=== PATIENT | female | born 1995 | race Caucasian/White ===

== ENCOUNTER 2023-12-11 20:04 | Outpatient (REF) | payer OTHER, SELFPAY ==
[2023-12-14 17:11] LABS: Age Gdln ACOG Testing Note (.); IGP, rfx Aptima HPV ASCU Note (.)
== END 2023-12-11 20:05 | disposition home or self-care (01) ==
LOC: LAB 20:04
PROVIDERS: Visit Provider Obstetrics & Gynecology
DX: Z01.419 Encounter for gynecological examination (general) (routine) without abnormal findings (principal)
CPT/HCPCS: 88175

== ENCOUNTER 2023-12-18 08:22 | Outpatient (OUT) | payer OTHER, SELFPAY ==
--- NOTE | 2023-12-18 08:24 | US_ITS ---
[address] [address] Patient Name: SUNNI GOMEZ MRN: [id number] date: 1995 Sex: F Assigned Patient Location: [facility] Current Patient Location: Accession/Order Number: [id number] Exam Date: 12/18/2023 08:24 Report Date: 12/19/2023 06:54 At the request of: DELFINO JOHNS Procedure: US pelvis w/ transvaginal EXAMINATION: US pelvis w/ transvaginal HISTORY: PELVIC PAIN COMPARISON: No relevant comparison available. TECHNIQUE: Transabdominal and/or transvaginal sonographic examination was performed as indicated by examination type. FINDINGS: UTERUS: Normal size and appearance. Uterus size: 9.5 x 4.3 x 6.0 cm ENDOMETRIUM: Normal homogeneous appearance. Endometrial thickness: 6 mm RIGHT OVARY: Normal size and appearance. Color Doppler suggests blood flow within the ovary. . Ovary size: 2.0 x 1.5 x 2.0 cm LEFT OVARY: Normal size and appearance. Color Doppler suggests blood flow within the ovary. . Ovary size: 1.7 x 1.3 x 1.8 cm CUL-DE-SAC: Unremarkable. No significant free fluid. BLADDER: Unremarkable. OTHER: None. US/US pelvis w/ transvaginal IMPRESSION: 1. Unremarkable uterus. 2. No appreciable abnormality of the ovaries. Duplex Doppler could not be obtained and color evaluation for blood flow within the ovary was very limited due to patient body habitus. Electronically authenticated by: PERLA GRADY Date: 12/19/2023 06:54
--- OUTSIDE RECORDS SUMMARY | 2023-12-18 08:25 | XMS_ITS | CCD ---
Author Organization [facility] Care Team Providers Care Apprenticeship Consultant Name Role Phone Good Gonzalez Primary Care Provider [phone] LISE ., DR VERMA Admitting Unavailabl e KARASIK ., DR VERMA Consulting Unavailabl e KARASIK ., DR VERMA Attending Unavailabl e REQUEST, DR NOBLES LISTED Primary Care Unavaila ble JOHANA ., DR SALEH Consulting Unavailable JOHANA ., DR SALEH Procedure Practitioner Unavail able Schlachter WARDROBE CUSTODIAN-FLOOR COVERING PRINTER ASSISTANT, Ronni Primary Care Provide r KARTIK, RONNI Primary Care Unavailable YULI OJEDA Attending Unavailable YULI OJEDA Attending Unavailable YULI OJEDA Referring Unavailable SCHLACHTER, RONNI Primary Care Unavailable NIVIA NORRIS Referring Un available SCHLACHTER, RONNI Primary Care Unavailable SCHLACHTER, RONNI Referring Unavailable SCHLACHTER, RONNI Primary Care Unavailable Unavailable Primary Care Provider Unavailolesya e RONNI PASCUAL Attending Unavailable SCHLACHTER, RONNI Referring Unavailable SCHLACHTER, RONNI Primary Care Unavailable NIVIA NORRIS Attending Un available SCHLACHTERRONNI Referring Unavailable SCHLACHTER, RONNI Primary Care Unavailable SCHLACHTER, RONNI Attending Unavailable SCHLACHTER, RONNI Referring Unavailable SCHLACHTER, RONNI Primary Care Unavailable CARRILLO ARAGON Attending Unavailable SCHLACHTER, RONNI Referring Unavailable SCHLACHTER, RONNI Primary Care Unavailable SCHLACHTER, RONNI Attending Unavailable SCHLACHTER, RONNI Referring Unavailable SCHLACHTER, RONNI Primary Care Unavailable SCHLACHTER, RONNI Attending Unavailable SCHLACHTER, RONNI Referring Unavailable SCHLACHTER, RONNI Primary Care Unavailable SCHLACHTER, RONNI Attending Unavailable SCHLACHTER, RONNI Referring Unavailable RONNI PASCUAL Primary Care Unavailable DELFINO VAUGHN Attending Unavailable DELFINO VAUGHN Attending Unavailable Allergies Allergy Classification Reported Allergen(s) Allergy Type Date of Onset Reaction(s) Facility (7 sources) Non-steroidal anti-inflammator y agent; Translations: [NSAIDS (NON-STEROIDAL ANTI-INFLAMMATOR Y DRUG)] Propensity to adverse reactions to drug 01-17-2023 [facility] Medications Current Medications Medication Drug Class(es) Dates Sig (Normalized) Sig (Original) cholecalciferol 0.05 mg oral capsule (4 sources) Vitamin D take 1 capsule by mouth in the morning cholecalciferol, vitamin D3, 2,000 units capsule Take 1 capsule (2,000 Units total) by mouth in the morning. Active cyclobenzaprine hydrochloride 10 mg oral tablet (2 sources) Muscle Relaxant Start: 01-31-2023 End: 05-07-2023 take 1 tablet by mouth three times daily as needed for muscle spasms cyclobenzaprine (FLEXERIL) 10 mg tablet Indications: Spinal stenosis of lumbar region with neurogenic claudication Take 1 tablet (10 mg total) by mouth 3 (three) times a day as needed for muscle spasms. 30 tablet 0 01/31/2023 05/07/2023 Discontinued desogestrel 0.15 mg / ethinyl estradiol 0.03 mg oral tablet (4 sources) Progestin, Estrogen Start: 11-26-2023 End: 11-25-2024 desogestrel-ethinyl estradiol (Apri) 0.15-30 MG-MCG tablet Indications: control counseling Take 1 tablet by mouth Daily 28 tablet 12 11/26/2023 11/25/2024 Active ferrous sulfate 325 mg oral tablet (4 sources) Start: 11-06-2022 take 1 tablet by mouth in the morning ferrous sulfate 325 (65 FE) mg tablet Take 1 tablet (325 mg total) by mouth in the morning. 30 tablet 3 11/06/2022 Active FLUoxetine 10 mg oral capsule (7 sources) Serotonin Reuptake Inhibitor Start: 12-05-2023 take 1 capsule by mouth in the morning FLUoxetine (PROzac) 10 mg capsule Take 1 capsule (10 mg total) by mouth in the morning. 90 capsule 1 12/05/2023 Active Start: 11-07-2023 End: 12-05-2023 take 1 capsule by mouth in the morning FLUoxetine (PROzac) 10 MG capsule Take 10 mg by mouth in the morning. 11/07/2023 Active 24 hr metFORMIN hydrochloride 500 mg extended release oral tablet (3 sources) Biguanide Start: 05-01-2023 take 1 tablet by mouth once daily at breakfast metFORMIN XR (GLUCOPHAGE XR) 500 mg 24 hr tablet Take 1 tablet (500 mg total) by mouth daily with breakfast. 90 tablet 3 05/01/2023 Active Completed/Discontinued Medications Medication Drug Class(es) Dates Sig (Normalized) Sig (Original) 0.8 ml adalimumab 50 mg/ml auto-injector (3 sources) Tumor Necrosis Factor Alisson Start: 09-29-2014 End: 12-30-2014 Adalimumab (HUMIRA PEN) 40 mg/0.8 mL pnkt To receive 80 mg on day one then 40 mg every 2 weeks subcutaneous. 2 Package 2 09/29/2014 12/30/2014 Discontinued Start: 04-18-2013 End: 09-27-2014 Adalimumab (HUMIRA PEN) 40 m g/0.8 mL pnkt Indications: Inflammatory bowel disease , Hematochezia Pt to receive 80 mg day 1 then 40 mg every 2 weeks there after 2 Kit 6 04/18/2013 09/27/2014 Discontinued Start: 09-26-2012 End: 09-29-2014 Adalimumab (HUMIRA PEN) 40 m g/0.8 mL PnKt Inject 40 mg SQ once every other week. 1 Kit 0 09/26/2012 09/29/2014 Discontinued Comment on above: Inject 40 mg SQ once every other week. Pt to receive 80 mg day 1 then 40 mg every 2 weeks there after To receive 80 mg on day one then 40 mg every 2 weeks subcutaneous. azaTHIOprine 50 mg oral tablet (1 source) Purine Antimetabolite Start: 013 take 3 tablets by mouth once daily at bedtime azaTHIOprine 50 mg tablet Indications: Inflammatory bowel disease , Crohn's disease (HCC) Take 3 tablets by mouth daily at bedtime. 90 tablet 1 09/13/2012 Active Comment on above: Take 3 tablets by mo uth daily at bedtime. balsalazide disodium 750 mg oral capsule (1 source) Aminosalicylate Start: 014 take 1 capsule by mouth twice daily balsalazide (COLAZAL) 750 mg capsule Take 1 capsule by mouth twice daily. 60 capsule 3 11/07/2013 Active Comment on above: Take 1 capsule by mo ut twice daily. dexamethasone 1 mg oral tablet (1 source) Corticosteroid Start: End: take 1 tablet by mouth once dexAMETHasone (DECADRON) 1 mg tablet Take 1 tablet (1 mg total) by mouth once for 1 dose. 1 tablet 0 03/29/2023 03/29/2023 famotidine 20 mg oral tablet (1 source) Histamine-2 Receptor Antagonist Start: End: take 1 tablet by mouth twice daily famotidine (PEPCID) 20 mg tablet Take 1 tablet by mouth twice daily. 60 tablet 3 09/05/2012 09/29/2014 Discontinued Comment on above: Take 1 tablet by [facility]. omeprazole 40 mg delayed release oral capsule (1 source) Proton Pump Inhibitor Start: take 1 capsule by mouth once daily before breakfast Omeprazole (PRILOSEC) 40 mg capsule Take 1 capsule by mouth daily before breakfast. 30 capsule 3 07/16/2012 Active Comment on above: Take 1 capsule by mo [facility] daily before breakfast. Problems Active Problems Problem Classification Problem Date Documented Date Episodic/Chronic Abdominal pain (5 sources) Abdominal pain; Translations: [Unspecified abdominal pain] Onset: 03-09-2011 03-09-2011 Episodic Anxiety disorders (3 sources) Anxiety disorder, unspecified; Translations: [Anxiety] Onset: 09-08-2020 12-05-2023 Chronic Mood disorders (2 sources) Major depressive disorder, single episode, unspecified; Translations: [Depressive disorder] Onset: 09-08-2020 12-05-2023 Chronic Mood disorders (1 source) Mood disorders; Translations: [Depression, unspecified] Onset: 12-05-2023 Nonspecific chest pain (3 sources) Chest pain, unspecified; Translations: [Chest pain] Onset: 07-11-2023 Episodic Nutritional deficiencies (2 sources) Vitamin D deficiency; Translations: [Vitamin D deficiency, unspecified] Onset: 05-07-2023 05-07-2023 Chronic Other complications of ; puerperium affecting management of mother (3 sources) Obesity complicating childbirth; Translations: [OBESITY COMPLICATING CHILDBIRTH] Onset: 08-30-2020 Chronic Other endocrine disorders (3 sources) Polycystic ovarian syndrome; Translations: [POLYCYSTIC OVARIAN SYNDROME] Onset: 09-08-2020 Chronic Other endocrine disorders (5 sources) Hyperinsulinism; Translations: [Other hypoglycemia] Onset: 03-29-2023 03-29-2023 Chronic Other endocrine disorders (6 sources) Polycystic ovary; Translations: [Polycystic ovarian syndrome] Onset: 03-29-2023 03-29-2023 Chronic Other endocrine disorders (1 source) Other hypoglycemia; Translations: [Other hypoglycemia] Onset: 03-29-2023 Chronic Other female genital disorders (1 source) Pain in female genitalia on intercourse; Translations: [Unspecified dyspareunia] 12-11-2023 Chronic Other nervous system disorders (1 source) Anesthesia of skin; Translations: [Anesthesia of skin] Onset: 12-05-2023 Episodic Other nervous system disorders (1 source) Paresthesia of skin; Translations: [Paresthesia of skin] Onset: 12-05-2023 Episodic Other nervous system disorders (1 source) Paresthesia of hand ; Translations: [Anesthesia of skin] 12-05-2023 Episodic Other nutritional; endocrine; and metabolic disorders (1 source) Morbid (severe) obesity due to excess calories; Translations: [MORBID SEVERE OBES D/T EXCESS CONSTANCE] Onset: 09-08-2020 Chronic Regional enteritis and ulcerative colitis (3 sources) Crohn's disease; Translations: [Crohn's disease, unspecified, with rectal bleeding] Onset: 05-30-2011 Chronic Spondylosis; intervertebral disc disorders; other back problems (4 sources) Prolapsed lumbar intervertebral disc; Translations: [Other intervertebral disc displacement, lumbar region] Onset: 12-22-2022 12-22-2022 Chronic Unclassified (1 source) CONTACT W/AND (SUSP) EXPOS COVID-19; Translations: [CONTACT W/AND (SUSP) EXPOS COVID-19] Onset: 09-08-2020 Unclassified (1 source) Annual Exam Onset: 11-07-2023 Unclassified (1 source) Endocrine Disorders Onset: 03-29-2023 Past or Other Problems Problem Classification Problem Date Documented Da te Episodic/Chronic Gastrointestinal hemorrhage (1 source) Blood-tinged feces; Translations: [Melena] Onset: 03-09-2011 03-09-2011 Episodic Genitourinary symptoms and ill-defined conditions (2 sources) Dysuria; Translations: [Dysuria] Onset: 07-26-2023 Episodic Noninfectious gastroenteritis (1 source) Inflammatory bowel disease; Translations: [Noninfective gastroenteritis and colitis, unspecified] Onset: 05-12-2011 05-12-2011 Episodic Nutritional deficiencies (2 sources) Cobalamin deficiency; Translations: [Deficiency of other specified B group vitamins] Onset: 05-07-2023 05-07-2023 Episodic Other complications of ; puerperium affecting management of mother (1 source) Diseases of the digestive system complicating childbirth; Translations: [DZ DIGESTIVE SYSTEM COMP CHILDBIRTH] Onset: 09-08-2020 Episodic Other complications of ; puerperium affecting management of mother (1 source) Endocrine, nutritional and metabolic diseases complicating childbirth; Translations: [ENDOCRN NUTR MET DZ COMP CHILDBIRTH] Onset: 09-08-2020 Episodic Other complications of ; puerperium affecting management of mother (1 source) Other mental disorders complicating childbirth; Translations: [OTH MENTAL D/O COMP CHILDBIRTH] Onset: 09-08-2020 Episodic Other gastrointestinal disorders (1 source) Diarrhea; Translations: [Diarrhea, unspecified] Onset: 03-09-2011 03-09-2011 Episodic Other and delivery including normal (1 source) Single live ; Translations: [SINGLE LIVE ] Onset: 09-08-2020 Episodic Residual codes; unclassified (1 source) 39 weeks gestation of ; Translations: [39 WEEKS GESTATION OF ] Onset: 09-08-2020 Episodic Residual codes; unclassified (1 source) Other specified personal risk factors, not elsewhere classified; Translations: [Other specified personal risk factors, not elsewhere classified] Onset: 07-26-2023 Episodic Spondylosis; intervertebral disc disorders; other back problems (4 sources) Spinal stenosis of lumbar region; Translations: [Spinal stenosis, lumbar region with neurogenic claudication] Onset: 11-23-2022 11-23-2022 Episodic Umbilical cord complication (1 source) Labor and delivery complicated by cord around neck, without compression, not applicable or unspecified; Translations: [L AND D COMP CORD NECK NO COMPRS NA/UNS] Onset: 09-08-2020 Episodic Unclassified (4 sources) Onset: 11-22-2022 Resolved: 12-05-2023 11-22-2022 Urinary tract infections (1 source) Urinary tract infectious disease Onset: 07-26-2023 Episodic Results Test Name Value Interpretation Reference Range Facility IGP,APTIMA HPV,AGE GDLNon AGE GDLN ACOG TESTING Note . [facility] Comment on above: TESTS RESULT FLAG U NITS REF RANGE LAB Clinician Provided Cytology Information Source.............Cervix;Endocervix No. of containers..01 ThinPrep Vial Age Algo ACOG Ximena... FLAG LEGEND: L-Low Normal,H-High Normal,LL-Alert Low,HH-Alert High <-Panic Low,>-Panic High,A-Abnormal,AA-Critical Abnormal Performed at: 01 =G [address] [address] Kristina Alba MD, IGP, RFX APTIMA HPV ASCU Note . [facility] Comment on above: TESTS RESULT FLAG U NITS REF RANGE LAB DIAGNOSIS: 02 NEGATIVE FOR INTRAEPITHELIAL LESION OR MALIGNANCY. Specimen adequacy: 02 Satisfactory for evaluation. Endocervical and/or squamous metaplastic cells (endocervical component) are present. Performed by: 02 Jeremy Black Lens Grinder Rough ([facility]) . 02 Note: Note 03 The Pap smear is a screening test designed to aid in the detection of premalignant and malignant conditions of the uterine cervix. It is not a diagnostic procedure and should not be used as the sole means of detecting cervical cancer. Both false-positive and false-negative reports do occur. Test Methodology: Note 03 This liquid based ThinPrep(R) pap test was screened with the use of an image guided system. . 02 The HPV DNA reflex criteria were not met with this specimen result therefore, no HPV testing was performed. FLAG LEGEND: L-Low Normal,H-High Normal,LL-Alert Low,HH-Alert High <-Panic Low,>-Panic High,A-Abnormal,AA-Critical Abnormal Performed at: 02 [facility] [address] [place] [address] Bipin Panda MD, 03 WB [facility] [address] [address] Kristina Alba MD, Performed at: = - [facility] [id number] Painting Instructor: Kirstina Alba MD, Phone: [phone] Performed at: [facility] [address] [place], [place] [id number] Painting Instructor: Bipin Panda MD, Phone: [phone] BRUSH-SPATULA CERVIX ENDOCERVIX [facility] URETHRITIS/DISCHARGE PLUS VA GINITIS (HTRX)on 11-29-2023 ATOPOBIUM VAGINAE 0.000 [facility] Healthcare ATOPOBIUM VAGINAE Not detected [facility] BVAB 2,3 (BACTERIAL VAGINOSIS ASSOCIATED BACTERIA 2, 3); MOBILUNCUS SPP 0.000 [facility] BVAB 2,3 (BACTERIAL VAGINOSIS ASSOCIATED BACTERIA 2, 3); MOBILUNCUS SPP Not detected [facility] RAY ALBICANS, PARAPSILOSIS, TROPICALIS 0.000 [facility] Healthcare RAY ALBICANS, PARAPSILOSIS, TROPICALIS Not detected [facility] RAY GLABRATA 0.000 [facility] RAY GLABRATA Not detected [facility] RAY KRUSEI 0.000 [facility] Healthcare RAY KRUSEI Not detected [facility] CHLAMYDIA TRACHOMATIS 0.000 [facility] CHLAMYDIA TRACHOMATIS Not detected N [facility] GARDNERELLA VAGINALIS 0.000 [facility] GARDNERELLA VAGINALIS Not detected N [facility] MEGASPHAERA (TYPES 1, 2) 0.000 [facility] MEGASPHAERA (TYPES 1, 2) Not detected [facility] MYCOPLASMA GENITALIUM 0.000 [facility] MYCOPLASMA GENITALIUM Not detected N [facility] NEISSERIA GONORRHOEAE 0.000 [facility] NEISSERIA GONORRHOEAE Not detected N [facility] TRICHOMONAS VAGINALIS 0.000 [facility] TRICHOMONAS VAGINALIS Not detected N [facility] URINALYSISon 07-26-2023 Bilirubin Ql (U) Negative Normal NEG [facility] Comment on above: Performed By: #### U A #### [facility] ([id number]) [address], [address] [place] [address] BLOOD/HGB Negative Normal NEG [facility] Comment on above: Performed By: #### U A #### [facility] ([id number]) [address], [address] [place] [address] Color (U) YELLOW Normal YELLOW [facility] Comment on above: Performed By: #### U A #### [facility] ([id number]) [address], [address] [place] [address] Glucose Ql (U) Negative Normal NEG [facility] Comment on above: Performed By: #### U A #### [facility] ([id number]) [address], [address] [place] [address] Ketones Ql (U) Negative Normal NEG [facility] Comment on above: Performed By: #### U A #### [facility] ([id number]) [address], [address] [place] [address] Leukocyte esterase Test strip Ql (U) Negative Normal NEG [facility] Comment on above: Performed By: #### U A #### [facility] ([id number]) [address], [address] [place] [address] MUCOUS PRESENT Abnormal NONE [facility] Comment on above: Performed By: #### U A #### [facility] ([id number]) [address], [address] [place] [address] Nitrite Ql (U) Negative Normal NEG [facility] Comment on above: Performed By: #### U A #### [facility] ([id number]) [address], [address] [place] [address] pH (U) 6.0 [pH] Normal 5.0-8.5 [facility] Comment on above: Performed By: #### U A #### [facility] ([id number]) [address], [address] [place] [address] Protein Ql (U) 30 mg/dL Abnormal NEG [facility] Comment on above: Performed By: #### U A #### [facility] ([id number]) [address], [address] [place] [address] R.B.CELLS 0 /hpf Normal 0-5 [facility] Comment on above: Performed By: #### U A #### [facility] ([id number]) [address], [address] [place] [address] Specific gravity (U) [Rel density] 1.033 Normal 1.003-1.035 [facility] Comment on above: Performed By: #### U A #### [facility] ([id number]) [address] [facility], [address] [place] [address] SQUAMOUS EPITHELIUM 22 /hpf High 0-5 [facility] Comment on above: Performed By: #### U A #### [facility] ([id number]) [address] [facility], [address] [address] TURBIDITY CLOUDY Abnormal CLEAR [facility] Comment on above: Performed By: #### U A #### [facility] ([id number]) [address] [facility], [address] [place] [address] Urobilinogen (U) [Mass/Vol] mg/dL Normal <1.1 [facility] Comment on above: Performed By: #### U A #### [facility] ([id number]) [address] [facility], [address] [address] W.B.CELLS 0 /hpf Normal 0-5 [facility] Comment on above: Performed By: #### U A #### [facility] ([id number]) [address] [address] URINE CULTUREon 07-26-2023 Bacteria identified Cx Nom (U) CULTURE RESULTS 50-100,000 ORGANISMS/ML NORMAL UROGENITAL DANNY Normal [facility] Comment on above: Performed By: #### 6 30-4 #### [facility] ([id number]) [address] [facility] [address] [place] [address] CBC AND AUTO DIFFon 07-11-19 ABSOLUTE BASOPHIL 0.1 X10E9/L Normal 0.0-0.2 [facility] Comment on above: Performed By: #### C BCA, CMP, 3040-3, 89021-8 #### [facility] ([id number]) [address] [place] [address] ABSOLUTE NEUTROPHIL 4.9 X10E9/L Normal 1.5-6.6 [facility] Comment on above: Performed By: #### C MORGAN, CMP, 3040-3, 47347-1 #### [facility] ([id number]) [address] [place] [address] Basophils/100 WBC (Bld) 0.7 % Normal [facility] Comment on above: Performed By: #### C MORGAN, CMP, 0-3, 90432-9 #### [facility] [place] ([id number]) [address] [place] [address] Eosinophils (Bld) [#/Vol] 0.1 10*3/uL Normal 0.0-0.4 [facility] Comment on above: Performed By: #### C MORGAN, CMP, 0-3, 23806-0 #### [facility] ([id number]) [address] [place] [address] Eosinophils/100 WBC (Bld) 0.9 % Normal [facility] Comment on above: Performed By: #### C BCA, CMP, 0-3, 99454-1 #### [facility] ([id number]) [address] [place] [address] Erythrocyte distribution width (RBC) [Ratio] 14.3 % Normal 11.5-15.0 [facility] Comment on above: Performed By: #### C BCA, CMP, 3040-3, 08884-9 #### [facility] ([id number]) [address] [place] [address] Hematocrit (Bld) [Volume fraction] 39.3 % Normal 35-47 [facility] Comment on above: Performed By: #### Leonid MORA, CMP, 0-3, 63596-7 #### [facility] ([id number]) [address] [place] [address] Hemoglobin (Bld) [Mass/Vol] 13.0 g/dL Normal 11.7-15.5 [facility] Comment on above: Performed By: #### C MORGAN CMP, 3040-3, 79129-8 #### [facility] ([id number]) [address] [place] [address] Lymphocytes (Bld) [#/Vol] 2.6 10*3/uL Normal 1.0-3.5 [facility] Comment on above: Performed By: #### C MORGAN CMP, 304-3, 79997-4 #### [facility] ([id number]) [address] [place] [address] Lymphocytes/100 WBC (Bld) 31.8 % Normal [facility] Comment on above: Performed By: #### C MORGAN, CMP, 3039-3, 16178-0 #### [facility] [place] ([id number]) [address] [place] [address] MCH (RBC) [Entitic mass] 26.2 pg Low 27-34 [facility] Comment on above: Performed By: #### Leonid MORA CMP, 3043, 32773-9 #### [facility] [place] ([id number]) [address] [place] [address] MCHC (RBC) [Mass/Vol] 33.1 g/dL Normal 32-36 [facility] Comment on above: Performed By: #### C MORGAN, CMP, 3040-3, 21362-1 #### [facility] [place] ([id number]) [address] [place] [address] MCV (RBC) [Entitic vol] 79 fL Low 80-100 [facility] Comment on above: Performed By: #### C MORGAN, CMP, 0-3, 23066-3 #### [facility] ([id number]) [address] [place] [address] Monocytes (Bld) [#/Vol] 0.6 10*3/uL Normal 0-0.9 [facility] Comment on above: Performed By: #### Leonid MORA, CMP, 0-3, 13511-3 #### [facility] [place] ([id number]) [address] [place] [address] Monocytes/100 WBC (Bld) 6.9 % Normal [facility] Comment on above: Performed By: #### Leonid MORA CMP, 3039-3, 01489-6 #### [facility] ([id number]) [address] [place] [address] Neutrophils/100 WBC (Bld) 59.7 % Normal [facility] Comment on above: Performed By: #### Leonid MORA, CMP, 3039-3, 37364-9 #### [facility] [place] ([id number]) [address] [place] [address] Platelet mean volume (Bld) [Entitic vol] 7.8 fL Normal 7-12 [facility] Comment on above: Performed By: #### Leonid MORA CMP, 3039-3, 69513-9 #### [facility] ([id number]) [address] [place] [address] Platelets (Bld) [#/Vol] 371 10*3/uL Normal 150-450 [facility] Comment on above: Performed By: #### Leonid MORA, CMP, 0-3, 97231-0 #### [facility] ([id number]) [address] [place] [address] RBC COUNT 4.97 X10E12/L Normal 3.80-5.20 [facility] Comment on above: Performed By: #### Leonid MORA CMP, 0-3, 75548-7 #### [facility] ([id number]) [address] [place] [address] WBC (Bld) [#/Vol] 8.1 10*3/uL Normal 4.0-11.0 [facility] [facility] Comment on above: Performed By: #### C BCA, CMP, 3040-3, 68654-9 #### [facility] ([id number]) [address] [place] [address] 55027 COMPREHENSIVE METABOLIC PANE [facility] 07-11-2023 Albumin [Mass/Vol] 3.8 g/dL Normal 3.2-5.3 [facility] Comment on above: Performed By: #### C BCA, CMP, 3040-3, 60375-7 #### [facility] ([id number]) [address] [place] [address] 14896 ALP [Catalytic activity/Vol] 57 U/L Normal 39-130 [facility] Comment on above: Performed By: #### C BCA, CMP, 3040-3, 84607-9 #### [facility] ([id number]) [address] [place] [address] 32866 ALT [Catalytic activity/Vol] 41 U/L High 0-31 [facility] Comment on above: Performed By: #### C BCA, CMP, 3040-3, 39287-4 #### [facility] ([id number]) [address] [place] [address] 89067 Anion gap [Moles/Vol] 6 mmol/L Normal 5-15 [facility] Comment on above: Performed By: #### C BCA, CMP, 3040-3, 93195-9 #### [facility] ([id number]) [address] [place] [address] 39891 AST [Catalytic activity/Vol] 24 U/L Normal 0-41 [facility] Comment on above: Performed By: #### C BCA, CMP, 3040-3, 90294-1 #### [facility] ([id number]) [address] [place] [address] 12715 Bilirubin [Mass/Vol] 0.7 mg/dL Normal 0.3-1.2 [facility] Comment on above: Performed By: #### C BCA, CMP, 3040-3, 74937-6 #### [facility] ([id number]) [address] [place] [address] 58827 Calcium [Mass/Vol] 8.8 mg/dL Normal 8.5-10.5 [facility] Comment on above: Performed By: #### C BCA, CMP, 3040-3, 41919-4 #### [facility] ([id number]) [address] [place] [address] 43510 Chloride [Moles/Vol] 106 mmol/L Normal 98-109 [facility] Comment on above: Performed By: #### C MORGAN, CMP, 3040-3, 65601-2 #### [facility] ([id number]) [address] [place] [address] 58008 CO2 [Moles/Vol] 26 mmol/L Normal 22-32 [facility] Comment on above: Performed By: #### C BCA, CMP, 3040-3, 53071-9 #### [facility] ([id number]) [address] [place] [address] 56185 Creatinine [Mass/Vol] 0.64 mg/dL Normal 0.40-1.00 [facility] Comment on above: Result Comment: METH OD TRACEABLE TO IDMS STANDARD Performed By: #### C MORGAN, CMP, 3040-3, 15712-9 #### [facility] ([id number]) [address] [place] [address] 21286 eGFR (CKD-EPI) NON-RACE DEPENDENT >90 Normal >59 [facility] Comment on above: Result Comment: Reported eGFR is based on the CKD-EPI 2020 equation that does not use a race coefficient. Performed By: #### C PAULA MORA, 3040-3, 75879-4 #### [facility] ([id number]) [address] [place] [address] 12469 Glucose [Mass/Vol] 108 mg/dL High 65-99 [facility] Comment on above: Performed By: #### C PAULA MORA, 3040-3, 34344-1 #### [facility] ([id number]) [address] [place] [address] 30930 Potassium [Moles/Vol] 4.3 mmol/L Normal 3.5-5.0 [facility] Comment on above: Performed By: #### C PAULA MORA, 3040-3, 94230-4 #### [facility] ([id number]) [address] [place] [address] 65463 Protein [Mass/Vol] 7.0 g/dL Normal 6.0-8.0 [facility] Comment on above: Performed By: #### C PAULA MORA, 3040-3, 93460-8 #### [facility] ([id number]) [address] [place] [address] 37303 Sodium [Moles/Vol] 138 mmol/L Normal 134-146 [facility] Comment on above: Performed By: #### C PAULA MORA, 3040-3, 40268-8 #### [facility] ([id number]) [address] [place] [address] 92477 Urea nitrogen [Mass/Vol] 14 mg/dL Normal 5-23 [facility] Comment on above: Performed By: #### C PAULA MORA, 3040-3, 65824-2 #### [facility] ([id number]) [address] [place] [address] 46075 LIPASEon 07-11-2023 Lipase [Catalytic activity/Vol] 40 U/L Normal 17-40 [facility] Comment on above: Performed By: #### C BCA, CMP, 3040-3, 93991-8 #### [facility] ([id number]) [address] [place] [address] 03687 Troponin I.cardiac High sens itivity method [Mass/Vol]on 07-11-2023 1 HOUR TROP I, HIGH SENSITIVITY 3 ng/L Normal <16 [facility] Comment on above: Performed By: #### 2 842-3, 60231-3, 67270-9 #### [facility] ([id number]) [address], [address] [place] [address] #### ANDRST #### [facility] ([id number]) [address] [place] [address] 80873 TROPONIN I, HIGH SENSITIVITY <2 Normal <16 [facility] Comment on above: Performed By: #### C MORGAN, CMP, 3040-3, 07457-9 #### [facility] ([id number]) [address] [place] [address] 31795 XR CHEST 1 VWon 07-11-2023 XR CHEST 1 VW XR CHEST 1 VW Portable chest: HISTORY: Chest pain. Single view of the chest was obtained. Cardiac and mediastinal contours are within normal limits. Lungs are clear. There is no pneumothorax, effusion, or focal consolidation. Osseous structures appear intact. IMPRESSION: No acute findings. Finalized by Oliver Lo MD on 07/11/2023 7:11 PM Normal [facility] 17-Hydroxyprogesterone [Mass /Vol]on 03-30-2023 17 HYDROXYPROGEST 21.28 ng/dL Normal <=206.00 [facility] Comment on above: Result Comment: NOTE INTERPRETIVE INFORMATION for 17-Hydroxyprogesterone in females: Follicular 15 to 70 ng/dL Luteal 35 to 290 ng/dL REFERENCE INTERVAL: 17-Hydroxyprogesterone Qnt, HPLC-MS/MS Access complete set of age- and/or gender-specific reference intervals for this test in the [facility] Test Directory ([employer]). This test was developed and its performance characteristics determined by [facility]. It has not been cleared or approved by the US Food and Drug Administration. This test was performed in a CLIA certified laboratory and is intended for clinical purposes. Performed By: [facility] [address] [place] [address] 56140 Tube Mill Operator: Good Grijalva MD, PhD CLIA Number: [id number] Performed By: #### 1 668-3 #### [facility] ([id number]) [address] [place] [address] 39227 ANDROSTENEDIONEon 03-30-2023 ANDROSTENEDIONE 0.745 ng/mL Normal 0.260-2.140 [facility] Comment on above: Result Comment: NOTE INTERPRETIVE INFORMATION: Androstenedione, Females 18 years and older Post-menopausal: 0.13-0.82 ng/mL REFERENCE INTERVAL: Androstenedione by TMS Access complete set of age- and/or gender-specific reference intervals for this test in the [facility] Test Directory ([employer]). This test was developed and its performance characteristics determined by [facility]. It has not been cleared or approved by the US Food and Drug Administration. This test was performed in a CLIA certified laboratory and is intended for clinical purposes. Performed By: [facility] [address] [place] [address] 13005 T[employer] Mill Operator: Good Grijalva MD, PhD CLIA Number: [id number] Performed By: #### 2 842-3, 86233-9, 78232-9 #### [facility] ([id number]) [address] [place] [address], [address] [place] [address] #### ANDRST #### [facility] ([id number]) [address] [place] [address] 87336 Follitropin Qnon 03-30-2023 FOLLICLE STIM HORMONE 2.0 mIU/mL Normal [facility] Comment on above: Result Comment: NORMAL FEMALE Luteal 1.8-5.1 mIU/mL Follicular 3.8-8.8 mIU/mL Mid Cycle 4.5-22.5 mIU/mL Post Tracie 16.7-113.6 mIU/mL Performed By: #### 2 842-3, 03474-0, 74826-3 #### [facility] ([id number]) [address], [address] [place] [address] #### ANDRST #### [facility] ([id number]) [address] [place] [address] 52959 HGB A1C (GLYCO-HGB)on 2023 Glucose [Mass/Vol] 94 mg/dL Normal [facility] Comment on above: Performed By: #### 2 842-3, 19522-1, 88718-7 #### [facility] ([id number]) [address], [address] [place] [address] #### ANDRST #### [facility] ([id number]) [address] [place] [address] 38540 HbA1c (Bld) [Mass fraction] 4.9 % Normal 4.4-5.6 [facility] Comment on above: Result Comment: NOTE ADA Guidelines Result HgbA1c Normal : less than 5.7 % Prediabetes : 5.7 % to 6.4 % Diabetes : > 6.4 % Use with caution in patients with abnormal hemoglobin variants as the half-life of red blood cells and in vivo glycation rates are affected. Performed By: #### 2 842-3, 26256-9, 34344-3 #### [facility] ([id number]) [address], [address] [place] [address] #### ANDRST #### [facility] ([id number]) [address] [place] [address] 32987 Lutropin Qnon 03-30-2023 LUTEINIZING HORMONE 4.6 mIU/mL Normal [facility] Comment on above: Result Comment: NORMAL FEMALE Follicular 2.1-10.9 mIU/mL Mid Cycle 19.2-103 mIU/mL Luteal 1.2-12.9 mIU/mL Post Tracie 10.9-58.6 mIU/mL Performed By: #### 2 842-3, 04781-4, 95152-6 #### [facility] ([id number]) [address] [place] [address], [facility] [address] [place] [address] #### ANDRST #### [facility] [place] ([id number]) [address] [place] [address] 14496 Prolactin [Mass/Vol]on 03-30 PROLACTIN 10.6 ng/mL Normal 3.3-26.7 [facility] Comment on above: Performed By: #### 2 842-3, 96441-6, 60932-5 #### [facility] ([id number]) [address] [place] [address], [facility] [address] [place] [address] #### ANDRST #### [facility] ([id number]) [address] [place] [address] 91848 Vital Signs Date Time Vital Sign Value Performing Clinician Facility 12-11-2023 13:18-0400 Body mass index (BMI) [Ratio] 40.91 kg/m2 [employer] Work Phone: [facility] 12-11-2023 13:18-0400 Body weight 125.65 kg Delfino Johana DO Work Phone: [facility] 12-11-2023 13:18-0400 Diastolic blood pressure 76 mm[Hg] Delfino Johana DO Work Phone: [facility] 12-11-2023 13:18-0400 Systolic blood pressure 118 mm[Hg] Delfino Johana DO Work Phone: [facility] 05-07-2023 08:02-0400 Body mass index (BMI) [Ratio] 42.07 kg/m2 Ronni Waldronrachaelchter WARDROBE CUSTODIAN-FLOOR COVERING PRINTER ASSISTANT Work Phone: [facility] 05-07-2023 08:02-0400 Body weight 129.28 kg Ronni Schrachaelchter WARDROBE CUSTODIAN-FLOOR COVERING PRINTER ASSISTANT Work Phone: [facility] 05-07-2023 08:02-0400 Diastolic blood pressure 76 mm[Hg] Ronni Ozunaer WARDROBE CUSTODIAN-FLOOR COVERING PRINTER ASSISTANT Work Phone: [facility] 05-07-2023 08:02-0400 Heart rate 88 /min Ronni Laither WARDROBE CUSTODIAN-FLOOR COVERING PRINTER ASSISTANT Work Phone: [facility] 05-07-2023 08:02-0400 Respiratory rate 16 /min Ronni Chaychter WARDROBE CUSTODIAN-FLOOR COVERING PRINTER ASSISTANT Work Phone: [facility] 05-07-2023 08:02-0400 SaO2% (BldA) [Mass fraction] 98 % Ronni Cartwrightchter WARDROBE CUSTODIAN-FLOOR COVERING PRINTER ASSISTANT Work Phone: [facility] 05-07-2023 08:02-0400 Systolic blood pressure 128 mm[Hg] Ronni Pascual WARDROBE CUSTODIAN-FLOOR COVERING PRINTER ASSISTANT Work Phone: [facility] 03-29-2023 16:31-0500 Body mass index (BMI) [Ratio] 42.81 kg/m2 Nivia Roach MD Work Phone: [facility] 03-29-2023 16:31-0500 Body weight 131.54 kg Nivia Roach MD Work Phone: [employer] 03-29-2023 16:31-0500 Diastolic blood pressure 74 mm[Hg] [facility] 03-29-2023 16:31-0500 Heart rate 74 /min Nivia Roach MD [facility] 03-29-2023 16:31-0500 Systolic blood pressure 128 mm[Hg] [facility] Encounter Date Encounter Type Care Provider Facility Start: 12-11-2023 End: 12-11-2023 Bamboo flowsheet Delfino Johana DO Work Phone: [facility] Start: 12-11-2023 End: 12-14-2023 Bamboo flowsheet Delfino Johana DO Work Phone: [facility] Start: 12-11-2023 End: 12-14-2023 Clinisync Result Encounter Delfino Johana DO Work Phone: [facility] Unsolicited Start: 12-11-2023 End: 12-11-2023 ambulatory DELFINO JOHANA Not Available Start: 12-11-2023 End: 12-11-2023 Patient encounter procedure Delfino Johana DO Work Phone: [facility] Start: 12-11-2023 End: 12-11-2023 Periodic preventive med est patient 18-39 yrs Delfino Johana DO Work Phone: [facility] Comment on above: Well woman exam with routine gynecological exam; Preoperative examination; Pelvic pain in female; Dyspareunia in female Start: 12-11-2023 End: 12-11-2023 Preprocedural examination done Delfino Johana DO Work Phone: [facility] Start: 12-05-2023 End: 12-05-2023 Refill Ronni Pascual WARDROBE CUSTODIAN-FLOOR COVERING PRINTER ASSISTANT Work Phone: [facility] Start: 12-05-2023 End: 12-05-2023 ambulatory [facility] Start: 12-05-2023 End: 12-05-2023 Office outpatient visit 15 minutes Ronni Pascual WARDROBE CUSTODIAN-FLOOR COVERING PRINTER ASSISTANT Work Phone: [facility] Comment on above: Anxiety (Primary Dx) ; Depression, unspecified depression type; Numbness and tingling in right hand Start: 11-26-2023 End: 11-26-2023 ambulatory DELFINO VAUGHN Not Available Start: 11-26-2023 End: 11-29-2023 External Result Encounter Delfino Padillao DO Work Phone: [facility] Unsolicited Start: 11-26-2023 End: 11-29-2023 External Result Encounter Delfino Padillao DO Work Phone: [facility] Unsolicited Start: 11-07-2023 End: 11-07-2023 ambulatory [facility] Start: 11-07-2023 Encounter for genera l adult medical examination without abnormal findings [facility] Start: 08-23-2023 End: 08-23-2023 ambulatory [facility] Start: 07-26-2023 End: 07-27-2023 ambulatory [facility] Start: 07-26-2023 End: 07-26-2023 ambulatory [facility] Start: 07-11-2023 End: 07-12-2023 Emergency department patient [facility] Start: 05-07-2023 End: 05-07-2023 Office outpatient visit 15 minutes Ronni Pascual WARDROBE CUSTODIAN-FLOOR COVERING PRINTER ASSISTANT Work Phone: [facility] Comment on above: Polycystic ovaries ( Primary Dx); Vitamin B12 deficiency; Vitamin D deficiency Start: 05-07-2023 End: 05-07-2023 ambulatory [facility] Start: 03-30-2023 End: 03-31-2023 ambulatory NIVIA ROACH [facility] Start: 03-29-2023 End: 03-29-2023 Office outpatient new 45 minutes Nivia Roach MD Work Phone: [facility] Comment on above: Polycystic ovaries ( Primary Dx); Hyperinsulinism Start: 03-29-2023 End: 03-29-2023 ambulatory [facility]i EDOUARD [facility] Start: 03-15-2023 End: 03-15-2023 ambulatory CARRILLO ARAGON [facility] Start: 08-30-2020 End: 08-31-2020 Evaluation and management of inpatient DR LUCI LEZAMA . Facility: Start: 09-27-2014 End: 09-27-2014 Refill Joey Rojo MD Work Phone: [facility] Comment on above: Refill Request Procedures Date Procedure Procedure Detail Performing Clinician Start: 12-11-2023 IGP,APTIMA HPV,AGE GDLN Delfino Johana DO Work Phone: Start: 11-26-2023 URETHRITIS/DISCHARGE PLUS VAGINITIS (HTRX) Delfino Johana DO Work Phone: Start: 08-23-2023 Follow-up visit Follow-up RONNI PASCUAL Start: 08-30-2020 Delivery of Products of Conception, External Approach DR LUCI LEZAMA . Start: 08-30-2020 Drainage of Amniotic Fluid, Therapeutic from Products of Conception, Via Natural or Artificial Opening DR LUCI LEZAMA . Start: 08-30-2020 Introduction of Othe r Hormone into Peripheral Vein, Percutaneous Approach DR LUCI LEZAMA . Start: 01-05-2020 Microscopic observat ion [Identifier] in Cervix by Cyto stain Nivia Roach MD Work Phone: Start: 06-24-2018 Colonoscopy Nivia Roach MD Work Phone: Plan of Treatment Date Care Activity Detail Author Start: 11-06-2024 Adult BMI Follow Up Plan Adult BMI Follow Up Plan [facility] Start: 11-06-2024 Adult BMI Screening Adult BMI Screening [facility] Start: 11-06-2024 Tobacco Screening Tobacco Screening [facility] Start: 05-06-2024 Adult BMI Screening Adult BMI Screening [facility] Start: 05-06-2024 Tobacco Screening Tobacco Screening [facility] Start: 03-29-2024 Adult BMI Screening Adult BMI Screening [facility] Start: 03-29-2024 Tobacco Screening Tobacco Screening [facility] Start: 12-27-2023 End: 12-27-2023 Patient encounter procedure 12/27/2023 10:30 AM EDT Procedure Visit [facility] [address] [place] [address] Vel Jolly MD [address] [place], [place] [id number] [facility] Start: 12-24-2023 End: 12-24-2023 Patient encounter procedure 12/24/2023 3:10 PM EDT Office Visit [facility] [address] [place] [id number] Delfino Vaughn, DO [address] [place], [place] [id number] [facility] Start: 12-18-2023 End: 12-18-2023 Patient encounter procedure 12/18/2023 9:30 AM EDT Procedure Visit [facility] [address] [place] [phone] Delfino Vaughn, DO [address] [place], [place] [id number] [facility] Start: 12-18-2023 End: 12-18-2023 Professional / ancillary services management 12/18/2023 8:30 AM EDT Ancillary Procedure [facility] [address] [place] [address] [facility] Start: 12-11-2023 End: 12-11-2023 Patient encounter procedure 12/11/2023 1:00 PM EDT Consult [facility] [address] [place] [address] Delfino Vaughn DO [address] [place] [address] [facility] Start: 11-23-2023 Adult BMI Follow Up Plan Adult BMI Follow Up Plan [facility] Start: 11-07-2023 End: 11-07-2023 Patient encounter procedure 11/07/2023 8:00 AM EDT Office Visit [facility] [address] [place] [id number] Ronni Pascual, [facility] [address] [place] [address] [facility] Start: 10-28-2023 Influenza vaccination Influenza Vaccine [facility] Start: 07-17-2023 End: 07-17-2023 Patient encounter procedure 07/17/2023 3:30 PM EDT Office Visit [facility] [address] [place] [address] Nivia Norris MD [address] [place] [address] [facility] Start: 06-25-2023 Screening for malignant neoplasm of colon Colonoscopy [facility] Start: 04-05-2023 End: 03-29-2024 Cortisol Cortisol Lab Routine Polycystic ovaries Expected: 04/05/2023, Expires: 03/29/2024 [facility] Comment on above: Expected: 04/05/2023, Expires: Start: 01-04-2023 Screening for malignant neoplasm of cervix Pap Smear [facility] Start: 10-27-2022 Influenza vaccination Influenza Vaccine [facility] Start: 10-27-2020 Influenza vaccination INFLUENZA (Season Ended) [facility] Start: 05-18-2016 PAP TESTING PAP TESTING [facility] Start: 05-18-2014 Urine microalbumin profile DTAP,TDAP,TD (1 - Tdap) [facility] Start: 05-18-2013 HEPATITIS C SCREENING HEPATITIS C SCREENING [facility] Start: 05-18-2013 HIV SCREENING HIV SCREENING [facility] Start: 2007 Adult depression screening assessment DEPRESSION SCREENING [facility] Start: 05-18-2006 DTaP,Tdap and Td Vaccines (6 - Tdap) DTaP,Tdap and Td Vaccines (6 - Tdap) [facility] Start: 05-18-2006 HPV VACCINE (1 - 2-dose series) HPV VACCINE (1 - 2-dose series) [facility] End: 03-29-2024 17 Hydroxyprogesterone 17 Hydroxyprogesterone Lab Routine Polycystic ovaries 1 Occurrences starting 03/29/2023 until 03/29/2024 [facility] [employer] Comment on above: 1 Occurrences starting 03/29/2023 until 03/29/2024 End: 03-29-2024 Androstenedione Androstenedione Lab Routine Polycystic ovaries 1 Occurrences starting 03/29/2023 until 03/29/2024 [employer] Work Phone: Comment on above: 1 Occurrences starting 03/29/2023 until 03/29/2024 Cytology Cervical or vaginal smear or scraping study Pap Smear Pathology and Cytology Routine Well woman exam with routine gynecological exam Ordered: 12/11/2023 [facility] [employer] Work Phone: Comment on above: Ordered: 12/11/2023 End: 03-29-2024 Follicle stimulating hormone Follicle stimulating hormone Lab Routine Polycystic ovaries 1 Occurrences starting 03/29/2023 until 03/29/2024 [facility] Comment on above: 1 Occurrences starting 03/29/2023 until 03/29/2024 End: 03-29-2024 Hemoglobin A1c/Hemoglobin.total in Blood Hemoglobin A1c Lab Routine Polycystic ovaries 1 Occurrences starting 03/29/2023 until 03/29/2024 [facility] [employer] Comment on above: 1 Occurrences starting 03/29/2023 until 03/29/2024 End: 03-29-2024 Luteinizing hormone Luteinizing hormone Lab Routine Polycystic ovaries 1 Occurrences starting 03/29/2023 until 03/29/2024 [employer] Comment on above: 1 Occurrences starting 03/29/2023 until 03/29/2024 End: 03-29-2024 Prolactin Prolactin Lab Routine Polycystic ovaries 1 Occurrences starting 03/29/2023 until 03/29/2024 [employer] Comment on above: 1 Occurrences starting 03/29/2023 until 03/29/2024 Payers Date Payer Category Payer Medicaid [employer] [facility] [id number] 2023-Present [phone] [address] [place] [address] [id number] 2023 Medicaid [id number] 2021 Private Health Insurance [employer] [id number] 2017 Unknown [id number] [id number]. [id number] 2014 Private Health Insurance [employer] [id number] 2014-Present PPO [id number] 1.2.840.381393.1.13.159.2. [id number] 1995 Unknown [id number] 2.16.840.1.461001.3.579.2. 593 1995 Unknown [id number] 2.16.840.1.013928.3.579.2. 1286 1995 Unknown [id number] 2.16.840.1.419039.3.579.2. 128 1995 Unknown [id number] 2.16.840.1.028940.3.579.2. 1285 1995 Unknown [id number] 2.16.840.1.851314.3.579.2. 1285 1995 Unknown [id number] 2.16.840.1.853065.3.579.2. 1285 1995 Unknown [id number] 2.16.840.1.555225.3.579.2. 1285 1995 Unknown [id number] 2.16.840.1.954366.3.579.2. 1285 1995 Unknown [id number] 2.16.840.1.592698.3.579.2. 1285 1995 Unknown [id number] 2.16.840.1.495166.3.579.2. 1285 1995 Unknown [id number] 2.16.840.1.481648.3.579.2. 1285 1995 Unknown [id number] 2.16.840.1.127968.3.579.2. 1285 1995 Unknown [id number] 2.16.840.1.457138.3.579.2. 1258 1995 Unknown [id number] 2.16.840.1.344584.3.579.2. 1259 1959 Unknown [id number] 1959 Unknown [id number] 1959 Unknown [id number] Social History Date Type Detail Facility Start: 07-16-2012 End: 12-11-2023 Tobacco smoking status AZIS Never smoker [facility] Start: 07-16-2012 Alcohol intake Not Asked [facility] Start: 1995 Sex Assigned At Not on file [facility] Start: 10-19-2022 End: 12-11-2023 Tobacco use and exposure Smokeless tobacco non-user [facility] Start: 03-29-2023 End: 11-07-2023 Alcohol intake Current non-drinker of alcohol (finding) [facility] [facility] Start: 06-03-2018 End: 12-11-2023 History of Social function [facility] Start: 06-03-2018 End: 12-11-2023 Alcohol Use Disorder Identification Test - Consumption [AUDIT-C] [facility] Frequency of Alcohol Consumption Never [facility] Start: 11-26-2023 End: 12-11-2023 Alcoholic beverage intake Lifetime non-drinker (finding) [facility] Start: 10-20-2022 Alcohol Comment Caffeine: 1-2 cups/day [facility] How hard is it for y ou to pay for the very basics like food, housing, medical care, and heating Somewhat hard [facility] Clinical Notes 03-29-2023 to 12-11-2023 Zoe Reddy - 12/11/2023 1:00 PM ARSLAN Sr - 12/05/2023 9:00 AM ARSLAN Sr - 05/07/2023 8:00 AM EDT Note Date & Type Note Facility 12-11-2023 History of Present illness Narrative Reason for Appointment: Patient ID: Yeimy Ramesh is a 28 y.o. female who presents for Well Women Visit and Pre-op Visit Patient presents today for Pre Op/Annual appointment. Patient is scheduled to undergo Diagnostic Laparoscopy, possible BALA, possible FOE, possible BSO on 01/04/[address] Vaughn at [facility]. MEDICATIONS Current Outpatient Medications Medication Instructions desogestrel-ethinyl estradiol (Apri) 0.15-30 MG-MCG tablet 1 tablet, Oral, Daily FLUoxetine (PROZAC) 10 mg, Oral, Daily RT ALLERGIES No Known Allergies PROBLEMS Active Ambulatory Problems Diagnosis Date Noted No Active Ambulatory Problems Resolved Ambulatory Problems Diagnosis Date Noted No Resolved Ambulatory Problems Past Medical History: Diagnosis Date Acne Bladder instability Cellulitis Crohn's disease (CMS/HCC) Dyshidrotic eczema Fatigue Folliculitis Gastritis History of being hospitalized 03/2018 Lower urinary tract infection Migraine ([facility]) MRSA (methicillin resistant Staphylococcus aureus) Night sweats Nocturnal enuresis Obesity Perianal abscess Thinning hair Vitamin D deficiency HISTORY PAST MEDICAL HISTORY SOCIAL HISTORY Past Medical History: Diagnosis Date Acne Bladder instability Cellulitis LLE and RLL Crohn's disease (CMS/HCC) Dyshidrotic eczema hands Fatigue Folliculitis Gastritis (H. Pylori infection) History of being hospitalized 03/2018 Natural Child Lower urinary tract infection Migraine (CMS/HCC) MRSA (methicillin resistant Staphylococcus aureus) Night sweats Nocturnal enuresis Obesity Perianal abscess Thinning hair Vitamin D deficiency Social History Tobacco Use Smoking status: Never Smokeless tobacco: Never Substance Use Topics Alcohol use: Never Comment: Caffeine: 1-2 cups/day Drug use: Never FAMILY HISTORY Family History Problem Relation Name Age of Onset Depression Mother Keira Migraines Mother Keira Migraines Sister Beverly Depression Sister Beverly Other (Epilepsy) Sister Beverly Diabetes Maternal Grandfather Johnny SURGICAL HISTORY Past Surgical History: Procedure Laterality Date COLONOSCOPY 05/04/2011 Ulcerated mucosa term ileum/[facility] COLONOSCOPY 01/2011 ?colitis COLONOSCOPY 05/2018 EGD 05/04/2011 Gastric erythema and duoden ulceration/[facility] [place] COLORECTAL CANCER SCREENING RESULTS DOC&REV 08/04/2015 Crohns involving terminal ileum/[facility] 01/31/2023 TONSILLECTOMY VAGINAL DELIVERY 08/30/2020 REVIEW OF SYSTEMS Review of Systems: Review of Systems Constitutional: Negative. HENT: Negative. Eyes: Negative. Respiratory: Negative. Cardiovascular: Negative. Gastrointestinal: Negative. Genitourinary: Positive for dyspareunia and pelvic pain. Musculoskeletal: Negative. Skin: Negative. Neurological: Negative. All other systems reviewed and are negative. Hematological: Negative. Endocrine: Negative. Allergic/Immunologic: Negative. OBJECTIVE Objective: Physical Exam Constitutional: Appearance: Normal appearance. She is well-developed. Genitourinary: Vulva normal. Breasts: Breasts are soft. Right: Normal. Left: Normal. Cardiovascular: Rate and Rhythm: Normal rate and regular rhythm. Pulmonary: Effort: Pulmonary effort is normal. Breath sounds: Normal breath sounds. Abdominal: General: Bowel sounds are normal. There is no distension. Palpations: Abdomen is soft. Tenderness: There is no abdominal tenderness. There is no guarding or rebound. Musculoskeletal: General: No swelling. Normal range of motion. Right lower leg: No edema. Left lower leg: No edema. Neurological: Mental Status: She is alert and oriented to person, place, and time. Skin: General: Skin is warm and dry. Psychiatric: Mood and Affect: Mood normal. Behavior: Behavior normal. Vitals and nursing note reviewed. Exam conducted with a film touch up inspector present. Vitals: Estimated body mass index is 40.91 kg/m as calculated from the following: Height as of 24: 5' 9 . Weight as of this encounter: 277 lb. BP: 118/76 No LMP recorded. Patient has had an implant. ASSESSMENT & PLAN ICD-10-CM 1. Well woman exam with routine gynecological exam Z01.419 Pap Smear 2. Preoperative examination Z01.818 3. Pelvic pain in female R10.2 4. Dyspareunia in female N94.10 Annual: Patient presents today for an annual exam. Patient states she is doing well and has complaints of pelvic pain and dyspareunia. Pap was obtained without difficulty. Pre Op: Patient is doing well but has complaints of pelvic pain. I have discussed conservative management vs. surgical management with the patient in detail and patient desires surgical management at this time. Patient will undergo Diagnostic Laparoscopy, possible BALA, possible FOE, possible BSO on 01/04/2024. Surgical consents were signed, mmc was reviewed, and patient is to proceed to [facility] OR. Follow Up: Patient is to follow up between 1-2 weeks post operative to assess proper healing and recovery from procedure. Documented by Bety Burns LPN on behalf of: Delfino Vaughn DO documented in this encounter [facility] 12-05-2023 History of Present illness Narrative Images from the original note were not included. [address] [facility] [id number] SUBJECTIVE: Patient ID: Yeimy Ramesh is a 28 y.o. female. Video Visit via Real-time Synchronous Audiovisual Provider Location: [facility] [address] [facility] [id number] Patient Location: work Video Visit Consent Statement: I discussed risks, benefits, and alternatives of a real-time synchronous audiovisual consultation with the patient (and any accompanying persons) including the risks that the patient's personal health details and medical records will be discussed over real-time, synchronous, interactive video/audio/telecommunication technology, the visit will not be recorded without the express consent of both the provider and the patient, and that there are some limitations compared to [id number] evaluations. The patient consented to the presence of additional virtual and/or in-person participants. We elected to proceed.Video Visit via Real-time Synchronous Audiovisual Provider Location: [facility] [address] [facility] [id number] Patient Location: work Video Visit Consent Statement: I discussed risks, benefits, and alternatives of a real-time synchronous audiovisual consultation with the patient (and any accompanying persons) including the risks that the patient's personal health details and medical records will be discussed over real-time, synchronous, interactive video/audio/telecommunication technology, the visit will not be recorded without the express consent of both the provider and the patient, and that there are some limitations compared to [id number] evaluations. The patient consented to the presence of additional virtual and/or in-person participants. We elected to proceed. Patient presents to the office by video visit for recheck of anxiety and depression. She is doing well on the prozac and would like to stay in this dosage. 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 Will get EMG to rule out carpal tunnel. The following portions of the patient's history were reviewed and updated as appropriate: allergies, current medications, past family history, past medical history, past social history, past surgical history and problem list. REVIEW OF SYSTEMS: Review of Systems Constitutional: Negative for fatigue, fever and unexpected weight change. HENT: Negative for congestion, ear pain, sinus pressure, sinus pain and sore throat. Eyes: Negative for photophobia, pain, discharge and visual disturbance. Respiratory: Negative for cough and shortness of breath. Cardiovascular: Negative for chest pain, palpitations and leg swelling. Gastrointestinal: Negative for abdominal pain, diarrhea, nausea and vomiting. Endocrine: Negative for polydipsia, polyphagia and polyuria. Genitourinary: Negative for difficulty urinating, frequency, hematuria and urgency. Musculoskeletal: Negative for arthralgias, gait problem, joint swelling and neck pain. Numbness right hand and pain Skin: Negative for pallor and rash. Neurological: Negative for dizziness, weakness, light-headedness and numbness. Psychiatric/Behavioral: Negative for sleep disturbance. The patient is nervous/anxious. PHYSICAL EXAMINATION: There were no vitals filed for this visit. Physical Exam Constitutional: Appearance: She is well-developed. Neurological: Mental Status: She is alert and oriented to person, place, and time. Psychiatric: Mood and Affect: Mood normal. ASSESSMENT/PLAN: Diagnoses and all orders for this visit: Anxiety Depression, unspecified depression type Numbness and tingling in right hand - Ambulatory referral to Neurology (Non-[facility]); Future Other orders - FLUoxetine (PROzac) 10 mg capsule; Take 1 capsule (10 mg total) by mouth in the morning. Follow-up: Refilled prozac 10mg daily Referral neurology- emg Will call with results Follow up in six months Total time taken 25 min Patient noted to have elevated BMI and the following intervention(s) were applied: encouragement to exercise. ARSLAN Ghotra 12/05/23917 documented in this encounter [employer] 05-07-2023 History of Present illness Narrative Images from the original note were not included. [address] [facility] [id number] SUBJECTIVE: Patient ID: Yeimy Ramesh is a 27 y.o. female. -Patient here to follow up after seeing endocrinology and was started on metformin 5 weeks ago. Patient states they are having a hard time getting their metformin XR and has not had a chance to pick it up. Patient states they have no symptoms today except for being fatigued. Patient will pick out hand medication later today. No other complaints at this time. No further weight gain noted. Patient does not relate to exercise and relates to eating more vegetables and limiting carbs.She still has fatigue. Will give her more time on supplements and with metformin and if it does not improve may need sleep study. Follow-up Associated symptoms include fatigue. Pertinent negatives include no abdominal pain, arthralgias, chest pain, congestion, coughing, fever, joint swelling, nausea, neck pain, numbness, rash, sore throat, vomiting or weakness. The following portions of the patient's history were reviewed and updated as appropriate: allergies, current medications, past family history, past medical history, past social history, past surgical history and problem list. REVIEW OF SYSTEMS: Review of Systems Constitutional: Positive for fatigue. Negative for fever and unexpected weight change. HENT: Negative for congestion, ear pain, sinus pressure, sinus pain and sore throat. Eyes: Negative for photophobia, pain, discharge and visual disturbance. Respiratory: Negative for cough and shortness of breath. Cardiovascular: Negative for chest pain, palpitations and leg swelling. Gastrointestinal: Negative for abdominal pain, diarrhea, nausea and vomiting. Endocrine: Negative for polydipsia, polyphagia and polyuria. Genitourinary: Negative for difficulty urinating, frequency, hematuria and urgency. Musculoskeletal: Negative for arthralgias, gait problem, joint swelling and neck pain. Skin: Negative for pallor and rash. Neurological: Negative for dizziness, weakness, light-headedness and numbness. Psychiatric/Behavioral: Negative for sleep disturbance. The patient is not nervous/anxious. PHYSICAL EXAMINATION: Vitals: 05/07/23 0802 BP: 128/76 Pulse: 88 Resp: 16 SpO2: 98% Weight: 129.3 kg (285 lb) Physical Exam Constitutional: Appearance: She is well-developed. HENT: Head: Normocephalic and atraumatic. Right Ear: Tympanic membrane, ear canal and external ear normal. Left Ear: Tympanic membrane, ear canal and external ear normal. Nose: Nose normal. Mouth/Throat: Mouth: Mucous membranes are moist. Pharynx: Oropharynx is clear. Eyes: Conjunctiva/sclera: Conjunctivae normal. Pupils: Pupils are equal, round, and reactive to light. Cardiovascular: Rate and Rhythm: Normal rate and regular rhythm. Heart sounds: Normal heart sounds. Pulmonary: Effort: Pulmonary effort is normal. Breath sounds: Normal breath sounds. Abdominal: General: Bowel sounds are normal. Palpations: Abdomen is soft. Musculoskeletal: General: Normal range of motion. Cervical back: Normal range of motion. Skin: General: Skin is warm and dry. Capillary Refill: Capillary refill takes less than 2 seconds. Neurological: General: No focal deficit present. Mental Status: She is alert and oriented to person, place, and time. Psychiatric: Mood and Affect: Mood normal. ASSESSMENT/PLAN: 1.) Continue diet and try to incorporate exercise. 2.) Patient to pick out hand medications and be compliant taking them 3.) Patient to return in 6 months Yeimy was seen today for follow-up. Diagnoses and all orders for this visit: Polycystic ovaries Vitamin B12 deficiency Vitamin D deficiency Follow-up: Cortisol level was not drawn with other labs, will have her get that done, printed order ARSLAN Ghotra 05/07/23 0834 documented in this encounter [facility] 03-29-2023 Evaluation + Plan note Associated Problem(s): Polycystic ovaries Mrs. Ramesh is a 27-year-old female with clinical picture consistent with polycystic ovaries and insulin resistance. We will obtain 17 hydroxyprogesterone to rule out nonclassical congenital adrenal hyperplasia low-dose dexamethasone suppression test to rule out cortisol excess as well as LH FSH prolactin DHEA-S androstenedione and hemoglobin A1c and patient will be notified about the results. We will start metformin ER 500 mg once daily if tolerated. Advised to watch her diet more carefully and exercise on a regular basis. Next follow-up will be in 3 months [facility] 03-29-2023 Miscellaneous Notes Associated Problem(s): Polycystic ovaries Mrs. Ramesh is a 27-year-old female with clinical picture consistent with polycystic ovaries and insulin resistance. We will obtain 17 hydroxyprogesterone to rule out nonclassical congenital adrenal hyperplasia low-dose dexamethasone suppression test to rule out cortisol excess as well as LH FSH prolactin DHEA-S androstenedione and hemoglobin A1c and patient will be notified about the results. We will start metformin ER 500 mg once daily if tolerated. Advised to watch her diet more carefully and exercise on a regular basis. Next follow-up will be in 3 months documented in this encounter [facility] 03-29-2023 History of Present illness Narrative New Patient Polycystic ovaries Yeimy Ramesh is a 27 y.o. female whom I am seeing in consultation today to evaluate the presence of hyperinsulinemia and PCOS. Patient reports amenorrhea for 7 years. On Nexplanon for 2 years. Has 3 children, no infertility. Interestingly enough, patient got while amenorrheic. Has chin, lower abdominal and lower back hirsutism. Also facial acne. Apparently tried metformin in the past which resulted in GI side effects. Denies purple striae, suazo facies, abnormal fat distribution, proximal muscle weakness, hyperglycemia, hypertension, easy bruising. Denies galactorrhea. Not watching her diet. Progressive weight gain the past 6 months, aprox 30 lbs. Not exercisng. Reports tiredness. Past Medical History: Diagnosis Date Anemia Crohn's colitis ([facility]-HCC) Crohn's disease ([facility]-HCC) Low back pain Lumbar disc herniation 01/17/2023 PCOS (polycystic ovarian syndrome) Wears glasses Current Outpatient Medications: cholecalciferol, vitamin D3, 2,000 units capsule, Take 1 capsule (2,000 Units total) by mouth in the morning., Disp: , Rfl: cyclobenzaprine (FLEXERIL) 10 mg tablet, Take 1 tablet (10 mg total) by mouth 3 (three) times a day as needed for muscle spasms. (Patient taking differently: Take 1 tablet (10 mg total) by mouth 3 (three) times a day as needed for muscle spasms. As needed), Disp: 30 tablet, Rfl: 0 ferrous sulfate 325 (65 FE) mg tablet, Take 1 tablet (325 mg total) by mouth in the morning., Disp: 30 tablet, Rfl: 3 dexAMETHasone (DECADRON) 1 mg tablet, Take 1 tablet (1 mg total) by mouth once for 1 dose., Disp: 1 tablet, Rfl: 0 Review of Systems Constitutional: Negative. HENT: Negative. Eyes: Negative. Respiratory: Negative. Cardiovascular: Negative for chest pain, palpitations and leg swelling. Endocrine: Negative for heat intolerance, polydipsia, polyphagia and polyuria. Genitourinary: Negative. Skin: Negative. Allergic/Immunologic: Negative. Hematological: Negative. Psychiatric/Behavioral: Negative. Tobacco Use: Low Risk (03/29/2023) Patient History Smoking Tobacco Use: Never Smokeless Tobacco Use: Never Passive Exposure: Not on file Past Surgical History: Procedure Laterality Date COLONOSCOPY N/A 06/24/2018 Performed by Naldo Parker DO at [facility] INJECTION SPINE TRANSFORAMINAL right L 4,5 nroot Right 12/08/2022 Performed by Giovani Garg MD at [facility] PA[facility] LAMINECTOMY LUMBAR SINGLE LEVEL / L4/5 AND DISCECTOMY Right 01/31/2023 Performed by Carrillo Aragon MD at [facility] TONSILLECTOMY Allergies Allergen Reactions Nsaids (Non-Steroidal Anti-Inflammatory Drug) Patient has Chrons disease Family History Problem Relation Age of Onset Gestational diabetes Mother Diabetes type I Maternal Grandfather Diabetes type I Niece/nephew Anesthesia problems Neg Hx Physical examination Vitals: 03/29/23 1631 BP: 128/74 Pulse: 74 Weight: 131.5 kg (290 lb) Physical Exam Constitutional: Appearance: Normal appearance. HENT: Head: Normocephalic. Eyes: Extraocular Movements: Extraocular movements intact. Pupils: Pupils are equal, round, and reactive to light. Comments: No exophalmos Neck: Thyroid: No thyroid mass, thyromegaly or thyroid tenderness. Vascular: No carotid bruit. Cardiovascular: Rate and Rhythm: Normal rate and regular rhythm. Pulses: Dorsalis pedis pulses are 3+ on the right side and 3+ on the left side. Pulmonary: Effort: No respiratory distress. Breath sounds: Normal breath sounds. No wheezing. Abdominal: General: Bowel sounds are normal. Palpations: Abdomen is soft. Tenderness: There is no abdominal tenderness. Musculoskeletal: General: No swelling or tenderness. Cervical back: No rigidity or tenderness. Right lower leg: No edema. Left lower leg: No edema. Right foot: No deformity, Charcot foot or foot drop. Left foot: No deformity, Charcot foot or foot drop. Feet: Right foot: Protective Sensation: 5 sites tested. 5 sites sensed. Left foot: Protective Sensation: 5 sites tested. 5 sites sensed. Lymphadenopathy: Cervical: No cervical adenopathy. Skin: General: Skin is warm and dry. Neurological: General: No focal deficit present. Mental Status: She is alert and oriented to person, place, and time. Cranial Nerves: No cranial nerve deficit. Sensory: No sensory deficit. Motor: No weakness. Gait: Gait normal. Lab Results Component Value Date GLU 89 01/17/2023 GLU 104 (H) 11/08/2022 ASSESSMENT: 1. Hyperinsulinism - [facility] - [place], [place] 2. Polycystic ovaries - Androstenedione; Future - Prolactin; Future - Luteinizing hormone; Future - Follicle stimulating hormone; Future - Hemoglobin A1c; Future - 17 Hydroxyprogesterone; Future - Cortisol; Future Polycystic ovaries Mrs. Ramesh is a 27-year-old female with clinical picture consistent with polycystic ovaries and insulin resistance. We will obtain 17 hydroxyprogesterone to rule out nonclassical congenital adrenal hyperplasia low-dose dexamethasone suppression test to rule out cortisol excess as well as LH FSH prolactin DHEA-S androstenedione and hemoglobin A1c and patient will be notified about the results. We will start metformin ER 500 mg once daily if tolerated. Advised to watch her diet more carefully and exercise on a regular basis. Next follow-up will be in 3 months documented in this encounter [facility] Evaluation note Diagnosis Crohn's disease, with rectal bleeding- Primary [facility] Diagnosis Polycystic ovaries- Primary Hyperinsulinism Other specified hypoglycemia [facility] Diagnosis Polycystic ovaries- Primary Vitamin B12 deficiency Other B-complex deficiencies Vitamin D deficiency [facility] Diagnosis Anxiety- Primary Anxiety state, unspecified Depression, unspecified depression type Numbness and tingling in right hand Disturbance of skin sensation [facility] Diagnosis Well woman exam with routine gynecological exam Routine gynecological examination Preoperative examination Unspecified pre-operative examination Pelvic pain in female Unspecified symptom associated with female genital organs Dyspareunia in female [facility]ructionsNot on filedocumented in this encounterK[facility]ructions* Attachments The following attachments cannot be sent through Care Everywhere. * Polycystic ovary syndrome (Jordanian) documented in this [facility]Pro[facility]ructions* Attachments The following attachments cannot be sent through Care Everywhere. * Anxiety Discharge Instructions, Adult (Jordanian) documented in this encounterPro[facility] SystemInstructionsNot on file documented in this [facility] Summary Purpose Family History No Family History Records FoundNo Family History Records FoundNo Family History Records FoundNo Family History Records FoundNo Family History Records Found Advance Directives No Advanced Directives Records FoundNo Advanced Directives Records FoundNo Advanced Directives Records FoundNo Advanced Directives Records FoundNo Advanced Directives Records Found Reason for Referral Specialty Diagnoses / Procedures Referred By Contac t Referred To Contact Neurology Diagnoses Numbness and tingling in right hand Ronni Pascual APRN-FLOOR COVERING PRINTER ASSISTANT [address] [place] [address] [facility] [address] [place] [address] Referral ID Status Reason Start Date Expiration Date Visits Requested Visits Authorized [id number] Pending Review Specialty Services Required 12/05/2023 12/04/2024 1 1 Additional Source Comments Source Comments (unrecognize d section and content) In the event this informatio n is protected by the Federal Confidentiality of Alcohol and Drug Abuse Patient Records regulations: The Federal rules restrict any use of the information to criminally investigate or prosecute any alcohol or drug abuse patient.[facility] Reason for Visit (unrecogniz ed section and content) Reason Comments Refill Request Reason Comments Endocrine Disorders Specialty Diagnoses / Procedures Referred By Contac t Referred To Contact Endocrinology Diagnoses Hyperinsulinism Ronni Pascual APRN-FLOOR COVERING PRINTER ASSISTANT [address] [place] [address] Bety Jensen MD [address] [address] Referral ID Status Reason Start Date Expiration Date Visits Requested Visits Authorized [id number] Pending Review Specialty Services Required 11/06/2022 11/06/2023 1 1 Reason Comments Follow-up Reason Comments Med Refill Reason Comments Well Women Visit Pre-op Visit INFORMATION SOURCE (unrecogn ized section and content) DATE CREATED AUTHOR 05/26/[address] [facility] DATE CREATED AUTHOR AUTHOR'S ORGANIZ ATION 07/14/2023 [facility] DATE CREATED AUTHOR AUTHOR'S ORGANIZ ATION 07/27/2023 [facility] DATE CREATED AUTHOR AUTHOR'S ORGANIZ ATION 12/07/2023 [facility] DATE CREATED AUTHOR AUTHOR'S ORGANIZ ATION 12/13/2023 [facility] EPIC Care Teams (unrecognized sec tion and content) Apprenticeship Consultant Relationship Specialty Start Date End Date Ronni Pascual APRN-FLOOR COVERING PRINTER ASSISTANT [address] [place] [address] PCP - General Family Medicine 10/19/22 Apprenticeship Consultant Relationship Specialty Start Date End Date Ronni Pascual APRN-FLOOR COVERING PRINTER ASSISTANT [address] [place] [address] PCP - General Family Medicine 10/19/22 Apprenticeship Consultant Relationship Specialty Start Date End Date Ronni Pascual APRN-FLOOR COVERING PRINTER ASSISTANT [address] [place] [address] PCP - General Family Medicine 10/19/22 Apprenticeship Consultant Relationship Specialty Start Date End Date Ronni Pascual APRN-FLOOR COVERING PRINTER ASSISTANT [address] [place] [address] PCP - General Family Medicine 10/19/22 FOR RECORDS PERTAINING TO PATIENTS WHO ARE OR HAVE BEEN ENROLLED IN A CHEMICAL DEPENDENCY/SUBSTANCEABUSE PROGRAM, SOME INFORMATION MAY BE OMITTED. This clinical summary was aggregated from multiple sources. Caution should be exercised in using it in the provision of clinical care. This summary normalizes information from multiple sources, and as a consequence, information in this document may materially change the coding, format and clinical context of patient data. In addition, data may be omitted in some cases. CLINICAL DECISIONS SHOULD BE BASED ON THE PRIMARY CLINICAL RECORDS. [facility]. provides no warranty or guarantee of the accuracy or completeness of information in this document.
== END 2023-12-18 08:23 | disposition home or self-care (01) ==
LOC: NOMS 08:22
PROVIDERS: Visit Provider Obstetrics & Gynecology
DX: R10.2 Pelvic and perineal pain (principal)
CPT/HCPCS: 76830; 76856

== ENCOUNTER 2023-12-27 12:34 | Outpatient (OUT) | payer OTHER, SELFPAY ==
--- OUTSIDE RECORDS SUMMARY | 2023-12-27 12:49 | XMS_ITS | CCD ---
Author Organization [facility] Care Team Providers Care Product Manager Medical Device Name Role Phone Good Gonzalez Primary Care Provider LISE ., DR VERMA Admitting Unavailabl e KARASIK ., DR VERMA Consulting Unavailabl e KARASIK ., DR VERMA Attending Unavailabl e REQUEST, DR NOBLES LISTED Primary Care Unavaila ble JOHANA ., DR SALEH Consulting Unavailable JOHANA ., DR SALEH Procedure Practitioner Unavail able [employer] TREATING MACHINE OPERATOR-BOAT JOINER, Ronni Primary Care Provide r KARTIK, RONNI [...] VAUGHN Attending Unavailable DELFINO VAUGHN Attending Unavailable DELFINO VAUGHN Attending Unavailable Allergies Allergy Classification Reported Allergen(s) Allergy Type Date of Onset Reaction(s) Facility (7 sources) Non-steroidal anti-inflammator y agent; Translations: [NSAIDS (NON-STEROIDAL ANTI-INFLAMMATOR Y DRUG)] Propensity to adverse reactions to drug 01-17-2023 [facility] Medications Current Medications Medication Drug Class(es) [...] / ethinyl estradiol 0.03 mg oral tablet (5 sources) Progestin, Estrogen Start: 11-26-2023 End: 11-25-2024 desogestrel-ethinyl estradiol (Apri) 0.15-30 MG-MCG tablet Indications: control counseling Take 1 tablet by mouth Daily 28 tablet 12 11/26/2023 12/18/2023 Discontinued ferrous sulfate 325 mg oral tablet (4 sources) Start: 11-06-2022 take 1 tablet by mouth in the morning ferrous sulfate 325 (65 FE) mg tablet Take 1 tablet (325 mg total) by mouth in the morning. 30 tablet 3 11/06/2022 Active FLUoxetine 10 mg oral capsule (8 sources) Serotonin Reuptake Inhibitor Start: 12-05-2023 take [...] on above: Take 1 capsule by mo [facility] twice daily. dexamethasone 1 mg oral tablet (1 source) Corticosteroid Start: End: take 1 tablet by mouth once dexAMETHasone (DECADRON) 1 mg tablet Take 1 tablet (1 mg total) by mouth once for 1 dose. 1 tablet 0 03/29/2023 03/29/2023 famotidine 20 mg oral tablet (1 source) Histamine-2 Receptor Antagonist Start: 013 End: take 1 tablet by mouth twice daily famotidine (PEPCID) 20 mg tablet Take 1 tablet by mouth twice daily. 60 tablet 3 09/05/2012 09/29/2014 Discontinued Comment on above: [facility] omeprazole 40 mg delayed release oral capsule (1 source) Proton Pump Inhibitor Start: take 1 capsule by mouth once daily before breakfast Omeprazole (PRILOSEC) 40 mg capsule Take 1 capsule by mouth daily before breakfast. 30 capsule 3 07/16/2012 Active Comment on above: Take 1 capsule by mo [facility] daily before breakfast. Problems Active Problems Problem Classification Problem Date Documented Date Episodic/Chronic Abdominal pain (5 sources) Abdominal pain; Translations: [Unspecified abdominal pain] Onset: 03-09-2011 03-09-2011 Episodic Anxiety disorders (3 sources) Anxiety disorder, unspecified; Translations: [Anxiety] Onset: 09-08-2020 12-05-2023 Chronic Contraceptive and procreative management (1 source) Subcutaneous contraceptive implant present; Translations: [Encounter for surveillance of implantable subdermal contraceptive] 12-18-2023 Episodic Mood disorders (2 sources) Major depressive disorder, [...] Test Name Value Interpretation Reference Range Facility Insertion/Removal of Contrac eptive Capsuleon 12-18-2023 Bety Burns LPN 12/18/2023 10:16 AM Insertion/Removal of Contraceptive Capsule Date/Time: 12/18/2023 9:29 AM Performed by: Delfino Vaughn DO Authorized by: Delfino Vaughn DO Consent: Consent obtained: Written Consent given by: Patient Patient questions answered: yes Patient agrees, verbalizes understanding, and wants to proceed: yes Educational handouts given: yes Instructions and paperwork completed: yes Indication: Indication: Presence of non-biodegradable drug delivery implant Pre-procedure: Local anesthetic: Lidocaine without epinephrine The site was cleaned and prepped in a sterile fashion: yes Procedure: Procedure: Removal Small stab incision was made in arm: yes Left/right: Left Preloaded contraceptive capsule trocar was placed subdermally: no Visualization of implant was obtained: yes Contraceptive capsule was inserted and trocar removed: no Visualization of notch in stylet and palpation of device: no Palpation confirms placement by provider and patient: no Site was closed with steri-strips and pressure bandage applied: no Comments: Nexplanon Removal: Patient presents today for removal of Nexplanon. Written consent for procedure was obtained and patient was placed in supine position with left arm flexed at elbow. Skin was cleansed with alcohol/Betadine and 2cc of Lidocaine was injected underneath palpated Nexplanon at distal end. After allowing for sufficient time for numbing agent to take effect, the skin overlying the end of Nexplanon was incised with an 11inch blade scalpel. A 7.5in hemostat was inserted in the incision site to grab device and Nexplanon was released from tissue. Nexplanon implant was removed in its entirety and visualized by myself and patient. The skin was cleansed with alcohol and the incision was covered with gauze. Post-procedure care was reviewed and patient will continue with proposed plan of care. Patient was advised to call office with any questions or concerns. Follow Up: Patient is to return to the office as needed for any routine appointments. Formerly [facility] IGP,APTIMA HPV,AGE GDLNon AGE GDLN ACOG TESTING Note . [facility] Comment on above: TESTS RESULT FLAG UN ITS REF RANGE LAB Clinician Provided Cytology Information Source.............Cervix;Endocervix No. of containers..01 ThinPrep Vial Age Algo ACOG Ximena... FLAG LEGEND: L-Low Normal,H-High Normal,LL-Alert Low,HH-Alert High <-Panic Low,>-Panic High,A-Abnormal,AA-Critical Abnormal Performed at: 01 =G [address] [address] Kristina Alba MD, IGP, RFX APTIMA HPV ASCU Note . [facility] Comment on above: TESTS RESULT FLAG UN [facility] REF RANGE LAB DIAGNOSIS: 02 NEGATIVE FOR INTRAEPITHELIAL LESION OR MALIGNANCY. Specimen adequacy: 02 Satisfactory for evaluation. Endocervical and/or squamous metaplastic cells (endocervical component) are present. Performed by: 02 Jeremy Black Second Time Worker ([facility]) . 02 Note: Note 03 The Pap [...] <-Panic Low,>-Panic High,A-Abnormal,AA-Critical Abnormal Performed at: 02 [facility] [address] [place] [address] Bipin Panda MD, 03 WB [facility] [address] [address] Kristina Alba MD, Performed at: =G - [facility] [address] [id number] Hair Dresser: Kristina Alba MD, Phone: [phone] Performed at: [facility] - [facility] [address] [place], [place] [id number] Hair Dresser: Bipin Panda MD, Phone: [phone] BRUSH-SPATULA CERVIX ENDOCERVIX [facility] URETHRITIS/DISCHARGE PLUS VA GINITIS (HTRX)on 11-29-2023 ATOPOBIUM VAGINAE 0.000 [facility] Healthcare ATOPOBIUM VAGINAE Not detected [facility] BVAB 2,3 (BACTERIAL VAGINOSIS ASSOCIATED BACTERIA 2, 3); MOBILUNCUS SPP 0.000 [facility] Healthcare BVAB 2,3 (BACTERIAL VAGINOSIS ASSOCIATED BACTERIA 2, 3); MOBILUNCUS SPP Not detected [facility] RAY ALBICANS, PARAPSILOSIS, TROPICALIS 0.000 [facility] RAY ALBICANS, PARAPSILOSIS, TROPICALIS Not detected [facility] RAY GLABRATA 0.000 [facility] RAY GLABRATA Not detected [facility] RAY KRUSEI 0.000 [facility] RAY KRUSEI Not detected [facility] CHLAMYDIA TRACHOMATIS 0.000 [facility] CHLAMYDIA TRACHOMATIS Not detected [facility] GARDNERELLA VAGINALIS 0.000 [facility] GARDNERELLA VAGINALIS Not detected [facility] MEGASPHAERA (TYPES 1, 2) 0.000 [facility] MEGASPHAERA (TYPES 1, 2) Not detected [facility] MYCOPLASMA GENITALIUM 0.000 [facility] MYCOPLASMA GENITALIUM Not detected [facility] NEISSERIA GONORRHOEAE 0.000 [facility] NEISSERIA GONORRHOEAE Not detected [facility] TRICHOMONAS VAGINALIS 0.000 [facility] TRICHOMONAS VAGINALIS Not detected [facility] URINALYSISon 07-26-2023 Bilirubin Ql (U) Negative Normal NEG [facility] Comment on above: Performed By: #### U A #### [facility] ([id number]) [address] [place] [address] BLOOD/HGB Negative Normal NEG [facility] Comment on above: Performed By: #### U A #### [facility] ([id number]) [address] [place] [address] Color (U) YELLOW Normal YELLOW [facility] Comment on above: Performed By: #### U A #### [facility] ([id number]) [address] [place] [address] Glucose Ql (U) Negative Normal NEG [facility] Comment on above: Performed By: #### U A #### [facility] ([id number]) [address] [place] [address] Ketones Ql (U) Negative Normal NEG [facility] Comment on above: Performed By: #### U A #### [facility] ([id number]) [address] [place] [address] Leukocyte esterase Test strip Ql (U) Negative Normal NEG [facility] Comment on above: Performed By: #### U A #### [facility] ([id number]) [address] [place] [address] MUCOUS PRESENT Abnormal NONE [facility] Comment on above: Performed By: #### U A #### [facility] ([id number]) [address] [place] [address] Nitrite Ql (U) Negative Normal NEG [facility] Comment on above: Performed By: #### U A #### [facility] ([id number]) [address] [place] [address] pH (U) 6.0 [pH] Normal 5.0-8.5 [facility] Comment on above: Performed By: #### U A #### [facility] ([id number]) [address] [place] [address] Protein Ql (U) 30 mg/dL Abnormal NEG [facility] Comment on above: Performed By: #### U A #### [facility] ([id number]) [address] [place] [address] R.B.CELLS 0 /hpf Normal 0-5 [facility] Comment on above: Performed By: #### U A #### [facility] ([id number]) [address] [place] [address] Specific gravity (U) [Rel density] 1.033 Normal 1.003-1.035 [facility] Comment on above: Performed By: #### U A #### [facility] ([id number]) [address] [place] [address] SQUAMOUS EPITHELIUM 22 /hpf High 0-5 [facility] Comment on above: Performed By: #### U A #### [facility] ([id number]) [address] [address] TURBIDITY CLOUDY Abnormal CLEAR [facility] Comment on above: Performed By: #### U A #### [facility] ([id number]) [address] [place] [address] Urobilinogen (U) [Mass/Vol] mg/dL Normal <1.1 [facility] Comment on above: Performed By: #### U A #### [facility] ([id number]) [address] [address] W.B.CELLS 0 /hpf Normal 0-5 [facility] Comment on above: Performed By: #### U A #### [facility] ([id number]) [facility] [address] [place] [address] URINE CULTUREon 07-26-2023 Bacteria identified Cx Nom (U) CULTURE RESULTS 50-100,000 ORGANISMS/ML NORMAL UROGENITAL DANNY Normal [facility] Comment on above: Performed By: #### 6 30-4 #### [facility] ([id number]) [address] [address] CBC AND AUTO DIFFon 07-11-19 24 ABSOLUTE BASOPHIL 0.1 X10E9/L Normal 0.0-0.[address] [facility] Comment on above: Performed By: #### C BCA, CMP, 3040-3, 52911-2 #### [facility] ([id number]) [address] [place] [address] ABSOLUTE NEUTROPHIL 4.9 X10E9/L Normal 1.5-6.6 [facility] Comment on above: Performed By: #### C MORGAN, CMP, 0-3, 70848-7 #### [facility] ([id number]) [address] [place] [address] Basophils/100 WBC (Bld) 0.7 % Normal [facility] Comment on above: Performed By: #### C MORGAN, CMP, 0-3, 64606-9 #### [facility] ([id number]) [address] [place] [address] Eosinophils (Bld) [#/Vol] 0.1 10*3/uL Normal 0.0-0.4 [facility] Comment on above: Performed By: #### Leonid MORA, CMP, 3, 12424-5 #### [facility] ([id number]) [address] [place] [address] Eosinophils/100 WBC (Bld) 0.9 % Normal [facility] Comment on above: Performed By: #### Leonid MORA, CMP, 3, 42514-7 #### [facility] ([id number]) [address] [place] [address] Erythrocyte distribution width (RBC) [Ratio] 14.3 % Normal 11.5-15.0 [facility] Comment on above: Performed By: #### C MORGAN, CMP, 0-3, 74242-0 #### [facility] ([id number]) [address] [place] [address] Hematocrit (Bld) [Volume fraction] 39.3 % Normal 35-47 [facility] Comment on above: Performed By: #### Leonid MORA, CMP, 0-3, 27297-5 #### [facility] ([id number]) [address] [place] [address] Hemoglobin (Bld) [Mass/Vol] 13.0 g/dL Normal 11.7-15.5 [facility] Comment on above: Performed By: #### C MORGAN CMP, 3040-3, 62281-9 #### [facility] ([id number]) [address] [place] [address] Lymphocytes (Bld) [#/Vol] 2.6 10*3/uL Normal 1.0-3.5 [facility] Comment on above: Performed By: #### C PAULA MORA, 3040-3, 21361-1 #### [facility] ([id number]) [address] [place] [address] Lymphocytes/100 WBC (Bld) 31.8 % Normal [facility] Comment on above: Performed By: #### C MORGAN CMP, 3040-3, 97172-4 #### [facility] ([id number]) [address] [place] [address] 01645 MCH (RBC) [Entitic mass] 26.2 pg Low 27-34 [facility] Comment on above: Performed By: #### C MORGAN CMP, 3040-3, 06763-8 #### [facility] ([id number]) [address] [place] [address] MCHC (RBC) [Mass/Vol] 33.1 g/dL Normal 32-36 [facility] Comment on above: Performed By: #### C MORGAN, CMP, 3040-3, 48540-2 #### [facility] ([id number]) [address] [place] [address] 97267 MCV (RBC) [Entitic vol] 79 fL Low 80-100 [facility] Comment on above: Performed By: #### C MORGAN CMP, 3040-3, 04259-1 #### [facility] ([id number]) [address] [place] [address] 18988 Monocytes (Bld) [#/Vol] 0.6 10*3/uL Normal 0-0.9 [facility] Comment on above: Performed By: #### C BCA, CMP, 3040-3, 95360-4 #### [facility] ([id number]) [address] [place] [address] Monocytes/100 WBC (Bld) 6.9 % Normal [facility] Comment on above: Performed By: #### C MORGAN, CMP, 3040-3, 69910-2 #### [facility] ([id number]) [address] [place] [address]602 Neutrophils/100 WBC (Bld) 59.7 % Normal [facility] Comment on above: Performed By: #### Leonid MORA, CMP, 3040-3, 65022-9 #### [facility] ([id number]) [address] [place] [address]98[address] Platelet mean volume (Bld) [Entitic vol] 7.8 fL Normal 7-12 [facility] Comment on above: Performed By: #### Leonid BCA, CMP, 3040-3, 70275-7 #### [facility] ([id number]) [address] [place] [address]166 Platelets (Bld) [#/Vol] 371 10*3/uL Normal 150-450 [facility] Comment on above: Performed By: #### Leonid BCA, CMP, 3040-3, 32371-1 #### [facility] ([id number]) [address] [place] [address] 81592 RBC COUNT 4.97 X10E12/L Normal 3.80-5.20 [facility] Comment on above: Performed By: #### Leonid BCA, CMP, 3040-3, 18068-8 #### [facility] ([id number]) [address] [place] [address] WBC (Bld) [#/Vol] 8.1 10*3/uL Normal 4.0-11.[address] [facility] Comment on above: Performed By: #### C BCA, CMP, 3040-3, 79705-2 #### [facility] ([id number]) [address] [place] [address] 10688 COMPREHENSIVE METABOLIC PANE [facility] 07-11-2023 Albumin [Mass/Vol] 3.8 g/dL Normal 3.2-5.[address] [facility] Comment on above: Performed By: #### C BCA, CMP, 3040-3, 35722-5 #### [facility] ([id number]) [address] [place] [address] 01252 ALP [Catalytic activity/Vol] 57 U/L Normal 39-130 [facility] Comment on above: Performed By: #### C BCA, CMP, 3040-3, 26325-8 #### [facility] ([id number]) [address] [place] [address] 20213 ALT [Catalytic activity/Vol] 41 U/L High 0-31 [facility] Comment on above: Performed By: #### C BCA, CMP, 3040-3, 71986-7 #### [facility] ([id number]) [address] [place] [address] 68771 Anion gap [Moles/Vol] 6 mmol/L Normal 5-15 [facility] Comment on above: Performed By: #### C BCA, CMP, 3040-3, 54377-1 #### [facility] ([id number]) [address] [place] [address] 56277 AST [Catalytic activity/Vol] 24 U/L Normal 0-41 [facility] Comment on above: Performed By: #### C BCA, CMP, 3040-3, 91217-7 #### [facility] ([id number]) [address] [place] [address] 737[address] Bilirubin [Mass/Vol] 0.7 mg/dL Normal 0.3-1.2 [facility] Comment on above: Performed By: #### C BCA, CMP, 3040-3, 83846-0 #### [facility] ([id number]) [address] [place] [address]806 Calcium [Mass/Vol] 8.8 mg/dL Normal 8.5-10.[address] [facility] Comment on above: Performed By: #### C BCA, CMP, 3040-3, 78639-9 #### [facility] ([id number]) [address] [place] [address]3678 Chloride [Moles/Vol] 106 mmol/L Normal 98-109 [facility] Comment on above: Performed By: #### C BCA, CMP, 3040-3, 95990-8 #### [facility] ([id number]) [address] [place] [address]235 CO2 [Moles/Vol] 26 mmol/L Normal 22-32 [facility] Comment on above: Performed By: #### C BCA, CMP, 3040-3, 61507-9 #### [facility] ([id number]) [address] [place] [address]6074 Creatinine [Mass/Vol] 0.64 mg/dL Normal 0.40-1.00 [facility] Comment on above: Result Comment: METH OD TRACEABLE TO IDMS STANDARD Performed By: #### C MORGAN, CMP, 3040-3, 05817-6 #### [facility] ([id number]) [address] [place] [address] 00929 eGFR (CKD-EPI) NON-RACE DEPENDENT >90 Normal >59 [facility] Comment on above: Result Comment: Reported eGFR is based on the CKD-EPI 2020 equation that does not use a race coefficient. Performed By: #### C PAULA MORA, 3040-3, 45383-0 #### [facility] ([id number]) [address] [place] [address]8089 Glucose [Mass/Vol] 108 mg/dL High 65-[address] [facility] Comment on above: Performed By: #### C PAULA MORA, 3040-3, 71563-1 #### [facility] ([id number]) [address] [place] [address] 34570 Potassium [Moles/Vol] 4.3 mmol/L Normal 3.5-5.0 [facility] Comment on above: Performed By: #### C PAULA MORA, 3040-3, 68451-5 #### [facility] ([id number]) [address] [place] [address] 45287 Protein [Mass/Vol] 7.0 g/dL Normal 6.0-8.[address] [facility] Comment on above: Performed By: #### C PAULA MORA, 3040-3, 09854-3 #### [facility] ([id number]) [address] [place] [address] 52652 Sodium [Moles/Vol] 138 mmol/L Normal 134-[address] [facility] Comment on above: Performed By: #### C PAULA MORA, 3040-3, 07125-0 #### [facility] ([id number]) [address] [place] [address] 93572 Urea nitrogen [Mass/Vol] 14 mg/dL Normal 5-23 [facility] Comment on above: Performed By: #### C PAULA MORA, 3040-3, 88636-9 #### [facility] ([id number]) [address] [place] [address] 31886 LIPASEon 07-11-2023 Lipase [Catalytic activity/Vol] 40 U/L Normal 17-40 [facility] Comment on above: Performed By: #### C BCA, CMP, 3040-3, 45308-3 #### [facility] ([id number]) [address] [place] [address]8030 Troponin I.cardiac High sens itivity method [Mass/Vol]on 07-11-2023 1 HOUR TROP I, HIGH SENSITIVITY 3 ng/L Normal <16 [facility] Comment on above: Performed By: #### 2 842-3, 70987-1, 51182-1 #### [facility] ([id number]) [address] [place] [address] #### ANDRST #### [facility] ([id number]) [address] [place] [address] 78351 TROPONIN I, HIGH SENSITIVITY <2 Normal <16 [facility] Comment on above: Performed By: #### C BCA, CMP, 3040-3, 37448-7 #### [facility] ([id number]) [address] [place] [address] 93523 XR CHEST 1 VWon 07-11-2023 XR CHEST 1 VW XR CHEST 1 VW Portable chest: HISTORY: Chest pain. Single view of the chest was obtained. Cardiac and mediastinal contours are within normal limits. Lungs are clear. There is no pneumothorax, effusion, or focal consolidation. Osseous structures appear intact. IMPRESSION: No acute findings. Finalized by Oliver Lo MD on 07/11/2023 7:11 PM Normal [facility] 17-Hydroxyprogesterone [Mass /Vol]on 03-30-2023 17 HYDROXYPROGEST 21.28 ng/dL Normal <=206.[address] [facility] Comment on above: Result Comment: NOTE INTERPRETIVE INFORMATION for 17-Hydroxyprogesterone in females: Follicular 15 to 70 ng/dL Luteal 35 to 290 ng/dL REFERENCE INTERVAL: 17-Hydroxyprogesterone Qnt, HPLC-MS/MS Access complete set of age- and/or gender-specific reference intervals for this test in the [facility] Test Directory ([employer]). This test was developed and its performance characteristics determined by [facility]. It has not been cleared or approved by the [place] Food and Drug Administration. This test was performed in a CLIA certified laboratory and is intended for clinical purposes. Performed By: [facility] [address] [place] [address] Jukebox Operator: Good Grijalva MD, PhD CLIA Number: [id number] Performed By: #### 1 668-3 #### [facility] ([id number]) [address] [place] [address] 09577 ANDROSTENEDIONEon 03-30-2023 ANDROSTENEDIONE 0.745 ng/mL Normal 0.260-2.140 [facility] Comment on above: Result Comment: NOTE INTERPRETIVE INFORMATION: Androstenedione, Females 18 years and older Post-menopausal: 0.13-0.82 ng/mL REFERENCE INTERVAL: Androstenedione by TMS Access complete set of age- and/or gender-specific reference intervals for this test in the [facility] Test Directory ([employer]). This test was developed and its performance characteristics determined by [facility]. It has not been cleared or approved by the US Food and Drug Administration. This test was performed in a CLIA certified laboratory and is intended for clinical purposes. Performed By: [facility] [address] [place] [address] Jukebox Operator: Good Grijalva MD, PhD CLIA Number: [id number] Performed By: #### 2 842-3, 12726-7, 71697-8 #### [facility] ([id number]) [address] [place] [address], [address] [place] [address] #### ANDRST #### [facility] ([id number]) [address] [place] [address] Follitropin Qnon 03-30-2023 FOLLICLE STIM HORMONE 2.0 mIU/mL Normal [facility] Comment on above: Result Comment: NORMAL FEMALE Luteal 1.8-5.1 mIU/mL Follicular 3.8-8.8 mIU/mL Mid Cycle 4.5-22.5 mIU/mL Post Holland 16.7-113.6 mIU/mL Performed By: #### 2 842-3, 55784-0, 27855-0 #### [facility] ([id number]) [address], [address] [place] [address] #### ANDRST #### [facility] ([id number]) [address] [place] [address]78 HGB A1C (GLYCO-HGB)on 2023 Glucose [Mass/Vol] 94 mg/dL Normal [facility] Comment on above: Performed By: #### 2 842-3, 19165-6, 42407-0 #### [facility] ([id number]) [address], [address] [place] [address] #### ANDRST #### [facility] ([id number]) [address] [place] [address]4592 HbA1c (Bld) [Mass fraction] 4.9 % Normal 4.4-5.6 [facility] Comment on above: Result Comment: NOTE ADA Guidelines Result HgbA1c Normal : less than 5.7 % Prediabetes : 5.7 % to 6.4 % Diabetes : > 6.4 % Use with caution in patients with abnormal hemoglobin variants as the half-life of red blood cells and in vivo glycation rates are affected. Performed By: #### 2 842-3, 31351-8, 10311-0 #### [facility] ([id number]) [address], [address] [place] [address] #### ANDRST #### [facility] ([id number]) [address] [place] [address] Lutropin Qnon 03-30-2023 LUTEINIZING HORMONE 4.6 mIU/mL Normal [facility] Comment on above: Result Comment: NORMAL FEMALE Follicular 2.1-10.9 mIU/mL Mid Cycle 19.2-103 mIU/mL Luteal 1.2-12.9 mIU/mL Post Tracie 10.9-58.6 mIU/mL Performed By: #### 2 842-3, 58860-2, 59252-4 #### [facility] ([id number]) [address] [place] [address] #### ANDRST #### [facility] ([id number]) [address] [place] [address]61 Prolactin [Mass/Vol]on 03-30 PROLACTIN 10.6 ng/mL Normal 3.3-26.7 [facility] Comment on above: Performed By: #### 2 842-3, 83488-8, 21148-3 #### [facility] ([id number]) [address], [address] [place] [address] #### ANDRST #### [facility] ([id number]) [address] [place] [address] Vital Signs Date Time Vital Sign Value Performing Clinician Facility 12-18-2023 09:12-0400 Body mass index (BMI) [Ratio] 41.07 kg/m2 [employer] Work Phone: [facility] 12-18-2023 09:12-0400 Body weight 126.15 kg Delfino [facility] [email or web address] Work Phone: [facility] 12-18-2023 09:12-0400 Diastolic blood pressure 70 mm[Hg] Delfino Johana DO Work Phone: [facility] 12-18-2023 09:12-0400 Systolic blood pressure 110 mm[Hg] Delfino Johana DO Work Phone: [facility] 12-11-2023 13:18-0400 Body mass index (BMI) [Ratio] 40.91 kg/m2 Delfino Johana DO Work Phone: [facility] 12-11-2023 13:18-0400 Body weight 125.65 kg Delfino Ojhana DO Work Phone: [facility] 12-11-2023 13:18-0400 Diastolic blood pressure 76 mm[Hg] Delfino Johana DO Work Phone: [facility] 12-11-2023 13:18-0400 Systolic blood pressure 118 mm[Hg] Delfino Johana DO Work Phone: [facility] 05-07-2023 08:02-0400 Body mass index (BMI) [Ratio] 42.07 kg/m2 Ronni Pascual TREATING MACHINE OPERATOR-BOAT JOINER Work Phone: [facility] 05-07-2023 08:02-0400 Body weight 129.28 kg Ronni Pascual TREATING MACHINE OPERATOR-BOAT JOINER Work Phone: [facility] 05-07-2023 08:02-0400 Diastolic blood pressure 76 mm[Hg] Ronni Pascual TREATING MACHINE OPERATOR-BOAT JOINER Work Phone: [facility] 05-07-2023 08:02-0400 Heart rate 88 /min Ronni Pascual TREATING MACHINE OPERATOR-BOAT JOINER Work Phone: [facility] 05-07-2023 08:02-0400 Respiratory rate 16 /min Ronni Pascual TREATING MACHINE OPERATOR-BOAT JOINER Work Phone: [facility] 05-07-2023 08:02-0400 SaO2% (BldA) [Mass fraction] 98 % Ronni Pascual TREATING MACHINE OPERATOR-BOAT JOINER [facility] 05-07-2023 08:02-0400 Systolic blood pressure 128 mm[Hg] Ronni Pascual TREATING MACHINE OPERATOR-BOAT JOINER [facility] 03-29-2023 16:31-0500 Body mass index (BMI) [Ratio] 42.81 kg/m2 Nivia Roach MD Work [facility] 03-29-2023 16:31-0500 Body weight 131.54 kg N[facility] Ro[facility] MD [facility] 03-29-2023 16:31-0500 Diastolic blood pressure 74 mm[Hg] [facility] MD [facility] 03-29-2023 16:31-0500 Heart rate 74 /min [facility] Ro[facility] MD [facility] 03-29-2023 16:31-0500 Systolic blood pressure 128 mm[Hg] N[facility]ach MD [facility] Encounters Encounter Date Encounter Type Care Provider Facility Start: 12-18-2023 End: 12-18-2023 Patient encounter procedure Delfino Johana DO Work Phone: [facility] Comment on above: Nexplanon removal Start: 12-18-2023 End: 12-18-2023 ambulatory DELFINO JOHANA Not Available Start: 12-11-2023 End: 12-11-2023 Bamboo flowsheet Delfino Johana DO Work Phone: [facility] Start: 12-11-2023 End: 12-14-2023 Bamboo flowsheet Dlefino Johana DO Work Phone: [facility] Start: 12-11-2023 End: 12-14-2023 Clinisync Result Encounter Delfino Johana DO Work Phone: [facility] Department Unsolicited Start: 12-11-2023 End: 12-11-2023 ambulatory DELFINO JOHANA Not Available Start: 12-11-2023 End: 12-11-2023 Patient encounter procedure Delfino Johana DO Work Phone: [facility] Start: 12-11-2023 End: 12-11-2023 Periodic preventive med est patient 18-39 yrs Delfino Padillao DO Work Phone: [facility] Comment on above: Well woman exam with routine gynecological exam; Preoperative examination; Pelvic pain in female; Dyspareunia in female Start: 12-11-2023 End: 12-11-2023 Preprocedural examination done Delfino Vaughn DO Work Phone: [facility] Start: 12-05-2023 End: 12-05-2023 Refill Ronni Pascual TREATING MACHINE OPERATOR-BOAT JOINER Work Phone: [facility] Start: 12-05-2023 End: 12-05-2023 ambulatory [facility] Start: 12-05-2023 End: 12-05-2023 Office outpatient visit 15 minutes Ronni Pascual TREATING MACHINE OPERATOR-BOAT JOINER Work Phone: [facility] Comment on above: Anxiety (Primary Dx) ; Depression, unspecified depression type; Numbness and tingling in right hand Start: 11-26-2023 End: 11-26-2023 ambulatory DELFINO JOHANA Not Available Start: 11-26-2023 End: 11-29-2023 External Result Encounter Delfino Padillao DO Work Phone: [facility] External Department Unsolicited Start: 11-26-2023 End: 11-29-2023 External Result Encounter Delfino Padillao DO Work Phone: [facility] External Department Unsolicited Start: 11-07-2023 End: 11-07-2023 ambulatory [facility] Start: 11-07-2023 Encounter for genera l adult medical examination without abnormal findings [facility] Start: 08-23-2023 End: 08-23-2023 ambulatory [facility] Start: 07-26-2023 End: 07-27-2023 ambulatory [facility] Start: 07-26-2023 End: 07-26-2023 ambulatory [facility] Start: 07-11-2023 End: 07-12-2023 Emergency department patient visit YULI Blood [facility] Start: 05-07-2023 End: 05-07-2023 Office outpatient visit 15 minutes [facility] TREATING MACHINE OPERATOR-BOAT JOINER Work Phone: [facility] Comment on above: Polycystic ovaries ( Primary Dx); Vitamin B12 deficiency; Vitamin D deficiency Start: 05-07-2023 End: 05-07-2023 ambulatory [facility] Start: 03-30-2023 End: 03-31-2023 ambulatory [facility] Start: 03-29-2023 End: 03-29-2023 Office outpatient new 45 minutes Nivia Roach MD Work Phone: [facility] Comment on above: Polycystic ovaries ( Primary Dx); Hyperinsulinism Start: 03-29-2023 End: 03-29-[address] [facility] Start: 03-15-2023 End: 03-15-2023 ambulatory CARRILLO Echols [facility] Start: 08-30-2020 End: 08-31-2020 Evaluation and management of inpatient DR LUCI LEZAMA . Facility: Start: 09-27-2014 End: 09-27-2014 Refill Joey Rojo MD Work Phone: [facility] Comment on above: Refill Request Procedures Date Procedure Procedure Detail Performing Clinician Start: 12-18-2023 STEM FRAZER INSERTION/REMOVA L OF CONTRACEPTIVE CAPSULE Delfino Vaughn DO Work Phone: Start: 12-11-2023 IGP,APTIMA HPV,AGE GDLN Delfino Vaughn DO Work Phone: Start: 11-26-2023 URETHRITIS/DISCHARGE PLUS VAGINITIS (HTRX) Delfino Vaughn DO Work Phone: Start: 08-23-2023 Follow-up visit [...] Up Plan Adult BMI Follow Up Plan [facility] Start: 11-06-2024 Adult BMI Screening Adult BMI Screening [facility] Start: 11-06-2024 Tobacco Screening Tobacco Screening [facility] Start: 05-06-2024 Adult BMI Screening Adult BMI Screening [facility] Start: 05-06-2024 Tobacco Screening Tobacco Screening [facility] Start: 03-29-2024 Adult BMI Screening Adult BMI Screening [facility] Start: 03-29-2024 Tobacco Screening Tobacco Screening [facility] Start: 12-27-2023 End: 12-27-2023 Patient encounter procedure 12/27/2023 10:30 AM EDT Procedure Visit [facility] [address] [place] [phone] Vel Jolly MD [address] [place], [place] [id number] [facility] Start: 12-24-2023 End: 12-24-2023 Patient encounter procedure 12/24/2023 3:10 PM EDT Office Visit [facility] [address] [place] [phone] Delfino Vaughn, DO [address] [place] [address] [facility] Start: 12-18-2023 End: 12-18-2023 Patient encounter procedure 12/18/2023 9:30 AM EDT Procedure Visit [facility] [address] [place] [address] Delfino Vaughn, DO [address] [place] [address] [facility] Start: 12-18-2023 End: 12-18-2023 Professional / ancillary services management 12/18/2023 8:30 AM EDT Ancillary Procedure [facility] [address] [place] [phone] [facility] Start: 12-11-2023 End: 12-11-2023 Patient encounter procedure 12/11/2023 1:00 PM EDT Consult [facility] [address] [place] [phone] Delfino Vaughn, DO [address] [place] [address] [facility] Start: 11-23-2023 Adult BMI Follow Up Plan Adult BMI Follow Up Plan [facility] Start: 11-07-2023 End: 11-07-2023 Patient encounter procedure 11/07/2023 8:00 AM EDT Office Visit [facility] [address] [place] [phone] Ronni Pascual, TREATING MACHINE OPERATOR-BOAT JOINER [address] [place] [address] [facility] Start: 10-28-2023 Influenza vaccination Influenza Vaccine [facility] Start: 07-17-2023 End: 07-17-2023 Patient encounter procedure 07/17/2023 3:30 PM EDT Office Visit [facility] [address] [place] [address] Nivia Norris MD [address] [place] [address] [facility] Start: 06-25-2023 Screening for malignant neoplasm of colon Colonoscopy [facility] Start: 04-05-2023 End: 03-29-2024 Cortisol Cortisol Lab Routine Polycystic ovaries Expected: 04/05/2023, Expires: 03/29/2024 [facility] Comment on above: Expected: 04/05/2023, Expires: Start: 01-04-2023 Screening for malignant neoplasm of cervix Pap Smear [facility] Start: 10-27-2022 Influenza vaccination Influenza Vaccine [facility] Start: 10-27-2020 Influenza vaccination INFLUENZA (Season Ended) [facility] Start: 05-18-2016 PAP TESTING PAP TESTING [facility] Start: 05-18-2014 Urine microalbumin profile DTAP,TDAP,TD (1 - Tdap) [facility] Start: 05-18-2013 HEPATITIS C SCREENING HEPATITIS C SCREENING [facility] Start: 05-18-2013 HIV SCREENING HIV SCREENING [facility] Start: 2007 Adult depression screening assessment DEPRESSION SCREENING [facility] Start: 05-18-2006 DTaP,Tdap and Td Vaccines (6 - Tdap) DTaP,Tdap and Td Vaccines (6 - Tdap) [facility] Start: 05-18-2006 HPV VACCINE (1 - 2-dose series) HPV VACCINE (1 - 2-dose series) [facility] End: 03-29-2024 17 Hydroxyprogesterone 17 Hydroxyprogesterone Lab Routine Polycystic ovaries 1 Occurrences starting 03/29/2023 until 03/29/2024 [facility] Comment on above: 1 Occurrences starting 03/29/2023 until 03/29/2024 End: 03-29-2024 Androstenedione Androstenedione Lab Routine Polycystic ovaries 1 Occurrences starting 03/29/2023 until 03/29/2024 [employer] Work Phone: Comment on above: 1 Occurrences starting 03/29/2023 until 03/29/2024 Cytology Cervical or vaginal smear or scraping study Pap Smear Pathology and Cytology Routine Well woman exam with routine gynecological exam Ordered: 12/11/2023 [facility] [employer] Work Phone: Comment on above: Ordered: 12/11/2023 End: 03-29-2024 Follicle stimulating hormone Follicle stimulating hormone Lab Routine Polycystic ovaries 1 Occurrences starting 03/29/2023 until 03/29/2024 [employer] Comment on above: 1 Occurrences starting 03/29/2023 until 03/29/2024 End: 03-29-2024 Hemoglobin A1c/Hemoglobin.total in Blood Hemoglobin A1c Lab Routine Polycystic ovaries 1 Occurrences starting 03/29/2023 until 03/29/2024 [employer] Comment on above: 1 Occurrences starting 03/29/2023 until 03/29/2024 End: 03-29-2024 Luteinizing hormone Luteinizing hormone Lab Routine Polycystic ovaries 1 Occurrences starting 03/29/2023 until 03/29/2024 [employer] Comment on above: 1 Occurrences starting 03/29/2023 until 03/29/2024 End: 03-29-2024 Prolactin Prolactin Lab Routine Polycystic ovaries 1 Occurrences starting 03/29/2023 until 03/29/2024 [employer] Comment on above: 1 Occurrences starting 03/29/2023 until 03/29/2024 Payers Date Payer Category Payer Medicaid [facility] O [id number] 2023-Present [phone] [address] [place] [address] [id number] 2023 Medicaid [id number] 2021 Private Health Insurance [employer] [id number] 2017 Unknown [id number]. [id number] 2014 Private Health Insurance [employer] [id number] 2014-Present PPO [id number]. [id number] 1995 Unknown [id number] 2.840.1.128851.3.579.2. 593 1995 Unknown [id number] 2.840.1.121934.3.579.2. 1285 1995 Unknown [id number] 2.840.1.780332.3.579.2. 1285 1995 Unknown [id number] 2.16840.1.520201.3.579.2. 1286 1995 Unknown [id number] 2.840.1.946148.3.579.2. 1285 1995 Unknown [id number] 2.840.1.778480.3.579.2. 128 1995 Unknown [id number] 2.840.1.013412.3.579.2. 1285 1995 Unknown [id number] 2.16840.1.384130.3.579.2. 1285 1995 Unknown [id number] 2.16840.1.471932.3.579.2. 128 1995 Unknown [id number] 2.16840.1.076898.3.579.2. 1286 1995 Unknown [id number] 2.16.840.1.543768.3.579.2. 1286 1995 Unknown [id number] 2.16.840.1.580404.3.579.2. 1286 1995 Unknown [id number] 2.16.840.1.573722.3.579.2. 9 1995 Unknown [id number] 2.16.840.1.431096.3.579.2. 1259 1995 Unknown [id number] 2.16.840.1.959113.3.579.2. 1259 1959 Unknown [id number] 1959 Unknown [id number] 1959 Unknown [id number] Social History Date Type Detail Facility Start: 07-16-2012 End: 12-11-2023 Tobacco smoking status [facility] Never smoker [facility] Start: 07-16-2012 Alcohol intake Not Asked [facility] Start: 1995 Sex Assigned At Not on file [facility] Start: 10-19-2022 End: 12-11-2023 Tobacco use and exposure Smokeless tobacco non-user [facility] Start: 03-29-2023 End: 11-07-2023 Alcohol intake Current non-drinker of alcohol (finding) [facility] Start: 06-03-2018 End: 12-11-2023 History of Social function [facility] Start: 06-03-2018 End: 12-11-2023 Alcohol Use Disorder Identification Test - Consumption [AUDIT-C] [facility] Frequency of Alcohol Consumption Never [facility] Start: 11-26-2023 End: 12-18-2023 Alcoholic beverage intake Lifetime non-drinker (finding) [facility] Start: 10-20-2022 Alcohol Comment Caffeine: 1-2 cups/day [facility] How hard is it for y ou to pay for the very basics like food, housing, medical care, and heating Somewhat hard [facility] Clinical Notes 03-29-2023 to 12-18-2023 Bety Burns LPN - 12/18/2023 9:30 AM PURNIMAlizy Reddy - 12/11/2023 1:00 PM Sourav Pascual, KANWAL-BOAT JOINER - 12/05/2023 9:00 AM Sourav Pascual, KANWAL- BOAT JOINER - 05/07/2023 8:00 AM EDT Note Date & Type Note Facility 12-18-2023 History of Present illness Narrative Associated Order(s): Insertion/Removal of Contraceptive Capsule Post-Procedure Diagnose(s): Nexplanon removal Reason for Appointment: Patient ID: Yeimy Ramesh is a 28 y.o. female who presents for Contraception Patient presents today for a Nexplanon Removal appointment. MEDICATIONS Current Outpatient Medications Medication Instructions FLUoxetine (PROZAC) 10 mg, Daily RT ALLERGIES No Known Allergies SURGICAL HISTORY Past Surgical History: Procedure Laterality Date COLONOSCOPY 05/04/2011 Ulcerated mucosa term ileum/[facility] COLONOSCOPY 01/2011 ?colitis COLONOSCOPY 05/2018 EGD 05/04/2011 Gastric erythema and duoden ulceration[place] [place] COLORECTAL CANCER SCREENING RESULTS DOC&REV 08/04/2015 Crohns involving terminal ileum/[facility] SPINE SURGERY 01/31/2023 TONSILLECTOMY VAGINAL DELIVERY 08/30/2020 REVIEW OF SYSTEMS Review of Systems: Review of Systems Constitutional: Negative. HENT: Negative. Eyes: Negative. Respiratory: Negative. Cardiovascular: Negative. Gastrointestinal: Negative. Genitourinary: Negative. Musculoskeletal: Negative. Skin: Negative. Neurological: Negative. All other systems reviewed and are negative. Hematological: Negative. Endocrine: Negative. Allergic/Immunologic: Negative. OBJECTIVE Objective: Physical Exam Constitutional: Appearance: Normal appearance. She is well-developed. Cardiovascular: Rate and Rhythm: Normal rate and [...] nursing note reviewed. Exam conducted with a container crane operator present. Vitals: Estimated body mass index is 41.07 kg/m as calculated from the following: Height as of 24: 5' 9 . Weight as of this encounter: 278 lb 1.9 oz. BP: 110/70 No LMP recorded. Patient has had an implant. ASSESSMENT & PLAN Assessment/Plan Encounter Diagnosis: ICD-10-CM 1. Nexplanon removal Z30.46 Insertion/Removal of Contraceptive Capsule Date/Time: 12/18/2023 9:29 AM Performed by: Delfino Vaughn DO Authorized by: Delfino Vaughn DO Consent: Consent obtained: Written Consent given by: Patient Patient questions answered: yes Patient agrees, verbalizes understanding, and wants to proceed: yes Educational handouts given: yes Instructions and paperwork completed: yes Indication: Indication: Presence of non-biodegradable drug delivery implant Pre-procedure: Local anesthetic: Lidocaine without epinephrine The site was cleaned and prepped in a sterile fashion: yes Procedure: Procedure: Removal Small stab incision was made in arm: yes Left/right: Left Preloaded contraceptive capsule trocar was placed subdermally: no Visualization of implant was obtained: yes Contraceptive capsule was inserted and trocar removed: no Visualization of notch in stylet and palpation of device: no Palpation confirms placement by provider and patient: no Site was closed with steri-strips and pressure bandage applied: no Comments: Nexplanon Removal: Patient presents today for removal of Nexplanon. Written consent for procedure was obtained and patient was placed in supine position with left arm flexed at elbow. Skin was cleansed with alcohol/Betadine and 2cc of Lidocaine was injected underneath palpated Nexplanon at distal end. After allowing for sufficient time for numbing agent to take effect, the skin overlying the end of Nexplanon was incised with an 11inch blade scalpel. A 7.5in hemostat was inserted in the incision site to grab device and Nexplanon was released from tissue. Nexplanon implant was removed in its entirety and visualized by myself and patient. The skin was cleansed with alcohol and the incision was covered with gauze. Post-procedure care was reviewed and patient will continue with proposed plan of care. Patient was advised to call office with any questions or concerns. Follow Up: Patient is to return to the office as needed for any routine appointments. Documented by Bety Burns LPN on behalf of: Delfino Vaughn DO documented in this encounter [facility] 12-11-2023 History of Present illness Narrative Reason for Appointment: Patient ID: Yeimy Ramesh is a 28 y.o. female who presents for Well Women Visit and Pre-op Visit Patient presents today for Pre Op/Annual appointment. Patient is scheduled to undergo Diagnostic Laparoscopy, possible BALA, possible FOE, possible BSO on 01/04/[address] Vaughn at [facility]. MEDICATIONS Current Outpatient Medications Medication Instructions [...] hospitalized 03/2018 Lower urinary tract infection Migraine (CMS/HCC) MRSA [...] 05/04/2011 Gastric erythema and duoden ulceration[place] [place] COLORECTAL CANCER SCREENING RESULTS DOC&REV 08/04/2015 Crohns [...] nursing note reviewed. Exam conducted with a container crane operator present. Vitals: Estimated body mass index is 40.91 kg/m as calculated from the following: Height as of 11/26/23: 5' 9 . Weight as of this [...] reviewed, and patient is to proceed to [facility] OR. Follow Up: Patient is to follow up between 1-2 weeks post operative to assess proper healing and recovery from procedure. Documented by Bety Burns LPN on behalf of: Delfino Vaughn DO documented in this encounter [facility] 12-05-2023 History of Present illness Narrative Images from the original note were not included. [facility] [phone] SUBJECTIVE: Patient ID: Yeimy Ramesh is a 28 y.o. female. Video Visit via Real-time Synchronous Audiovisual Provider Location: [address] [phone] Patient Location: work Video Visit Consent Statement: [...] that there are some limitations compared to [id number] evaluations. The patient consented to the presence of additional virtual and/or in-person participants. We elected to proceed.Video Visit via Real-time Synchronous Audiovisual Provider Location: [address] [phone] Patient Location: work Video Visit Consent Statement: [...] that there are some limitations compared to [id number] evaluations. The patient consented to the presence [...] ARSLAN Ghotra 12/05/23917 documented in this encounter [employer] 05-07-2023 History of Present illness Narrative Images from the original note were not included. [address] [facility] [place] [id number] SUBJECTIVE: Patient ID: Yeimy Ramesh is a 27 y.o. female. -Patient here to follow up after seeing endocrinology and was started on metformin 5 weeks ago. Patient states they are having a hard time getting their metformin XR and has not had a chance to pick it up. Patient states they have no symptoms today except for being fatigued. Patient will waste picker medication later today. No other complaints at [...] try to incorporate exercise. 2.) Patient to waste picker medications and be compliant taking them 3.) Patient to return in 6 months Yeimy was seen today for follow-up. Diagnoses and all orders for this visit: Polycystic ovaries Vitamin B12 deficiency Vitamin D deficiency Follow-up: Cortisol level was not drawn with other labs, will have her get that done, printed order ARSLAN Ghotra 05/07/23 0834 [facility] + Plan note Associated Problem(s): [...] Next follow-up will be in 3 months [facility] 03-29-2023 Miscellaneous Notes Associated Problem(s): Polycystic ovaries [...] in 3 months documented in this encounter [facility] 03-29-2023 History of Present illness Narrative New [...] Medical History: Diagnosis Date Anemia Crohn's colitis ([facility]) Crohn's disease ([facility]) Low back pain Lumbar disc herniation 01/17/2023 [...] 06/24/2018 Performed by Naldo Parker DO at [facility] INJECTION SPINE TRANSFORAMINAL right L 4,5 nroot Right 12/08/2022 Performed by Giovani Garg MD at [facility] LAMINECTOMY LUMBAR SINGLE LEVEL / L4/5 AND DISCECTOMY Right 01/31/2023 Performed by Carrillo Aragon MD at [facility] TONSILLECTOMY Allergies Allergen Reactions Nsaids (Non-Steroidal Anti-Inflammatory [...] 104 (H) 11/08/2022 ASSESSMENT: 1. Hyperinsulinism - [facility] - [place], [place] 2. Polycystic ovaries - Androstenedione; Future [...] in 3 months documented in this encounter [facility] Evaluation note Diagnosis Crohn's disease, with rectal bleeding- [facility] Polycystic ovaries- Primary Hyperinsulinism Other specified hypoglycemia [facility] Diagnosis Polycystic ovaries- Primary Vitamin B12 deficiency Other B-complex deficiencies Vitamin D deficiency documented in this encounter [facility]* Diagnosis Anxiety- Primary Anxiety state, unspecified Depression, unspecified depression type Numbness and tingling in right hand Disturbance of skin sensation [facility] Diagnosis Well woman exam with routine gynecological exam Routine gynecological examination Preoperative examination Unspecified pre-operative examination Pelvic pain in female Unspecified symptom associated with female genital organs Dyspareunia in female documented in [facility] encounter [facility]* Diagnosis Nexplanon removal documented in this [facility] HealthcareInstructionsNot on filedocumented in [facility]* Attachments The following attachments cannot be sent through Care Everywhere. * Polycystic ovary syndrome ([place]) [facility] Attachments The following attachments cannot be sent through Care Everywhere. * Anxiety Discharge Instructions, Adult ([place]) [facility] Summary Purpose Family History No Family History Records FoundNo Family History Records FoundNo Family History Records FoundNo Family History Records FoundNo Family History Records Found Advance Directives No Advanced Directives Records FoundNo Advanced Directives Records FoundNo Advanced Directives Records FoundNo Advanced Directives Records FoundNo Advanced Directives Records Found Reason for Referral Specialty Diagnoses / Procedures Referred By Maurice darby Referred To Contact Neurology Diagnoses Numbness and tingling in right hand Ronni Pascual, TREATING MACHINE OPERATOR-BOAT JOINER [address] [place] [address] [facility] [address] [place] [id number] Referral ID Status Reason Start Date Expiration Date Visits Requested Visits Authorized [id number] Pending Review Specialty Services Required 12/05/2023 12/04/2024 1 1 Additional Source Comments Source Comments (unrecognize d section and content) In the event this informatio n is protected by the Federal Confidentiality of Alcohol and Drug Abuse Patient Records regulations: The Federal rules restrict any use of the information to criminally investigate or prosecute any alcohol or drug abuse patient.[facility] Reason for Visit (unrecogniz ed section and content) Reason Comments Refill Request Reason Comments Endocrine Disorders Specialty Diagnoses / Procedures Referred By Contac t Referred To Contact Endocrinology Diagnoses Hyperinsulinism Ronni Pascual, TREATING MACHINE OPERATOR-BOAT JOINER [address] [place] [address] Bety Jensen MD [address] [address] Referral ID Status Reason Start Date Expiration Date Visits Requested Visits Authorized [id number] Pending Review Specialty Services Required 11/06/2022 11/06/2023 1 1 Reason Comments Follow-up Reason Comments Med Refill Reason Comments Well Women Visit Pre-op Visit Reason Comments Contraception INFORMATION SOURCE (unrecogn ized section and content) DATE CREATED AUTHOR [facility]/26/2022 [facility] DATE CREATED AUTHOR AUTHOR'S ORGANIZ ATION 07/14/[address] [facility] DATE CREATED AUTHOR AUTHOR'S ORGANIZ ATION 07/27/2023 [facility] DATE CREATED AUTHOR AUTHOR'S ORGANIZ ATION 12/07/2023 [facility] DATE CREATED AUTHOR AUTHOR'S ORGANIZ ATION 12/20/2023 [facility] [employer] Care Teams (unrecognized sec tion and content) Product Manager Medical Device Relationship Specialty Start Date End Date Ronni Pascual APRN-TIFFANY [address] [place] [id number] PCP - [facility] 10/19/22 Product Manager Medical Device Relationship Specialty Start Date End Date Ronni Pascual APRN-BOAT JOINER [address] [place] [address] PCP - [facility] 10/19/22 Product Manager Medical Device Relationship Specialty Start Date End Date ChivoRonni long APRN-BOAT JOINER [address] [place] [id number] PCP - [facility] 10/19/22 Product Manager Medical Device Relationship Specialty Start Date End Date Ronni Pascual APRN-BOAT JOINER [address] [place] [address] PCP - [facility] 10/19/22 FOR RECORDS PERTAINING TO PATIENTS WHO [...] BE BASED ON THE PRIMARY CLINICAL RECORDS. [facility] [employer] [facility]. provides no warranty or guarantee of the accuracy or completeness of information in this document.
== END 2023-12-27 12:35 | disposition home or self-care (01) ==
LOC: PST 12:37
PROVIDERS: Visit Provider Obstetrics & Gynecology
DX: Z01.818 Encounter for other preprocedural examination (principal); R10.2 Pelvic and perineal pain; N94.10 Unspecified dyspareunia

== ENCOUNTER 2024-01-04 08:38 | Day surgery (SDC) | payer OTHER, SELFPAY ==
[2023-12-27 13:08] VITALS: BP 122/79; PULSE 81; TEMP 36.2; O2SAT 99; BMI 41.2
[2024-01-04] VITALS (10 sets, daily range): BP systolic 116–141; BP diastolic 80–98; PULSE 67–90; TEMP 35.8–36.6; O2SAT 96–99; BMI 40.9
--- OUTSIDE RECORDS SUMMARY | 2024-01-04 08:55 | XMS_ITS | CCD ---
Author Organization [facility] Care Team Providers Care Collection Support Specialist Name Role Phone Good Gonzalez Primary Care Provider LISE ., DR VERMA Admitting Unavailabl e KARASIK ., DR VERMA Consulting Unavailabl e KARASIK ., DR VERMA Attending Unavailabl e REQUEST, DR NOBLES LISTED Primary Care Unavaila ble JOHANA ., DR SALEH Consulting Unavailable JOHANA ., DR SALEH Procedure Practitioner Unavail able Schlachter ADMISSIONS ASSISTANT-SENIOR WAREHOUSE CLERK, Ronni Primary Care Provide r ANKUR, RONNI Primary Care Unavailable YULI OJEDA Attending [...] Referring Unavailable SCHLACHTER, RONNI Primary Care Unavailable SCHLACHTERRONNI Attending Unavailable SCHLACHTER, RONNI Referring Unavailable SCHLACHTER, RONNI Primary Care Unavailable CARRILLO ARAGON Attending Unavailable SCHLACHTER, RONNI Referring Unavailable SCHLACHTER, RONNI Primary Care Unavailable SCHLACHTER, RONNI Attending Unavailable SCHLACHTER, RONNI Referring Unavailable SCHLACHTER, RONNI Primary Care Unavailable SCHLACHTER, RONNI Attending Unavailable SCHLACHTER, RONNI Referring Unavailable SCHLACHTER, RONNI Primary Care Unavailable SCHLACHTER, RONNI Attending Unavailable SCHLACHTER, RONNI Referring Unavailable RONNI PASCUAL Primary Care Unavailable Jerri Murcia DO Unavailable Ankur ANSWERER, Ronni Unavailable Chip ANSWERER, Chanda Unavailable Sameer ANSWERER, Yesenia Unavailable DELFINO VAUGHN Attending Unavailable DELFINO VAUGHN Attending Unavailable DELFINO VAUGHN Attending Unavailable JERRI MURCIA Attending Unavailable RONNI PASCUAL Referring Unavailable Allergies Allergy Classification Reported Allergen(s) Allergy Type Date of Onset Reaction(s) Facility (7 sources) Non-steroidal anti-inflammator y agent; Translations: [NSAIDS (NON-STEROIDAL ANTI-INFLAMMATOR Y DRUG)] Propensity to adverse reactions to drug 01-17-2023 [facility] Medications Current Medications Medication Drug Class(es) Dates [...] 11/06/2022 Active FLUoxetine 10 mg oral capsule (10 sources) Serotonin Reuptake Inhibitor Start: 12-05-2023 take [...] Comment on above: Take 3 tablets by [facility] daily at bedtime. balsalazide disodium 750 mg oral capsule (1 source) Aminosalicylate Start: 014 take 1 capsule by mouth twice daily balsalazide (COLAZAL) 750 mg capsule Take 1 capsule by mouth twice daily. 60 capsule 3 11/07/2013 Active Comment on above: Take 1 capsule by [facility] twice daily. dexamethasone 1 mg oral tablet (1 source) Corticosteroid Start: 024 End: 024 take 1 tablet by mouth once dexAMETHasone (DECADRON) 1 mg tablet Take 1 tablet (1 mg total) by mouth once for 1 dose. 1 tablet 0 03/29/2023 03/29/2023 famotidine 20 mg oral tablet (1 source) Histamine-2 Receptor Antagonist Start: 013 End: 015 take 1 tablet by mouth twice daily famotidine (PEPCID) 20 mg tablet Take 1 tablet by mouth twice daily. 60 tablet 3 09/05/2012 09/29/2014 Discontinued Comment on above: Take 1 tablet by [facility] twice daily. omeprazole 40 mg delayed release oral capsule (1 source) Proton Pump Inhibitor Start: 013 take 1 capsule by mouth once daily before breakfast Omeprazole (PRILOSEC) 40 mg capsule Take 1 capsule by mouth daily before breakfast. 30 capsule 3 07/16/2012 Active Comment on above: Take 1 capsule by [facility] daily before breakfast. Problems Active Problems [...] episode, unspecified; Translations: [Depressive disorder] Onset: 09-08-2020 4 Chronic Mood disorders (1 source) Mood disorders; [...] Translations: [Anesthesia of skin] 12-05-2023 Episodic Other nervous system disorders (1 source) Paresthesia; Translations: [Paresthesia of skin] 01-01-2024 Episodic Other nutritional; endocrine; and metabolic disorders [...] Test Name Value Interpretation Reference Range Facility EMG 1 Extremeityon Normal RUE EMG [facility] NVC 5-6 Nerveson 01-01-2024 Normal RUE EMG [facility] Insertion/Removal of Contrac eptive Capsuleon 12-18-2023 Bety [...] office as needed for any routine appointments. [facility] IGP,APTIMA HPV,AGE GDLNon AGE GDLN ACOG TESTING Note . [facility] Comment on above: TESTS RESULT FLAG UN ITS REF RANGE LAB Clinician Provided Cytology Information Source.............Cervix;Endocervix No. of containers..01 ThinPrep Vial Age Algo ACOG Ximena... FLAG LEGEND: L-Low Normal,H-High Normal,LL-Alert Low,HH-Alert High <-Panic Low,>-Panic High,A-Abnormal,AA-Critical Abnormal Performed at: 01 =G [facility] [address] [facility] [place] [address] Kristina Alba MD, IGP, RFX APTIMA HPV ASCU Note . [facility] Comment on above: TESTS RESULT FLAG UN ITS REF RANGE LAB DIAGNOSIS: 02 NEGATIVE FOR INTRAEPITHELIAL LESION OR MALIGNANCY. Specimen adequacy: 02 Satisfactory for evaluation. Endocervical and/or squamous metaplastic cells (endocervical component) are present. Performed by: 02 Jeremy Black, Circuit Designer ([facility]) . 02 Note: Note 03 The [...] <-Panic Low,>-Panic High,A-Abnormal,AA-Critical Abnormal Performed at: 02 KWCYT [facility] [address] [place] [phone] Bipin Panda MD, [address] [address] Kristina Alba MD, Performed at: = - [facility] [address] [id number] [employer] Assistant Manager: Kristina Alba MD, Phone: [phone] Performed at: [facility] [address] [place], [place] [id number] [employer] Assistant Manager: Bipin Panda MD, Phone: [phone] BRUSH-SPATULA CERVIX ENDOCERVIX [facility] URETHRITIS/DISCHARGE PLUS VA GINITIS (HTRX)on 11-29-2023 ATOPOBIUM VAGINAE 0.000 [facility] ATOPOBIUM VAGINAE Not detected [facility] BVAB 2,3 (BACTERIAL VAGINOSIS ASSOCIATED BACTERIA 2, 3); MOBILUNCUS SPP 0.000 [facility] BVAB 2,3 (BACTERIAL VAGINOSIS ASSOCIATED BACTERIA [...] [facility] GARDNERELLA VAGINALIS 0.000 [facility] GARDNERELLA VAGINALIS Not detected [facility] MEGASPHAERA (TYPES 1, 2) 0.000 [facility] MEGASPHAERA (TYPES 1, 2) Not detected [facility] MYCOPLASMA GENITALIUM 0.000 [facility] MYCOPLASMA GENITALIUM Not detected [facility] NEISSERIA GONORRHOEAE 0.000 [facility] NEISSERIA GONORRHOEAE Not detected [facility] TRICHOMONAS VAGINALIS 0.000 [facility] TRICHOMONAS VAGINALIS Not detected [facility] URINALYSISon 07-26-2023 Bilirubin Ql (U) Negative Normal NEG [facility] Comment on above: Performed By: #### U A #### [facility] ([id number]) [address] [facility] [address], [address] [place] [address] BLOOD/HGB Negative Normal NEG [facility] Comment on above: Performed By: #### U A #### [facility] ([id number]) [address], [address] [place] [address] Color (U) YELLOW Normal YELLOW [facility] Comment on above: Performed By: #### U A #### [facility] ([id number]) [address], [address] [place] [address] Glucose Ql (U) Negative Normal NEG [facility] Comment on above: Performed By: #### U A #### [facility] ([id number]) [address], [address] [place] [address] Ketones Ql (U) Negative Normal NEG [facility] Comment on above: Performed By: #### U A #### [facility] ([id number]) [address], [address] [place] [address] Leukocyte esterase Test strip Ql (U) Negative Normal NEG [facility] Comment on above: Performed By: #### U A #### [facility] ([id number]) [address], [address] [place] [address] MUCOUS PRESENT Abnormal NONE [facility] Comment on above: Performed By: #### U A #### [facility] ([id number]) [address], [address] [place] [address] Nitrite Ql (U) Negative Normal NEG [facility] Comment on above: Performed By: #### U A #### [facility] ([id number]) [address], [address] [place] [address] pH (U) 6.0 [pH] Normal 5.0-8.5 [facility] Comment on above: Performed By: #### U A #### [facility] ([id number]) [address] [place] [address] Protein Ql (U) 30 mg/dL Abnormal NEG [facility] Comment on above: Performed By: #### U A #### [facility] ([id number]) [address] [address] R.B.CELLS 0 /hpf Normal 0-5 [facility] Comment on above: Performed By: #### U A #### [facility] ([id number]) [address] [address] Specific gravity (U) [Rel density] 1.033 Normal 1.003-1.035 [facility] Comment on above: Performed By: #### U A #### [facility] ([id number]) [address] [address] SQUAMOUS EPITHELIUM 22 /hpf High 0-5 [facility] Comment on above: Performed By: #### U A #### [facility] ([id number]) [address] [address] TURBIDITY CLOUDY Abnormal CLEAR [facility] Comment on above: Performed By: #### U A #### [facility] ([id number]) [address] [place] [address] Urobilinogen (U) [Mass/Vol] mg/dL Normal <1.1 [facility] Comment on above: Performed By: #### U A #### [facility] ([id number]) [address] [address] W.B.CELLS 0 /hpf Normal 0-5 [facility] Comment on above: Performed By: #### U A #### [facility] ([id number]) [address] [place] [address] URINE CULTUREon 07-26-2023 Bacteria identified Cx Nom (U) CULTURE RESULTS 50-100,000 ORGANISMS/ML NORMAL UROGENITAL DANNY Normal [facility] Comment on above: Performed By: #### 6 30-4 #### [facility] ([id number]) [address] [place] [address], [address] [place] [address] CBC AND AUTO DIFFon 07-11-19 24 ABSOLUTE BASOPHIL 0.1 X10E9/L Normal 0.0-0.2 [facility] Comment on above: Performed By: #### C MORGAN CMP, 3040-3, 85056-7 #### [facility] ([id number]) [address] [place] [address] ABSOLUTE NEUTROPHIL 4.9 X10E9/L Normal 1.5-6.6 [facility] Comment on above: Performed By: #### Leonid MORA CMP, 3040-3, 77824-9 #### [facility] ([id number]) [address] [place] [address] Basophils/100 WBC (Bld) 0.7 % Normal [facility] Comment on above: Performed By: #### Leonid MORA, CMP, 3040-3, 05100-2 #### [facility] ([id number]) [address] [place] [address] Eosinophils (Bld) [#/Vol] 0.1 10*3/uL Normal 0.0-0.4 [facility] Comment on above: Performed By: #### Leonid MORA, CMP, 3040-3, 21200-2 #### [facility] ([id number]) [address] [place] [address] Eosinophils/100 WBC (Bld) 0.9 % Normal [facility] Comment on above: Performed By: #### C BCA, CMP, 3040-3, 44230-9 #### [facility] ([id number]) [address] [place] [address] Erythrocyte distribution width (RBC) [Ratio] 14.3 % Normal 11.5-15.0 [facility] Comment on above: Performed By: #### C PAULA MORA, 3040-3, 70327-1 #### [facility] ([id number]) [address] [place] [address] Hematocrit (Bld) [Volume fraction] 39.3 % Normal 35-47 [facility] Comment on above: Performed By: #### Leonid MORA CMP, 3, 22216-8 #### [facility] ([id number]) [address] [place] [address] Hemoglobin (Bld) [Mass/Vol] 13.0 g/dL Normal 11.7-15.5 [facility] Comment on above: Performed By: #### Leonid MORA CMP, 3, 64509-5 #### [facility] ([id number]) [address] [place] [address] Lymphocytes (Bld) [#/Vol] 2.6 10*3/uL Normal 1.0-3.5 [facility] Comment on above: Performed By: #### Leonid MORA CMP, 3, 85364-7 #### [facility] ([id number]) [address] [place] [address] Lymphocytes/100 WBC (Bld) 31.8 % Normal [facility] Comment on above: Performed By: #### Leonid MORA CMP, 3043, 58257-5 #### [facility] ([id number]) [address] [place] [address] MCH (RBC) [Entitic mass] 26.2 pg Low 27-34 [facility] Comment on above: Performed By: #### Leonid MORA CMP, 3040-3, 57190-9 #### [facility] ([id number]) [address] [place] [address] [place] [address] MCHC (RBC) [Mass/Vol] 33.1 g/dL Normal 32-36 [facility] Comment on above: Performed By: #### C PAULA MORA, 3040-3, 98307-8 #### [facility] ([id number]) [address] [place] [address] MCV (RBC) [Entitic vol] 79 fL Low 80-100 [facility] Comment on above: Performed By: #### C MORGAN CMP, 0-3, 35785-0 #### [facility] ([id number]) [address] [place] [address] Monocytes (Bld) [#/Vol] 0.6 10*3/uL Normal 0-0.9 [facility] Comment on above: Performed By: #### Leonid MORA CMP, 3039-3, 99643-6 #### [facility] ([id number]) [address] [place] [address] Monocytes/100 WBC (Bld) 6.9 % Normal [facility] Comment on above: Performed By: #### Leonid MORA, CMP, 0-3, 06065-7 #### [facility] ([id number]) [address] [place] [address] Neutrophils/100 WBC (Bld) 59.7 % Normal [facility] Comment on above: Performed By: #### Leonid MORA, CMP, 3040-3, 57826-5 #### [facility] ([id number]) [address] [place] [address] Platelet mean volume (Bld) [Entitic vol] 7.8 fL Normal 7-12 [facility] Comment on above: Performed By: #### Leonid MORA CMP, 3040-3, 75289-7 #### [facility] ([id number]) [address] [place] [address], [place] [address] Platelets (Bld) [#/Vol] 371 10*3/uL Normal 150-450 [facility] Comment on above: Performed By: #### C BCA, CMP, 3040-3, 22142-2 #### [facility] ([id number]) [address] [place] [address] RBC COUNT 4.97 X10E12/L Normal 3.80-5.20 [facility] Comment on above: Performed By: #### C BCA, CMP, 0-3, 30921-5 #### [facility] ([id number]) [address] [place] [address] WBC (Bld) [#/Vol] 8.1 10*3/uL Normal 4.0-11.0 [facility] Comment on above: Performed By: #### C BCA, CMP, 0-3, 33776-5 #### [facility] ([id number]) [address] [place] [address] COMPREHENSIVE METABOLIC PANE [facility] [place] 07-11-2023 Albumin [Mass/Vol] 3.8 g/dL Normal 3.2-5.3 [facility] Comment on above: Performed By: #### C BCA, CMP, 0-3, 06489-2 #### [facility] ([id number]) [address] [place] [address] ALP [Catalytic activity/Vol] 57 U/L Normal 39-130 [facility] Comment on above: Performed By: #### C BCA, CMP, 3040-3, 12815-9 #### [facility] ([id number]) [address] [place] [address] ALT [Catalytic activity/Vol] 41 U/L High 0-31 [facility] Comment on above: Performed By: #### C BCA, CMP, 3040-3, 33809-0 #### [facility] ([id number]) [address] [place] [address] Anion gap [Moles/Vol] 6 mmol/L Normal 5-15 [facility] Comment on above: Performed By: #### C BCA, CMP, 3040-3, 44991-8 #### [facility] ([id number]) [address] [place] [address] AST [Catalytic activity/Vol] 24 U/L Normal 0-41 [facility] Comment on above: Performed By: #### C BCA, CMP, 3040-3, 59459-2 #### [facility] ([id number]) [address] [place] [address] Bilirubin [Mass/Vol] 0.7 mg/dL Normal 0.3-1.2 [facility] Comment on above: Performed By: #### C BCA, CMP, 3040-3, 32952-6 #### [facility] ([id number]) [address] [place] [address] Calcium [Mass/Vol] 8.8 mg/dL Normal 8.5-10.5 [facility] Comment on above: Performed By: #### C BCA, CMP, 3040-3, 66781-6 #### [facility] ([id number]) [address] [place] [address] Chloride [Moles/Vol] 106 mmol/L Normal 98-109 [facility] Comment on above: Performed By: #### C BCA, CMP, 3040-3, 81331-3 #### [facility] ([id number]) [address] [place] [address] CO2 [Moles/Vol] 26 mmol/L Normal 22-32 [facility] Comment on above: Performed By: #### C BCA, CMP, 3040-3, 66083-8 #### [facility] ([id number]) [address] [place] [address] Creatinine [Mass/Vol] 0.64 mg/dL Normal 0.40-1.00 [facility] Comment on above: Result Comment: METH OD TRACEABLE TO IDMS STANDARD Performed By: #### C PAULA MORA, 3040-3, 83334-0 #### [facility] ([id number]) [address] [place] [address] eGFR (CKD-EPI) NON-RACE DEPENDENT >90 Normal >59 [facility] Comment on above: Result Comment: Reported eGFR is based on the CKD-EPI 2020 equation that does not use a race coefficient. Performed By: #### C PAULA MORA, 3040-3, 35824-5 #### [facility] ([id number]) [address] [place] [address] Glucose [Mass/Vol] 108 mg/dL High 65-99 [facility] Comment on above: Performed By: #### C PAULA MORA, 3040-3, 18270-2 #### [facility] ([id number]) [address] [place] [address] Potassium [Moles/Vol] 4.3 mmol/L Normal 3.5-5.0 [facility] Comment on above: Performed By: #### C PAULA MORA, 3040-3, 68395-5 #### [facility] ([id number]) [address] [place] [address] Protein [Mass/Vol] 7.0 g/dL Normal 6.0-8.0 [facility] Comment on above: Performed By: #### C PAULA MORA, 3040-3, 02000-4 #### [facility] ([id number]) [address] [place] [address]662 Sodium [Moles/Vol] 138 mmol/L Normal 134-146 [facility] Comment on above: Performed By: #### C MORGAN, CMP, 3040-3, 75460-3 #### [facility] ([id number]) [address] [place] [address] Urea nitrogen [Mass/Vol] 14 mg/dL Normal 5-23 [facility] Comment on above: Performed By: #### C MORGAN CMP, 3040-3, 48108-6 #### [facility] ([id number]) [address] [place] [address] LIPASEon 07-11-2023 Lipase [Catalytic activity/Vol] 40 U/L Normal 17-40 [facility] Comment on above: Performed By: #### C MORGAN, CMP, 3040-3, 32730-8 #### [facility] ([id number]) [address] [place] [address] Troponin I.cardiac High sens itivity method [Mass/Vol]on 07-11-2023 1 HOUR TROP I, HIGH SENSITIVITY 3 ng/L Normal <16 [facility] Comment on above: Performed By: #### 2 842-3, 35931-8, 56359-8 #### [facility] ([id number]) [address] [place] [address] #### ANDRST #### [facility] ([id number]) [address] [place] [address] TROPONIN I, HIGH SENSITIVITY <2 Normal <16 [facility] Comment on above: Performed By: #### C MORGAN, CMP, 3040-3, 39123-0 #### [facility] ([id number]) [address] [place] [address] 26025 XR CHEST 1 VWon 07-11-2023 XR CHEST 1 VW XR CHEST 1 VW Portable chest: HISTORY: Chest pain. Single view of the chest was obtained. Cardiac and mediastinal contours are within normal limits. Lungs are clear. There is no pneumothorax, effusion, or focal consolidation. Osseous structures appear intact. IMPRESSION: No acute findings. Finalized by Oliver Lo MD on 07/11/2023 7:11 PM Normal [facility] 17-Hydroxyprogesterone [Mass /Vol]on 03-30-2023 17 HYDROXYPROGEST 21.28 ng/dL Normal <=206.00 [facility] Comment on above: Result Comment: NOTE INTERPRETIVE INFORMATION for 17-Hydroxyprogesterone in females: Follicular 15 to 70 ng/dL Luteal 35 to 290 ng/dL REFERENCE INTERVAL: 17-Hydroxyprogesterone Qnt, HPLC-MS/MS Access complete set of age- and/or gender-specific reference intervals for this test in the [employer] Directory ([employer]). This test was developed and its performance characteristics determined by [email or web address]. It has not been cleared or approved by the [place] Food and Drug Administration. This test was performed in a CLIA certified laboratory and is intended for clinical purposes. Performed By: [facility] [address] [place] [address] Direct Care Staffer: Good Grijalva MD, PhD CLIA Number: [id number] Performed By: #### 1 668-3 #### [facility] ([id number]) [address] [place] [address] ANDROSTENEDIONEon 03-30-2023 ANDROSTENEDIONE 0.745 ng/mL Normal 0.260-2.140 [facility] Comment on above: Result Comment: NOTE INTERPRETIVE INFORMATION: Androstenedione, Females 18 years and older Post-menopausal: 0.13-0.82 ng/mL REFERENCE INTERVAL: Androstenedione by TMS Access complete set of age- and/or gender-specific reference intervals for this test in the [facility] Test Directory ([employer]). This test was developed and its performance characteristics determined by [email or web address]. It has not been cleared or approved by the US Food and Drug Administration. This test was performed in a CLIA certified laboratory and is intended for clinical purposes. Performed By: [facility] [address] [place] [address] Direct Care Staffer: Good Grijalva MD, PhD CLIA Number: [id number] Performed By: #### 2 842-3, 10462-4, 90566-0 #### [facility] ([id number]) [address] [place] [address] #### ANDRST #### [facility] ([id number]) [address] [place] [address] Follitropin Qnon 03-30-2023 FOLLICLE STIM HORMONE 2.0 mIU/mL Normal [facility] Comment on above: Result Comment: NORMAL FEMALE Luteal 1.8-5.1 mIU/mL Follicular 3.8-8.8 mIU/mL Mid Cycle 4.5-22.5 mIU/mL [facility] [place] 16.7-113.6 mIU/mL Performed By: #### 2 842-3, 92355-9, 27618-7 #### [facility] ([id number]) [address] [place] [address] #### ANDRST #### [facility] ([id number]) [address] [place] [address]507 HGB A1C (GLYCO-HGB)on 2023 Glucose [Mass/Vol] 94 mg/dL Normal [facility] Comment on above: Performed By: #### 2 842-3, 71904-9, 32702-2 #### [facility] ([id number]) [address] [place] [address] #### ANDRST #### [facility] ([id number]) [address] [place] [address]39 HbA1c (Bld) [Mass fraction] 4.9 % Normal 4.4-5.6 [facility] Comment on above: Result Comment: NOTE ADA Guidelines Result HgbA1c Normal : less than 5.7 % Prediabetes : 5.7 % to 6.4 % Diabetes : > 6.4 % Use with caution in patients with abnormal hemoglobin variants as the half-life of red blood cells and in vivo glycation rates are affected. Performed By: #### 2 842-3, 19363-0, 33386-4 #### [facility] ([id number]) [address] [place] [address] #### ANDRST #### [facility] ([id number]) [address] [place] [address]8210 Lutropin Qnon 03-30-2023 LUTEINIZING HORMONE 4.6 mIU/mL Normal [facility] Comment on above: Result Comment: NORMAL FEMALE Follicular 2.1-10.9 mIU/mL Mid Cycle 19.2-103 mIU/mL Luteal 1.2-12.9 mIU/mL [facility] [place] 10.9-58.6 mIU/mL Performed By: #### 2 842-3, 56782-9, 62750-4 #### [facility] ([id number]) [address] [place] [address] #### ANDRST #### [facility] ([id number]) [address] [place] [address]3525 Prolactin [Mass/Vol]on 03-30 PROLACTIN 10.6 ng/mL Normal 3.3-26.7 [facility] Comment on above: Performed By: #### 2 842-3, 17944-9, 94746-6 #### [facility] ([id number]) [address] [place] [address], [address] [place] [address] #### ANDRST #### [facility] ([id number]) [address] [place] [address], [place] [address] Vital Signs Date Time Vital Sign Value Performing Clinician Facility 12-18-2023 09:12-0400 Body mass index (BMI) [Ratio] 41.07 kg/m2 Delfino Johana DO Work Phone: [facility] 12-18-2023 09:12-0400 Body weight 126.15 kg Delfino Johana DO Work Phone: [facility] 12-18-2023 09:12-0400 Diastolic blood pressure 70 mm[Hg] Delfino Johana DO Work Phone: [facility] 12-18-2023 09:12-0400 Systolic blood pressure 110 mm[Hg] Delfino Johana DO Work Phone: [facility] 12-11-2023 13:18-0400 Body mass index (BMI) [Ratio] 40.91 kg/m2 Delfino Johana DO Work Phone: [facility] 12-11-2023 13:18-0400 Body weight 125.65 kg Delfino Johana DO Work Phone: [facility] 12-11-2023 13:18-0400 Diastolic blood pressure 76 mm[Hg] Delfino Johana DO Work Phone: [facility] 12-11-2023 13:18-0400 Systolic blood pressure 118 mm[Hg] Delfino Johana DO Work Phone: [facility] 05-07-2023 08:02-0400 Body mass index (BMI) [Ratio] 42.07 kg/m2 Ronni Pascual ADMISSIONS ASSISTANT-SENIOR WAREHOUSE CLERK Work Phone: [facility] 05-07-2023 08:02-0400 Body weight 129.28 kg Ronni Pascual ADMISSIONS ASSISTANT-SENIOR WAREHOUSE CLERK Work Phone: [facility] 05-07-2023 08:02-0400 Diastolic blood pressure 76 mm[Hg] Ronni Pascual ADMISSIONS ASSISTANT-SENIOR WAREHOUSE CLERK Work Phone: [facility] 05-07-2023 08:02-0400 Heart rate 88 /min Ronni Pascual ADMISSIONS ASSISTANT-SENIOR WAREHOUSE CLERK Work Phone: [facility] 05-07-2023 08:02-0400 Respiratory rate 16 /min Ronni Pascual ADMISSIONS ASSISTANT-SENIOR WAREHOUSE CLERK Work Phone: [facility] 05-07-2023 08:02-0400 SaO2% (BldA) [Mass fraction] 98 % Ronni Pascual ADMISSIONS ASSISTANT-SENIOR WAREHOUSE CLERK Work Phone: [facility] 05-07-2023 08:02-0400 Systolic blood pressure 128 mm[Hg] Ronni Pascual ADMISSIONS ASSISTANT-SENIOR WAREHOUSE CLERK Work Phone: [facility] 03-29-2023 16:31-0500 Body mass index (BMI) [Ratio] 42.81 kg/m2 N[facility] Roach [facility] 03-29-2023 16:31-0500 Body weight 131.54 kg Nivia Roach MD Work Phone: [facility] 03-29-2023 16:31-0500 Diastolic blood pressure 74 mm[Hg] N[facility]ach [facility] 03-29-2023 16:31-0500 Heart rate 74 /min Nivia Roach MD [facility] 03-29-2023 16:31-0500 Systolic blood pressure 128 mm[Hg] Nivia Roach MD Work Phone: [facility] Encounters Encounter Date Encounter Type Care Provider Facility Start: 01-01-2024 End: 01-01-2024 Leio flowsluke Murcia DO Work Phone: [facility] Start: 01-01-2024 End: 01-01-2024 Bamboo flowsheet Christopher Twin DO Work Phone: [facility] Start: 01-01-2024 End: 01-01-2024 Patient encounter procedure Christopher Twin DO Work Phone: [facility] Comment on above: Paresthesia (Primary Dx) Start: 01-01-2024 End: 01-01-2024 ambulatory CHRISTOPHER TWIN Not Available Start: 12-18-2023 End: 12-18-2023 Patient encounter procedure Delfino Johana DO Work Phone: [facility] Comment on above: Nexplanon removal Start: 12-18-2023 End: 12-18-2023 ambulatory DELFNIO JOHANA Not Available Start: 12-11-2023 End: 12-11-2023 [...] procedure Delfino Johana DO Work Phone: [facility] Start: 12-11-2023 End: 12-11-2023 Periodic preventive med est patient 18-39 yrs Delfino Johana DO Work Phone: [facility] Comment on above: Well woman exam with routine gynecological exam; Preoperative examination; Pelvic pain in female; Dyspareunia in female Start: 12-11-2023 End: 12-11-2023 Preprocedural examination done Delfino Johana DO Work Phone: [facility] Start: 12-05-2023 End: 12-05-2023 [facility] ADMISSIONS ASSISTANT-SENIOR WAREHOUSE CLERK Work Phone: [facility] Start: 12-05-2023 End: 12-05-[address] [facility] Start: 12-05-2023 End: 12-05-2023 Office outpatient visit 15 minutes Ronni Pascual ADMISSIONS ASSISTANT-SENIOR WAREHOUSE CLERK Work Phone: [facility] Comment on above: Anxiety [...] Department Unsolicited Start: 11-07-2023 End: 11-07-[address] [facility] Start: 11-07-2023 Encounter for genera l adult medical examination without abnormal findings [facility] Start: 08-23-2023 End: 08-23-[address] [facility] Start: 07-26-2023 End: 07-27-2023 ambulatory [facility] Start: 07-26-2023 End: 07-26-[address] [facility] Start: 07-11-2023 End: 07-12-2023 Emergency department patient visit [facility] Start: 05-07-2023 End: 05-07-2023 Office outpatient visit 15 minutes Ronni Pascual ADMISSIONS ASSISTANT-SENIOR WAREHOUSE CLERK Work Phone: [facility] Comment on above: Polycystic ovaries ( Primary Dx); Vitamin B12 deficiency; Vitamin D deficiency Start: 05-07-2023 End: 05-07-2023 [facility] Start: 03-30-2023 End: 03-31-2023 ambulatory [facility] Start: 03-29-2023 End: 03-29-2023 Office outpatient new 45 minutes Nivia Roach MD Work Phone: [facility] Comment on above: Polycystic ovaries ( Primary Dx); Hyperinsulinism Start: 03-29-2023 End: 03-29-2023 ambulatory [facility] Start: 03-15-2023 End: 03-15-2023 ambulatory CARRILLOMARGARET ARAGON [facility] Start: 08-30-2020 End: 08-31-2020 Evaluation and management of inpatient DR LUCI LEZAMA . Facility: Start: 09-27-2014 End: 09-27-2014 Refill Joey Rojo MD Work Phone: [facility] Comment on above: Refill Request Procedures Date Procedure Procedure Detail Performing Clinician Start: 01-01-2024 End: 01-01-2024 Needle emg ea extremty w/paraspinl area complete Jerri Murcia DO Work Phone: Start: 12-18-2023 INCIDENT ENGINEER INSERTION/REMOVA L OF CONTRACEPTIVE CAPSULE Delfino Johana DO Work Phone: Start: 12-11-2023 IGP,APTIMA HPV,AGE GDLN Delfino Johana DO Work Phone: Start: 11-26-2023 URETHRITIS/DISCHARGE PLUS VAGINITIS (HTRX) Delfino Johana DO Work Phone: Start: 08-23-2023 Follow-up visit Follow-up RONNI PASUCAL Start: 08-30-2020 Delivery of Products of Conception, [...] Up Plan Adult BMI Follow Up Plan [facility] Start: 11-06-2024 Adult BMI Screening Adult BMI Screening [facility] Start: 11-06-2024 Tobacco Screening Tobacco Screening [facility] Start: 05-06-2024 Adult BMI Screening Adult BMI Screening [facility] Start: 05-06-2024 Tobacco Screening Tobacco Screening [facility] Start: 03-29-2024 Adult BMI Screening Adult BMI Screening [facility] Start: 03-29-2024 Tobacco Screening Tobacco Screening [facility] Start: 01-01-2024 End: 01-01-2024 Patient encounter procedure 01/01/2024 8:30 AM EST Procedure Visit [facility] [address] [place] [phone] Jerri Murcia DO [address] [place], [place] [id number] Arrived [facility] Comment on above: Arrived Start: 12-27-2023 End: 12-27-2023 Patient encounter procedure 12/27/2023 10:30 AM EDT Procedure Visit [facility] [address] [place] [phone] Vel Jolly MD [address] [place] [address] [facility] [place] [facility] Start: 12-24-2023 End: 12-24-2023 Patient encounter procedure 12/24/2023 3:10 PM EDT Office [facility] [address] [place] [address] [place] [phone] Delfino Vaughn, DO [address] [place] [address] [facility] Start: 12-18-2023 End: 12-18-2023 Patient encounter procedure 12/18/2023 9:30 AM EDT Procedure Visit [facility] [address] [facility] [place] [phone] Delfino Vaughn, DO [address] [facility] [place] [address] [facility] Start: 12-18-2023 End: 12-18-2023 Professional / ancillary services management 12/18/2023 8:30 AM EDT Ancillary Procedure [facility] [address] [facility] [place] [phone] [facility] Start: 12-11-2023 End: 12-11-2023 Patient encounter procedure 12/11/2023 1:00 PM EDT Consult [facility] [address] [place] [phone] Delfino Vaughn, DO [address] [facility] [place] [address] [facility] Start: 11-23-2023 Adult BMI Follow Up Plan Adult BMI Follow Up Plan [facility] Start: 11-07-2023 End: 11-07-2023 Patient encounter procedure 11/07/2023 8:00 AM EDT Office Visit [facility] [address] [place] [phone] Ronni Pascual APRN-TIFFANY [address] [place] [address] [facility] Start: 10-28-2023 Influenza vaccination Influenza Vaccine [facility] Start: 07-17-2023 End: 07-17-2023 Patient encounter procedure 07/17/2023 3:30 PM EDT Office Visit [facility] [address] [place] [address] Nivia Norris MD [address] [place] [address] [facility] Start: 06-25-2023 Screening for malignant neoplasm of colon Colonoscopy [facility] Start: 04-05-2023 End: 03-29-2024 Cortisol Cortisol Lab Routine Polycystic ovaries Expected: 04/05/2023, Expires: 03/29/2024 [facility] Comment on above: Expected: 04/05/2023, Expires: Start: 01-04-2023 Screening for malignant neoplasm of cervix Pap Smear [facility] Start: 10-27-2022 Influenza vaccination Influenza Vaccine [facility] Start: 10-27-2020 Influenza vaccination INFLUENZA (Season Ended) [facility] Start: 05-18-2016 PAP TESTING PAP TESTING [facility] Start: 05-18-2014 Urine microalbumin profile DTAP,TDAP,TD (1 - Tdap) [facility] Start: 05-18-2013 HEPATITIS C SCREENING HEPATITIS C SCREENING [facility] Start: 05-18-2013 HIV SCREENING HIV SCREENING [facility] Start: 2007 Adult depression screening assessment DEPRESSION SCREENING [facility] Start: 05-18-2006 DTaP,Tdap and Td Vaccines (6 - Tdap) DTaP,Tdap and Td Vaccines (6 - Tdap) [facility] Start: 05-18-2006 HPV VACCINE (1 - 2-dose series) HPV VACCINE (1 - 2-dose series) [facility] End: 03-29-2024 17 Hydroxyprogesterone 17 Hydroxyprogesterone Lab Routine Polycystic ovaries 1 Occurrences starting 03/29/2023 until 03/29/2024 [facility] Comment on above: 1 Occurrences starting 03/29/2023 until 03/29/2024 End: 03-29-2024 Androstenedione Androstenedione Lab Routine Polycystic ovaries 1 Occurrences starting 03/29/2023 until 03/29/2024 [employer] Phone: Comment on above: 1 Occurrences starting 03/29/2023 until 03/29/2024 Cytology Cervical or vaginal smear or scraping study Pap Smear Pathology and Cytology Routine Well woman exam with routine gynecological exam Ordered: 12/11/2023 [facility] [employer] Work Phone: Comment on above: Ordered: 12/11/2023 End: 03-29-2024 Follicle stimulating hormone Follicle stimulating hormone Lab Routine Polycystic ovaries 1 Occurrences starting 03/29/2023 until 03/29/2024 [facility] Comment on above: 1 Occurrences starting 03/29/2023 until 03/29/2024 End: 03-29-2024 Hemoglobin A1c/Hemoglobin.total in Blood Hemoglobin A1c Lab Routine Polycystic ovaries 1 Occurrences starting 03/29/2023 until 03/29/2024 [facility] Comment on above: 1 Occurrences starting 03/29/2023 until 03/29/2024 End: 03-29-2024 Luteinizing hormone Luteinizing hormone Lab Routine Polycystic ovaries 1 Occurrences starting 03/29/2023 until 03/29/2024 [facility] Comment on above: 1 Occurrences starting 03/29/2023 until 03/29/2024 End: 03-29-2024 Prolactin Prolactin Lab Routine Polycystic ovaries 1 Occurrences starting 03/29/2023 until 03/29/2024 [facility] Comment on above: 1 Occurrences starting 03/29/2023 until 03/29/2024 Payers Date Payer Category Payer Medicaid [facility] O [id number] 2023-Present [phone] [address] [place] [address] [id number] 2023 Medicaid [id number] 2021 Private Health Insurance [employer] [id number] 2017 Unknown [id number]. [id number] 2014 Private Health Insurance [employer]ITS [id number] 2014-Present PPO [id number]. [id number] 1995 Unknown [id number] 2.840.1.602648.3.579.2. 593 1995 Unknown [id number] 2.840.1.802211.3.579.2. 1285 1995 Unknown [id number] 2.840.1.052395.3.579.2. 1286 1995 Unknown [id number] 2.840.1.094179.3.579.2. 1285 1995 Unknown [id number] 2.840.1.358758.3.579.2. 1285 1995 Unknown [id number] 2.840.1.144769.3.579.2. 128 1995 Unknown [id number] 2.16840.1.389570.3.579.2. 128 1995 Unknown [id number] 2.16840.1.257227.3.579.2. 1285 1995 Unknown [id number] 2.16840.1.885153.3.579.2. 128 1995 Unknown [id number] 2.16840.1.527966.3.579.2. 1286 1995 Unknown [id number] 2.16840.1.176405.3.579.2. 1286 1995 Unknown [id number] 2.16.840.1.318039.3.579.2. 1286 1995 Unknown [id number] 2.16.840.1.485971.3.579.2. 1259 1995 Unknown [id number] 2.16.840.1.188014.3.579.2. 9 1995 Unknown [id number] 2.16.840.1.384270.3.579.2. 1259 1995 Unknown [id number] 2.16.840.1.385068.3.579.2. 1259 1959 Unknown [id number] 1959 Unknown [id number] 1959 Unknown [id number] Social History Date Type Detail Facility Start: 07-16-2012 End: 12-11-2023 Tobacco smoking status [facility] Never smoker [facility] Start: 07-16-2012 Alcohol intake Not Asked [facility] Start: 1995 Sex Assigned At Not on file [facility] Start: 10-19-2022 End: 12-11-2023 Tobacco use and exposure Smokeless tobacco non-user [facility] Start: 03-29-2023 End: 11-07-2023 Alcohol intake Current non-drinker of alcohol (finding) [facility] Start: 06-03-2018 End: 12-11-2023 History of Social function [facility] Start: 06-03-2018 End: 12-11-2023 Alcohol Use Disorder Identification Test - Consumption [AUDIT-C] [facility] Frequency of Alcohol Consumption Never [facility] Start: 11-26-2023 End: 12-18-2023 Alcoholic beverage intake Lifetime non-drinker (finding) [facility] Start: 10-20-2022 Alcohol Comment Caffeine: 1-2 cups/day [facility] Healthcare How hard is it for y ou to pay for the very basics like food, housing, medical care, and heating Somewhat hard [facility] Clinical Notes 03-29-2023 to 01-01-2024 JENNY Drummond - 01/01/2024 8:30 AM Didier Burns LPN - 12/18/2023 9:30 AM Magnolia Reddy - 12/11/2023 1:00 PM ARSLAN Sr - 12/05/2023 9:00 AM EDT Note Date & Type Note Facility 01-01-2024 History of Present illness Narrative Images from the original note were not included. Reason for Appointment: EMG Patient: Yeimy Ramesh : 1995 EMG Computer: [employer] Referring Physician: Tawana Bah CNP EMG: JOVANNA echocardiograph technician: Wilfredo Wolf RT(R) Office Location: [place] Reason for EMG: c/o numbness/tingling in right hand/forearm, neck pain into right shoulder. No hx of DM. Not on blood thinners. Comments: Procedure was explained to the patient who expressed understanding. Patient appeared to have tolerated the test well despite some discomfort due to the nature of the test. documented in this encounter [facility] 12-18-2023 History of Present illness Narrative Associated [...] 05/04/2011 Gastric erythema and duoden ulceration/[facility] SCREEN[facility] RESULTS DOC&REV 08/04/2015 Crohns [...] nursing note reviewed. Exam conducted with a escapement matcher present. Vitals: Estimated body mass index is [...] Delfino Vaughn DO documented in this encounter [facility] 12-11-2023 History of Present illness Narrative Reason for Appointment: Patient ID: Yeimy Ramesh is a 28 y.o. female who presents for Well Women Visit and Pre-op Visit Patient presents today for Pre Op/Annual appointment. Patient is scheduled to undergo Diagnostic Laparoscopy, possible BALA, possible FOE, possible BSO on 01/04/[address] Vaughn at [facility]. MEDICATIONS Current Outpatient Medications Medication Instructions [...] 05/04/2011 Gastric erythema and duoden ulceration/[facility] SCREENING RESULTS DOC&REV 08/04/2015 Crohns [...] nursing note reviewed. Exam conducted with a escapement matcher present. Vitals: Estimated body mass index is [...] reviewed, and patient is to proceed to [facility]. Follow Up: Patient is to follow up between 1-2 weeks post operative to assess proper healing and recovery from procedure. Documented by Bety Bunrs LPN on behalf of: Delfino Vaughn DO documented in this encounter [facility] 12-05-2023 History of Present illness Narrative Images from the original note were not included. [address] [facility] [phone] SUBJECTIVE: Patient ID: Yeimy Ramesh is a 28 y.o. female. Video Visit via Real-time Synchronous Audiovisual Provider Location: [facility] [address] [facility] [phone] Patient Location: work Video Visit Consent Statement: [...] that there are some limitations compared to [id number] evaluations. The patient consented to the presence of additional virtual and/or in-person participants. We elected to proceed.Video Visit via Real-time Synchronous Audiovisual Provider Location: [facility] [address] Patient Location: work Video Visit Consent [...] that there are some limitations compared to [id number] evaluations. The patient consented to the presence [...] ARSLAN Ghotra 12/05/23917 documented in this encounter [facility] 05-07-2023 History of Present illness Narrative Images from the original note were not included. [address] [facility] [address] SUBJECTIVE: Patient ID: Yeimy Ramesh is a 27 y.o. female. -Patient here to follow up after seeing endocrinology and was started on metformin 5 weeks ago. Patient states they are having a hard time getting their metformin XR and has not had a chance to pick it up. Patient states they have no symptoms today except for being fatigued. Patient will medicinal plant picker medication later today. No other complaints [...] try to incorporate exercise. 2.) Patient to medicinal plant picker medications and be compliant taking them 3.) Patient to return in 6 months Yeimy was seen today for follow-up. Diagnoses and all orders for this visit: Polycystic ovaries Vitamin B12 deficiency Vitamin D deficiency Follow-up: Cortisol level was not drawn with other labs, will have her get that done, printed order ARSLAN Ghotra 05/07/23 0834 documented in this encounter [facility] 03-29-2023 Evaluation + Plan note Associated [...] Next follow-up will be in 3 months [facility] 03-29-2023 Miscellaneous Notes Associated Problem(s): Polycystic [...] in 3 months documented in this encounter [facility] 03-29-2023 History of Present illness Narrative [...] Medical History: Diagnosis Date Anemia Crohn's colitis ([facility]) Crohn's disease ([facility]) Low back pain Lumbar disc herniation 01/17/2023 [...] 06/24/2018 Performed by Naldo Parker DO at [facility] INJECTION SPINE TRANSFORAMINAL right L 4,5 nroot Right 12/08/2022 Performed by Giovani Garg MD at [facility] LAMINECTOMY LUMBAR SINGLE LEVEL / L4/5 AND DISCECTOMY Right 01/31/2023 Performed by Carrillo Aragon MD at [facility] TONSILLECTOMY Allergies Allergen Reactions Nsaids (Non-Steroidal Anti-Inflammatory [...] Hyperinsulinism - [facility] [place] 2. Polycystic ovaries - Androstenedione; Future - [...] in 3 months documented in this encounter [facility] Evaluation note Diagnosis Crohn's disease, with rectal bleeding- Primary [facility] Diagnosis Polycystic ovaries- Primary Hyperinsulinism Other specified hypoglycemia [facility] Diagnosis Polycystic ovaries- Primary Vitamin B12 deficiency Other B-complex deficiencies Vitamin D deficiency [facility] Diagnosis Anxiety- Primary Anxiety state, unspecified Depression, unspecified depression type Numbness and tingling in right hand Disturbance of skin sensation [facility] Diagnosis Well woman exam with routine gynecological exam Routine gynecological examination Preoperative examination Unspecified pre-operative examination Pelvic pain in female Unspecified symptom associated with female genital organs Dyspareunia in female documented in this encounter [facility]* Diagnosis Nexplanon removal documented in this encounter [facility]* Diagnosis Paresthesia- Primary Disturbance of skin sensation documented in this encounter [facility] HealthcareInstructionsNot on filedocumented in this encounterProK[facility] SystemInstructions* Attachments The following attachments cannot be sent through Care Everywhere. * Polycystic ovary syndrome (Haitian) documented in this [facility] SystemInstructions* Attachments The following attachments cannot be sent through Care Everywhere. * Anxiety Discharge Instructions, Adult (Haitian) documented in this encounterProC[facility] HospitalInstructionsNot on file documented in this encounterProCincinnati [facility]riners HospitalReason for visit Narrative* Other Medical (Routine) - Closed Specialty Diagnoses / Procedures Referred By Maurice darby Referred To Contact Neurology Diagnoses Anesthesia of skin Paresthesia of skin Procedures VA NERVE CONDUCTION STUDIES 9-10 STUDIES VA NEEDLE EMG EA EXTREMTY W/PARASPINL AREA COMPLETE Ronni Pascual, FIDELINA [address] [place] [address] Phone: tel: fax: Vel Jolly MD [address] [place] [address] Phone: tel: fax: Referral ID Status Reason Start Date Expiration Date V isits Requested Visits Authorized [id number] Closed Perform Procedure 12/06/2023 06/03/2024 1 1 [facility] Summary Purpose Family History No Family History [...] and tingling in right hand Ronni Pascual, ADMISSIONS ASSISTANT-SENIOR WAREHOUSE CLERK [address] [place] [address] [facility] [address] [place] [address] Referral ID Status Reason Start Date Expiration Date Visits Requested Visits Authorized [id number] Pending Review Specialty Services Required 12/05/2023 12/04/2024 1 1 Additional Source Comments Source Comments (unrecognize d section and content) In the event this informatio n is protected by the Federal Confidentiality of Alcohol and Drug Abuse Patient Records regulations: The Federal rules restrict any use of the information to criminally investigate or prosecute any alcohol or drug abuse patient.[facility] Reason for Visit (unrecogniz ed section and content) Reason Comments Refill Request Reason Comments Endocrine Disorders Specialty Diagnoses / Procedures Referred By Maurice t Referred To Contact Endocrinology Diagnoses Hyperinsulinism Ronni Pascual APRN-CNP [address] [place] [address] Bety Jensen MD [address] [address] Referral ID Status Reason Start Date Expiration Date Visits Requested Visits Authorized [id number] Pending Review Specialty Services Required 11/06/2022 11/06/2023 1 1 Reason Comments Follow-up Reason Comments Med Refill Reason Comments Well Women Visit Pre-op Visit Reason Comments Contraception INFORMATION SOURCE (unrecogn ized section and content) DATE CREATED AUTHOR 05/26/2022 [facility] DATE CREATED AUTHOR AUTHOR'S ORGANIZ ATION 07/14/2023 [facility] DATE CREATED AUTHOR AUTHOR'S ORGANIZ ATION 07/27/2023 [facility] DATE CREATED AUTHOR AUTHOR'S ORGANIZ ATION 12/07/2023 [facility] DATE CREATED AUTHOR AUTHOR'S ORGANIZ ATION 01/02/2024 [facility] EPIC Care Teams (unrecognized sec tion and content) Collection Support Specialist Relationship Specialty Start Date End Date Ronni Pascual APRN-CNP [address] [place] [address] PCP - General Family Medicine 10/19/22 Collection Support Specialist Relationship Specialty Start Date End Date Ronni Pascual APRN-CNP [address] [place] [address] PCP - General Family Medicine 10/19/22 Collection Support Specialist Relationship Specialty Start Date End Date Ronni Pascual APRN-CNP [address] [place] [address] PCP - General Family Medicine 10/19/22 Collection Support Specialist Relationship Specialty Start Date End Date Ronni Pascual APRN-SENIOR WAREHOUSE CLERK [address] [place] [address] PCP - General Family Medicine 10/19/22 Collection Support Specialist Relationship Specialty Start Date End Date Jerri Murcia DO [address] [phone] Referring Physician Neurology 12/25/23 Ronni Pascual NP [address] [place] [address] Referring Physician Family Medicine 12/25/23 Chanda Saunders NP [address] [phone] Nurse Practitioner Neurology 01/01/24 Yesenia Estrella NP [address] [address] Nurse Practitioner Neurology 01/01/24 Collection Support Specialist Relationship Specialty Start Date End Date Jerri Murcia DO [address] [address] Referring Physician Neurology 12/25/23 Ronni Pascual NP [address] [place] [address] Referring Physician Family Medicine 12/25/23 Chanda Saunders NP [address] [place] [phone] Nurse Practitioner Neurology 01/01/24 Yesenia Estrella NP [address] [place] [id number] Nurse Practitioner Neurology 01/01/24 FOR RECORDS PERTAINING TO PATIENTS WHO ARE [...] BE BASED ON THE PRIMARY CLINICAL RECORDS. [employer] [facility]. provides no warranty or guarantee of the accuracy or completeness of information in this document.
[2024-01-04 09:02] LABS: Basophils Percent Auto 0.4 % (0.2-2.0); Eosinophils Absolute Auto 0.1 10^3/uL (0.0-0.7); Eosinophils Percent Auto 0.8 % (0.9-7.0); Hematocrit 45.2 % (36.0-48.0); Immature Granulocytes Abs Auto 0.02 10^3/uL (0.00-0.03); Immature Granulocytes Pct Auto 0.3 % (0.0-0.5); Lymphocytes Absolute Auto 2.2 10^3/uL (1.2-3.8); Mean Corpuscular Hemoglobin 26.5 pg (26.7-34.0); Mean Corpuscular Volume 85.4 fL (81.0-99.0); Mean Platelet Volume 9.5 fL (9.5-13.5); Monocytes Absolute Auto 0.5 10^3/uL (0.3-0.8); Neutrophils Absolute Auto 4.8 10^3/uL (1.4-6.5); Neutrophils Percent Auto 63.5 % (43.0-75.0); Platelet Count 336 10^3/uL (150-450); Red Blood Count 5.29 10^6/uL (4.20-5.40); Red Cell Distribution Width 13.2 % (11.0-15.0); White Blood Count 7.5 10^3/uL (4.0-11.0)
[2024-01-04] MEDS: LACTATED RINGER'S SOLUTION 1,000 ML 50 ML IV (09:22)
[2024-01-04 09:31] LABS: HCG Quantitative <1 mIU/mL
--- NOTE | 2024-01-04 11:19 | PM.ONB ---
Brief Operative Note Date of procedure: 01/04/24 Pre-op diagnosis general: pelvic pain Post-op diagnosis: same as pre-op Procedure: NAME OF PROCEDURE: [diagnostic laparoscopy ] PROCEDURE: The patient was taken back to the Operating Room where she was placed in dorsal lithotomy position after given general anesthesia. The patient was prepped and draped in normal sterile fashion. A sponge stick was placed into the patient's vagina. Attention was turned to the patient's abdomen, where a small umbilical incision was made. The fascia was tented using Libby clamps and the fascia was entered sharply. Confirmation of intraabdominal placement of the 10 mm port was confirmed under direct visualization using a laparoscope. The patient's abdomen was then insufflated using CO2 gas with approximately 4 liters. A second port was placed left laterally, this was done under direct visualization with a 5 mm port. Survey of the patient's abdomen demonstrated normal liver and gallbladder. Survey of the patient's pelvic anatomy demonstrated normal appearing rt and lt ovary and tubes as well as normal appearing uterus. No endometrial implants could be noted, no evidence of any pelvic disease was seen, normal appearing pelvic cavity. All instruments were removed from the patient's abdomen. The patient's abdomen was deinsufflated of CO2 gas. The patient tolerated the procedure well. Sponge stick was removed from the patient's vagina. The patient's infraumbilical fascia was closed using #0 Vicryl on a GI needle. The patient's skin was closed laterally and infraumbilically using 4-0 Vicryl. The patient tolerated the procedure well. Sponge, lap and needle counts were correct x 2. The patient was taken to Recovery Room in stable condition. Anesthesia: NARINDER Surgeon: Benny Vaughn Counter Waitress/Waiter: Anne Marie Hinds Estimated blood loss (mL): 5 Pathology: none sent Condition: stable Disposition: PACU Urinary Catheter Management Urinary Catheter Management Urethral: Cath placed during this visit: no
== END 2024-01-04 13:15 | disposition home or self-care (01) ==
PROVIDERS: Visit Provider Obstetrics & Gynecology
PROC: (CPT 840; principal; 2024-01-04 10:00)
DX: R10.2 Pelvic and perineal pain (principal); N94.10 Unspecified dyspareunia; E66.01 Morbid (severe) obesity due to excess calories; Z68.41 Body mass index [BMI] 40.0-44.9, adult; K50.90 Crohn's disease, unspecified, without complications; E28.2 Polycystic ovarian syndrome
CPT/HCPCS: 49320; 36415; 84702; 85025; J1100; J1885; J2250; J2405; J2704; J3010

== ENCOUNTER 2024-05-12 12:42 | Outpatient (REF) | payer OTHER, SELFPAY ==
--- OUTSIDE RECORDS SUMMARY | 2024-05-14 12:47 | XMS_ITS | CCD ---
Author Organization 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 Name Role Phone Good Gonzalez Primary Care Provider LISE ., DR VERMA Admitting Unavailabl e KARASIK ., DR VERMA Consulting Unavailabl e KARASIK ., DR VERMA Attending Unavailabl e REQUEST, DR GIULIANO LISTED Primary Care Unavaila ble JOHANA ., DR SALEH Consulting Unavailable JOHANA ., DR SALEH Procedure Practitioner Unavail able SCHLACHTER, RONNI Referring Unavailable SCHLACHTER, RONNI Primary Care Unavailable Unavailable Primary Care Provider UnavailJerri Thomas DO Unavailable [phone] Ankur ZIPPER TRIMMER HAND, Ronni Unavailable Chip ZIPPER TRIMMER HAND, Chanda Unavailable Sameer ZIPPER TRIMMER HAND, Yesenia Unavailable RONNI PASCUAL Attending Unavailable SCHLACHTER, RONNI Referring [...] Referring Unavailable SCHLACHTER, RONNI Primary Care Unavailable OSKAR HESS Attending Un available SCHLACHTER, RONNI Referring Unavailable SCHLACHTER, RONNI Primary Care Unavailable SCHLACHTER, RONNI Attending Unavailable SCHLACHTER, RONNI Referring Unavailable SCHLACHTER, RONNI Primary Care Unavailable SCHLACHTER, RONNI Primary Care Unavailable YULI OJEDA Attending Unavailable YULI OJEDA Attending Unavailable YULI OJEDA Referring Unavailable SCHLACHTER, RONNI Primary Care Unavailable OSKAR DUKE Referring Un available SCHLACHTER, RONNI Primary Care Unavailable SCHLACHTER, RONNI Referring Unavailable SCHLACHTER, RONNI Primary Care Unavailable Schlachter MALT HOUSE KILN OPERATOR-BLADE GROOVER, Ronni Primary Care Provide r CAROLE KNOWLES Attending Unavailable SCHLACHTER, RONNI Referring Unavailable SCHLACHTER, RONNI Primary Care Unavailable EL PHUCAROLE H Referring Unavailable SCHLACHTER, RONNI Primary Care Unavailable EL PHUCAROLE H Admitting Unavailable CAROLE KNOWLES H Attending Unavailable SCHLACHTER, RONNI Referring Unavailable SCHLACHTER, RONNI Primary Care Unavailable BENNY VAUGHN Attending Unavailable JOHANA, BENNY Attending Unavailable BENNY VAUGHN Attending Unavailable BENNY VAUGHN Attending Unavailable JOHANA, BENNY Attending Unavailable JERRI MURCIA Attending Unavailable SCHLAMACIEJER, RONNI Referring Unavailable BENNY VAUGHN Attending Unavailable Benny Vaughn DO Attending Provider Allergies Allergy Classification Reported Allergen(s) Allergy Type Date of Onset Reaction(s) Facility (20 sources) NSAIDs; Translations: [NSAIDS (NON-STEROIDAL ANTI-INFLAMMATOR Y DRUG)] Propensity to adverse reactions to drug (disorder) 3 [facility] Medications Current Medications Medication Drug Class(es) Dates Sig (Normalized) Sig (Original) bisacodyl 5 mg delayed release oral tablet (2 sources) Stimulant Laxative Start: 02-06-2024 End: 02-06-2024 take 2 tablets by mouth once bisacodyL (DULCOLAX) 5 mg EC tablet Indications: History of Crohn's disease Take 2 tablets (10 mg total) by mouth once for 1 dose. Follow instructions for colon prep given at time of scheduling. 2 tablet 02/06/2024 02/06/2024 Active cholecalciferol 0.05 mg oral capsule (17 sources) Vitamin D take 1 capsule by mouth in the morning cholecalciferol, vitamin D3, 2,000 units capsule Take 1 capsule (2,000 Units total) by mouth in the morning. Active cyclobenzaprine hydrochloride 10 mg oral tablet (4 sources) Muscle Relaxant Start: 01-31-2023 End: 05-07-2023 [...] / ethinyl estradiol 0.03 mg oral tablet (7 sources) Progestin, Estrogen Start: 11-26-2023 End: 11-25-2024 desogestrel-ethinyl estradiol (Apri) 0.15-30 MG-MCG tablet Indications: control counseling Take 1 tablet by mouth Daily 28 tablet 12 11/26/2023 12/18/2023 Discontinued famotidine 20 mg oral tablet (4 sources) Histamine-2 Receptor Antagonist Start: 07-11-2023 End: 11-07-2023 take 1 tablet by mouth in the morning, then take 1 tablet by mouth at bedtime famotidine (PEPCID) 20 mg tablet Take 1 tablet (20 mg total) by mouth in the morning and 1 tablet (20 mg total) before bedtime. 20 tablet 07/11/2023 11/07/2023 Discontinued Start: 09-05-2012 End: 09-29-2014 take 1 tablet by mouth twice daily famotidine (PEPCID) 20 mg tablet Take 1 tablet by mouth twice daily. 60 tablet 3 09/05/2012 09/29/2014 Discontinued Comment on above: Take 1 tablet by demetrio th twice daily. ferrous sulfate 325 mg oral tablet (17 sources) Start: 11-06-2022 take 1 tablet by mouth in the morning ferrous sulfate 325 (65 FE) mg tablet Take 1 tablet (325 mg total) by mouth in the morning. 30 tablet 3 11/06/2022 Active FLUoxetine 10 mg oral capsule (20 sources) Serotonin Reuptake Inhibitor Start: 12-05-2023 take 1 capsule by mouth in the morning FLUoxetine (PROzac) 10 mg capsule Take 1 capsule (10 mg total) by mouth in the morning. 90 capsule 1 12/05/2023 Active Start: 11-07-2023 take 1 capsule by mo uth in the morning FLUoxetine (PROzac) 10 mg capsule Take 1 capsule (10 mg total) by mouth in the morning. 30 capsule 11/07/2023 Active Start: 07-26-2023 End: 12-05-2023 take 1 capsule by mouth in the morning FLUoxetine (PROzac) 10 mg capsule Take 1 capsule (10 mg total) by mouth in the morning. 90 capsule 1 12/05/2023 Active 24 hr metFORMIN hydrochloride 500 mg extended release oral tablet (20 sources) Biguanide Start: 05-01-2023 take 1 tablet by mouth once daily at breakfast metFORMIN XR (GLUCOPHAGE XR) 500 mg 24 hr tablet Take 1 tablet (500 mg total) by mouth daily with breakfast. 90 tablet 3 05/01/2023 Active End: 01-26-2024 take 1 tablet by mouth every twenty-four hours at mealtime metFORMIN XR (Glucophage-XR) 500 MG 24 hr tablet Take 500 mg by mouth in the evening. Take with meals Do not crush, chew, or split. 01/26/2024 Discontinued (Other) peg 3350-sod sulf,chlr-pot-m ag 178.7-7.3-0.5 gram recon soln (2 sources) Start: 02-06-2024 End: 02-08-2024 peg 3350-sod sulf,chlr-pot-m ag 178.7-7.3-0.5 gram recon soln Indications: History of Crohn's disease Take 1 kit by mouth See Admin Instructions for 2 days. Please follow office instructions for colonoscopy preparation. 1 each 02/06/2024 02/08/2024 Active Completed/Discontinued Medications Medication Drug Class(es) Dates [...] on above: Take 3 tablets by mo ut daily at bedtime. balsalazide disodium 750 mg oral capsule (1 source) Aminosalicylate Start: 014 take 1 capsule by mouth twice daily balsalazide (COLAZAL) 750 mg capsule Take 1 capsule by mouth twice daily. 60 capsule 3 11/07/2013 Active Comment on above: Take 1 capsule by mo uth twice daily. dexamethasone 1 mg oral tablet (1 source) Corticosteroid Start: 024 End: 024 take 1 tablet by mouth once dexAMETHasone (DECADRON) 1 mg tablet Take 1 tablet (1 mg total) by mouth once for 1 dose. 1 tablet 0 03/29/2023 03/29/2023 omeprazole 40 mg delayed release oral capsule (1 source) Proton Pump Inhibitor Start: 013 take 1 capsule by mouth once daily before breakfast Omeprazole (PRILOSEC) 40 mg capsule Take 1 capsule by mouth daily before breakfast. 30 capsule 3 07/16/2012 Active Comment on above: Take 1 capsule by mo uth daily before breakfast. Problems Active Problems Problem Classification Problem Date Documented Da te Episodic/Chronic Abdominal pain (18 sources) Abdominal pain; Translations: [Unspecified abdominal pain] Onset: 03-09-2011 03-09-2011 Episodic Administrative/social admission (2 sources) Patient encounter status; Translations: [Counseling, unspecified] 03-27-2024 Episodic Anxiety disorders (6 sources) Anxiety disorder, unspecified; Translations: [Anxiety] Onset: 09-08-2020 07-26-2023 Chronic Contraceptive and procreative management (5 sources) Subcutaneous contraceptive implant present; Translations: [Encounter for surveillance of implantable subdermal contraceptive] 12-18-2023 Episodic Mood disorders (4 sources) Major depressive disorder, single episode, unspecified; Translations: [Depressive disorder] Onset: 09-08-2020 07-26-2023 Chronic Mood disorders (1 source) Mood disorders; Translations: [Depression, unspecified] Onset: 07-26-2023 Nausea and vomiting (2 sources) Nausea; Translations: [Nausea] 01-30-2024 Episodic Nutritional deficiencies (2 sources) Vitamin D deficiency, unspecified; Translations: [Vitamin D deficiency] Onset: 05-07-2023 05-07-2023 Chronic Other aftercare (2 sources) Surgical follow-up; Translations: [Encounter for follow-up examination after completed treatment for conditions other than malignant neoplasm] 01-30-2024 Episodic Other complications of ; puerperium affecting management of mother (3 sources) Obesity complicating childbirth; Translations: [OBESITY COMPLICATING CHILDBIRTH] Onset: 08-30-2020 Chronic Other endocrine disorders (3 sources) Polycystic ovarian syndrome; Translations: [POLYCYSTIC OVARIAN SYNDROME] Onset: 09-08-2020 Chronic Other endocrine disorders (1 source) Other hypoglycemia; Translations: [Other hypoglycemia] Onset: 03-29-2023 Chronic Other endocrine disorders (19 sources) Hyperinsulinism; Translations: [Other hypoglycemia] Onset: 03-29-2023 03-29-2023 Chronic Other endocrine disorders (20 sources) Polycystic ovary; Translations: [Polycystic ovarian syndrome] Onset: 03-29-2023 03-29-2023 Chronic Other female genital disorders (3 sources) Pain in female genitalia on intercourse; Translations: [Unspecified dyspareunia] 12-11-2023 Chronic Other female genital disorders (2 sources) Abnormal uterine bleeding; Translations: [Abnormal uterine and vaginal bleeding, unspecified] 01-30-2024 Chronic Other gastrointestinal disorders (10 sources) History of Crohns disease; Translations: [Personal history of other diseases of the digestive system] Onset: 02-06-2024 02-06-2024 Episodic Other gastrointestinal disorders (1 source) Personal history of other diseases of the digestive system; Translations: [Personal history of other diseases of the digestive system] Onset: 02-06-2024 Episodic Other nervous system disorders (1 source) Paresthesia; Translations: [Paresthesia of skin] 01-01-2024 Episodic Other nervous system disorders (2 sources) Other acute postprocedural pain; Translations: [Other acute postprocedural pain] Onset: 01-08-2024 Episodic Other nervous system disorders (1 source) Anesthesia of skin; Translations: [Anesthesia of skin] Onset: 12-05-2023 Episodic Other nervous system disorders (1 source) Paresthesia of skin; Translations: [Paresthesia of skin] Onset: 12-05-2023 Episodic Other nutritional; endocrine; and metabolic disorders (1 source) Morbid (severe) obesity due to excess calories; Translations: [MORBID SEVERE OBES D/T EXCESS CONSTANCE] Onset: 09-08-2020 Chronic Regional enteritis and ulcerative colitis (9 sources) Crohn's disease; Translations: [Crohn's disease, unspecified, with rectal bleeding] Onset: 05-30-2011 Chronic Spondylosis; intervertebral disc disorders; other back problems (17 sources) Prolapsed lumbar intervertebral disc; Translations: [Other intervertebral disc displacement, lumbar region] Onset: 12-22-2022 12-22-2022 Chronic Unclassified (1 source) CONTACT W/AND (SUSP) EXPOS COVID-19; Translations: [CONTACT W/AND (SUSP) EXPOS COVID-19] Onset: 09-08-2020 Unclassified (1 source) Breast Pain Onset: 01-08-2024 Unclassified (1 source) Annual Exam Onset: 11-07-2023 Unclassified (1 source) Endocrine Disorders Onset: 03-29-2023 Unclassified (1 source) History of Crohn's disease Onset: 03-05-2024 Unclassified (1 source) New Patient Onset: 02-06-2024 Past or Other Problems Problem Classification Problem Date Documented Da te Episodic/Chronic Gastrointestinal hemorrhage (1 source) Blood-tinged feces; Translations: [Melena] Onset: 03-09-2011 03-09-2011 Episodic Genitourinary symptoms and ill-defined conditions (3 sources) Dysuria; Translations: [Dysuria] Onset: 07-26-2023 07-26-2023 Episodic Noninfectious gastroenteritis (1 source) Inflammatory bowel disease; Translations: [Noninfective gastroenteritis and colitis, unspecified] Onset: 05-12-2011 05-12-2011 Episodic Nonspecific chest pain (3 sources) Chest pain, unspecified; Translations: [Chest pain] Onset: 07-11-2023 Episodic Nutritional deficiencies (2 sources) Deficiency of other specified B group vitamins; Translations: [Cobalamin deficiency] Onset: 05-07-2023 05-07-2023 Episodic Other complications of [...] [Diarrhea, unspecified] Onset: 03-09-2011 03-09-2011 Episodic Other nervous system disorders (1 source) Paresthesia of hand ; Translations: [Anesthesia of skin] 12-05-2023 Episodic Other nervous system disorders (3 sources) Postoperative pain ; Translations: [Other acute postprocedural pain] 01-08-2024 Episodic Other and delivery including normal (1 source) Single live ; Translations: [SINGLE LIVE ] Onset: 09-08-2020 Episodic Residual codes; unclassified (1 source) 39 weeks gestation of ; Translations: [39 WEEKS GESTATION OF ] Onset: 09-08-2020 Episodic Residual codes; unclassified (1 source) Other specified personal risk factors, not elsewhere classified; Translations: [Other specified personal risk factors, not elsewhere classified] Onset: 07-26-2023 Episodic Residual codes; unclassified (1 source) At risk of apnea; Translations: [Other specified personal risk factors, not elsewhere classified] 07-26-2023 Episodic Residual codes; unclassified (1 source) History of lumbar laminectomy; Translations: [Other specified postprocedural states] 03-20-2023 Episodic Spondylosis; intervertebral disc disorders; other back problems (17 sources) Spinal stenosis of lumbar region; Translations: [Spinal stenosis, lumbar region with neurogenic claudication] Onset: 11-23-2022 11-23-2022 Episodic Umbilical cord complication (1 source) Labor and delivery complicated by cord around neck, without compression, not applicable or unspecified; Translations: [L AND D COMP CORD NECK NO COMPRS NA/UNS] Onset: 09-08-2020 Episodic Unclassified (17 sources) Onset: 11-07-2023 Resolved: 12-05-2023 12-05-2023 Urinary tract infections (1 source) Urinary tract infectious disease Onset: 07-26-2023 Episodic Results Test Name Value Interpretation Reference Range Facility HCG ( test) Ql (U)o n 03-05-2024 Beta HCG ( test) Ql (U) Negative Normal NEG [facility] Comment on above: Performed By: #### 2 106-3 #### [facility] ([id number]) [address] [place] [address] Surgical Pathologyon 025 Surgical Pathology Normal [facility] Comment on above: Result Comment: [facility] [address] [place] [address] Surgical Pathology Consultation ADDENDUM MD Patient Name:SUNNI RAMESH:1995 (Age: 28)Gender:FTaken:03/05/2024Reported:03/06/2024Physician(s):Carole Flynn M.D. ([phone])Copy To: Rec. #:[id number]: #[id number] Final Pathologic Diagnosis 1. Duodenum biopsy: Mild chronic active duodenitis with focal gastric mucous metaplasia, suggestive of peptic duodenitis. No active inflammation, celiac disease, parasites, granuloma or atypia. 2. Gastric biopsy: Mild chronic active gastritis. No intestinal metaplasia or dysplasia. Immunohistochemistry for Helicobacter pylori organisms is pending; addendum to follow. 3. Terminal ileum biopsy: Mild chronic active ileitis suggestive of inflammatory bowel disease, with mild activity. No viral cytopathic changes, granuloma or dysplasia. 4. Ascending colon biopsy: Colonic mucosa with no significant histopathologic changes. No active colitis, microscopic colitis, granuloma or dysplasia. 5. Transverse colon biopsy: Colonic mucosa with no significant histopathologic changes. No active colitis, microscopic colitis, granuloma or dysplasia. 6. Descending colon biopsy: Colonic mucosa with no significant histopathologic changes. No active colitis, microscopic colitis, granuloma or dysplasia. 7. Sigmoid biopsy: Colonic mucosa with no significant histopathologic changes. No active colitis, microscopic colitis, granuloma or dysplasia. 8. Rectal biopsy: Rectal mucosa with no significant histopathologic changes. No active proctitis, granuloma or dysplasia. Report Electronically Signed Out wak/03/06/2024Ben Brooks MD Addendum ([facility]) Date Reported: 03/12/2024 In specimen part 2, immunohistochemistry (with appropriate controls) for Helicobacter pylori organisms is NEGATIVE. Electronically Signed Out Ben Brooks MD Interpretation [place] [address], License number: [id number]. Clinical History History of Crohn's disease Gross Description 1. Received in formalin labeled, FLICK, duodenum biopsy is a simms delicate soft tissue bit, 0.5 cm in greatest dimension. The specimen is filtered and submitted in single cassette. (1, ns, [id number], m4) TB 2. Received in formalin labeled, FLICK, gastric biopsy are 3 simms delicate soft tissue fragments, 0.3-0.5 cm in greatest dimension. The specimens are filtered and submitted single cassette. (1, ns, [id number], m4) TB 3. Received in formalin labeled, FLICK, terminal ileum biopsy is a simms delicate, focally hemorrhagic soft tissue bit, 0.5 cm in greatest dimension. The specimen is filtered and submitted a single cassette. (1, ns, [id number], m4) TB 4. Received in formalin labeled, FLICK, ascending colon biopsy are 3 simms delicate, focally hemorrhagic soft tissue bits, 0.4-0.7 cm in greatest dimension. The specimens are filtered and submitted a single cassette. (1, ns, [id number], m4) TB 5. Received in formalin labeled, FLICK, transverse colon biopsy are 2 pale-simms delicate soft tissue bits, 0.3 and 0.5 cm in greatest dimension. The specimens are filtered and submitted in single cassette. (1, ns, Q30-100-3, m4) TB 6. Received in formalin labeled, FLICK, descending colon biopsy are 2 pale-simms delicate soft tissue bits, 0.5 and 0.6 cm in greatest dimension. The specimens are filtered and submitted single cassette. (1, ns, F10-743-3, m4) TB 7. Received in formalin labeled, FLICK, sigmoid biopsy are 2 simms delicate, focally hemorrhagic soft tissue bits, 0.3 and 0.4 cm in greatest dimension. The specimen is filtered and submitted in single cassette. (1, ns, [id number], m4) TB 8. Received in formalin labeled, FLICK, rectal biopsy are 3 simms delicate soft tissue bits, 0.3-0.4 cm in greatest dimension. The specimens are filtered and submitted in single cassette. (1, ns, Y92-646-6, m4) TB tgb/03/05/2024GR Specimen(s) Received 1: Duodenum biopsy 2: Gastric biopsy 3: Terminal ileum biopsy 4: Ascending colon biopsy 5: Transverse colon biopsy 6: Descending colon biopsy 7: Sigmoid biopsy 8: Rectal biopsy Fee Codes(s): 1; 55342 2; 49721, 70460 3; 51443 4; 76813 5; 65507 6; 99377 7; 48732 8; 75883 C-reactive proteinon 024 CRP [Mass/Vol] 0.4 mg/dL 0.000 - 0.744 mg/dL [facility] CRP [Mass/Vol]on 02-06-2024 C REACTIVE PROTEIN 0.4 mg/dL Normal 0.000-0.744 [facility] Comment on above: Performed By: #### 1 988-5, FEPR, 2276-4, 2132-9, 53120-6, 49486-3 #### [facility] ([id number]) [address] [place] [address], [address] [place] [address] #### [id number] #### [facility] ([id number]) [address] [place] [address] Cobalamin (Vitamin B12) [Mas s/Vol]on 02-06-2024 [facility] FERRITINon 02-06-2024 Ferritin [Mass/Vol] 21 ng/mL Normal 11-307 [facility] Comment on above: Performed By: #### 1 988-5, FEPR, 2276-4, 2132-9, 11928-6, 85801-7 #### [facility] ([id number]) [address] [place] [address], [address] [place] [address] #### [id number] #### [facility] ([id number]) [address] [place] [address] Ferritinon 02-06-2024 Ferritin [Mass/Vol] 21 ng/mL 11 - 307 ng/mL [facility] Ferritin [Mass/Vol]on 2023 [facility] HIV 1&2 AB/AG Screen (P24 AG )on 02-06-2024 HIV 1+2 Ab+HIV1 p24 Ag IA Ql Non-Reactive Non-Reactive ^Non-Reactiv e [facility] Comment on above: NEW TEST METHOD NOTE This information has been disclosed to you from confidential records protected from disclosure by state law. You shall make no further disclosure of this information without the specific, written and informed release of the individual to whom it pertains, or as otherwise permitted by state law. A general authorization for the release of medical or other information is not sufficient for the purpose of the release of HIV test results or diagnoses. HIV 1+2 Ab+HIV1 p24 Ag IA Ql on 02-06-2024 [facility] HIV 1 and 2 Ab/Ag Screen Non-Reactive Normal NRCT [facility] Comment on above: Result Comment: NEW TEST METHOD NOTE This information has been disclosed to you from confidential records protected from disclosure by state law. You shall make no further disclosure of this information without the specific, written and informed release of the individual to whom it pertains, or as otherwise permitted by state law. A general authorization for the release of medical or other information is not sufficient for the purpose of the release of HIV test results or diagnoses. Performed By: #### 1 988-5, FEPR, 6-4, 2131-9, 92524-3, 29695-8 #### [facility] ([id number]) [address] [place] [address], [address] [place] [address] #### [id number] #### [facility] ([id number]) [address] [place] [address] IRON PROFILEon 02-06-2024 Iron [Mass/Vol] 43 ug/dL Low 50-170 [facility] Comment on above: Performed By: #### 1 988-5, FEPR, 6-4, 9, 31751-1, 32308-7 #### [facility] ([id number]) [address] [place] [address], [address] [place] [address] #### [id number] #### [facility] ([id number]) [address] [place] [address] IRON BINDING 435 ug/dL High 250-425 [facility] Comment on above: Performed By: #### 1 988-5, FEPR, 6-4, 9, 29427-0, 70814-5 #### [facility] ([id number]) [address] [place] [address], [address] [place] [address] #### [id number] #### [facility] ([id number]) [address] [place] [address] IRON SATURATION 10 % SATURATION Low 15-50 [facility] Comment on above: Performed By: #### 1 988-5, FEPR, 2276-4, 2132-9, 27407-9, 67240-8 #### [facility] ([id number]) [address] [facility], [address] [place] [address] #### [id number] #### [facility] ([id number]) [address] [place] [address] Iron and TIBCon 02-06-2024 Interpretation and review of laboratory results Abnormal [facility] Iron [Mass/Vol] 43 ug/dL Low 50 - 170 ug/dL [facility] Iron binding capacity [Mass/Vol] 435 ug/dL High 250 - 425 ug/dL [facility] Iron saturation [Mass fraction] 10 Low [facility] M. tuberculosis stim IFN-g p brock (Bld)on 02-06-2024 Mitogen minus Nil Result 10.00 IU/mL Normal [facility] Comment on above: Performed By: #### 7 1775-1 #### [facility] ([id number]) [address] [place] [address] Nil Result 0.00 IU/mL Normal [facility] Comment on above: Result Comment: NOTE Test Performed by: [place] [address] Gear Room Keeper: Giselle Cervantes Ph.D.; CLIA# [id number] Performed By: #### 7 1775-1 #### [facility] ([id number]) [address] [place] [address] QuantiFERON-Tb Gold Plus Result Negative Normal Negative [facility] Comment on above: Result Comment: NOTE No interferon-gamma response to M. tuberculosis antigens was detected. Latent infection with M. tuberculosis is unlikely. A single negative result does not exclude infection with M. tuberculosis. In patients at high risk for M.tuberculosis infection, a second test should be considered in accordance with the 2017 ATS/IDSA/CDC Clinical Practice Guidelines for Diagnosis of Tuberculosis in Adults and Children [Dalton CERVANTES et. al. Clin. Infect. Dis. 2017;64(2):111-115]. The reference range for the 'TB1 Ag minus Nil Result' and 'TB2 Ag minus Nil Result' is an Interferon-gamma level <0.35 IU/mL. Performed By: #### 7 1775-1 #### [facility] ([id number]) [address] [place] [address] TB1 Ag minus Nil Result 0.00 IU/mL Normal [facility] Comment on above: Performed By: #### 7 1775-1 #### [facility] ([id number]) [address] [place] [address] TB2 Ag minus Nil Result 0.00 IU/mL Normal [facility] Comment on above: Performed By: #### 7 1775-1 #### [facility] ([id number]) [address] [place] [address] No Panel Informationon 02-05 [facility] Thiopurine methyltransferase (Bld) [Catalytic activity/Vol]on 02-06-2024 THIOPURINE METHYLTRANFERASE 25.3 U/mL Normal 24.0-44.0 [facility] Comment on above: Result Comment: NOTE INTERPRETIVE INFORMATION: Thiopurine Methyltransferase, RBC Normal TPMT activity: 24.0-44.0 U/mL................Individuals are predicted to be at low risk of bone marrow toxicity (myelosuppression) as a consequence of standard thiopurine therapy; no dose adjustment is recommended. Intermediate TPMT activity: 17.0-23.9 U/mL................Individuals are predicted to be at intermediate risk of bone marrow toxicity (myelosuppression) as a consequence of standard thiopurine therapy; a dose reduction and therapeutic drug management is recommended. Low TPMT activity: less than 17.0 U/mL...........Individuals are predicted to be at high risk of bone marrow toxicity (myelosuppression) as a consequence of standard thiopurine dosing. It is recommended to avoid the use of thiopurine drugs. High TPMT activity: greater than 44.0 U/mL........Individuals are not predicted to be at risk for bone marrow toxicity (myelosuppression) as a consequence of standard thiopurine dosing, but may be at risk for therapeutic failure due to excessive inactivation of thiopurine drugs. Individuals may require higher than the normal standard dose. Therapeutic drug management is recommended. The TPMT, RBC assay is used as a screen to detect individuals with low and intermediate TPMT activity who may be at risk for myelosuppression when exposed to standard doses of thiopurines, including azathioprine (Imuran) and 6-mercaptopurine (Purinethol). TPMT is the primary metabolic route for inactivation of thiopurine drugs in the bone marrow. When TPMT activity is low, it is predicted that proportionately more 6-mercaptopurine can be converted into the cytotoxic 6-thioguanine nucleotides that accumulate in the bone marrow causing excessive toxicity. The activity of TPMT is measured by the nanomoles of 6-methylmercaptopurine (inactive metabolite) produced per 1 mL of packed red blood cells, (U/mL). TPMT phenotype testing does not replace the need for clinical monitoring of patients treated with thiopurine drugs. Genotype for TPMT cannot be inferred from TPMT activity (phenotype). Phenotype testing should not be requested for patients currently treated with thiopurine drugs. Current TPMT phenotype may not reflect future TPMT phenotype, particularly in patients who received blood transfusion within 30-60 days of testing. TPMT enzyme activity can be inhibited by several drugs such as: naproxen (Aleve), ibuprofen (Advil, Motrin), ketoprofen (Orudis), furosemide (Lasix), sulfasalazine (Azulfidine), mesalamine (Asacol), olsalazine (Dipentum), mefenamic acid (Ponstel), thiazide diuretics, and benzoic acid inhibitors. TPMT inhibitors may contribute to falsely low results; patients should abstain from these drugs for at least 48 hours prior to TPMT testing. Falsely low results may also occur as a result of inappropriate specimen handling and hemolysis. This test was developed and its performance characteristics determined by [facility]. It has not been cleared or approved by the [place] Food and Drug Administration. This test was performed in a CLIA certified laboratory and is intended for clinical purposes. Performed By: [facility] [address] [place] [address] Spar Machine Operator Helper: Good Grijalva MD, PhD CLIA Number: [id number] Performed By: #### 1 988-5, FEPR, 6-4, 9, 96509-7, 19565-7 #### [facility] ([id number]) [address] [place] [address], [address] [place] [address] #### 11796-8 #### [facility] ([id number]) [address] [place] [address] VITAMIN B12on 02-06-2024 Cobalamin (Vitamin B12) [Mass/Vol] 184 pg/mL Normal 180-914 [facility] Comment on above: Performed By: #### 1 988-5, FEPR, 6-4, 2131-10, 82866-9, 27343-5 #### [facility] ([id number]) [address] [place] [address], [address] [place] [address] #### 93715-0 #### [facility] ([id number]) [address] [place] [address] Vitamin B12on 02-06-2024 Cobalamin (Vitamin B12) [Mass/Vol] 184 pg/mL 180 - 914 pg/mL [facility] Vitamin D 25 hydroxyon 02-05 Vitamin D+Metabolites [Mass/Vol] 11.5 ng/mL Low 30 - 100 ng/mL [facility] Comment on above: Vitamin D status 25 [place] Vitamin D Deficiency <20 ng/mL Insufficiency 20-29 ng/mL Sufficiency 30-100 ng/mL Toxicity >100 ng/mL NOTE: A pediatric reference range has not been established by the sales floor team leader of this kit. The [place] [employer] recommends a Vitamin D level of = or >20ng/mL in infants and children. Vitamin D+Metabolites [Mass/ Vol]on 02-06-2024 Interpretation and review of laboratory results Abnormal [facility] VITAMIN D 25 HYD TOT 11.5 ng/mL Low 30-100 [facility] Comment on above: Result Comment: Vitamin D status 25 [place] Vitamin D Deficiency <20 ng/mL Insufficiency 20-29 ng/mL Sufficiency 30-100 ng/mL Toxicity >100 ng/mL NOTE: A pediatric reference range has not been established by the sales floor team leader of this kit. The [place] [employer] recommends a Vitamin D level of = or >20ng/mL in infants and children. Performed By: #### 1 988-5, FEPR, 2276-4, 2132-9, 13601-6, 40378-0 #### [facility] ([id number]) [address], [address] [place] [address] #### 82122-4 #### [facility] ([id number]) [address] [place] [address] CT ABDOMEN AND PELVIS W CONT on 01-09-2024 CT ABDOMEN AND PELVIS W CONT CT ABDOMEN AND PELVIS W CONT CT ABDOMEN AND PELVIS W CONT HISTORY: Right upper quadrant abdominal pain; Post-operative pain COMPARISON: None. TECHNIQUE: CT abdomen and pelvis was performed after the administration of intravenous contrast. Coronal and sagittal reformatted images were generated and reviewed. Automated exposure control was utilized. FINDINGS: LOWER THORAX: Normal. LIVER: Noncirrhotic morphology. No focal hepatic lesions. BILIARY SYSTEM: Normal gallbladder. No biliary dilation. PANCREAS: Unremarkable. SPLEEN: Unremarkable. ADRENAL GLANDS: Normal. KIDNEYS / URETERS: No collecting system dilatation or stones. Symmetric enhancement of the kidneys. No evidence of solid renal mass. BLADDER: Normal. PELVIC ORGANS: Unremarkable. BOWEL: No bowel obstruction or inflammatory changes. Normal colonic stool burden. Normal appendix. Normal stomach. No small bowel distention. PERITONEUM/RETROPERITONE UM: No free fluid or free air. VESSELS: The abdominal aorta is normal in course and caliber. The celiac and SMA are patent. The iliac and proximal femoral arteries are patent. The hepatic veins, portal vein, splenic vein, and SMV are patent. LYMPH NODES: No enlarged nodes. BONES: Postsurgical changes of an L4 laminectomy. Vertebral body heights are maintained. BODY WALL: Trace fluid and gas in the anterior abdominal wall inferior to the umbilicus likely related to recent reported laparoscopy. No discrete fluid collection. IMPRESSION: No acute process in the abdomen or pelvis. Findings in the abdominal wall inferior to the umbilicus likely relates to recent laparoscopy. All CT scans at this facility use dose modulation, iterative reconstruction, and/or weight based dosing when appropriate to reduce radiation dose to as low as reasonably achievable. Finalized by Jairo Manzo MD on 01/09/2024 2:53 PM Normal [facility] ALL CBC WITH AUTO DIFFon BASOPHILS ABSOLUTE AUTO 0 [facility] Basophils/100 WBC (Bld) 0.4 % 0.2 - 2.0 % [facility] Eosinophils/100 WBC (Bld) 0.8 % Low 0.9 - 7.0 % [facility] Erythrocyte distribution width (RBC) [Ratio] 13.2 % 11.0 - 15.0 % [facility] Hematocrit (Bld) [Volume fraction] 45.2 % 36.0 - 48.0 % [facility] Hemoglobin (Bld) [Mass/Vol] 14 g/dL 12.0 - 16.0 g/dL [facility] IMMATURE GRANULOCYTES ABS AUTO 0.02 [facility] Immature granulocytes/100 WBC (Bld) 0.3 % 0.0 - 0.5 % [facility] Interpretation and review of laboratory results Abnormal [facility] LYMPHOCYTES ABSOLUTE AUTO 2.2 [facility] Lymphocytes/100 WBC (Bld) 29 % 20.5 - 60.0 % [facility] MCH (RBC) [Entitic mass] 26.5 pg Low 26.7 - 34.0 pg [facility] MCHC (RBC) [Mass/Vol] 31 g/dL 29.9 - 35.2 g/dL [facility] MCV (RBC) [Entitic vol] 85.4 fL 81.0 - 99.0 fL [facility] MONOCYTES ABSOLUTE AUTO 0.5 [facility] Monocytes/100 WBC (Bld) 6 % 1.7 - 12.0 % [facility] NEUTROPHILS ABSOLUTE AUTO 4.8 [facility] Neutrophils/100 WBC (Bld) 63.5 % 43.0 - 75.0 % [facility] Platelet mean volume (Bld) [Entitic vol] 9.5 fL 9.5 - 13.5 fL [facility] EO # 0.1 [facility] PLT 336 [facility] RBC 5.29 [facility] WBC 7.5 [facility] CLINISYNC [facility] EMG 1 Extremeityon 4 Normal RUE EMG [facility] NVC 5-6 Nerveson 01-01-2024 Normal RUE EMG [facility] Insertion/Removal of Contrac eptive Capsuleon 12-18-2023 Bety Burns LPN 12/18/2023 10:16 AM Insertion/Removal of Contraceptive Capsule Date/Time: 12/18/2023 9:29 AM Performed by: Benny Vaughn DO Authorized by: Benny Vaughn DO Consent: Consent obtained: Written Consent [...] office as needed for any routine appointments. [facility] IGP,APTIMA HPV,AGE GDLNon AGE GDLN ACOG TESTING Note . [facility] Comment on above: TESTS RESULT FLAG [facility] REF RANGE LAB Clinician Provided Cytology Information Source.............Cervix;Endocervix No. of containers..01 ThinPrep Vial Age Algo ACOG Ximena... FLAG LEGEND: L-Low Normal,H-High Normal,LL-Alert Low,HH-Alert High <-Panic Low,>-Panic High,A-Abnormal,AA-Critical Abnormal Performed at: 01 =G [address] [address] Kristina Alba MD, IGP, RFX APTIMA HPV ASCU Note . [facility] Comment on above: TESTS RESULT FLAG UN [facility] REF RANGE LAB DIAGNOSIS: 02 NEGATIVE FOR INTRAEPITHELIAL LESION OR MALIGNANCY. Specimen adequacy: 02 Satisfactory for evaluation. Endocervical and/or squamous metaplastic cells (endocervical component) are present. Performed by: Wendi Black Barrel Driller ([facility]) . 02 Note: Note 03 The [...] <-Panic Low,>-Panic High,A-Abnormal,AA-Critical Abnormal Performed at: 02 [facility] [address] [place] [address] Bipin Panda MD, 03 WB [facility] [address] [address] Kristina Alba MD, Performed at: =G - [facility] [address] [id number] Gear Room Keeper: Kristina Alba MD, Phone: [phone] Performed at: [facility] [address] [place], [place] [id number] Gear Room Keeper: Bipin Panda MD, Phone: [phone] BRUSH-SPATULA CERVIX ENDOCERVIX [facility] Cervical or vaginal smear or scraping studyOrdered By: Korin Mccurdy on 12-11-2023 [facility] URETHRITIS/DISCHARGE PLUS VA GINITIS (HTRX)on 11-29-2023 ATOPOBIUM VAGINAE 0.000 [facility] ATOPOBIUM VAGINAE Not detected [facility] BVAB 2,3 (BACTERIAL VAGINOSIS ASSOCIATED BACTERIA 2, 3); MOBILUNCUS SPP 0.000 [facility] BVAB 2,3 (BACTERIAL VAGINOSIS ASSOCIATED BACTERIA 2, 3); MOBILUNCUS SPP Not detected [facility] RAY ALBICANS, PARAPSILOSIS, TROPICALIS 0.000 [facility] RAY ALBICANS, PARAPSILOSIS, TROPICALIS Not detected [facility] RAY GLABRATA 0.000 [facility] RAY GLABRATA Not detected [facility] RAY KRUSEI 0.000 [facility] RAY KRUSEI Not detected [facility] CHLAMYDIA TRACHOMATIS 0.000 [facility] CHLAMYDIA TRACHOMATIS Not detected [facility] GARDNERELLA VAGINALIS 0.000 [facility] GARDNERELLA VAGINALIS Not detected [facility] MEGASPHAERA (TYPES 1, 2) 0.000 [facility] MEGASPHAERA (TYPES 1, 2) Not detected [facility] MYCOPLASMA GENITALIUM 0.000 [facility] MYCOPLASMA GENITALIUM Not detected [facility] NEISSERIA GONORRHOEAE 0.000 [facility] NEISSERIA GONORRHOEAE Not detected [facility] TRICHOMONAS VAGINALIS 0.000 [facility] TRICHOMONAS VAGINALIS Not detected N [facility] HCG ( test) Ql (U)o n 11-26-2023 Interpretation and review of laboratory results Normal [facility] Preg Test, Ur Negative [facility] Urinalysis macro (dipstick) panel (U)on 11-26-2023 Bilirubin, UA Negative Negative - 4(70) +++ mg/dL [facility] Blood, UA Negative Negative - 50 Nolan/mcL [facility] Clarity, UA Clear [facility] Color, UA Yellow [facility] Glucose, UA Negative Negative - 1999(110) ++++ mg/dL [facility] Interpretation and review of laboratory results Abnormal [facility] Ketones, UA Negative Negative - 160(16) ++++ mg/dL [facility] Leukocytes, UA Positive Negative - 500+++ Lora/mcL [facility] Comment on above: small Nitrite, UA Negative Negative - Positive [facility] pH, UA 8.5 5 - 9 [facility] Protein, UA Positive Negative - 1999(20) ++++ mg/dL [facility] Comment on above: 30 Spec Grav, UA 1.020 1 - 1.03 [facility] Urobilinogen, UA 0.2 0.2 - 12 mg/dL [facility] POCT urinalysis dipstick onl yon 07-26-2023 External Poct Urine Bilirubin Negative [facility] External Poct Urine Blood Negative [facility] External Poct Urine Glucose Negative [facility] External Poct Urine Ketones Negative [facility] External Poct Urine Leukocyte Esterase Negative [facility] External Poct Urine Nitrite Negative [facility] External Poct Urine Ph 5 [facility] External Poct Urine Protein Negative [facility] External Poct Urine Specific [place] 1.030 [facility] External Poct Urine Urobilinogen 0.2 [facility] Interpretation and review of laboratory results Normal [facility] URINALYSISon 07-26-2023 Bilirubin Ql (U) Negative Normal NEG [facility] Comment on above: Performed By: #### U A #### [facility] ([id number]) [address], [address] [place] [address] BLOOD/HGB Negative Normal NEG [facility] Comment on above: Performed By: #### U A #### [facility] ([id number]) [address], [address] [place] [address] Color (U) YELLOW Normal YELLOW [facility] Comment on above: Performed By: #### U A #### [facility] ([id number]) [address], [address] [place] [address] Glucose Ql (U) Negative Normal NEG [facility] Comment on above: Performed By: #### U A #### [facility] ([id number]) [address], [address] [place] [address] Ketones Ql (U) Negative Normal NEG [facility] Comment on above: Performed By: #### U A #### [facility] ([id number]) [address], [address] [place] [address] Leukocyte esterase Test strip Ql (U) Negative Normal NEG [facility] Comment on above: Performed By: #### U A #### [facility] ([id number]) [address], [address] [place] [address] MUCOUS PRESENT Abnormal NONE [facility] Comment on above: Performed By: #### U A #### [facility] ([id number]) [address], [address] [place] [address] Nitrite Ql (U) Negative Normal NEG [facility] Comment on above: Performed By: #### U A #### [facility] ([id number]) [address], [address] [place] [address] pH (U) 6.0 [pH] Normal 5.0-8.5 [facility] Comment on above: Performed By: #### U A #### [facility] ([id number]) [address], [address] [place] [address] Protein Ql (U) 30 mg/dL Abnormal NEG [facility] Comment on above: Performed By: #### U A #### [facility] ([id number]) [address], [address] [place] [address] R.B.CELLS 0 /hpf Normal 0-5 [facility] Comment on above: Performed By: #### U A #### [facility] ([id number]) [address], [address] [place] [address] Specific gravity (U) [Rel density] 1.033 Normal 1.003-1.035 [facility] Comment on above: Performed By: #### U A #### [facility] ([id number]) [address], [address] [place] [address] SQUAMOUS EPITHELIUM 22 /hpf High 0-5 [facility] Comment on above: Performed By: #### U A #### [facility] ([id number]) [address] [address] TURBIDITY CLOUDY Abnormal CLEAR [facility] Comment on above: Performed By: #### U A #### [facility] ([id number]) [address] [address] Urobilinogen (U) [Mass/Vol] mg/dL Normal <1.1 [facility] Comment on above: Performed By: #### U A #### [facility] ([id number]) [address] [address] W.B.CELLS 0 /hpf Normal 0-5 [facility] Comment on above: Performed By: #### U A #### [facility] ([id number]) [address] [address] URINE CULTUREon 07-26-2023 Bacteria identified Cx Nom (U) CULTURE RESULTS 50-100,000 ORGANISMS/ML NORMAL UROGENITAL DANNY Normal [facility] Comment on above: Performed By: #### 6 30-4 #### [facility] ([id number]) [address] [address] Urinalysis (clean catch)on 0 07-26-2023 Bilirubin Ql (U) Negative Negative^Ne g ative [facility] Color (U) YELLOW YELLOW^YELLO W [facility] Epithelial cells Auto (Urine sed) [#/Area] 22 High [facility] Glucose (U) [Mass/Vol] Negative Negative^Neg ative mg/dL [facility] Hemoglobin Auto test strip Ql (U) Negative Negative^Neg ative [facility] Interpretation and review of laboratory results Abnormal [facility] Ketones (U) [Mass/Vol] Negative Negative^Neg ative mg/dL [facility] Leukocyte esterase Auto test strip Ql (U) Negative Negative^Neg ative [facility] Mucus Ql (Urine sed) PRESENT Abnormal NONE^NONE [facility] Nitrite Auto test strip Ql (U) Negative Negative^Neg ative [facility] pH (U) 6.0 [pH] 5.0 - 8.5 [facility] Protein (U) [Mass/Vol] 30 mg/dL Abnormal Negative^Neg ative [facility] RBC Auto (Urine sed) [#/Area] 0 [facility] Specific gravity Refractometry automated (U) [Rel density] 1.033 1.003 - 1.035 [facility] Turbidity Ql (U) CLOUDY Abnormal CLEAR^CLEAR [facility] Urobilinogen Qn (U) NINF [facility] WBC Auto (Urine sed) [#/Area] 0 [facility] CBC AND AUTO DIFFon 05-15-20 24 ABSOLUTE BASOPHIL 0.1 X10E9/L Normal 0.0-0.2 [facility] Comment on above: Performed By: #### C MORGAN [facility], 3040-3, 71765-3 #### [facility] ([id number]) [address] [place] [address] ABSOLUTE NEUTROPHIL 4.9 X10E9/L Normal 1.5-6.6 [facility] Comment on above: Performed By: #### C PAULA MORA, 3040-3, 98833-4 #### [facility] ([id number]) [address] [place] [address] Basophils/100 WBC (Bld) 0.7 % Normal [facility] Comment on above: Performed By: #### C PAULA MORA, 3040-3, 47628-4 #### [facility] ([id number]) [address] [place] [address] Eosinophils (Bld) [#/Vol] 0.1 10*3/uL Normal 0.0-0.4 [facility] Comment on above: Performed By: #### C PAULA MORA, 3040-3, 39897-8 #### [facility] ([id number]) [address] [place] [address] Eosinophils/100 WBC (Bld) 0.9 % Normal [facility] Comment on above: Performed By: #### C MORGAN CMP, 3039-3, 71617-2 #### [facility] ([id number]) [address] [place] [address] Erythrocyte distribution width (RBC) [Ratio] 14.3 % Normal 11.5-15.0 [facility] Comment on above: Performed By: #### C MORGAN [facility], 3039-3, 12634-8 #### [facility] ([id number]) [address] [place] [address] Hematocrit (Bld) [Volume fraction] 39.3 % Normal 35-47 [facility] Comment on above: Performed By: #### C MORGAN [facility], 3, 15329-5 #### [facility] ([id number]) [address] [place] [address] Hemoglobin (Bld) [Mass/Vol] 13.0 g/dL Normal 11.7-15.5 [facility] Comment on above: Performed By: #### Leonid MORA CMP, 3, 88210-9 #### [facility] ([id number]) [address] [place] [address] Lymphocytes (Bld) [#/Vol] 2.6 10*3/uL Normal 1.0-3.5 [facility] Comment on above: Performed By: #### C MORGAN, CMP, [address], 67172-8 #### [facility] ([id number]) [address] [place] [address] Lymphocytes/100 WBC (Bld) 31.8 % Normal [facility] Comment on above: Performed By: #### C MORGAN, CMP, 3040-3, 41945-0 #### [facility] ([id number]) [address] [place] [address] MCH (RBC) [Entitic mass] 26.2 pg Low 27-34 [facility] Comment on above: Performed By: #### C MORGAN, CMP, 0-3, 88824-4 #### [facility] ([id number]) [address] [place] [address] MCHC (RBC) [Mass/Vol] 33.1 g/dL Normal 32-36 [facility] Comment on above: Performed By: #### C MORGAN, CMP, 0-3, 89680-2 #### [facility] ([id number]) [address] [place] [address] MCV (RBC) [Entitic vol] 79 fL Low 80-100 [facility] Comment on above: Performed By: #### C MORGAN, CMP, 3039-3, 46797-2 #### [facility] ([id number]) [address] [place] [address] Monocytes (Bld) [#/Vol] 0.6 10*3/uL Normal 0-0.9 [facility] Comment on above: Performed By: #### Leonid MORA, CMP, 0-3, 90933-9 #### [facility] ([id number]) [address] [place] [address] Monocytes/100 WBC (Bld) 6.9 % Normal [facility] Comment on above: Performed By: #### C MORGAN, CMP, 0-3, 94704-1 #### [facility] ([id number]) [address] [place] [address] Neutrophils/100 WBC (Bld) 59.7 % Normal [facility] Comment on above: Performed By: #### C BCA, CMP, 3040-3, 51126-0 #### [facility] ([id number]) [address] [place] [address] Platelet mean volume (Bld) [Entitic vol] 7.8 fL Normal 7-12 [facility] Comment on above: Performed By: #### C MORGAN, CMP, 3040-3, 18143-0 #### [facility] ([id number]) [address] [place] [address] 48293 Platelets (Bld) [#/Vol] 371 10*3/uL Normal 150-450 [facility] Comment on above: Performed By: #### C BCA, CMP, 3040-3, 32338-0 #### [facility] ([id number]) [address] [place] [address] 66382 RBC COUNT 4.97 X10E12/L Normal 3.80-5.20 [facility] Comment on above: Performed By: #### C MORGAN, CMP, 3040-3, 61630-2 #### [facility] ([id number]) [address] [place] [address] 91231 WBC (Bld) [#/Vol] 8.1 10*3/uL Normal 4.0-11.0 [facility] Comment on above: Performed By: #### C BCA, CMP, 3040-3, 96390-4 #### [facility] ([id number]) [address] [place] [address] 02949 COMPREHENSIVE METABOLIC PANE Twin 07-11-2023 Albumin [Mass/Vol] 3.8 g/dL Normal 3.2-5.3 [facility] Comment on above: Performed By: #### C BCA, CMP, 3040-3, 24298-9 #### [facility] ([id number]) [address] [place] [address] ALP [Catalytic activity/Vol] 57 U/L Normal 39-130 [facility] Comment on above: Performed By: #### C MORGAN, CMP, 0-3, 61503-0 #### [facility] ([id number]) [address] [place] [address] 36896 ALT [Catalytic activity/Vol] 41 U/L High 0-31 [facility] Comment on above: Performed By: #### C BCA, CMP, 0-3, 75645-0 #### [facility] ([id number]) [address] [place] [address] 28735 Anion gap [Moles/Vol] 6 mmol/L Normal 5-15 [facility] Comment on above: Performed By: #### C MORGAN, CMP, 3, 89113-3 #### [facility] ([id number]) [address] [place] [address] 05465 AST [Catalytic activity/Vol] 24 U/L Normal 0-41 [facility] Comment on above: Performed By: #### C MORGAN, CMP, 3, 64441-5 #### [facility] ([id number]) [address] [place] [address] 86693 Bilirubin [Mass/Vol] 0.7 mg/dL Normal 0.3-1.2 [facility] Comment on above: Performed By: #### C BCA, CMP, 3039-3, 36838-0 #### [facility] ([id number]) [address] [place] [address] 10572 Calcium [Mass/Vol] 8.8 mg/dL Normal 8.5-10.5 [facility] Comment on above: Performed By: #### C BCA, CMP, 0-3, 95525-7 #### [facility] ([id number]) [address] [place] [address] 46464 Chloride [Moles/Vol] 106 mmol/L Normal 98-109 [facility] Comment on above: Performed By: #### C PAULA MORA, 3040-3, 64835-2 #### [facility] ([id number]) [address] [place] [address] 07415 CO2 [Moles/Vol] 26 mmol/L Normal 22-32 [facility] Comment on above: Performed By: #### C PAULA MORA, 3040-3, 52553-0 #### [facility] ([id number]) [address] [place] [address] 57005 Creatinine [Mass/Vol] 0.64 mg/dL Normal 0.40-1.00 [facility] Comment on above: Result Comment: METH OD TRACEABLE TO IDMS STANDARD Performed By: #### C PAULA MORA, 3040-3, 38853-7 #### [facility] ([id number]) [address] [place] [address] 21464 eGFR (CKD-EPI) NON-RACE DEPENDENT >90 Normal >59 [facility] Comment on above: Result Comment: Reported eGFR is based on the CKD-EPI 2020 equation that does not use a race coefficient. Performed By: #### C PAULA MORA, 3040-3, 90803-1 #### [facility] ([id number]) [address] [place] [address] 98458 Glucose [Mass/Vol] 108 mg/dL High 65-99 [facility] Comment on above: Performed By: #### C PAULA MORA, 3040-3, 99911-9 #### [facility] ([id number]) [address] [place] [address] 27340 Potassium [Moles/Vol] 4.3 mmol/L Normal 3.5-5.0 [facility] Comment on above: Performed By: #### C PAULA MORA, 3040-3, 24823-4 #### [facility] ([id number]) [address] [place] [address] 13622 Protein [Mass/Vol] 7.0 g/dL Normal 6.0-8.0 [facility] Comment on above: Performed By: #### C BCA, CMP, 3040-3, 74694-2 #### [facility] ([id number]) [address] [place] [address] 56860 Sodium [Moles/Vol] 138 mmol/L Normal 134-146 [facility] Comment on above: Performed By: #### C BCA, CMP, 3040-3, 10467-1 #### [facility] ([id number]) [address] [place] [address] 18298 Urea nitrogen [Mass/Vol] 14 mg/dL Normal 5-23 [facility] Comment on above: Performed By: #### C BCA, CMP, 3040-3, 02621-8 #### [facility] ([id number]) [address] [place] [address] 32295 LIPASEon 07-11-2023 Lipase [Catalytic activity/Vol] 40 U/L Normal 17-40 [facility] Comment on above: Performed By: #### C BCA, CMP, 3040-3, 24393-6 #### [facility] ([id number]) [address] [place] [address] 21629 Troponin I.cardiac High sens itivity method [Mass/Vol]on 07-11-2023 1 HOUR TROP I, HIGH SENSITIVITY 3 ng/L Normal <16 [facility] Comment on above: Performed By: #### 2 842-3, 83221-7, 86804-9 #### [facility] ([id number]) [address], [address] [place] [address] #### ANDRST #### [facility] ([id number]) [address] [place] [address] 09613 TROPONIN I, HIGH SENSITIVITY <2 Normal <16 [facility] Comment on above: Performed By: #### C BCA, [facility], 3040-3, 83147-1 #### [facility] ([id number]) [address] [place] [address] 18382 XR CHEST 1 VWon 07-11-2023 XR CHEST 1 VW XR CHEST 1 VW Portable chest: HISTORY: Chest pain. Single view of the chest was obtained. Cardiac and mediastinal contours are within normal limits. Lungs are clear. There is no pneumothorax, effusion, or focal consolidation. Osseous structures appear intact. IMPRESSION: No acute findings. Finalized by Oliver Lo MD on 07/11/2023 7:11 PM Normal [facility] 17-Hydroxyprogesterone [Mass /Vol]on 03-30-2023 17 HYDROXYPROGEST 21.28 ng/dL Normal <=206.00 [facility] Comment on above: Result Comment: NOTE INTERPRETIVE INFORMATION for 17-Hydroxyprogesterone in females: Follicular 15 to 70 ng/dL Luteal 35 to 290 ng/dL REFERENCE INTERVAL: 17-Hydroxyprogesterone Qnt, HPLC-MS/MS Access complete set of age- and/or gender-specific reference intervals for this test in the [facility] Test Directory ([facility]). This test was developed and its performance characteristics determined by [facility]. It has not been cleared or approved by the [place] Food and Drug Administration. This test was performed in a CLIA certified laboratory and is intended for clinical purposes. Performed By: [facility] [address] [place] [address] 67119 Spar Machine Operator Helper: Good Grijalva MD, PhD CLIA Number: [id number] Performed By: #### 1 668-3 #### [facility] ([id number]) [address] [place] [address] 21148 ANDROSTENEDIONEon 03-30-2023 ANDROSTENEDIONE 0.745 ng/mL Normal 0.260-2.140 [facility] Comment on above: Result Comment: NOTE INTERPRETIVE INFORMATION: Androstenedione, Females 18 years and older Post-menopausal: 0.13-0.82 ng/mL REFERENCE INTERVAL: Androstenedione by TMS Access complete set of age- and/or gender-specific reference intervals for this test in the [facility] Test Directory ([facility]). This test was developed and its performance characteristics determined by [facility]. It has not been cleared or approved by the US Food and Drug Administration. This test was performed in a CLIA certified laboratory and is intended for clinical purposes. Performed By: [facility] [address] [place] [address] 90906 Spar Machine Operator Helper: Good Grijalva MD, PhD CLIA Number: [id number] Performed By: #### 2 842-3, 86331-2, 55031-9 #### [facility] ([id number]) [address] [place] [address], [address] [place] [address] #### ANDRST #### [facility] ([id number]) [address] [place] [address] 08967 Follitropin Qnon 03-30-2023 FOLLICLE STIM HORMONE 2.0 mIU/mL Normal [facility] Comment on above: Result Comment: NORMAL FEMALE Luteal 1.8-5.1 mIU/mL Follicular 3.8-8.8 mIU/mL Mid Cycle 4.5-22.5 mIU/mL Post [place] 16.7-113.6 mIU/mL Performed By: #### 2 842-3, 61993-3, 74324-9 #### [facility] ([id number]) [address] [place] [address], [address] [place] [address] #### ANDRST #### [facility] ([id number]) [address] [place] [address] 67337 HGB A1C (GLYCO-HGB)on 2023 Glucose [Mass/Vol] 94 mg/dL Normal [facility] Comment on above: Performed By: #### 2 842-3, 26160-0, 38911-8 #### [facility] ([id number]) [address], [address] [place] [address] #### ANDRST #### [facility] ([id number]) [address] [place] [address] 44846 HbA1c (Bld) [Mass fraction] 4.9 % Normal 4.4-5.6 [facility] Comment on above: Result Comment: NOTE ADA Guidelines Result HgbA1c Normal : less than 5.7 % Prediabetes : 5.7 % to 6.4 % Diabetes : > 6.4 % Use with caution in patients with abnormal hemoglobin variants as the half-life of red blood cells and in vivo glycation rates are affected. Performed By: #### 2 842-3, 21236-0, 67801-6 #### [facility] ([id number]) [address], [address] [place] [address] #### ANDRST #### [facility] ([id number]) [address] [place] [address] 58926 Lutropin Qnon 03-30-2023 LUTEINIZING HORMONE 4.6 mIU/mL Normal [facility] Comment on above: Result Comment: NORMAL FEMALE Follicular 2.1-10.9 mIU/mL Mid Cycle 19.2-103 mIU/mL Luteal 1.2-12.9 mIU/mL Post Tracie 10.9-58.6 mIU/mL Performed By: #### 2 842-3, 68005-0, 29370-4 #### [facility] ([id number]) [address], [address] [place] [address] #### ANDRST #### [facility] ([id number]) [address] [place] [address] 77966 Prolactin [Mass/Vol]on 03-30 PROLACTIN 10.6 ng/mL Normal 3.3-26.7 [facility] Comment on above: Performed By: #### 2 842-3, 39399-6, 80655-6 #### [facility] ([id number]) [address], [address] [place] [address] #### ANDRST #### [facility] ([id number]) [address] [place] [address] 03689 Vital Signs Date Time Vital Sign Value Performing Clinician Facility 02-06-2024 13:36-0500 Body height 175.3 cm Carole Flynn MD Work Phone: [facility] 02-06-2024 13:36-0500 Body mass index (BMI) [Ratio] 40.46 kg/m2 Carole Flynn MD Work Phone: [facility] 02-06-2024 13:36-0500 Body weight 124.29 kg Carole Flynn MD Work Phone: [facility] 02-06-2024 13:36-0500 Diastolic blood pressure 74 mm[Hg] Carole Flynn MD Work Phone: [facility] 02-06-2024 13:36-0500 Systolic blood pressure 126 mm[Hg] Carole Flynn MD Work Phone: [facility] 01-30-2024 11:12-0500 Body mass index (BMI) [Ratio] 41.07 kg/m2 Benny Vaughn DO Work Phone: [facility] 01-30-2024 11:12-0500 Body weight 126.15 kg Benny Vaughn DO Work Phone: [facility] 01-30-2024 11:12-0500 Diastolic blood pressure 70 mm[Hg] Benny Johana DO Work Phone: [facility] 01-30-2024 11:12-0500 Systolic blood pressure 120 mm[Hg] Benny Johana DO Work Phone: [facility] 01-08-2024 13:23-0500 Body mass index (BMI) [Ratio] 40.76 kg/m2 Ronni Ozunaer [employer] Work Phone: [facility] 01-08-2024 13:23-0500 Body weight 125.19 kg Ronni Chaychter [employer] Work Phone: [facility] 01-08-2024 13:23-0500 Diastolic blood pressure 72 mm[Hg] Ronni Chaychter [employer] Work Phone: [facility] 01-08-2024 13:23-0500 Heart rate 98 /min Ronni Laither [employer] Work Phone: [facility] 01-08-2024 13:23-0500 Respiratory rate 16 /min Ronni Chaychter [employer] Work Phone: [facility] 01-08-2024 13:23-0500 SaO2% (BldA) [Mass fraction] 99 % Ronni Cartwrightchter [employer] Work Phone: [facility] 01-08-2024 13:23-0500 Systolic blood pressure 124 mm[Hg] Ronni Cartwrightchter [employer] Work Phone: [facility] 12-18-2023 09:12-0400 Body mass index (BMI) [Ratio] 41.07 kg/m2 Benny Johana DO Work Phone: [facility] 12-18-2023 09:12-0400 Body weight 126.15 kg Benny Johana DO Work Phone: [facility] 12-18-2023 09:12-0400 Diastolic blood pressure 70 mm[Hg] Benny Johana DO Work Phone: [facility] 12-18-2023 09:12-0400 Systolic blood pressure 110 mm[Hg] Benny Johana DO Work Phone: [facility] 12-11-2023 13:18-0400 Body mass index (BMI) [Ratio] 40.91 kg/m2 Benny Johana DO Work Phone: [facility] 12-11-2023 13:18-0400 Body weight 125.65 kg Benny Johana DO Work Phone: [facility] 12-11-2023 13:18-0400 Diastolic blood pressure 76 mm[Hg] Benny Johana DO Work Phone: [facility] 12-11-2023 13:18-0400 Systolic blood pressure 118 mm[Hg] Benny Johana DO Work Phone: [facility] 11-26-2023 15:16-0400 Body height 175.3 cm Benny Johana DO Work Phone: [facility] 11-26-2023 15:16-0400 Body mass index (BMI) [Ratio] 40.76 kg/m2 Benny Johana DO Work Phone: [facility] 11-26-2023 15:16-0400 Body weight 125.19 kg Benny Johana DO Work Phone: [facility] 11-26-2023 15:16-0400 Diastolic blood pressure 78 mm[Hg] Benny Johana DO Work Phone: [facility] 11-26-2023 15:16-0400 Systolic blood pressure 122 mm[Hg] Benny Johana DO Work Phone: [facility] 11-07-2023 08:02-0400 Body height 175.3 cm Ronni MCDANIELS Work Phone: [facility] 11-07-2023 08:02-0400 Body mass index (BMI) [Ratio] 40.76 kg/m2 Ronni Pascual [employer] Work Phone: [facility] [employer] [facility] 11-07-2023 08:02-0400 Body weight 125.19 kg Ronni Ozunaer [employer] Work Phone: [facility] [employer] [facility] 11-07-2023 08:02-0400 Diastolic blood pressure 70 mm[Hg] Ronni Ozunaer [employer] Work Phone: [facility] [employer] [facility] 11-07-2023 08:02-0400 Heart rate 87 /min Ronni Ozunaer [employer] Work Phone: [facility] [employer] [facility] 11-07-2023 08:02-0400 Respiratory rate 18 /min Ronni Ozunaer [employer] Work Phone: [facility] [employer] [facility] 11-07-2023 08:02-0400 SaO2% (BldA) [Mass fraction] 97 % Ronni Ozunaer [employer] Work Phone: [facility] [employer] [facility] 11-07-2023 08:02-0400 Systolic blood pressure 126 mm[Hg] Ronni Ozunaer [employer] Work Phone: [facility] 08-23-2023 10:07-0400 Body mass index (BMI) [Ratio] 41.35 kg/m2 Ronni Ozunaer [employer] Work Phone: [facility] 08-23-2023 10:07-0400 Body weight 127.01 kg Ronni Ozunaer [employer] Work Phone: [facility] [employer] [facility] 08-23-2023 10:07-0400 Diastolic blood pressure 76 mm[Hg] Ronni Ozunaer [employer] Work Phone: [facility] [employer] [facility] 08-23-2023 10:07-0400 Heart rate 88 /min Ronni Cartwrightchter [employer] Work Phone: [facility] 08-23-2023 10:07-0400 Respiratory rate 18 /min Ronni Ozunaer [employer] Work Phone: [facility] [employer] [facility] 08-23-2023 10:07-0400 SaO2% (BldA) [Mass fraction] 98 % Ronni Cartwrightchter [employer] Work Phone: [facility] 08-23-2023 10:07-0400 Systolic blood pressure 128 mm[Hg] Ronni Schrachaelchter [employer] Work Phone: [facility] 07-26-2023 15:06-0400 Body mass index (BMI) [Ratio] 42.09 kg/m2 Ronni Schlachter [employer] Work Phone: [facility] 07-26-2023 15:06-0400 Body weight 129.28 kg Ronni Waldronlachter [employer] Work Phone: [facility] 07-26-2023 15:06-0400 Diastolic blood pressure 78 mm[Hg] Ronni Ozunaer [employer] Work Phone: [facility] [employer] [facility] 07-26-2023 15:06-0400 Heart rate 88 /min Ronni Cartwrightchter [employer] Work Phone: [facility] 07-26-2023 15:06-0400 Respiratory rate 18 /min Ronni Waldronlachter [employer] Work Phone: [facility] 07-26-2023 15:06-0400 SaO2% (BldA) [Mass fraction] 96 % Ronni Ozunaer [employer] Work Phone: [facility] [employer] [facility] 07-26-2023 15:06-0400 Systolic blood pressure 124 mm[Hg] Ronni Schlachter [employer] Work Phone: [facility] [employer] [facility] 05-07-2023 08:02-0400 Body mass index (BMI) [Ratio] 42.07 kg/m2 Ronni Schlachter [employer] Work Phone: [facility] [employer] [facility] 05-07-2023 08:02-0400 Body weight 129.28 kg Ronni Pascual [employer] Work Phone: [facility] [employer] [facility] 05-07-2023 08:02-0400 Diastolic blood pressure 76 mm[Hg] Ronni Ozunaer [employer] Work Phone: [facility] [employer] [facility] 05-07-2023 08:02-0400 Heart rate 88 /min Ronni Pascual [employer] Work Phone: [facility] [employer] [facility] 05-07-2023 08:02-0400 Respiratory rate 16 /min Ronni Pascual [employer] Work Phone: [facility] 05-07-2023 08:02-0400 SaO2% (BldA) [Mass fraction] 98 % Ronni Pascual [employer] Work Phone: [facility] [employer] [facility] 05-07-2023 08:02-0400 Systolic blood pressure 128 mm[Hg] Ronni Pascual [employer] Work Phone: [facility] [employer] [facility] 03-29-2023 16:31-0500 Body mass index (BMI) [Ratio] 42.81 kg/m2 Oskar Roach MD Work Phone: [facility] [employer] [facility] 03-29-2023 16:31-0500 Body weight 131.54 kg Oskar Roach MD Work Phone: [facility] [employer] [facility] 03-29-2023 16:31-0500 Diastolic blood pressure 74 mm[Hg] Oskar Roach MD Work Phone: [facility] [employer] [facility] 03-29-2023 16:31-0500 Heart rate 74 /min Oskar Roach MD Work Phone: [facility] [employer] [facility] 03-29-2023 16:31-0500 Systolic blood pressure 128 mm[Hg] Oskar Roach MD Work Phone: [employer] 03-15-2023 15:28-0500 Body height 175.3 cm Carrillo Aragon MD Work Phone: [employer] 03-15-2023 15:28-0500 Body mass index (BMI) [Ratio] 41.33 kg/m2 Carrillo Aragon MD Work Phone: [employer] 03-15-2023 [id number] Body weight 127.01 kg [facility] Date Encounter Type Care Provider Facility Start: 05-12-2024 End: 05-12-2024 ambulatory Benny Johana DO Work Phone: [facility] Work Phone: Start: 05-12-2024 End: 05-12-2024 Departed Referred Benny Johana DO Work Phone: [facility] Start: 05-12-2024 End: 05-12-2024 ambulatory BENNY JOHANA Not Available Start: 04-09-2024 End: 04-09-2024 Telephone encounter Mer[facility] Start: 03-27-2024 End: 03-27-2024 Bamboo flowsheet Benny Johana DO Work Phone: [facility] Start: 03-27-2024 End: 03-27-2024 Bamboo flowsheet Benny Johana DO Work Phone: [facility] Start: 03-27-2024 End: 03-27-2024 Office outpatient visit 15 minutes Benny Johana DO Work Phone: [facility] Comment on above: Encounter for consul tation Start: 03-27-2024 End: 03-27-2024 ambulatory BENNY JOHANA Not Available Start: 03-10-2024 End: 03-10-2024 [facility] on above: Crohn's disease of s mall intestine without complication (CMS- HCC) (Primary Dx) Start: 03-07-2024 End: 03-07-2024 Orders Only Carole Flynn MD Work Phone: [facility] Comment on above: Crohn's disease of leonid tineo without complication (CMS-HCC) (Primary Dx) Start: 03-05-2024 End: 03-05-2024 [facility] Start: 02-06-2024 End: 02-06-2024 ambulatory [facility] Pricila RILEY [facility] Comment on above: Right upper quadrant pain (Primary Dx) History of Crohn's d isease (Primary Dx) Start: 02-06-2024 End: 02-06-2024 Office outpatient new 45 minutes Carole Flynn MD Work Phone: [facility] Comment on above: History of Crohn's d isease (Primary Dx); Right upper quadrant abdominal pain Start: 01-30-2024 End: 01-30-2024 Bamboo flowsheet Benny Johana DO Work Phone: [facility] Start: 01-30-2024 End: 01-30-2024 Bamboo flowsheet Benny Johana DO Work Phone: [facility] Start: 01-30-2024 End: 01-30-2024 Office outpatient visit 15 minutes Benny Johana DO Work Phone: [facility] Comment on above: Postoperative examin ation; Encounter for surveillance of contraceptives, unspecified contraceptive; Pelvic pain in female; Dyspareunia in female; Nausea; Abnormal uterine bleeding (AUB) Start: 01-30-2024 End: 01-30-2024 ambulatory BENNY JOHANA Not Available Start: 01-09-2024 End: 01-09-2024 ambulatory [facility] Start: 01-08-2024 End: 01-08-2024 ambulatory [facility] Start: 01-08-2024 End: 01-08-2024 Office outpatient visit 25 minutes [facility] [employer] Work Phone: [facility] Comment on above: Right upper quadrant abdominal pain (Primary Dx); Post-operative pain; Crohn's disease of colon with complication (CMS-HCC) Start: 01-04-2024 End: 01-04-2024 Clinisync Result Encounter Benny Johana DO Work Phone: [facility] Unsolicited Start: 01-04-2024 End: 01-04-2024 Clinisync Result Encounter Benny Johana DO Work Phone: [facility] Unsolicited Start: 01-01-2024 End: 01-01-2024 Bamboo flowsheet Christopher Twin DO Work Phone: [facility] Start: 01-01-2024 End: 01-01-2024 Bamboo flowsheet Christopher Twin DO Work Phone: [facility] Start: 01-01-2024 End: 01-01-2024 Patient encounter procedure Christopher Twin DO Work Phone: [facility] [address] [facility] Comment on above: Paresthesia (Primary Dx) Start: 01-01-2024 End: 01-01-2024 ambulatory CHRISTOPHER TWIN Not Available Start: 12-18-2023 End: 12-18-2023 Patient encounter procedure Benny Johana DO Work Phone: [facility] Comment on above: Nexplanon removal Start: 12-18-2023 End: 12-18-2023 ambulatory BENNY JOHANA Not Available Start: 12-11-2023 End: 12-11-2023 Bamboo flowsheet Benny Johana DO Work Phone: [facility] Start: 12-11-2023 End: 12-14-2023 Bamboo flowsheet Benny Johana DO Work Phone: [facility] Start: 12-11-2023 End: 12-14-2023 Clinisync Result Encounter Benny Johana DO Work Phone: [facility] External Department Unsolicited Start: 12-11-2023 End: 12-11-2023 ambulatory BENNY JOHANA Not Available Start: 12-11-2023 End: 12-11-2023 Patient encounter procedure Benny Johana DO Work Phone: [facility] Start: 12-11-2023 End: 12-11-2023 Periodic preventive med est patient 18-39 yrs Benny Johana DO Work Phone: [facility] Comment on above: Well woman exam with routine gynecological exam; Preoperative examination; Pelvic pain in female; Dyspareunia in female Start: 12-11-2023 End: 12-11-2023 Preprocedural examination done Benny Johana DO Work Phone: [facility] Start: 12-05-2023 End: 12-05-2023 Refill [facility] M[employer] HOUSE KILN OPERATOR-BLADE GROOVER Work Phone: [facility] Start: 12-05-2023 End: 12-05-2023 ambulatory [facility] Start: 12-05-2023 End: 12-05-2023 [facility] [employer] OPERATOR-BLADE GROOVER Work Phone: [facility] Comment on above: Anxiety (Primary Dx) ; Depression, unspecified depression type; Numbness and tingling in right hand Start: 11-26-2023 End: 11-26-2023 Office outpatient visit 15 minutes Benny Johana DO Work Phone: [facility] Comment on above: Pelvic pain in femal e; control counseling Start: 11-26-2023 End: 11-26-2023 ambulatory BENNY JOHANA Not Available Start: 11-26-2023 End: 11-26-2023 Bamboo flowsheet Benny Johana DO Work Phone: [facility] Start: 11-26-2023 End: 11-29-2023 External Result Encounter Benny Johana DO Work Phone: [facility] External Department Unsolicited Start: 11-26-2023 End: 11-29-2023 External Result Encounter Benny Vaughn DO Work Phone: [facility] Department Unsolicited Start: 11-07-2023 End: 11-07-2023 [facility] M[employer]SE KILN OPERATOR-BLADE GROOVER Work Phone: [employer] Work Phone: Start: 11-07-2023 End: 11-07-2023 Periodic preventive med est patient 18-39 yrs Ronni [facility] MALT HOUSE KILN OPERATOR-BLADE GROOVER Work Phone: [facility] Comment on above: Wellness examination (Primary Dx); Anxiety; Depression, unspecified depression type; Polycystic ovaries; Hyperinsulinism Start: 11-07-2023 End: 11-07-2023 ambulatory [facility] Start: 11-07-2023 Encounter for genera l adult medical examination without abnormal findings [facility] Start: 08-23-2023 End: 08-23-2023 Patient encounter [facility] M[employer] HOUSE KILN OPERATOR-BLADE GROOVER Work Phone: [facility] Comment on above: Anxiety (Primary Dx) Start: 08-23-2023 End: 08-23-2023 ambulatory [facility] Start: 07-26-2023 End: 07-27-2023 ambulatory [facility] Start: 07-26-2023 End: 07-26-2023 ambulatory [facility] Start: 07-26-2023 End: 07-26-2023 Office outpatient visit 25 minutes [facility] MALT HOUSE KILN OPERATOR-BLADE GROOVER Work Phone: [facility] Comment on above: Anxiety (Primary Dx) ; Depression, unspecified depression type; At risk for sleep apnea; Dysuria Start: 07-11-2023 End: 07-12-2023 Emergency department patient visit YULI OJEDA [facility] Start: 05-07-2023 End: 05-07-2023 Office outpatient visit 15 minutes [facility] MALT HOUSE KILN OPERATOR-BLADE GROOVER Work Phone: [facility] Comment on above: Polycystic ovaries ( Primary Dx); Vitamin B12 deficiency; Vitamin D deficiency Start: 05-07-2023 End: 05-07-2023 ambulatory [facility] Start: 04-30-2023 Refill Oskar Demi Roach MD Work Phone: [facility] Start: 03-30-2023 End: 03-30-2023 ambulatory [facility] Start: 03-29-2023 End: 03-29-2023 Office outpatient new 45 minutes Oskar Roach MD Work Phone: [facility] Comment on above: Polycystic ovaries ( Primary Dx); Hyperinsulinism Start: 03-29-2023 End: 03-29-2023 ambulatory [facility] Start: 03-15-2023 End: 03-15-2023 Postop follow up visit related to original px Carrillo Aragon MD Work Phone: [facility] Comment on above: Status post lumbar l aminectomy (Primary Dx) Start: 03-15-2023 End: 03-15-2023 ambulatory CARRILLO ARAGON [facility] Start: 08-30-2020 End: 08-31-2020 Evaluation and management of inpatient DR LUCI LEZAMA . Facility: Start: 09-27-2014 End: 09-27-2014 Refill Joey Rojo MD Work Phone: [facility] Comment on above: Refill Request Procedures Date Procedure Procedure Detail Performing Clinician Start: 03-05-2024 Colonoscopy Carole Flynn MD Work Phone: Start: 01-04-2024 ALL CBC WITH AUTO DIFF Benny Johana DO Work Phone: Start: 01-01-2024 End: 01-01-2024 Needle emg ea extremty w/paraspinl area complete Jerri Murcia DO Work Phone: Start: 12-18-2023 TRANSFER AGENT INSERTION/REMOVA L OF CONTRACEPTIVE CAPSULE Benny Vaughn DO Work Phone: Start: 12-11-2023 IGP,APTIMA HPV,AGE GDLN Bennytheodore Vaughn DO Work Phone: Start: 12-11-2023 Microscopic observat ion [Identifier] in Cervix by Cyto stain Merary Vital VESSEL SLAG WORKER Start: 12-11-2023 Cytp cerv/vag auto t hin layer prep mnl screen Bennytheodore Vaughn DO Work Phone: Start: 11-26-2023 End: 11-26-2023 Urnls dip stick/tablet rgnt non-auto w/o micrscp Bennytheodore Vaughn DO Work Phone: Start: 11-26-2023 URETHRITIS/DISCHARGE PLUS VAGINITIS (HTRX) Bennytheodore Vaughn DO Work Phone: Start: 07-26-2023 Urnls dip stick/tabl et rgnt non-auto w/o micrscp Ronni Pascual MALT HOUSE KILN OPERATOR-BLADE GROOVER Work Phone: Start: 05-07-2023 Follow-up visit Follow-up RONNI PASCUAL Start: 08-30-2020 [...] ion [Identifier] in Cervix by Cyto stain Oskar Roach MD Work Phone: Start: 06-24-2018 Colonoscopy Oskar Roach MD Work Phone: Plan of Treatment Date Care Activity Detail Author Start: 03-05-2029 Screening for malignant neoplasm of colon Colonoscopy [facility] Start: 12-10-2026 Screening for malignant neoplasm of cervix Pap Smear [facility] Start: 03-05-2025 Adult BMI Screening Adult BMI Screening [facility] Start: 03-05-2025 Tobacco Screening Tobacco Screening [facility] Start: 02-05-2025 Adult BMI Screening Adult BMI Screening [facility] Start: 02-05-2025 Tobacco Screening Tobacco Screening [facility] Start: 01-07-2025 Adult BMI Screening Adult BMI Screening [facility] Start: 01-07-2025 Tobacco Screening Tobacco Screening [facility] Start: 12-04-2024 Adult BMI Follow Up Plan Adult BMI Follow Up Plan [facility] Start: 11-06-2024 Adult BMI Follow Up Plan Adult BMI Follow Up Plan [facility] Start: 11-06-2024 Adult BMI Screening Adult BMI Screening [facility] Start: 11-06-2024 Tobacco Screening Tobacco Screening [facility] Start: 08-22-2024 Tobacco Screening Tobacco Screening [facility] Start: 07-25-2024 Adult BMI Follow Up Plan Adult BMI Follow Up Plan [facility] Start: 07-25-2024 Adult BMI Screening Adult BMI Screening [facility] Start: 07-25-2024 Tobacco Screening Tobacco Screening [facility] Start: 06-05-2024 End: 06-05-2024 Patient encounter procedure 06/05/2024 8:00 AM EDT Off ice Visit [facility] [address] [place] [address] Ronni Pascual, MALT HOUSE KILN [facility] [address] [place] [address] [facility] Start: 05-20-2024 End: 05-20-2024 Patient encounter procedure 05/20/2024 10:30 AM EDT Consult [facility] [address] [place] [phone] Benny Vaughn DO [address] [place] [address] [facility] Start: 05-06-2024 Adult BMI Screening Adult BMI Screening [facility] Start: 05-06-2024 Tobacco Screening Tobacco Screening [facility] Start: 03-29-2024 Adult BMI Screening Adult BMI Screening [facility] Start: 03-29-2024 Tobacco Screening Tobacco Screening [facility] Start: 03-27-2024 End: 03-27-2024 Patient encounter procedure 03/27/2024 11:50 AM EST Office Visit [facility] [address] [facility] [place] [address] Benny Vaughn, DO [address] [place] [address] Arrived [facility] Comment on above: Arrived Start: 03-10-2024 End: 03-10-2025 CT Abdomen and Pelvis W contrast IV CT enterography Imaging Routine Crohn's disease of small intestine without complication ([facility]) Expected: 03/10/2024, Expires: 03/10/2025 [facility] Work Phone: Comment on above: Expected: 03/10/2024, Expires: Start: 02-19-2024 End: 02-19-2024 Admission to same day surgery center 02/19/2024 8:00 AM EST - 02/19/2024 9:00 AM EST Surgery [facility] [address] [place] [phone] Carole nKowles MD [address] [place] [address] COLONOSCOPY DIAGNOSTIC / SCREENING [80854 (CPT )] [facility] Comment on above: COLONOSCOPY DIAGNOSTIC / SCREENING [4537 8 (CPT )] Start: 02-19-2024 End: 02-19-2024 Colonoscopy flx dx w/collj spec when pfrmd COLONOSCOPY DIAGNOSTIC / SCREENING History of Crohn's disease 02/19/2024 8:00 AM EST [facility] Start: 02-19-2024 End: 02-19-2024 Esophagogastroduodenoscopy transoral diagnostic ESOPHAGOGASTRODUODENOSCOPY DIAGNOSTIC History of Crohn's disease 02/19/2024 8:00 AM EST [facility] Start: 02-19-2024 Subsequent hospital visit by physician 02/19/2024 8:00 AM EST Hospital Encounter [facility] [address] [place] [address] Carole Knowles MD [address] [place] [address] [address] [place] [address] [facility] Start: 02-06-2024 End: 02-05-2025 Rubella Ab Screen Rubella Ab Screen Microbiology Routine History of Crohn's disease Expected: 02/06/2024 (Approximate), Expires: 02/05/2025 [facility] Comment on above: Expected: 02/06/2024 (Approximate), Expi res: 02/05/2025 Start: 02-06-2024 End: 02-05-2025 Rubeola Ab Screen Rubeola Ab Screen Microbiology Routine History of Crohn's disease Expected: 02/06/2024 (Approximate), Expires: 02/05/2025 [facility] Comment on above: Expected: 02/06/2024 (Approximate), Expi res: 02/05/2025 Start: 02-06-2024 End: 02-06-2024 Patient encounter procedure 02/06/2024 1:30 PM EST Off ice Visit [facility] [address] [place] [address] [address] [place] [address] Carole Knowles MD [address] [place] [address] [address] [place] [address] [facility] Start: 01-30-2024 End: 01-30-2024 Patient encounter procedure 01/30/2024 11:10 AM EST Office Visit [facility] [address] [place] [phone] Benny Vaughn, DO [address] [place] [address] Arrived [facility] Comment on above: Arrived Start: 01-09-2024 End: 01-09-2024 Patient encounter procedure 01/09/2024 1:30 PM EST Appointment [facility] [address] [place] [address] [facility] Start: 01-08-2024 End: 01-07-2025 CT Abdomen and Pelvis W contrast IV CT abdomen and pelvis with contrast Imaging STAT Right upper quadrant abdominal pain Post-operative pain Expected: 01/08/2024, Expires: 01/07/2025 [facility] Work Phone: Comment on above: Expected: 01/08/2024, Expires: Start: 01-01-2024 End: 01-01-2024 Patient encounter procedure 01/01/2024 8:30 AM EST Procedure Visit [facility] [address] [place] [phone] Jerri Murcia, DO [address] [place] [address] Arrived [facility] [address] Comment on above: Arrived Start: 12-27-2023 End: 12-27-2023 Patient encounter procedure 12/27/2023 10:30 AM EDT Procedure Visit [facility] [address] [place] [phone] Vel Jolly MD [address] [place] [address] [facility] [address] Start: 12-24-2023 End: 12-24-2023 Patient encounter procedure 12/24/2023 3:10 PM EDT Off ice Visit [facility] [address] [facility] [place] [phone] Benny Vaughn, DO [address] [place], [place] [phone] [facility] Start: 12-18-2023 End: 12-18-2023 Patient encounter procedure 12/18/2023 9:30 AM EDT Procedure Visit [facility] [address] [facility] [place] [phone] Benny Vaughn, DO [address] [place], [place] [phone] [facility] Start: 12-18-2023 End: 12-18-2023 Professional / ancillary services management 12/18/2023 8:30 AM EDT Ancillary Procedure [facility] [address] [facility] [place] [address] [facility] Start: 12-11-2023 End: 12-11-2023 Patient encounter procedure 12/11/2023 1:00 PM EDT Consult [facility] [address] [facility] [place] [address] Benny Vaughn, DO [address] [place], [place] [phone] [facility] Start: 12-05-2023 End: 12-05-2023 Telemedicine consultation with patient 12/05/2023 9:00 AM EDT Telemedicine [facility] [address] [place] [phone] Ronni Pascual, M[employer]SE KILN OPERATOR-BLADE GROOVER [address] [place] [address] [facility] Start: 11-26-2023 End: 11-26-2023 Patient encounter procedure 11/26/2023 2:50 PM EDT Off ice Visit [facility] [address] [facility] [place] [address] Benny Vaughn, DO [address] [place], [place] [phone] Arrived [facility] Comment on above: Arrived Start: 11-26-2023 End: 11-25-2024 SURESWAB(R) ADVANCED VAGINITIS PLUS, TMA SURESWAB(R) ADVANCED VAGINITIS PLUS, TMA Pathology and Cytology Routine Pelvic pain in female Expected: 11/26/2023 (Approximate), Expires: 11/25/2024 [facility] Work Phone: Comment on above: Expected: 11/26/2023 (Approximate), Expi res: 11/25/2024 Start: 11-26-2023 End: 11-25-2024 US for US PELVIS-TRANSVAG IF INDICATED Imaging Routine Pelvic pain in female Expected: 11/26/2023 (Approximate), Expires: 11/25/2024 [facility] Comment on above: Expected: 11/26/2023 (Approximate), Expi res: 11/25/2024 Start: 11-23-2023 Adult BMI Follow Up Plan Adult BMI Follow Up Plan [facility] Start: 11-07-2023 End: 11-06-2024 CBC W Auto Differential panel - Blood CBC auto differential Lab Routine Wellness examination Expected: 11/07/2023, Expires: 11/06/2024 [facility] Work Phone: Comment on above: Expected: 11/07/2023, Expires: Start: 11-07-2023 End: 11-06-2024 Lipid 1996 panel - Serum or Plasma Lipid profile Lab Routine Wellness examination Expected: 11/07/2023, Expires: 11/06/2024 [facility] Comment on above: Expected: 11/07/2023, Expires: Start: 11-07-2023 End: 11-07-2023 Patient encounter procedure 11/07/2023 8:00 AM EDT Off ice Visit [facility] [address] [place] [phone] Ronni Pascual, M[employer]SE KILN OPERATOR-BLADE GROOVER [address], [place] [phone] [facility] Start: 11-01-2023 End: 11-01-2023 Patient encounter procedure 11/01/2023 3:45 PM EDT Off ice Visit [facility] [address] [place] [address] Oskar Hess MD [address] [place] [address] [facility] Start: 10-28-2023 Influenza vaccination Influenza Vaccine [facility] Start: 09-13-2023 End: 09-13-2023 Patient encounter procedure 09/13/2023 3:00 PM EDT Off ice Visit [facility] [address] [place] [address] Ronni Pascual, M[employer]SE KIL[employer] OPERATOR-BLADE GROOVER [address] [place] [address] [facility] Start: 08-23-2023 End: 08-23-2023 Patient encounter procedure 08/23/2023 10:30 AM EDT Office Visit [facility] [address] [place] [address] Ronni Pascual, M[employer] KIL[employer] OPERATOR-BLADE GROOVER [address] [place] [address] [facility] Start: 07-26-2023 End: 07-25-2024 XR Abdomen AP X-ray abdomen ap 1 view Imaging Routine Dysuria Expected: 07/26/2023, Expires: 07/25/2024 [facility] Comment on above: Expected: 07/26/2023, Expires: Start: 07-17-2023 End: 07-17-2023 Patient encounter procedure 07/17/2023 3:30 PM EDT Off ice Visit [facility] [address] [place] [phone] Oskar Hess MD [address] [facility] [address] [place] [address] [facility] Start: 06-25-2023 Screening for malignant neoplasm of colon Colonoscopy [facility] Start: 04-05-2023 End: 03-29-2024 Cortisol Cortisol Lab Routine Polycystic ovaries Expected: 04/05/2023, Expires: 03/29/2024 [facility] Comment on above: Expected: 04/05/2023, Expires: Start: 01-04-2023 Screening for malignant neoplasm of cervix Pap Smear [facility] Start: 10-27-2022 Influenza vaccination Influenza Vaccine [facility] Start: 10-27-2020 Influenza vaccination INFLUENZA (Season Ended) [facility] Start: 05-18-2016 PAP TESTING PAP TESTING [facility] Start: 05-18-2014 Urine microalbumin profile DTAP,TDAP,TD (1 - Tdap) [facility] Start: 05-18-2013 HEPATITIS C SCREENING HEPATITIS C SCREENING [facility] Start: 05-18-2013 HIV SCREENING HIV SCREENING [facility] Start: 2007 Adult depression screening assessment DEPRESSION SCREENING [facility] Start: 05-18-2006 DTaP,Tdap and Td Vaccines (6 - Tdap) DTaP,Tdap and Td Vaccines (6 - Tdap) [facility] Start: 05-18-2006 HPV VACCINE (1 - 2-dose series) HPV VACCINE (1 - 2-dose series) [facility] End: 03-29-2024 17 Hydroxyprogesterone 17 Hydroxyprogesterone Lab Routine Polycystic ovaries 1 Occurrences starting 03/29/2023 until 03/29/2024 [facility] Comment on above: 1 Occurrences starting 03/29/2023 until 03/29/2024 End: 03-29-2024 Androstenedione Androstenedione Lab Routine Polycystic ovaries 1 Occurrences starting 03/29/2023 until 03/29/2024 [facility] Work Phone: Comment on above: 1 Occurrences starting 03/29/2023 until 03/29/2024 End: 03-07-2025 Anti HBs quantitative Anti HBs quantitative Lab Routine Crohn's disease of colon without complication ([facility]) 1 Occurrences starting 03/07/2024 until 03/07/2025 [employer] Comment on above: 1 Occurrences starting 03/07/2024 until 03/07/2025 End: 07-25-2024 Bacteria identified in Urine by Culture Urine Culture Microbiology Routine Dysuria 1 Occurrences starting 07/26/2023 until 07/25/2024 [employer] Work Phone: Comment on above: 1 Occurrences starting 07/26/2023 until 07/25/2024 Bacteria identified in Urine by Culture Urine Culture Microbiology Routine Dysuria 07/26/2023 9:35 PM EDT [employer] End: 02-05-2025 Calprotectin, F Calprotectin, F Lab Routine History of Crohn's disease 1 Occurrences starting 02/06/2024 until 02/05/2025 [employer] Comment on above: 1 Occurrences starting 02/06/2024 until 02/05/2025 CHLAMYDIA TRACHOMATI S (GENITO/STI) CHLAMYDIA TRACHOMATIS (GENITO/STI) Lab Routine Pelvic pain in female Ordered: 11/26/2023 [email or web address] Comment on above: Ordered: 11/26/2023 End: 02-05-2025 Colonoscopy Colonoscopy GI Routine History of Crohn's disease 1 Occurrences starting 02/06/2024 until 02/05/2025 [employer] Comment on above: 1 Occurrences starting 02/06/2024 until 02/05/2025 End: 11-06-2024 Comprehensive metabolic 2000 panel - Serum or Plasma Comprehensive metabolic panel Lab Routine Wellness examination 1 Occurrences starting 11/07/2023 until 11/06/2024 [employer] Comment on above: 1 Occurrences starting 11/07/2023 until 11/06/2024 Cytology Cervical or vaginal smear or scraping study Pap Smear Pathology and Cytology Routine Well woman exam with routine gynecological exam Ordered: 12/11/2023 [email or web address] Work Phone: Comment on above: Ordered: 12/11/2023 End: 02-05-2025 Esophagogastroduodenoscopy EGD GI Routine Right upper quadrant pain 1 Occurrences starting 02/06/2024 until 02/05/2025 [employer] Work Phone: Comment on above: 1 Occurrences starting 02/06/2024 until 02/05/2025 End: 03-29-2024 Follicle stimulating hormone Follicle stimulating horm one Lab Routine Polycystic ovaries 1 Occurrences starting 03/29/2023 until 03/29/2024 [employer] Comment on above: 1 Occurrences starting 03/29/2023 until 03/29/2024 End: 03-29-2024 Hemoglobin A1c/Hemoglobin.total in Blood Hemoglobin A1c Lab Routine Polycystic ovaries 1 Occurrences starting 03/29/2023 until 03/29/2024 [employer] Comment on above: 1 Occurrences starting 03/29/2023 until 03/29/2024 End: 03-07-2025 Hepatitis B core antibody, total Hepatitis B core antibody, total Lab Routine Crohn's disease of colon without complication ([facility]) 1 Occurrences starting 03/07/2024 until 03/07/2025 [employer] Comment on above: 1 Occurrences starting 03/07/2024 until 03/07/2025 End: 03-07-2025 Hepatitis B surface antigen Hepatitis B surface antige n Lab Routine Crohn's disease of colon without complication ([facility]) 1 Occurrences starting 03/07/2024 until 03/07/2025 [facility] Phone: Comment on above: 1 Occurrences starting 03/07/2024 until 03/07/2025 End: 03-29-2024 Luteinizing hormone Luteinizing hormone Lab Routine Polycystic ovaries 1 Occurrences starting 03/29/2023 until 03/29/2024 [employer] Comment on above: 1 Occurrences starting 03/29/2023 until 03/29/2024 Mycobacterium tuberc ulosis stimulated gamma interferon panel - Blood QuantiFERON-Tb Gold Plus, B Lab Routine History of Crohn's disease 02/06/2024 2:20 PM EST [employer] Neisseria gonorrhoea e DNA [Presence] in Unspecified specimen by CHANDRIKA with probe detection Neisseria gonorrhea DNA probe, direct Lab Routine Pelvic pain in female Ordered: 11/26/2023 [facility] Comment on above: Ordered: 11/26/2023 End: 03-29-2024 Prolactin Prolactin Lab Routine Polycystic ovaries 1 Occurrences starting 03/29/2023 until 03/29/2024 [employer] Comment on above: 1 Occurrences starting 03/29/2023 until 03/29/2024 End: 02-05-2025 QuantiFERON-Tb Gold Plus, B QuantiFERON-Tb Gold Plus, B Lab Routine History of Crohn's disease 1 Occurrences starting 02/06/2024 until 02/05/2025 [employer] Work Phone: Comment on above: 1 Occurrences starting 02/06/2024 until 02/05/2025 Thiopurine methyltra nsferase [Enzymatic activity/volume] in Blood Thiopurine Methyltransferase RBC Lab Routine History of Crohn's disease 02/06/2024 2:20 PM EST [employer] End: 02-05-2025 Thiopurine Methyltransferase RBC Thiopurine Methyltransferase RBC Lab Routine History of Crohn's disease 1 Occurrences starting 02/06/2024 until 02/05/2025 [employer] Comment on above: 1 Occurrences starting 02/06/2024 until 02/05/2025 Payers Date Payer Category Payer Medicaid [id number] 2022 Medicaid [id number] 2021 Private Health Insurance [employer] [id number] 2017 Commercial Managed C are - [employer] Member Subscriber Plan / Payer (Effective 2017-Present) Name: Sunni Ramesh Relation to Subscriber: Self Name: Sunni Ramesh Payer ID: Not on file Type: Not on file Address: [place] [id number] 2017 Unknown [id number]. 1.13.693.2 .[id number] 2014 Private Health Insurance [employer] [id number] 2014-Present PPO [id number] .[id number] 1995 Unknown [id number] 2.16840.1.302307.3.579.2 .593 1995 Unknown [id number] 2.840.1.123079.3.579.2 .1286 1995 Unknown [id number] 2.840.1.730456.3.579.2 .1286 1995 Unknown [id number] 2.840.1.666151.3.579.2 .1285 1995 Unknown [id number] 2.16840.1.476265.3.579.2 .1286 1995 Unknown [id number] 2.16840.1.420951.3.579.2 .1286 1995 Unknown [id number] 2.16840.1.604407.3.579.2 .128 1995 Unknown [id number] 2.16840.1.134794.3.579.2 .1286 1995 Unknown [id number] 2.16840.1.349785.3.579.2 .1285 1995 Unknown [id number] 2.16840.1.091599.3.579.2 .1286 1995 Unknown [id number] 2.16840.1.893998.3.579.2 .1286 1995 Unknown [id number] 2.16.840.1.053209.3.579.2 .128 1995 Unknown [id number] 2.16.840.1.784144.3.579.2 .1285 1995 Unknown [id number] 2.16.840.1.891280.3.579.2 .128 1995 Unknown [id number] 2.16840.1.744907.3.579.2 .128 1995 Unknown [id number] 2.16840.1.981220.3.579.2 .128 1995 Unknown [id number] 2.16840.1.302760.3.579.2 .128 1995 Unknown [id number] 2.16840.1.881661.3.579.2 .1258 1995 Unknown [id number] 2.16840.1.908799.3.579.2 .1258 1995 Unknown [id number] 2.16840.1.143151.3.579.2 .1258 1995 Unknown [id number] 2.16840.1.985458.3.579.2 .9 1995 Unknown [id number] 2.16840.1.928844.3.579.2 .1258 1995 Unknown [id number] 2.16840.1.604781.3.579.2 .1258 1995 Unknown [id number] 2.16840.1.881995.3.579.2 .9 1959 Unknown [id number] 1959 Unknown [id number] 1959 Unknown [id number] Social History Date Type Detail Facility Start: 07-16-2012 End: 05-13-2024 Tobacco smoking status [facility] Never smoker [facility] Start: 07-16-2012 Alcohol intake Not Asked [facility] Start: 1995 Sex Assigned At Not on file [facility] Start: 11-26-2023 End: 03-27-2024 Alcoholic beverage intake Lifetime non-drinker (finding) [facility] Start: 04-08-2020 End: 11-26-2023 History of Social function [facility] Start: 04-08-2020 End: 11-26-2023 Tobacco use panel [facility] Start: 10-20-2022 Alcohol Comment Caffeine: 1-2 cups/d ay [facility] Start: 10-19-2022 End: 12-11-2023 Tobacco use and exposure Smokeless tobacco non-user [facility] Start: 02-06-2024 End: 03-06-2024 Alcoholic beverage intake Current non-drinker of alcohol (finding) [facility] Frequency of Alcohol Consumption Never [facility] How hard is it for y ou to pay for the very basics like food, housing, medical care, and heating Somewhat hard [facility] Start: 10-01-2014 End: 05-14-2024 Sex Female (finding) [facility] Start: 1995 Sex Assigned At Female F [facility] Clinical Notes 03-15-2023 to 04-09-2024 Telephone Encounter - Merary Vital CMA - 04/09/2024 2:29 PM ESTTelephone Encounter - Carole Flynn MD - 04/09/2024 2:29 PM ESTTelephone Encounter - Laura Franklin - 04/09/2024 2:29 PM EST Note Date & Type Note Facility 04-09-[address] Keon Flynn on 03/07/2024: Send prior authorization for Humira, Crohn's disease. Followed up with patient today, she still hasn't completed labs. She states she's having a hysterectomy soon in May. She is unsure if she should start Humira prior. She can start Humira. I will leave it up to her. Call to patient. She wants to start Humira after her surgery. Will work on PA end of June documented in this encounter [employer] 04-09-2024 Telephone encounter Note Per Dr. Keon Flynn on 03/07/2024: Send prior authorization for Humira, Crohn's disease. Followed up with patient today, she still hasn't completed labs. She states she's having a hysterectomy soon in May. She is unsure if [facility] should [facility]24 Telephone encounter Note She can start Humira. I will leave it up to her. [facility] Telephone encounter Note Call to patient. She wants to start Humira after her surgery. Will work on PA end june [employer] 03-27-2024 History of Present illness Narrative Reason for Appointment: Patient ID: Sunni Ramesh is a 28 y.o. female who presents for Surgery Consult Patient presents today for Consult appointment. MEDICATIONS Current Outpatient Medications Medication Instructions FLUoxetine (PROZAC) 10 mg, Daily RT ALLERGIES No Known Allergies PROBLEMS [...] 05/04/2011 Gastric erythema and duoden ulceration/[facility] LAPAROSCOPY DIAGNOSTIC / BIOPSY / ASPIRATION / LYSIS 01/04/2024 MD COLORECTAL CANCER SCREENING RESULTS DOC&REV 08/04/2015 Crohns involving terminal ileum/[facility] 01/31/2023 TONSILLECTOMY VAGINAL DELIVERY 08/30/2020 REVIEW OF SYSTEMS Review of Systems: Review of Systems Genitourinary: Positive for pelvic pain. All other systems reviewed and are negative. OBJECTIVE Objective: Physical Exam Constitutional: Appearance: Normal [...] nursing note reviewed. Exam conducted with a him clerk present. Vitals: Estimated body mass index is 41.07 kg/m as calculated from the following: Height as of 11/26/23: 5' 9 . Weight as of 01/30/24: 278 lb 1.9 oz. BP: No LMP recorded. ASSESSMENT & PLAN ICD-10-CM 1. Encounter for consultation Z71.9 Patient present today to discuss options to discuss hysterectomy. Discussed patients past surgical history and that if she were to have a hysterectomy that it would be partial and ovaries would be left in place. Patient voiced concerns in regards to ovaries as those are what cause most of her problems. Patient has had GI concerns ruled out to be causing any of her current symptoms. Patient verbalized understanding in regards to ovaries to be left. Patient has already had dx lap and will proceed to OR for partial hysterectomy. Patient to setup date for surgery with Wind Tunnel Technician and will then be able to discuss questions patient has in regards to pre-operative and coverage. Patient will also need to setup Pre-op appointment to sign consents after setting up surgery date. Documented by Charlotte Cruz LPN on behalf of: Benny Vaughn DO documented in this encounter [facility] 03-07-2024 History of Present illness Narrative Pending CT enterography (also with rectal contrast to rule out fistula for symptoms of anal irritation ). Patient will fax us the blood work that was done regarding hepatitis-B by her mexican food machine tender. I discussed with Britt over the phone regarding the terminal ileum biopsies that were obtained showing mild chronic inflammation, stenosis on colonoscopy. We will start her back on Humira. She wants to have a hysterectomy. I instructed her to take the Humira after the procedure. documented in this encounter [facility] 02-06-2024 Miscellaneous Notes EGD/CLN ASA 2 ENDO sacheduled with pt at checkout for 02/19/24 8am. Instructinos given in office, LEONIDESE prep sent to [facility]. documented in this encounter [facility] 02-06-2024 Telephone encounter Note EGD/CLN ASA 2 ENDO sacheduled with pt at checkout for 02/19/24 8am. Instructinos given in office, MULU prep sent to [facility]. [facility] [employer] [facility] 02-06-2024 History of Present illness Narrative Images from the original note were not included. [facility] New Patient Visit Chief Complaint Patient presents with New Patient Crohn's Disease She reports she was diagnosed with Crohns. She reports diarrhea has bowel movements 3-5 times a day. She states lower abdominal pain that comes and goes HISTORY OF PRESENT ILLNESS: Sunni Ramesh is a 28 y.o. female who has a past medical history of Anemia, Crohn's colitis ([facility]), Crohn's disease ([facility]), Hyperinsulinism (03/29/2023), Low back pain, Lumbar disc herniation (01/17/2023), PCOS (polycystic ovarian syndrome), Polycystic ovaries (03/29/2023), Spinal stenosis of lumbar region with neurogenic claudication (11/23/2022), and Wears glasses. referred for further evaluation/management of Abdominal pain. Patient has a history of Crohn's disease, ileum according to the note from 2015. Patient had a colonoscopy 06/24/[address] Parker showing localized area of mildly congested ulcerated mucosa in the cecum. Biopsies were obtained. Erythematous mucosa in the sigmoid biopsies obtained. Pathology showed in the cecum mild active chronic colitis changes. Random colon biopsies were normal. Sigmoid colon showed minimal to mild active Chronic colitis. Recent CT abdomen January 16, 2024 negative for inflammation changes. Patient reports that she was diagnosed with Crohn's disease around 2015. She was trialed on Humira. She has stopped it about 7 years ago because she was . She is not on any medication right now. She does not report any abdominal pain. No nausea no vomiting. No coffee-ground emesis no hematemesis. No melena no hematochezia. No diarrhea no constipation no mucousy Stool. No nocturnal symptoms. No unintentional weight loss. Nonsmoker. Does not take NSAIDs. No extraintestinal manifestations joint skin or eye problems. 1. Cecum, biopsy: Mild active chronic colitis. No dysplasia or malignancy. 2. Random colon, biopsy: Benign colonic mucosa. No active chronic colitis identified. No dysplasia or malignancy. 3. Sigmoid colon, biopsy: Minimal to mild active chronic colitis. No dysplasia or malignancy. The following portions of the patient's history were reviewed and updated as appropriate: Patient Care Team: Ronni Pascual APRN-TIFFANY as PCP - General (Family Medicine) Oskar Roach MD as Referring Physician (Endocrinology, Diabetes & Metabolism) She has a past medical history of Anemia, Crohn's colitis ([facility]), Crohn's disease ([facility]), Hyperinsulinism (03/29/2023), Low back pain, Lumbar disc herniation (01/17/2023), PCOS (polycystic ovarian syndrome), Polycystic ovaries (03/29/2023), Spinal stenosis of lumbar region with neurogenic claudication (11/23/2022), and Wears glasses. She has a past surgical history that includes Tonsillectomy; Colonoscopy (N/A, 06/24/2018); Injection Transforaminal (Right, 12/08/2022); and Lumbar laminectomy (Right, 01/31/2023). Her family history includes Diabetes type I in her maternal grandfather and niece/nephew; Gestational diabetes in her mother. She reports that she has never smoked. She has never used smokeless tobacco. She reports that she does not drink alcohol and does not use drugs. PREVIOUS ENDOSCOPIC PROCEDURES: As noted in the HPI Past Surgical History Past Surgical History: Procedure Laterality Date COLONOSCOPY N/A 06/24/2018 Performed by Naldo Parker DO at [facility] INJE[facility] SPINE TRANSFORAMINAL right L 4,5 nroot Right 12/08/2022 Performed by Giovani Garg MD at [facility] LAMINECTOMY LUMBAR SINGLE LEVEL / L4/5 AND DISCECTOMY Right 01/31/2023 Performed by Carrillo Aragon MD at [facility] TONSILLECTOMY Current Medications: Current Outpatient Medications: cholecalciferol, vitamin D3, 2,000 units capsule, Take 1 capsule (2,000 Units total) by mouth in the morning., Disp: , Rfl: ferrous sulfate 325 (65 FE) mg tablet, Take 1 tablet (325 mg total) by mouth in the morning., Disp: 30 tablet, Rfl: 3 FLUoxetine (PROzac) 10 mg capsule, Take 1 capsule (10 mg total) by mouth in the morning., Disp: 90 capsule, Rfl: 1 metFORMIN XR (GLUCOPHAGE XR) 500 mg 24 hr tablet, Take 1 tablet (500 mg total) by mouth daily with breakfast., Disp: 90 tablet, Rfl: 3 I reviewed and reconciled this patient's medication list today. The list included in this note is the most up to date list that I can attest to at this time based on the information that the patient has provided me and the electronic medical record. ALLERGIES: Nsaids (non-steroidal anti-inflammatory drug) SOCIAL HISTORY: Social History Tobacco Use Smoking status: Never Smokeless tobacco: Never Vaping Use Vaping status: Never Used Substance Use Topics Alcohol use: No Drug use: No FAMILY HISTORY: Family History Problem Relation Age of Onset Gestational diabetes Mother Diabetes type I Maternal Grandfather Diabetes type I Niece/nephew Anesthesia problems Neg Hx Cirrhosis Neg Hx Colon cancer Neg Hx Inflammatory bowel disease Neg Hx ASSESSMENTS: REVIEW OF SYSTEMS: See HPI, otherwise ROS as below CONSTITUTIONAL: negative HEENT: negative RESPIRATORY: negative CARDIOVASCULAR: negative GASTROINTESTINAL: As in HPI GENITOURINARY: negative INTEGUMENT/BREAST: negative HEMATOLOGIC/LYMPHATIC: negative ALLERGIC/IMMUNOLOGIC: negative ENDOCRINE: negative MUSCULOSKELETAL: negative NEUROLOGICAL: negative BEHAVIOR/PSYCH: negative PHYSICAL EXAM: Vitals: 02/06/24 1336 BP: 126/74 Weight: 124.3 kg (274 lb) Height: 175.3 cm (5' 9 ) Body mass index is 40.46 kg/m . CONSTITUTIONAL: awake, alert and no apparent distress LUNGS: No increased work of breathing, good air exchange, clear to auscultation bilaterally, no crackles or wheezing CARDIOVASCULAR: regular rate and rhythm, normal S1 and S2 ABDOMEN: normal bowel sounds, soft, non-distended and non-tender NEURO: no focal deficits, moves all 4 extremities spontaneously RADIOLOGICAL DATA: CT abdomen and pelvis with contrast Result Date: 01/09/2024 Narrative: CT ABDOMEN AND PELVIS W CONT HISTORY: Right upper quadrant abdominal pain; Post-operative pain COMPARISON: None. TECHNIQUE: CT abdomen and pelvis was performed after the administration of intravenous contrast. Coronal and sagittal reformatted images were generated and reviewed. Automated exposure control was utilized. FINDINGS: LOWER THORAX: Normal. LIVER: Noncirrhotic morphology. No focal hepatic lesions. BILIARY SYSTEM: Normal gallbladder. No biliary dilation. PANCREAS: Unremarkable. SPLEEN: Unremarkable. ADRENAL GLANDS: Normal. KIDNEYS / URETERS: No collecting system dilatation or stones. Symmetric enhancement of the kidneys. No evidence of solid renal mass. BLADDER: Normal. PELVIC ORGANS: Unremarkable. BOWEL: No bowel obstruction or inflammatory changes. Normal colonic stool burden. Normal appendix. Normal stomach. No small bowel distention. PERITONEUM/RETROPERITONEUM: No free fluid or free air. VESSELS: The abdominal aorta is normal in course and caliber. The celiac and SMA are patent. The iliac and proximal femoral arteries are patent. The hepatic veins, portal vein, splenic vein, and SMV are patent. LYMPH NODES: No enlarged nodes. BONES: Postsurgical changes of an L4 laminectomy. Vertebral body heights are maintained. BODY WALL: Trace fluid and gas in the anterior abdominal wall inferior to the umbilicus likely related to recent reported laparoscopy. No discrete fluid collection. IMPRESSION: No acute process in the abdomen or pelvis. Findings in the abdominal wall inferior to the umbilicus likely relates to recent laparoscopy. All CT scans at this facility use dose modulation, iterative reconstruction, and/or weight based dosing when appropriate to reduce radiation dose to as low as reasonably achievable. Finalized by Jairo Manzo MD on 01/09/2024 2:[address] abdomen and pelvis with contrast 01/09/2024 [id number] Final DATA: CBC: Lab Results Component Value Date WBC 8.1 07/11/2023 HGB 13.0 07/11/2023 HCT 39.3 07/11/2023 MCV 79 (L) 07/11/2023 RDW 14.3 07/11/2023 PLT 371 07/11/2023 CMP: Lab Results Component Value Date K 4.3 07/11/2023 CL 106 07/11/2023 CO2 26 07/11/2023 BUN 14 07/11/2023 GLU 108 (H) 07/11/2023 ASSESSMENT AND PLAN: Sunni was seen today for new patient and crohn's disease. Diagnoses and all orders for this visit: History of Crohn's disease Right upper quadrant [facility] [place] [facility] [place] History of Crohn's disease, diagnosed around 2016. Non stricturing non fistulizing phenotype. No prior surgeries On bowels. No extra intestinal manifestations. No history of heart failure or malignancy. Trialed Humira, stopped during . Around 2015. Colonoscopy 06/24/[address] Parker showing localized area of mildly congested ulcerated mucosa in the cecum. Biopsies were obtained. Erythematous mucosa in the sigmoid biopsies obtained. Pathology showed in the cecum mild active chronic colitis changes. Random colon biopsies were normal. Sigmoid colon showed minimal to mild active Chronic colitis. Recent CT abdomen January 16, 2024 negative for inflammation changes. Currently not having any symptoms. Abdominal pain no diarrhea no constipation no mucousy stool no melena no hematochezia. Will test for TB Quantiferon, HIV, HBV, and TPMT activity. We will set up for colonoscopy. Obtain fecal calprotectin. *Preventive health measures ( To be addressed on the Next VISIT)? -Depression /anxiety -Osteoporosis screening BMD -Smoking status? -vit D and vitamin B12, folate, and iron serology levels? -Annual TB testing -Educated on utmost importance of complete NSAID intake cessation. -Referral for dermatology for annual skin exam -Recommend updated vaccination record? Thank you for allowing me to participate in this pleasant patient s care. Please do not hesitate to call my office for any questions/concerns. This note is dictated with the use of [employer], a computer voice recognition software. Quite often unanticipated grammatical, syntax, homophones, and other interpretive errors are inadvertently transcribed by the computer software. Please disregard these errors and please excuse any errors that have escaped final proofreading. Carole Flynn MD, MPH Gastroenterology & Hepatology Project Account Manager [facility] [address], [address] [place] [address] PH: [phone] documented in this encounter [facility] 01-30-2024 History of Present illness Narrative Reason for Appointment: Patient ID: Sunni Ramesh is a 28 y.o. female who presents for Post-op Visit and Contraception Patient presents today for Acute Visit. and Consult appointment. MEDICATIONS Current Outpatient Medications Medication Instructions FLUoxetine (PROZAC) 10 mg, Daily RT metFORMIN XR (GLUCOPHAGE-XR) 500 mg, Oral, Daily with evening meal, Do not crush, chew, or split. ALLERGIES No Known Allergies PROBLEMS Active Ambulatory [...] 05/04/2011 Gastric erythema and duoden ulceration/[facility] LAPAROSCOPY DIAGNOSTIC / BIOPSY / ASPIRATION / LYSIS 01/04/2024 MD COLORECTAL CANCER SCREENING RESULTS DOC&REV 08/04/2015 Crohns [...] Exam Constitutional: Appearance: Normal appearance. She is well-developed and normal weight. HENT: Head: Normocephalic. Cardiovascular: Rate and Rhythm: Normal rate and regular rhythm. Pulses: Normal pulses. Pulmonary: Effort: Pulmonary effort is normal. Breath sounds: Normal breath sounds. Abdominal: General: Bowel sounds are normal. There is no distension. Palpations: Abdomen is soft. Tenderness: There is no abdominal tenderness. There is no guarding or rebound. Musculoskeletal: General: No swelling. Normal range of motion. Right lower leg: No edema. Left lower leg: No edema. Neurological: General: No focal deficit present. Mental Status: She is alert and oriented to person, place, and time. Skin: General: Skin is warm and dry. Psychiatric: Mood and Affect: Mood normal. Behavior: Behavior normal. Thought Content: Thought content normal. Judgment: Judgment normal. Vitals and nursing note reviewed. Exam conducted with a him clerk present. Vitals: Estimated body mass index is 41.07 kg/m as calculated from the following: Height as of 11/26/23: 5' 9 . Weight as of this encounter: 278 lb 1.9 oz. BP: 120/70 No LMP recorded. ASSESSMENT & PLAN ICD-10-CM 1. Postoperative examination Z09 2. Encounter for surveillance of contraceptives, unspecified contraceptive Z30.40 3. Pelvic pain in female R10.2 4. Dyspareunia in female N94.10 5. Nausea R11.0 6. Abnormal uterine bleeding (AUB) N93.9 Pt has complaints of generalized fatigue, no energy, pelvic pain, AUB, heavy cycle last week. Pt has consult with general for colonoscopy scheduling next week. Pt declines Nexplanon, IUD, OCP, nuva ring. Documented by Bety Burns LPN on behalf of: Benny Vaughn DO documented in this encounter [facility] 01-08-2024 History of Present illness Narrative Images from the original note were not included. [id number] [facility] [id number] SUBJECTIVE: Patient ID: Sunni Ramesh is a 28 y.o. female. Patient presents to the office for complaints of right upper abdominal pain. Patient had exploratory laparoscopic surgery on Sunday by her TRANSFER AGENT. She states since then she has been having severe pain in her upper abdomen. She did call their office and they referred her to the ER. She does have some shoulder pain as well which we talked can happen after laparoscopic surgery. Due to severity of pain and being post op will get CT of abdomen. Patient is unable to sleep or lay on side. She states is not sure what exactly was found (possible bowel blockage). She does have history of Chron's. Will also refer to Gastroenterology. The following portions of the patient's history [...] chest pain, palpitations and leg swelling. Gastrointestinal: Positive for abdominal pain. Negative for diarrhea, nausea and vomiting. Endocrine: Negative for polydipsia, polyphagia and polyuria. Genitourinary: Negative for difficulty urinating, frequency, hematuria and urgency. Musculoskeletal: Negative for arthralgias, gait problem, joint swelling and neck pain. Skin: Negative for pallor and rash. Neurological: Negative for dizziness, weakness, light-headedness and numbness. Psychiatric/Behavioral: Negative for sleep disturbance. The patient is not nervous/anxious. PHYSICAL EXAMINATION: Vitals: 01/08/24 1323 BP: 124/72 Pulse: 98 Resp: 16 SpO2: 99% Weight: 125.2 kg (276 lb) Physical Exam Constitutional: Appearance: She is well-developed. HENT: Head: Normocephalic and atraumatic. Right Ear: External ear normal. Left Ear: External ear normal. Eyes: Conjunctiva/sclera: Conjunctivae normal. Pupils: Pupils are equal, round, and reactive to light. Cardiovascular: Rate and Rhythm: Normal rate and regular rhythm. Heart sounds: Normal heart sounds. Pulmonary: Effort: Pulmonary effort is normal. Breath sounds: Normal breath sounds. Abdominal: General: Bowel sounds are normal. Palpations: Abdomen is soft. Tenderness: There is abdominal tenderness in the right upper quadrant and epigastric area. Musculoskeletal: Cervical back: Normal range of motion. Skin: General: Skin is warm and dry. Neurological: Mental Status: She is alert and oriented to person, place, and time. Psychiatric: Mood and Affect: Mood normal. ASSESSMENT/PLAN: Sunni was seen today for breast pain. Diagnoses and all orders for this visit: Right upper quadrant abdominal pain - CT abdomen and pelvis with contrast; Future - [facility] [place] Future Post-operative pain - CT abdomen and pelvis with contrast; [facility] - [facility] [place] Future Crohn's disease of colon with complication ([facility]) Follow-up: Ct abdomen stat- post op pain Referral GI Will call with results ARSLAN Ghotra 01/08/24 1101 documented in this encounter [facility] 01-01-2024 History of Present illness Narrative Images from the original note were not included. Reason for Appointment: EMG Patient: Sunni Ramesh : 1995 EMG Computer: [employer] Referring Physician: Tawana Bah CNP EMG: JOVANNA set up mechanic stamping machines: Wilfredo Wolf RT(R) Office Location: [place] Reason for EMG: c/o numbness/tingling in right hand/forearm, neck pain into right shoulder. No hx of DM. Not on blood thinners. Comments: Procedure was explained to the patient who expressed understanding. Patient appeared to have tolerated the test well despite some discomfort due to the nature of the test. documented in this encounter [facility] 12-18-2023 History of Present illness Narrative Associated Order(s): Insertion/Removal of Contraceptive Capsule Post-Procedure Diagnose(s): Nexplanon removal Reason for Appointment: Patient ID: Sunni Ramesh is a 28 y.o. female who presents for Contraception Patient presents today for a Nexplanon Removal appointment. MEDICATIONS Current Outpatient Medications Medication Instructions FLUoxetine (PROZAC) 10 mg, Daily RT ALLERGIES No Known Allergies SURGICAL HISTORY Past Surgical History: Procedure Laterality Date COLONOSCOPY 05/04/2011 Ulcerated mucosa term ileum/[facility] COLONOSCOPY 01/2011 ?colitis COLONOSCOPY 05/2018 EGD 05/04/2011 Gastric erythema and duoden ulceration/[facility] MD COLORECTAL CANCER SCREENING RESULTS DOC&REV 08/04/2015 Crohns [...] nursing note reviewed. Exam conducted with a him clerk present. Vitals: Estimated body mass index is 41.07 kg/m as calculated from the following: Height as of 11/26/23: 5' 9 . Weight as of this encounter: 278 lb 1.9 oz. BP: 110/70 No LMP recorded. Patient has had an implant. ASSESSMENT & PLAN Assessment/Plan Encounter Diagnosis: ICD-10-CM 1. Nexplanon removal Z30.46 Insertion/Removal of Contraceptive Capsule Date/Time: 12/18/2023 9:29 AM Performed by: Benny Vaughn DO Authorized by: Benny Vaughn DO Consent: Consent obtained: Written Consent [...] by Bety Burns LPN on behalf of: Benny Vaughn DO documented in this encounter [facility] 12-11-2023 History of Present illness Narrative Reason for Appointment: Patient ID: Sunni Ramesh is a 28 y.o. female who presents for Well Women Visit and Pre-op Visit Patient presents today for Pre Op/Annual appointment. Patient is scheduled to undergo Diagnostic Laparoscopy, possible BALA, possible FOE, possible BSO on 01/04/[address] Vaughn at [facility]. MEDICATIONS Current Outpatient Medications Medication Instructions [...] 05/04/2011 Gastric erythema and duoden ulceration/[facility] MD COLORECTAL CANCER SCREENING RESULTS DOC&REV 08/04/2015 Crohns [...] nursing note reviewed. Exam conducted with a him clerk present. Vitals: Estimated body mass index is [...] reviewed, and patient is to proceed to [facility] OR. Follow Up: Patient is to follow up between 1-2 weeks post operative to assess proper healing and recovery from procedure. Documented by Bety Burns LPN on behalf of: Benny Vaughn DO documented in this encounter [facility] 12-05-2023 History of Present illness Narrative Images from the original note were not included. [address] [place] [address] SUBJECTIVE: Patient ID: Sunni Ramesh is a 28 y.o. female. Video Visit via Real-time Synchronous Audiovisual Provider Location: [address] [id number] Patient Location: work Video Visit Consent Statement: [...] that there are some limitations compared to [id number] evaluations. The patient consented to the presence of additional virtual and/or in-person participants. We elected to proceed.Video Visit via Real-time Synchronous Audiovisual Provider Location: [address] [id number] Patient Location: work Video Visit Consent Statement: [...] that there are some limitations compared to [id number] evaluations. The patient consented to the presence [...] right hand - Ambulatory referral to [facility]rology ([facility]); Future Other orders - FLUoxetine (PROzac) 10 [...] ARSLAN Ghotra 12/05/23917 documented in this encounter [facility] 11-26-2023 History of Present illness Narrative Reason for Appointment: Patient ID: Sunni Ramesh is a 28 y.o. female who presents for Pelvic Pain Patient presents today for pelvic pain MEDICATIONS Current Outpatient Medications Medication Instructions FLUoxetine (PROZAC) 10 mg, Oral, Daily RT ALLERGIES No Known Allergies PROBLEMS Active Ambulatory Problems Diagnosis Date Noted No Active Ambulatory Problems Resolved Ambulatory Problems Diagnosis Date Noted No Resolved Ambulatory Problems Past Medical History: Diagnosis Date Acne Bladder instability Cellulitis Crohn's disease ([facility]) Dyshidrotic eczema Fatigue Folliculitis Gastritis History of [...] Tobacco Use Smoking status: Never Smokeless tobacco: Not on file Substance Use Topics Alcohol use: Never Comment: Caffeine: 1-2 cups/day Drug use: Never FAMILY HISTORY Family History Problem Relation Name Age of Onset Depression Mother Migraines Mother Migraines Sister Older Depression Sister Older Other (Epilepsy) Sister Older Diabetes Maternal Grandfather SURGICAL HISTORY Past Surgical History: Procedure Laterality Date COLONOSCOPY 05/04/2011 Ulcerated mucosa term ileum/[facility] COLONOSCOPY 01/2011 ?colitis COLONOSCOPY 05/2018 EGD 05/04/2011 Gastric erythema and duoden ulceration/[facility] MD COLORECTAL CANCER SCREENING RESULTS DOC&REV 08/04/2015 Crohns involving terminal ileum/[facility] 01/31/2023 TONSILLECTOMY VAGINAL DELIVERY 08/30/2020 REVIEW OF SYSTEMS Review of Systems: Review of Systems OBJECTIVE Objective: OBGyn Exam Vitals: Estimated body mass index is 40.76 kg/m as calculated from the following: Height as of this encounter: 5' 9 . Weight as of this encounter: 276 lb. BP: 122/78 No LMP recorded. Patient has had an implant. ASSESSMENT & PLAN ICD-10-CM 1. Pelvic pain in female R10.2 POCT urinalysis dipstick manually resulted POCT , urine manually resulted SURESWAB(R) ADVANCED VAGINITIS PLUS, TMA Neisseria gonorrhea DNA probe, direct CHLAMYDIA TRACHOMATIS (GENITO/STI) US PELVIS-TRANSVAG IF INDICATED Pt presents today for pelvic pain. Cultures obtained without difficulty. Pt laso has complaints of painful intercourse and having no energy.Discussed doing a DX lap and trying OCP to try and help with symptoms. Pt is agreeable to this plan. Documented by Anahi Monge LPN on behalf of: Benny Vaughn DO documented in this encounter [facility] 11-07-2023 History of Present illness Narrative Images from the original note were not included. [address] [facility] [id number] Subjective: Sunni Ramesh is a 28 y.o. female who presents for an Annual Wellness exam. Patient presents to the office for routine wellness exam. Has history of PCOS and follows with endocrinology. She would like to restart prozac at this time. Has a lot of stressors at the moment. She is also having some issues with possible ovarian cyst and discharge. She is going to see her TRANSFER AGENT. Annual Exam Pertinent negatives include no abdominal pain, arthralgias, chest pain, congestion, coughing, fatigue, fever, joint swelling, nausea, neck pain, numbness, rash, sore throat, vomiting or weakness. The following portions of the patient's history were reviewed and updated as appropriate: medications, allergies, past medical history, past surgical history, social history, family history and immunization history Vitals: Vitals: 11/07/23 0802 BP: 126/70 Pulse: 87 Resp: 18 SpO2: 97% Weight: 125.2 kg (276 lb) Height: 175.3 cm (5' 9 ) History: Patient Active Problem List Diagnosis Date Noted Hyperinsulinism 03/29/2023 Polycystic ovaries 03/29/2023 Lumbar disc herniation 12/22/2022 Spinal stenosis of lumbar region with neurogenic claudication 11/23/2022 Past Medical History: Diagnosis Date Anemia Crohn's colitis ([facility]) Crohn's disease ([facility]) Low back pain Lumbar disc herniation 01/17/2023 PCOS (polycystic ovarian syndrome) Wears glasses Past Surgical History: Procedure Laterality Date COLONOSCOPY N/A 06/24/2018 Performed by Naldo Parker DO at [facility] INJECTION SPINE TRANSFORAMINAL right L 4,5 nroot Right 12/08/2022 Performed by Giovani Garg MD at [facility] LAMINECTOMY LUMBAR SINGLE LEVEL / L4/5 AND DISCECTOMY Right 01/31/2023 Performed by Carrillo Aragon MD at [facility] TONSILLECTOMY Family History Problem Relation Age of Onset Gestational diabetes Mother Diabetes type I Maternal Grandfather Diabetes type I Niece/nephew Anesthesia problems Neg Hx Social History Tobacco Use Smoking status: Never Smokeless tobacco: Never Substance Use Topics Alcohol use: No Allergies: Allergies Allergen Reactions Nsaids (Non-Steroidal Anti-Inflammatory Drug) Patient has Chrons disease There is no immunization history on file for this patient. Review of Systems: Review of Systems Constitutional: Negative for fatigue, [...] for sleep disturbance. The patient is nervous/anxious. Objective: BP 126/70 Pulse 87 Resp 18 Ht 175.3 cm (5' 9 ) Wt 125.2 kg (276 lb) SpO2 97% BMI 40.76 kg/m Physical Exam Constitutional: Appearance: She is well-developed. HENT: Head: Normocephalic and atraumatic. Right Ear: Tympanic membrane, ear canal and external ear normal. Left Ear: Tympanic membrane, ear canal and external ear normal. Eyes: Conjunctiva/sclera: Conjunctivae normal. Pupils: Pupils are equal, round, and reactive to light. Cardiovascular: Rate and Rhythm: Normal rate and regular rhythm. Heart sounds: Normal heart sounds. Pulmonary: Effort: Pulmonary effort is normal. Breath sounds: Normal breath sounds. Musculoskeletal: Cervical back: Normal range of motion. Skin: General: Skin is warm and dry. Neurological: Mental Status: She is alert and oriented to person, place, and time. Psychiatric: Mood and Affect: Mood normal. Assessment/Plan: Sunni was seen today for annual exam. Diagnoses and all orders for this visit: Wellness examination - CBC auto differential; Future - Comprehensive metabolic panel; Future - Lipid profile; Future Anxiety Depression, unspecified depression type Polycystic ovaries Hyperinsulinism Other orders - FLUoxetine (PROzac) 10 mg capsule; Take 1 capsule (10 mg total) by mouth in the morning. Plan Outpatient Medications Prior to Visit Medication Sig Dispense Refill cholecalciferol, vitamin D3, 2,000 units capsule Take 1 capsule (2,000 Units total) by mouth in the morning. ferrous sulfate 325 (65 FE) mg tablet Take 1 tablet (325 mg total) by mouth in the morning. 30 tablet 3 metFORMIN XR (GLUCOPHAGE XR) 500 mg 24 hr tablet Take 1 tablet (500 mg total) by mouth daily with breakfast. 90 tablet 3 FLUoxetine (PROzac) 10 mg capsule Take 1 capsule (10 mg total) by mouth in the morning. 30 capsule 0 famotidine (PEPCID) 20 mg tablet Take 1 tablet (20 mg total) by mouth in the morning and 1 tablet (20 mg total) before bedtime. 20 tablet 0 No facility-administered medications prior to visit. Follow Up: Cbc,cmp,lipid Will call with results Keep appointments with TRANSFER AGENT and endocrinology Restart prozac 10mg daily Follow up in 28 days Patient noted to have elevated BMI and the following intervention(s) were applied: encouragement to exercise. ARSLAN Ghotra 11/07/23 0826 documented in this encounter [facility] 08-23-2023 History of Present illness Narrative No charge, patient just started prozac three days ago, will reschedule ARSLAN Ghotra 08/23/23 1014 documented in this encounter [facility] 07-26-2023 History of Present illness Narrative Images from the original note were not included. [address] [facility] [id number] SUBJECTIVE: Patient ID: Sunni Ramesh is a 28 y.o. female. Patient presents to the office with complaints of burning with urination/ has back pain when she urinates. She also has a lot of fatigue as of late. We did do labs prior and supplemented iron and vitamin d and symptoms have worsened. Patient does admit to not sleeping well. Has a lot of stress at home and work. Was on lexparo in the past and did not feel like herself. Talked about options. Will try prozac and she may have some underlying sleep apnea as well. She has been having upper back pain and did contact her neurosurgeon. Urinary Tract Infection Associated symptoms include flank pain and frequency. Pertinent negatives include no hematuria, nausea, urgency or vomiting. The following portions of the patient's history [...] Negative for polydipsia, polyphagia and polyuria. Genitourinary: Positive for dysuria, flank pain and frequency. Negative for difficulty urinating, hematuria and urgency. Musculoskeletal: Positive for back pain. Negative for arthralgias, gait problem, joint swelling and neck pain. Skin: Negative for pallor and rash. Neurological: Negative for dizziness, weakness, light-headedness and numbness. Psychiatric/Behavioral: Positive for sleep disturbance. The patient is nervous/anxious. PHYSICAL EXAMINATION: Vitals: 07/26/23 1506 BP: 124/78 Pulse: 88 Resp: 18 SpO2: 96% Weight: 129.3 kg (285 lb) Physical Exam Constitutional: Appearance: She is well-developed. HENT: Head: Normocephalic and atraumatic. Right Ear: External ear normal. Left Ear: External ear normal. Eyes: Conjunctiva/sclera: Conjunctivae normal. Pupils: Pupils are equal, round, and reactive to light. Cardiovascular: Rate and Rhythm: Normal rate and regular rhythm. Heart sounds: Normal heart sounds. Pulmonary: Effort: Pulmonary effort is normal. Breath sounds: Normal breath sounds. Abdominal: Tenderness: There is right CVA tenderness and left CVA tenderness. Musculoskeletal: General: Normal range of motion. Cervical back: Normal range of motion. Skin: General: Skin is warm and dry. Neurological: Mental Status: She is alert and oriented to person, place, and time. Psychiatric: Mood and Affect: Mood normal. ASSESSMENT/PLAN: Sunni was seen today for urinary tract infection. Diagnoses and all orders for this visit: Anxiety Depression, unspecified depression type At risk for sleep apnea - Referral to [facility] - [place], [place]; Future Dysuria - POCT urinalysis dipstick only - Urine Culture; Future - Urinalysis (clean catch); Future - X-ray abdomen ap 1 view; Future Other orders - FLUoxetine (PROzac) 10 mg capsule; Take 1 capsule (10 mg total) by mouth in the morning. Follow-up: Ua and urine culture X-ray abdomen- rule out kidney stones Prozac 10mg daily Referral sleep medicine Follow up in 28 days Will call with results Patient noted to have elevated BMI and the following intervention(s) were applied: encouragement to exercise. ARSLAN Ghotra 07/26/23 1552 documented in this encounter [facility] [employer] [facility] 05-07-2023 History of Present illness Narrative Images from the original note were not included. [address] [facility] [id number] SUBJECTIVE: Patient ID: Sunni Ramesh is a 27 y.o. female. -Patient here to follow up after seeing endocrinology and was started on metformin 5 weeks ago. Patient states they are having a hard time getting their metformin XR and has not had a chance to pick it up. Patient states they have no symptoms today except for being fatigued. Patient will filler picker medication later today. No other complaints [...] try to incorporate exercise. 2.) Patient to filler picker medications and be compliant taking them 3.) Patient to return in 6 months Sunni was seen today for follow-up. Diagnoses and all orders for this visit: Polycystic ovaries Vitamin B12 deficiency Vitamin D deficiency Follow-up: Cortisol level was not drawn with other labs, will have her get that done, printed order ARSLAN Ghotra 05/07/23 0834 documented in this encounter [facility] 04-30-2023 Miscellaneous Notes Ok to sign and send documented in this encounter [facility] 04-30-2023 Telephone encounter Note Ok to sign and send [facility] 03-29-2023 Evaluation + Plan note Associated [...] Next follow-up will be in 3 months [facility] 03-29-2023 Miscellaneous Notes Associated Problem(s): Polycystic [...] in 3 months documented in this encounter [facility] 03-29-2023 History of Present illness Narrative New Patient Polycystic ovaries Sunni Ramesh is a 27 y.o. female whom [...] Medical History: Diagnosis Date Anemia Crohn's colitis ([facility]) Crohn's disease ([facility]) Low back pain Lumbar disc herniation [...] 06/24/2018 Performed by Naldo Parker DO at [facility] INJECTION SPINE TRANSFORAMINAL right L 4,5 nroot Right 12/08/2022 Performed by Giovani Garg MD at [facility] LAMINECTOMY LUMBAR SINGLE LEVEL / L4/5 AND DISCECTOMY Right 01/31/2023 Performed by Carrillo Aragon MD at [facility] TONSILLECTOMY Allergies Allergen Reactions Nsaids (Non-Steroidal [...] 104 (H) 11/08/2022 ASSESSMENT: 1. Hyperinsulinism - [facility] - [place], [place] 2. Polycystic ovaries - Androstenedione; Future [...] in 3 months documented in this encounter [facility] 03-15-2023 History of Present illness Narrative Images from the original note were not included. [facility] [address] [place] [address], [address] [place] [address] * CHART NOTE ? 03/20/2023 Patient: Sunni Ramesh 1995 [id number] Physician: Carrillo Aragon MD CHIEF COMPLAINT Post-op. HISTORY OF PRESENT ILLNESS 27 year old female presents to the office as a post-op patient S/P right L4-5 hemilaminectomy, partial medial facetectomy and foraminotomy for diskectomy. Patient reports that she has been doing well and the pain down the legs has subsided. She does still experience some residual back pain when she is seated for an extended period of time and is relieved when she walks around. Denies loss of sleeve setter strength, saddle anesthesia, urinary or bowel dysfunction, weakness, numbness or tingling, radicular symptoms, and loss of balance. Patient does not use an assistive device for ambulation. Patient is not diabetic and never smoker. No relevant surgical Hx. ALLERGIES Allergies Allergen Reactions Nsaids (Non-Steroidal Anti-Inflammatory Drug) Patient has Chrons disease MEDICATIONS Current Outpatient Medications: cholecalciferol, vitamin D3, 2,000 units capsule, Take 1 capsule (2,000 Units total) by mouth in the morning., Disp: , Rfl: cyclobenzaprine (FLEXERIL) 10 mg tablet, Take 1 tablet (10 mg total) by mouth 3 (three) times a day as needed for muscle spasms., Disp: 30 tablet, Rfl: 0 ferrous sulfate 325 (65 FE) mg tablet, Take 1 tablet (325 mg total) by mouth in the morning., Disp: 30 tablet, Rfl: 3 VITAL SIGNS Ht 175.3 cm (5' 9.02 ) Wt 127 kg (280 lb) BMI 41.33 kg/m PHYSICAL EXAMINATION Neurologic Exam Mental Status Oriented to person, place, and time. Level of consciousness: alert Knowledge: good. Motor Exam Muscle bulk: normal Overall muscle tone: normal Strength Strength 5/5 throughout. Sensory Exam Light touch normal. Gait, Coordination, and Reflexes Gait Gait: normal Reflexes Right brachioradialis: 2+ Left brachioradialis: 2+ Right biceps: 2+ Left biceps: 2+ Right triceps: 2+ Left triceps: 2+ Right patellar: 2+ Left patellar: 2+ Right achilles: 2+ Left achilles: 2+ Right sleeve setter: 2+ Left sleeve setter: 2+ Right Linares: absent Left Linares: absent Right ankle clonus: absent Left ankle clonus: absent MRI / IMAGES None new IMPRESSION / PLAN 27 year old female presents to the office as a post-op patient S/P right L4-5 hemilaminectomy, partial medial facetectomy and foraminotomy for diskectomy. Patient reports that she has been doing well and the pain down the legs has subsided. She does still experience some residual back pain when she is seated for an extended period of time and is relieved when she walks around. PLAN: Follow up as needed. Electronically Signed By: Carrillo Aragon MD This note was created with the assistance of a speech recognition program with the goal of generating a timely record of the patient encounter. Inadvertent computerized dry talc racker errors related to syntax, spelling, homophones, and/or inaudibility may be present. Scribe Statement: Scribed for and in the presence of Carrillo Aragon MD by Abiodun Power. Provider Statement: I, Carrillo Aragon MD personally performed the services described in the documentation, as scribed by OS in my presence, and it is both accurate and complete. documented in this encounter [facility] 03-15-2023 Instructions Brian Chung - 03/15/2023 3:20 PM EST Follow up as needed RT documented in this encounter [facility] Evaluation note Diagnosis Crohn's disease, with rectal bleeding- Primary [facility] Diagnosis Well woman exam with routine gynecological exam Routine gynecological examination Preoperative examination Unspecified pre-operative examination Pelvic pain in female Unspecified symptom associated with female genital organs Dyspareunia in female documented in this encounter [facility]* Diagnosis Nexplanon removal documented in this encounter [facility]* Diagnosis Paresthesia- Primary Disturbance of skin sensation documented in this encounter [facility]* Diagnosis Postoperative examination Follow-up examination, following unspecified surgery Encounter for surveillance of contraceptives, unspecified contraceptive Pelvic pain in female Unspecified symptom associated with female genital organs Dyspareunia in female Nausea Nausea alone Abnormal uterine bleeding (AUB) documented in this encounter [facility]* Diagnosis Pelvic pain in female Unspecified symptom associated with female genital organs control counseling documented in this encounter [facility]* Diagnosis Polycystic ovaries- Primary Hyperinsulinism Other specified hypoglycemia Crohn's disease of colon without complication (CMS-HCC)- Primary [facility] Diagnosis Polycystic ovaries- Primary Hyperinsulinism Other specified hypoglycemia Crohn's disease of small intestine without complication (CMS-HCC)- Primary [facility] Diagnosis Encounter for consultation [facility] Diagnosis Polycystic ovaries- Primary Hyperinsulinism Other specified hypoglycemia [facility]* Diagnosis Anxiety- Primary Anxiety state, unspecified Depression, unspecified depression type At risk for sleep apnea Dysuria documented [facility]* Diagnosis Status post lumbar laminectomy- Primary [facility]* Diagnosis Anxiety- Primary Anxiety state, unspecified [facility] Diagnosis Polycystic ovaries- Primary Vitamin B12 deficiency Other B-complex deficiencies Vitamin D deficiency [facility]* Diagnosis Anxiety- Primary Anxiety state, unspecified Depression, unspecified depression type Numbness and tingling in right hand Disturbance of skin sensation [facility]* Diagnosis Wellness examination- Primary Anxiety Anxiety state, unspecified Depression, unspecified depression type Polycystic ovaries Hyperinsulinism Other specified hypoglycemia [facility] Diagnosis Polycystic ovaries- Primary Hyperinsulinism Other specified hypoglycemia Right upper quadrant abdominal pain- Primary Post-operative pain Other acute postoperative pain Crohn's disease of colon with complication (CMS-HCC) [facility]* Diagnosis Polycystic ovaries- Primary Hyperinsulinism Other specified hypoglycemia History of Crohn's disease- Primary Right upper quadrant abdominal pain [facility]* Diagnosis Polycystic ovaries- Primary Hyperinsulinism Other specified hypoglycemia Right upper quadrant pain- Primary Abdominal pain, right upper quadrant documented in this encounter [facility] Diagnosis Polycystic ovaries- Primary Hyperinsulinism Other specified hypoglycemia History of Crohn's disease- Primary documented in this encounter [facility] noteNo assessment information available [facility] Work Phone: InstructionsNot on filedocumented in this encounter [facility] System[facility]ructionsNot on filedocumented in this encounter [facility] SystemInstructionsNot on filedocumented in this encounter [facility]* Attachments The following attachments cannot be sent through Care Everywhere. * Anxiety Discharge Instructions, Adult (Burmese) documented [facility] SystemInstructionsNot on file documented in this encounterGerman Hospital SystemInstructions* Attachments The following attachments cannot be sent through Care Everywhere. * Polycystic ovary syndrome (Burmese) documented in [facility] SystemInstructionsNot on file documented in [facility]German [facility] SystemInstructions* Attachments The following attachments cannot be sent through Care Everywhere. * Anxiety Discharge Instructions, Adult (Burmese) [facility]* Attachments The following attachments cannot be sent through Care Everywhere. * Anxiety Discharge Instructions, Adult (Burmese) documented in this encounterGerman [facility] SystemInstructionsNot on file documented in this encounterProOhiohealth SystemInstructionsNot on file documented in this encounterProOhiohealth SystemInstructionsNot on file documented in this encounterC[facility]innati [facility] HospitalReason for referral (narrative)* Consultation (Routine) - Authorized Specialty Diagnoses / Procedures Referred By Maurice darby Referred To Contact Pulmonary Medicine Diagnoses At risk for sleep apnea Ronni Pascual APRN-CNP [address] [place] [address] Angela Pratt MD [address] [facility] [place] [address] Referral ID Status Reason Start Date Expiration Date Visits Requested Visits Authorized [id number] Authorized Specialty Services Required 07/26/2023 07/25/2024 1 1 [facility] for visit Narrative* Other Medical (Routine) - Closed Specialty Diagnoses / Procedures Referred By Maurice darby Referred To Contact Neurology Diagnoses Anesthesia of skin Paresthesia of skin Procedures MD NERVE CONDUCTION STUDIES 9-10 STUDIES MD NEEDLE EMG EA EXTREMTY W/PARASPINL AREA COMPLETE Ronni Pascual, FIDELINA [address] [place] [address] Phone: tel: fax: Vel Jolly MD [address] [place] [address] Phone: tel: fax: Referral ID Status Reason Start Date Expiration Date V isits Requested Visits Authorized [id number] Closed Perform Procedure 12/06/2023 06/03/2024 1 1 [...] Referred By Maurice t Referred To Contact Neurology Diagnoses Numbness and tingling in right hand Ronni Pascual, MALT HOUSE KILN OPERATOR-BLADE GROOVER [address] [place] [address] [facility] [address] [place] [address] Referral ID Status Reason Start Date Expiration Date Visits Requested Visits Authorized [id number] Pending Review Specialty Services Required 12/05/2023 12/04/2024 1 1 Additional Source Comments Source Comments (unrecognize d section and content) In the event this informatio n is protected by the Federal Confidentiality of Alcohol and Drug Abuse Patient Records regulations: The Federal rules restrict any use of the information to criminally investigate or prosecute any alcohol or drug abuse patient.[facility] Reason for Visit (unrecogniz ed section and content) Reason Comments Refill Request Reason Comments Well Women Visit Pre-op Visit Reason Comments Contraception Reason Comments Post-op Visit Contraception Reason Comments Pelvic Pain Reason Comments Surgery Consult Reason Comments Endocrine Disorders Specialty Diagnoses / Procedures Referred By Contac t Referred To Contact Endocrinology Diagnoses Hyperinsulinism Ronni Pascual, MALT HOUSE KILN OPERATOR-BLADE GROOVER [address] [place] [address] Bety Jensen MD [address] [place] [address] Referral ID Status Reason Start Date Expiration Date Visits Requested Visits Authorized [id number] Pending Review Specialty Services Required 11/06/2022 11/06/2023 1 1 Reason Comments Urinary Tract Infection Reason Comments Follow-up Post op lumbar lami & disc Reason Comments Follow-up Reason Onset Date Comments Med Refill 04/30/2023 Reason Comments Med Refill Reason Comments Annual Exam Reason Comments Breast Pain Reason Comments New Patient Crohn's Disease She reports she was diagnosed with Crohns. She reports diarrhea has bowel movements 3-5 times a day. She states lower abdominal pain that comes and goes Specialty Diagnoses / Procedures Referred By Contac t Referred To Contact Gastroenterology Diagnoses Right upper quadrant abdominal pain Post-operative pain Ronni Pascual, MALT HOUSE KILN OPERATOR-BLADE GROOVER [address] [place] [address] Phone: tel: fax: Carole Knowles MD [address] [place] [address] Phone: tel: fax: Referral ID Status Reason Start Date Expiration Date Visits Requested Visits Authorized [id number] Pending Review Specialty Services Required 01/07/2025 1 1 Reason Onset Date Comments Med Refill 02/06/2024 INFORMATION SOURCE (unrecogn ized section and content) DATE CREATED AUTHOR 05/26/2022 [facility] DATE CREATED AUTHOR AUTHOR'S ORGANIZ ATION 07/27/2023 [facility] DATE CREATED AUTHOR AUTHOR'S ORGANIZ ATION 01/10/2024 [facility] DATE CREATED AUTHOR AUTHOR'S ORGANIZ ATION 01/11/2024 [facility] DATE CREATED AUTHOR AUTHOR'S ORGANIZ ATION 03/16/2024 [facility] DATE CREATED AUTHOR AUTHOR'S ORGANIZ ATION 05/13/2024 [facility] dical Specialists [facility] Care Teams (unrecognized sec tion and content) Traveling Plant Operator Relationship Specialty Start Date End Date Jerri Murcia DO [address] [address] Referring Physician Neurology 12/25/23 Ronni Pascual NP [address] [place], [place] [address] Referring Physician Family Medicine 12/25/23 Chanda Saunders NP [address] [place] [phone] Nurse Practitioner Neurology 01/01/24 Yesenia Estrella NP [address] [place] [phone] Nurse Practitioner Neurology 01/01/24 Traveling Plant Operator Relationship Specialty Start Date End Date Jerri Murcia DO [address] [address] Referring Physician Neurology 12/25/23 Ronni Pascual NP [address] [place] [place] [address] Referring Physician Family Medicine 12/25/23 Chanda Saunders NP [address] [phone] Nurse Practitioner Neurology 01/01/24 Yesenia Estrella NP [address] [address] Nurse Practitioner Neurology 01/01/24 Traveling Plant Operator Relationship Specialty Start Date End Date Jerri Murcia DO [address] [address] Referring Physician Neurology 12/25/23 Ronni Pascual NP [address] [place] [address] Referring Physician Family Medicine 12/25/23 Chanda Saunders NP [address] [phone] Nurse Practitioner Neurology 01/01/24 Yesenia Estrella NP [address] [address] Nurse Practitioner Neurology 01/01/24 Traveling Plant Operator Relationship Specialty Start Date End Date Jerri Murcia DO [address] [address] Referring Physician Neurology 12/25/23 Ronni Pascual NP [address] [place] [address] Referring Physician Family Medicine 12/25/23 Chanda Saunders NP [address] [phone] Nurse Practitioner Neurology 01/01/24 Yesenia Estrella NP [address] [place] [address] Nurse Practitioner Neurology 01/01/24 Traveling Plant Operator Relationship Specialty Start Date End Date Ronni Pascual APRN-BLADE GROOVER [address] [place] [address] PCP - General Family Medicine 10/19/22 Traveling Plant Operator Relationship Specialty Start Date End Date Ronni Pascual APRN-BLADE GROOVER [address] [place] [address] PCP - General Family Medicine 10/19/22 Traveling Plant Operator Relationship Specialty Start Date End Date Ronni Pascual APRN-BLADE GROOVER [address] [place] [address] PCP - General Family Medicine 10/19/22 Traveling Plant Operator Relationship Specialty Start Date End Date Jerri Murcia DO [address] [address] Referring Physician Neurology 12/25/23 Ronni Pascual NP [address] [place] [address] Referring Physician Family Medicine 12/25/23 Chanda Saunders NP [address] [place] [phone] Nurse Practitioner Neurology 01/01/24 Yesenia Estrella NP [address] [address] Nurse Practitioner Neurology 01/01/24 Traveling Plant Operator Relationship Specialty Start Date End Date Jerri Murcia DO [address] [address] Referring Physician Neurology 12/25/23 Ronni Pascual NP [address] [place] [address] Referring Physician Family Medicine 12/25/23 Chanda Saunders NP [address] [phone] Nurse Practitioner Neurology 01/01/24 Yesenia Estrella, FIDELINA [address] [address] Nurse Practitioner Neurology 01/01/24 Traveling Plant Operator Relationship Specialty Start Date End Date Ronni Pascual APRN-CNP [address] [place] [address] PCP - General Family Medicine 10/19/22 Traveling Plant Operator Relationship Specialty Start Date End Date Ronni Pascual APRN-CNP [address] [place] [address] PCP - General Family Medicine 10/19/22 Traveling Plant Operator Relationship Specialty Start Date End Date Ronni Pascual APRN-CNP [address] [place] [address] PCP - General Family Medicine 10/19/22 Traveling Plant Operator Relationship Specialty Start Date End Date Ronni Pascual APRN-CNP [address] [place] [address] PCP - General Family Medicine 10/19/22 Traveling Plant Operator Relationship Specialty Start Date End Date Ronni Pascual APRN-CNP [address] [place] [address] PCP - General Family Medicine 10/19/22 Traveling Plant Operator Relationship Specialty Start Date End Date Ronni Pascual APRN-BLADE GROOVER [address] [place] [address] PCP - General Family Medicine 10/19/22 Traveling Plant Operator Relationship Specialty Start Date End Date Ronni Pascual APRN-TIFFANY [address] [place] [address] PCP - General Family Medicine 10/19/22 Traveling Plant Operator Relationship Specialty Start Date End Date Ronni Pascual APRN-TIFFANY [address] [place] [address] PCP - General Family Medicine 10/19/22 Traveling Plant Operator Relationship Specialty Start Date End Date Ronni Pascual APRN-TIFFANY [address] [place] [address] PCP - General Family [facility] 10/19/22 Team Status: Inactive Member Role Status Dates Benny Vaughn DO Attending Provider Active Start : May 12, 2024 End: May 12, 2024 Goals (unrecognized section and content) Goals may be documented in a n alternate section FOR RECORDS PERTAINING TO PATIENTS WHO ARE [...] BE BASED ON THE PRIMARY CLINICAL RECORDS. [facility]. provides no warranty or guarantee of the accuracy or completeness of information in this document.
== END 2024-05-12 12:43 | disposition home or self-care (01) ==
LOC: LAB 12:42
PROVIDERS: Visit Provider Obstetrics & Gynecology
DX: N92.0 Excessive and frequent menstruation with regular cycle (principal)
CPT/HCPCS: 88305

== ENCOUNTER 2024-06-12 10:47 | Outpatient (OUT) | payer SELFPAY ==
--- OUTSIDE RECORDS SUMMARY | 2024-06-12 10:53 | XMS_ITS | CCD ---
Author Organization [facility] CliniSyms Care Team Providers Care Turbine Technician Name Role Phone Good Gonzalez Primary Care [...] Primary Care Provider UnavailJerri Thomas DO Unavailable [phone] Ankur GARMENT FOLDER, Ronni Unavailable [phone] Chip GARMENT FOLDER, Chanda Unavailable Sameer GARMENT FOLDER, Yesenia Unavailable RONNI PASCUAL Attending Unavailable SCHLACHTER, [...] Unavailable SCHLACHTER, RONNI Primary Care Unavailable Schlachter KITCHEN AIDE-SALES AND IN HOME DELIVERY SPECIALIST, Ronni Primary Care Provide r CAROLE KNOWLES Attending Unavailable SCHLACHTER, RONNI Referring Unavailable SCHLACHTER, RONNI Primary Care Unavailable EL PHUCAROLE H Referring Unavailable SCHLACHTER, RONNI Primary Care Unavailable CAROLE KNOWLES H Admitting Unavailable CAROLE KNOWLES H Attending Unavailable SCHLACHTER, RONNI Referring Unavailable SCHLACHTER, RONNI Primary Care Unavailable BENNY VAUGHN Attending Unavailable JOHANA, BENNY Attending Unavailable BENNY VAUGHN Attending Unavailable BENNY VAUGHN Attending Unavailable JOHANA, BENNY Attending Unavailable JERRI MURCIA Attending Unavailable SCHTRINIDAD, RONNI Referring Unavailable BENNY VAUGHN Attending Unavailable Benny Vaughn DO Attending Provider [phone] Benny Vaughn Attending Unavailable Benny Vaughn Admitting Unavailable Allergies Allergy Classification Reported Allergen(s) Allergy [...] Test Name Value Interpretation Reference Range Facility [facility] 05-12-2024 L ---- Specimen: [id number] Received: 05/13/24 Status: JAE Watson Num: [id number] Spec Type: Surgical Subm Dr: Benny Vaughn Tissues: A Endometrium - Biopsy (ENDOMETRIUM BX) Procedures: HE/2, Gross/Micro L4 Age/ Patient Sex Location Account Attending Physician Sunni Ramesh 28/F LABELL [id number] Benny Vaughn SPEC NUM: [id number] RECD: 05/13/24 STATUS: JAE WATSON NUM: [id number] [place]: 05/12/24-101[address] [facility] DR: Benny Vaughn ENTERED: 05/13/[address]: Nicole,Lab SPEC TYPE: Surgical DEPT: GURDEEP LENNON ORDERED: HE/2, Gross/Micro L4 ORDERED: HE/2, Gross/Micro L4 Pathological Diagnosis Endometrial biopsy: -Multiple small strips of slightly unevenly developed secretory endometrium of the mid-phase type, including at least 1 superficial glands with persistent ciliated metaplasia, otherwise without any hyperplasia or atypia identified Clinical Information Menorrhagia Gross Description Part A is received in formalin labeled with the patients name and date of , labeled with endometrial biopsy, are simms-pink to red-brown, delicate tissue fragments, 1 x 1.2 x 0.2 cm in aggregate. The specimen is filtered and entirely submitted in a single cassette. (1, ns, [id number] A) Rosibel Microscopic Description Microscopic examination is performed Specimen: [id number] Received: 05/13/24 Status: TRINARome Watson Num: [id number] Spec Type: Surgical Subm Dr: Benny Vaughn Tissues: A Endometrium - Biopsy (ENDOMETRIUM BX) Procedures: Dmitri DEJESUS/Jamal L4 Patient: Sunni Ramesh [id number] (Continued) Specimen: [id number] Received: 05/13/24 (Continued) Signed (signature on file) Arline Ronquillo MD 05/14/24 1112 Specimen: [id number] Received: 05/13/24 Status: JAE Watson Num: [id number] Spec Type: Surgical Subm Dr: Benny Vaughn Tissues: A Endometrium - Biopsy (ENDOMETRIUM BX) Procedures: Dmitri DEJESUS/Jamal L4 Patient: Sunni Ramesh [id number] (Continued) Specimen: [id number] Received: 05/13/24 (Continued) CPT Codes 45439 Specimen: [id number] Received: 05/13/24 Status: JAE Watson Num: [id number] Spec Type: Surgical Subm Dr: Benny Vaughn Tissues: A Endometrium - Biopsy (ENDOMETRIUM BX) Procedures: HE/2, Gross/Micro L4 Patient: Sunni Ramesh [id number] (Continued) Signed (signature on file) Silvio-Mil Ronquillo MD 05/14/24 1112 Normal [facility] HCG ( test) Ql (U)o n 03-05-2024 Beta HCG ( test) Ql (U) Negative Normal NEG [facility] Comment on above: Performed By: #### 2 106-3 #### [facility] ([id number]) [address] [facility] [address] Surgical Pathologyon 025 Surgical Pathology Normal [facility] Comment on above: Result Comment: [facility] [address] [place] [address] Surgical Pathology Consultation ADDENDUM [place] Patient Name:SUNNI RAMESH.:1995 (Age: 28)Gender:FTaken:03/05/2024Reported:03/06/2024Physician(s):Carole Flynn M.D. ([phone])Copy To: Rec. #:[id number]: #[id number] Final Pathologic Diagnosis 1. Duodenum biopsy: Mild [...] granuloma or dysplasia. Report Electronically Signed Out txk/03/06/2024Ben Brooks MD Addendum ([facility]) Date Reported: 03/12/2024 In specimen part 2, immunohistochemistry (with appropriate controls) for Helicobacter pylori organisms is NEGATIVE. Electronically Signed Out Ben Brooks MD Interpretation performed at [place] [address], License number: [id number]. Clinical History History of Crohn's disease Gross Description 1. Received in formalin labeled, FLICK, duodenum biopsy is a simms delicate soft tissue bit, 0.5 cm in greatest dimension. The specimen is filtered and submitted in single cassette. (1, ns, [id number], m4) TB 2. Received in formalin labeled, FLICK, gastric biopsy are 3 simms delicate soft tissue fragments, 0.3-0.5 cm in greatest dimension. The specimens are filtered and submitted single cassette. (1, ns, [id number], m4) TB 3. Received in formalin labeled, FLICK, terminal ileum biopsy is a simms delicate, focally hemorrhagic soft tissue bit, 0.5 cm in greatest dimension. The specimen is filtered and submitted a single cassette. (1, ns, [id number], m4) TB 4. Received in formalin labeled, FLICK, ascending colon biopsy are 3 simms delicate, focally hemorrhagic soft tissue bits, 0.4-0.7 cm in greatest dimension. The specimens are filtered and submitted a single cassette. (1, ns, [id number], m4) TB 5. Received in formalin labeled, FLICK, transverse colon biopsy are 2 pale-simms delicate soft tissue bits, 0.3 and 0.5 cm in greatest dimension. The specimens are filtered and submitted in single cassette. (1, ns, [id number], m4) TB 6. Received in formalin labeled, FLICK, descending colon biopsy are 2 pale-simms delicate soft tissue bits, 0.5 and 0.6 cm in greatest dimension. The specimens are filtered and submitted single cassette. (1, ns, [id number], m4) TB 7. Received in formalin labeled, FLICK, sigmoid biopsy are 2 simms delicate, focally hemorrhagic soft tissue bits, 0.3 and 0.4 cm in greatest dimension. The specimen is filtered and submitted in single cassette. (1, ns, [id number], m4) TB 8. Received in formalin labeled, FLICK, rectal biopsy are 3 simms delicate soft tissue bits, 0.3-0.4 cm in greatest dimension. The specimens are filtered and submitted in single cassette. (1, ns, [id number], m4) TB tgb/03/05/2024GR Specimen(s) Received 1: Duodenum biopsy 2: Gastric biopsy 3: Terminal ileum biopsy 4: Ascending colon biopsy 5: Transverse colon biopsy 6: Descending colon biopsy 7: Sigmoid biopsy 8: Rectal biopsy Fee Codes(s): 1; 23710 2; 43929, 44270 3; 83830 4; 56513 5; 44048 6; 89745 7; 99859 8; 57966 C-reactive proteinon 024 CRP [Mass/Vol] 0.4 mg/dL 0.000 - 0.744 mg/dL [facility] CRP [Mass/Vol]on 02-06-2024 C REACTIVE PROTEIN 0.4 mg/dL Normal 0.000-0.744 [facility] Comment on above: Performed By: #### 1 988-5, FEPR, 2276-4, 2132-9, 62685-5, 26993-6 #### [facility] ([id number]) [address], [address] [place] [address] #### 46788-7 #### [facility] ([id number]) [address] [place] [address] Cobalamin (Vitamin B12) [Mas s/Vol]on 02-06-2024 [facility] FERRITINon 02-06-2024 Ferritin [Mass/Vol] 21 ng/mL Normal 11-307 [facility] Comment on above: Performed By: #### 1 988-5, FEPR, 2276-4, 2132-9, 24356-6, 88908-8 #### [facility] ([id number]) [address] [place] [address], [address] [place] [address] #### 58180-8 #### [facility] ([id number]) [address] [place] [address] Ferritinon 02-06-2024 Ferritin [Mass/Vol] 21 ng/mL 11 - 307 ng/mL [facility] Ferritin [Mass/Vol]on 2023 [facility] HIV 1&2 AB/AG Screen (P24 AG )on 02-06-2024 HIV 1+2 Ab+HIV1 p24 Ag IA Ql Non-Reactive Non-Reactive ^Non-Reactiv e [facility] Comment on above: NEW TEST METHOD [...] Ab+HIV1 p24 Ag IA Ql on 02-06-2024 [facility] HIV 1 and 2 Ab/Ag Screen Non-Reactive Normal NRCT [facility] Comment on above: Result Comment: NEW TEST [...] By: #### 1 988-5, FEPR, 6-4, 9, 52224-8, 87594-1 #### [facility] ([id number]) [address] [place] [address], [address] [place] [address] #### 25330-4 #### [facility] ([id number]) [address] [address] IRON PROFILEon 02-06-2024 Iron [Mass/Vol] 43 ug/dL Low 50-170 [facility] Comment on above: Performed By: #### 1 988-5, FEPR, 2275-4, 9, 70221-1, 71485-1 #### [facility] ([id number]) [address] [place] [address], [address] [place] [address] #### 81003-0 #### [facility] ([id number]) [address] [place] [address] IRON BINDING 435 ug/dL High 250-425 [facility] Comment on above: Performed By: #### 1 988-5, FEPR, 6-4, 9, 80362-1, 97299-5 #### [facility] ([id number]) [address] [place] [address], [address] [place] [address] #### 18540-0 #### [facility] ([id number]) [address] [place] [address] IRON SATURATION 10 % SATURATION Low 15-50 [facility] Comment on above: Performed By: #### 1 988-5, FEPR, 2276-4, 2132-9, 26935-5, 80716-9 #### [facility] ([id number]) [address], [address] [place] [address] #### 12075-3 #### [facility] ([id number]) [address] [facility] [facility] [address] Iron and TIBCon 02-06-2024 Interpretation and review of laboratory results Abnormal [facility] Iron [Mass/Vol] 43 ug/dL Low 50 - 170 ug/dL [facility] Iron binding capacity [Mass/Vol] 435 ug/dL High 250 - 425 ug/dL [facility] Iron saturation [Mass fraction] 10 Low [facility] M. tuberculosis stim IFN-g p brock (Bld)on 02-06-2024 Mitogen minus Nil Result 10.00 IU/mL Normal [facility] Comment on above: Performed By: #### 7 1775-1 #### [facility] ([id number]) [address] [facility] [address] Nil Result 0.00 IU/mL Normal [facility] Comment on above: Result Comment: NOTE Test Performed by: [place] [address] Unified Communications Architect: Giselle Cervantes Ph.D.; CLIA# [id number] Performed By: #### 7 1775-1 #### [facility] ([id number]) [address] [facility] [address] QuantiFERON-Tb Gold Plus Result Negative Normal Negative [facility] Comment on above: Result Comment: NOTE No [...] IU/mL. Performed By: #### 7 1775-1 #### [facility] ([id number]) [address] [place] [address] TB1 Ag minus Nil Result 0.00 IU/mL Normal [facility] Comment on above: Performed By: #### 7 1775-1 #### [facility] ([id number]) [address] [place] [address] TB2 Ag minus Nil Result 0.00 IU/mL Normal [facility] Comment on above: Performed By: #### 7 1775-1 #### [facility] ([id number]) [address] [place] [address] No Panel Informationon 02-05 [facility] Thiopurine methyltransferase (Bld) [Catalytic activity/Vol]on 02-06-2024 THIOPURINE METHYLTRANFERASE 25.3 U/mL Normal 24.0-44.0 [facility] Comment on above: Result Comment: [...] developed and its performance characteristics determined by [employer]. It has not been cleared or approved by the US Food and Drug Administration. This test was performed in a CLIA certified laboratory and is intended for clinical purposes. Performed By: [employer] [address] [place] [address] Field Service Analyst: Good Grijalva MD, PhD CLIA Number: [id number] Performed By: #### 1 988-5, FEPR, 6-4, 2131-9, 99623-5, 40626-3 #### [facility] ([id number]) [address] [place] [address], [address] [place] [address] #### 19854-7 #### [facility] ([id number]) [address] [facility] [facility] [address] VITAMIN B12on 02-06-2024 Cobalamin (Vitamin B12) [Mass/Vol] 184 pg/mL Normal 180-914 [facility] Comment on above: Performed By: #### 1 988-5, FEPR, 6-4, 9, 32273-1, 13726-7 #### [facility] ([id number]) [address] [place] [address], [address] [place] [address] #### 37559-4 #### [facility] ([id number]) [address] [facility] [address] Vitamin B12on 02-06-2024 Cobalamin (Vitamin B12) [Mass/Vol] 184 pg/mL 180 - 914 pg/mL [facility] Vitamin D 25 hydroxyon 02-05 Vitamin D+Metabolites [Mass/Vol] 11.5 ng/mL Low 30 - 100 ng/mL [facility] Comment on above: Vitamin D status 25 [place] Vitamin D Deficiency <20 ng/mL Insufficiency 20-29 ng/mL Sufficiency 30-100 ng/mL Toxicity >100 ng/mL NOTE: A pediatric reference range has not been established by the sole leather cutting machine operator of this kit. The [place] [employer] recommends a Vitamin D level of = or >20ng/mL in infants and children. Vitamin D+Metabolites [Mass/ Vol]on 02-06-2024 Interpretation and review of laboratory results Abnormal [facility] VITAMIN D 25 HYD TOT 11.5 ng/mL Low 30-100 [facility] Comment on above: Result Comment: Vitamin D status 25 [place] Vitamin D Deficiency <20 ng/mL Insufficiency 20-29 ng/mL Sufficiency 30-100 ng/mL Toxicity >100 ng/mL NOTE: A pediatric reference range has not been established by the sole leather cutting machine operator of this kit. The [place] [employer] recommends a Vitamin D level of = or >20ng/mL in infants and children. Performed By: #### 1 988-5, FEPR, 2276-4, 2132-9, 50943-2, 20106-3 #### [facility] ([id number]) [address] [place] [address] #### 44800-1 #### [facility] ([id number]) [address] [place] [address] CT ABDOMEN AND PELVIS W CONT on [...] Manzo MD on 01/09/2024 2:53 PM Normal [facility] ALL CBC WITH AUTO DIFFon BASOPHILS ABSOLUTE AUTO 0 [facility] Basophils/100 WBC (Bld) 0.4 % 0.2 - 2.0 % [facility] Eosinophils/100 WBC (Bld) 0.8 % Low 0.9 - 7.0 % [facility] Erythrocyte distribution width (RBC) [Ratio] 13.2 % 11.0 - 15.0 % [facility] Hematocrit (Bld) [Volume fraction] 45.2 % 36.0 - 48.0 % [facility] Hemoglobin (Bld) [Mass/Vol] 14 g/dL 12.0 - 16.0 g/dL [facility] IMMATURE GRANULOCYTES ABS AUTO 0.02 [facility] Immature granulocytes/100 WBC (Bld) 0.3 % 0.0 - 0.5 % [facility] Interpretation and review of laboratory results Abnormal [facility] LYMPHOCYTES ABSOLUTE AUTO 2.2 [facility] Lymphocytes/100 WBC (Bld) 29 % 20.5 - 60.0 % [facility] MCH (RBC) [Entitic mass] 26.5 pg Low 26.7 - 34.0 pg [facility] MCHC (RBC) [Mass/Vol] 31 g/dL 29.9 - 35.2 g/dL [facility] MCV (RBC) [Entitic vol] 85.4 fL 81.0 - 99.0 fL [facility] MONOCYTES ABSOLUTE AUTO 0.5 [facility] Monocytes/100 WBC (Bld) 6 % 1.7 - 12.0 % [facility] NEUTROPHILS ABSOLUTE AUTO 4.8 [facility] Neutrophils/100 WBC (Bld) 63.5 % 43.0 - 75.0 % [facility] Platelet mean volume (Bld) [Entitic vol] 9.5 fL 9.5 - 13.5 fL [facility] EO # 0.1 [facility] PLT 336 [facility] RBC 5.29 [facility] WBC 7.5 [facility] CLINISYNC [facility] EMG 1 Extremeityon 4 Normal [facility] NVC 5-6 Nerveson 01-01-2024 Normal [facility] Insertion/Removal of Contrac eptive Capsuleon 12-18-2023 Bety [...] office as needed for any routine appointments. Critical access hospital IGP,APTIMA HPV,AGE GDLNon AGE GDLN ACOG TESTING Note . [facility] Comment on above: TESTS RESULT FLAG U NITS REF RANGE LAB Clinician Provided Cytology Information Source.............Cervix;Endocervix No. of containers..01 ThinPrep Vial Age Algo ACOG Ximena... FLAG LEGEND: L-Low Normal,H-High Normal,LL-Alert Low,HH-Alert High <-Panic Low,>-Panic High,A-Abnormal,AA-Critical Abnormal Performed at: 01 =G [address] [address] Kristina Alba MD, IGP, RFX APTIMA HPV ASCU Note . [facility] Comment on above: TESTS RESULT FLAG UN ITS REF RANGE LAB DIAGNOSIS: 02 NEGATIVE FOR INTRAEPITHELIAL LESION OR MALIGNANCY. Specimen adequacy: 02 Satisfactory for evaluation. Endocervical and/or squamous metaplastic cells (endocervical component) are present. Performed by: 02 Jeremy Black Wool Shearing Supervisor ([facility]) . 02 Note: Note 03 The Pap [...] Low,>-Panic High,A-Abnormal,AA-Critical Abnormal Performed at: 02 [facility] [address] [address] Bipin Panda MD, 03 WB [facility] [address] [address] Kristina Alba MD, Performed at: =G - [facility] [address] [id number] Unified Communications Architect: Kristina Alba MD, Phone: [phone] Performed at: [facility] [address] [place], [place] [id number] Unified Communications Architect: Bipin Panda MD, Phone: [phone] BRUSH-SPATULA CERVIX ENDOCERVIX CLINISYNC [facility] Cytology Cervical or vaginal smear or scraping studyOrdered By: Korin Mccurdy on 12-11-2023 [facility] URETHRITIS/DISCHARGE PLUS VA GINITIS (HTRX)on 11-29-2023 ATOPOBIUM VAGINAE 0.000 [facility] ATOPOBIUM VAGINAE Not detected [facility] BVAB 2,3 (BACTERIAL VAGINOSIS ASSOCIATED BACTERIA 2, 3); MOBILUNCUS SPP 0.000 [facility] BVAB 2,3 (BACTERIAL VAGINOSIS ASSOCIATED BACTERIA 2, 3); MOBILUNCUS SPP Not detected [facility] RAY ALBICANS, PARAPSILOSIS, TROPICALIS 0.000 [facility] RAY ALBICANS, PARAPSILOSIS, TROPICALIS Not detected [facility] RAY GLABRATA 0.000 [facility] RAY GLABRATA Not detected [facility] RAY KRUSEI 0.000 [facility] RAY KRUSEI Not detected [facility] CHLAMYDIA TRACHOMATIS 0.000 [facility] CHLAMYDIA TRACHOMATIS Not detected N [facility] GARDNERELLA VAGINALIS 0.000 [facility] GARDNERELLA VAGINALIS Not detected N [facility] MEGASPHAERA (TYPES 1, 2) 0.000 [facility] MEGASPHAERA (TYPES 1, 2) Not detected [facility] MYCOPLASMA GENITALIUM 0.000 [facility] MYCOPLASMA GENITALIUM Not detected N [facility] NEISSERIA GONORRHOEAE 0.000 [facility] NEISSERIA GONORRHOEAE Not detected N [facility] TRICHOMONAS VAGINALIS 0.000 [facility] TRICHOMONAS VAGINALIS Not detected N [facility] [place] HCG ( test) Ql (U)o n 11-26-2023 Interpretation and review of laboratory results Normal [facility] Preg Test, Ur Negative Critical access hospital Urinalysis macro (dipstick) panel (U)on 11-26-2023 Bilirubin, UA Negative Negative - 4(70) +++ mg/dL [facility] Blood, UA Negative Negative - 50 Nolan/mcL [facility] Clarity, UA Clear [facility] Color, UA Yellow [facility] Glucose, UA Negative Negative - 1999(110) ++++ mg/dL [facility] Interpretation and review of laboratory results Abnormal [facility] Ketones, UA Negative Negative - 160(16) ++++ mg/dL [facility] Leukocytes, UA Positive Negative - 500+++ Lora/mcL [facility] Comment on above: small Nitrite, UA Negative Negative - Positive [facility] pH, UA 8.5 5 - 9 [facility] Protein, UA Positive Negative - 1999(20) ++++ mg/dL [facility] Comment on above: 30 Spec Grav, UA 1.020 1 - 1.03 [facility] Urobilinogen, UA 0.2 0.2 - 12 mg/dL [facility] POCT urinalysis dipstick onl yon 07-26-2023 External Poct Urine Bilirubin Negative [facility] External Poct Urine Blood Negative [facility] External Poct Urine Glucose Negative [facility] External Poct Urine Ketones Negative [facility] External Poct Urine Leukocyte Esterase Negative [facility] External Poct Urine Nitrite Negative [facility] External Poct Urine Ph 5 [facility] External Poct Urine Protein Negative [facility] External Poct Urine Specific [place] 1.030 [facility] External Poct Urine Urobilinogen 0.2 [facility] Interpretation and review of laboratory results Normal [facility] URINALYSISon 07-26-2023 Bilirubin Ql (U) Negative Normal NEG [facility] Comment on above: Performed By: #### U A #### [facility] ([id number]) [address], [address] [place] [address] BLOOD/HGB Negative Normal NEG [facility] Comment on above: Performed By: #### U A #### [facility] ([id number]) [address], [address] [place] [address] Color (U) YELLOW Normal YELLOW [facility] Comment on above: Performed By: #### U A #### [facility] ([id number]) [address] [place] [address] Glucose Ql (U) Negative Normal NEG [facility] Comment on above: Performed By: #### U A #### [facility] ([id number]) [address], [address] [place] [address] Ketones Ql (U) Negative Normal NEG [facility] Comment on above: Performed By: #### U A #### [facility] ([id number]) [address], [address] [place] [address] Leukocyte esterase Test strip Ql (U) Negative Normal NEG [facility] Comment on above: Performed By: #### U A #### [facility] ([id number]) [address] [place] [address] MUCOUS PRESENT Abnormal NONE [facility] Comment on above: Performed By: #### U A #### [facility] ([id number]) [address], [address] [place] [address] Nitrite Ql (U) Negative Normal NEG [facility] Comment on above: Performed By: #### U A #### [facility] ([id number]) [address] [place] [address] pH (U) 6.0 [pH] Normal 5.0-8.5 [facility] Comment on above: Performed By: #### U A #### [facility] ([id number]) [address] [place] [address] Protein Ql (U) 30 mg/dL Abnormal NEG [facility] Center Comment on above: Performed By: #### U A #### [facility] ([id number]) [address] [place] [address] R.B.CELLS 0 /hpf Normal 0-5 [facility] Comment on above: Performed By: #### U A #### [facility] ([id number]) [address], [address] [place] [address] Specific gravity (U) [Rel density] 1.033 Normal 1.003-1.035 [facility] Comment on above: Performed By: #### U A #### [facility] ([id number]) [address], [address] [place] [address] SQUAMOUS EPITHELIUM 22 /hpf High 0-5 [facility] Comment on above: Performed By: #### U A #### [facility] ([id number]) [address], [address] [address] TURBIDITY CLOUDY Abnormal CLEAR [facility] Comment on above: Performed By: #### U A #### [facility] ([id number]) [address] [address] Urobilinogen (U) [Mass/Vol] mg/dL Normal <1.1 [facility] Comment on above: Performed By: #### U A #### [facility] ([id number]) [address] [address] W.B.CELLS 0 /hpf Normal 0-5 [facility] Comment on above: Performed By: #### U A #### [facility] ([id number]) [address] [address] URINE CULTUREon 07-26-2023 Bacteria identified Cx Nom (U) CULTURE RESULTS 50-100,000 ORGANISMS/ML NORMAL UROGENITAL DANNY Normal [facility] Comment on above: Performed By: #### 6 30-4 #### [facility] ([id number]) [address] [address] Urinalysis (clean catch)on 0 07-26-2023 Bilirubin Ql (U) Negative Negative^Ne g ative [facility] Color (U) YELLOW YELLOW^YELLO W [facility] Epithelial cells Auto (Urine sed) [#/Area] 22 High [facility] Glucose (U) [Mass/Vol] Negative Negative^Neg ative mg/dL [facility] Hemoglobin Auto test strip Ql (U) Negative Negative^Neg ative [facility] Interpretation and review of laboratory results Abnormal [facility] Ketones (U) [Mass/Vol] Negative Negative^Neg ative mg/dL [facility] Leukocyte esterase Auto test strip Ql (U) Negative Negative^Neg ative [facility] Mucus Ql (Urine sed) PRESENT Abnormal NONE^NONE [facility] Nitrite Auto test strip Ql (U) Negative Negative^Neg ative [facility] pH (U) 6.0 [pH] 5.0 - 8.5 [facility] Protein (U) [Mass/Vol] 30 mg/dL Abnormal Negative^Neg ative [facility] RBC Auto (Urine sed) [#/Area] 0 [facility] Specific gravity Refractometry automated (U) [Rel density] 1.033 1.003 - 1.035 [facility] Turbidity Ql (U) CLOUDY Abnormal CLEAR^CLEAR [facility] Urobilinogen Qn (U) NINF [facility] WBC Auto (Urine sed) [#/Area] 0 [facility] CBC AND AUTO DIFFon 1520 24 ABSOLUTE BASOPHIL 0.1 X10E9/L Normal 0.0-0.2 [facility] Comment on above: Performed By: #### C MORGAN [facility], 3040-3, 79273-3 #### [facility] ([id number]) [address] [place] [address] ABSOLUTE NEUTROPHIL 4.9 X10E9/L Normal 1.5-6.6 [facility] Comment on above: Performed By: #### C PAULA MORA, 3040-3, 05918-1 #### [facility] ([id number]) [address] [place] [address] Basophils/100 WBC (Bld) 0.7 % Normal [facility] Comment on above: Performed By: #### C PAULA MORA, 3040-3, 66567-0 #### [facility] ([id number]) [address] [place] [address] Eosinophils (Bld) [#/Vol] 0.1 10*3/uL Normal 0.0-0.4 [facility] Comment on above: Performed By: #### C PAULA MORA, 3040-3, 61176-5 #### [facility] ([id number]) [address] [place] [address] Eosinophils/100 WBC (Bld) 0.9 % Normal [facility] Comment on above: Performed By: #### C MORGAN, CMP, 3039-3, 95728-4 #### [facility] ([id number]) [address] [place] [address] Erythrocyte distribution width (RBC) [Ratio] 14.3 % Normal 11.5-15.0 [facility] Comment on above: Performed By: #### C MORGAN, CMP, 3039-3, 16818-0 #### [facility] ([id number]) [address] [place] [address] Hematocrit (Bld) [Volume fraction] 39.3 % Normal 35-47 [facility] Comment on above: Performed By: #### C MORGAN, CMP, 3, 11481-7 #### [facility] ([id number]) [address] [place] [address] Hemoglobin (Bld) [Mass/Vol] 13.0 g/dL Normal 11.7-15.5 [facility] Comment on above: Performed By: #### C MORGAN, CMP, 3043, 38631-2 #### [facility] ([id number]) [address] [place] [address] Lymphocytes (Bld) [#/Vol] 2.6 10*3/uL Normal 1.0-3.5 [facility] Comment on above: Performed By: #### C MORGAN, CMP, 3040-3, 07348-0 #### [facility] ([id number]) [address] [place] [address] Lymphocytes/100 WBC (Bld) 31.8 % Normal [facility] Comment on above: Performed By: #### C MORGAN, CMP, 0-3, 64636-4 #### [facility] ([id number]) [address] [place] [address] MCH (RBC) [Entitic mass] 26.2 pg Low 27-34 [facility] Comment on above: Performed By: #### C MORGAN, CMP, 0-3, 73248-8 #### [facility] ([id number]) [address] [place] [address] MCHC (RBC) [Mass/Vol] 33.1 g/dL Normal 32-36 [facility] Comment on above: Performed By: #### C MORGAN, CMP, 3039-3, 47563-0 #### [facility] ([id number]) [address] [place] [address] MCV (RBC) [Entitic vol] 79 fL Low 80-100 [facility] Comment on above: Performed By: #### C MORGAN, CMP, 3039-3, 30035-5 #### [facility] ([id number]) [address] [place] [address] Monocytes (Bld) [#/Vol] 0.6 10*3/uL Normal 0-0.9 [facility] Comment on above: Performed By: #### C MORGAN, CMP, 3039-3, 41471-9 #### [facility] ([id number]) [address] [place] [address] Monocytes/100 WBC (Bld) 6.9 % Normal [facility] Comment on above: Performed By: #### C MORGAN, CMP, 0-3, 41555-3 #### [facility] ([id number]) [address] [place] [address] Neutrophils/100 WBC (Bld) 59.7 % Normal [facility] Comment on above: Performed By: #### C MORGAN, CMP, 3040-3, 43939-8 #### [facility] ([id number]) [address] [place] [address] Platelet mean volume (Bld) [Entitic vol] 7.8 fL Normal 7-12 [facility] Comment on above: Performed By: #### C MORGAN, CMP, 3040-3, 29599-9 #### [facility] ([id number]) [address] [place] [address] Platelets (Bld) [#/Vol] 371 10*3/uL Normal 150-450 [facility] Comment on above: Performed By: #### C MORGAN, CMP, 3040-3, 11903-1 #### [facility] ([id number]) [address] [place] [address] RBC COUNT 4.97 X10E12/L Normal 3.80-5.20 [facility] Comment on above: Performed By: #### C MORGAN, CMP, 3040-3, 77228-2 #### [facility] ([id number]) [address] [place] [address] WBC (Bld) [#/Vol] 8.1 10*3/uL Normal 4.0-11.0 [facility] Comment on above: Performed By: #### C MORGAN, CMP, 3040-3, 35080-5 #### [facility] ([id number]) [address] [place] [address] COMPREHENSIVE METABOLIC PANE Twin 07-11-2023 Albumin [Mass/Vol] 3.8 g/dL Normal 3.2-5.3 [facility] Comment on above: Performed By: #### C BCA, CMP, 3040-3, 71243-7 #### [facility] ([id number]) [address] [place] [address] ALP [Catalytic activity/Vol] 57 U/L Normal 39-130 [facility] Comment on above: Performed By: #### C BCA, CMP, 3040-3, 61437-3 #### [facility] ([id number]) [address] [place] [address] ALT [Catalytic activity/Vol] 41 U/L High 0-31 [facility] Comment on above: Performed By: #### C BCA, CMP, 0-3, 34117-0 #### [facility] ([id number]) [address] [place] [address] Anion gap [Moles/Vol] 6 mmol/L Normal 5-15 [facility] Comment on above: Performed By: #### C BCA, CMP, 03, 55647-2 #### [facility] ([id number]) [address] [place] [address] AST [Catalytic activity/Vol] 24 U/L Normal 0-41 [facility] Comment on above: Performed By: #### C BCA, CMP, 30403, 77234-0 #### [facility] ([id number]) [address] [place] [address] Bilirubin [Mass/Vol] 0.7 mg/dL Normal 0.3-1.2 [facility] Comment on above: Performed By: #### C BCA, CMP, 0-3, 33014-5 #### [facility] ([id number]) [address] [place] [address] Calcium [Mass/Vol] 8.8 mg/dL Normal 8.5-10.5 [facility] Comment on above: Performed By: #### C BCA, CMP, 3040-3, 87636-6 #### [facility] ([id number]) [address] [place] [address] Chloride [Moles/Vol] 106 mmol/L Normal 98-109 [facility] Comment on above: Performed By: #### C PAULA MORA, 3040-3, 43725-9 #### [facility] ([id number]) [address] [place] [address] CO2 [Moles/Vol] 26 mmol/L Normal 22-32 [facility] Comment on above: Performed By: #### C PAULA MORA, 3040-3, 78302-6 #### [facility] ([id number]) [address] [place] [address] Creatinine [Mass/Vol] 0.64 mg/dL Normal 0.40-1.00 [facility] Comment on above: Result Comment: METH OD TRACEABLE TO IDMS STANDARD Performed By: #### C PAULA MORA, 3040-3, 18883-3 #### [facility] ([id number]) [address] [place] [address] eGFR (CKD-EPI) NON-RACE DEPENDENT >90 Normal >59 [facility] Comment on above: Result Comment: Reported eGFR is based on the CKD-EPI 2020 equation that does not use a race coefficient. Performed By: #### C PAULA MORA, 3040-3, 85948-8 #### [facility] ([id number]) [address] [place] [address] Glucose [Mass/Vol] 108 mg/dL High 65-99 [facility] Comment on above: Performed By: #### C PAULA MORA, 3040-3, 24032-9 #### [facility] ([id number]) [address] [place] [address]5465 Potassium [Moles/Vol] 4.3 mmol/L Normal 3.5-5.0 [facility] Comment on above: Performed By: #### C PAULA MORA, 3040-3, 93624-4 #### [facility] ([id number]) [address] [place] [address]10 Protein [Mass/Vol] 7.0 g/dL Normal 6.0-8.0 [facility] Comment on above: Performed By: #### C BCA, CMP, 3040-3, 64031-7 #### [facility] ([id number]) [address] [place] [address] Sodium [Moles/Vol] 138 mmol/L Normal 134-146 [facility] Comment on above: Performed By: #### C BCA, CMP, 3040-3, 49485-0 #### [facility] ([id number]) [address] [place] [address]353 Urea nitrogen [Mass/Vol] 14 mg/dL Normal 5-23 [facility] Comment on above: Performed By: #### C BCA, CMP, 3040-3, 13568-6 #### [facility] ([id number]) [address] [place] [address] LIPASEon 07-11-2023 Lipase [Catalytic activity/Vol] 40 U/L Normal 17-40 [facility] Comment on above: Performed By: #### C BCA, CMP, 3040-3, 85686-5 #### [facility] ([id number]) [address] [place] [address] Troponin I.cardiac High sens itivity method [Mass/Vol]on 07-11-2023 1 HOUR TROP I, HIGH SENSITIVITY 3 ng/L Normal <16 [facility] Comment on above: Performed By: #### 2 842-3, 59529-8, 78192-3 #### [facility] ([id number]) [address], [address] [place] [address] #### ANDRST #### [facility] ([id number]) [address] [place] [address] TROPONIN I, HIGH SENSITIVITY <2 Normal <16 [facility] Comment on above: Performed By: #### C BCA, [facility], 3040-3, 46648-8 #### [facility] ([id number]) [address] [place] [address]37 XR CHEST 1 VWon 07-11-2023 XR CHEST 1 VW XR CHEST 1 VW Portable chest: HISTORY: Chest pain. Single view of the chest was obtained. Cardiac and mediastinal contours are within normal limits. Lungs are clear. There is no pneumothorax, effusion, or focal consolidation. Osseous structures appear intact. IMPRESSION: No acute findings. Finalized by Oliver Lo MD on 07/11/2023 7:11 PM Normal [facility] 17-Hydroxyprogesterone [Mass /Vol]on 03-30-2023 17 HYDROXYPROGEST 21.28 ng/dL Normal <=206.00 [facility] Comment on above: Result Comment: NOTE INTERPRETIVE INFORMATION for 17-Hydroxyprogesterone in females: Follicular 15 to 70 ng/dL Luteal 35 to 290 ng/dL REFERENCE INTERVAL: 17-Hydroxyprogesterone Qnt, HPLC-MS/MS Access complete set of age- and/or gender-specific reference intervals for this test in the [facility] Test Directory ([employer]). This test was developed and its performance characteristics determined by [facility]. It has not been cleared or approved by the US Food and Drug Administration. This test was performed in a CLIA certified laboratory and is intended for clinical purposes. Performed By: [facility] [address] [place] [address] Field Service Analyst: Good Grijalva MD, PhD CLIA Number: [id number] Performed By: #### 1 668-3 #### [facility] ([id number]) [address] [place] [address] ANDROSTENEDIONEon 03-30-2023 ANDROSTENEDIONE 0.745 ng/mL Normal 0.260-2.140 [facility] Comment on above: Result Comment: NOTE INTERPRETIVE INFORMATION: Androstenedione, Females 18 years and older Post-menopausal: 0.13-0.82 ng/mL REFERENCE INTERVAL: Androstenedione by TMS Access complete set of age- and/or gender-specific reference intervals for this test in the [facility] Test Directory ([employer]). This test was developed and its performance characteristics determined by [facility]. It has not been cleared or approved by the US Food and Drug Administration. This test was performed in a CLIA certified laboratory and is intended for clinical purposes. Performed By: [facility] [address] [place] [address] Field Service Analyst: Good Grijalva MD, PhD CLIA Number: [id number] Performed By: #### 2 842-3, 07275-0, 06034-2 #### [facility] ([id number]) [address] [place] [address], [address] [place] [address] #### ANDRST #### [facility] ([id number]) [address] [place] [address] Follitropin Qnon 03-30-2023 FOLLICLE STIM HORMONE 2.0 mIU/mL Normal [facility] Comment on above: Result Comment: NORMAL FEMALE Luteal 1.8-5.1 mIU/mL Follicular 3.8-8.8 mIU/mL Mid Cycle 4.5-22.5 mIU/mL Post Tracie 16.7-113.6 mIU/mL Performed By: #### 2 842-3, 27033-8, 92586-8 #### [facility] ([id number]) [address] [place] [address], [address] [place] [address] #### ANDRST #### [facility] ([id number]) [address] [place] [address]377 HGB A1C (GLYCO-HGB)on 2023 Glucose [Mass/Vol] 94 mg/dL Normal [facility] Comment on above: Performed By: #### 2 842-3, 11471-6, 26830-3 #### [facility] ([id number]) [address] [place] [address] #### ANDRST #### [facility] ([id number]) [address] [place] [address]3083 HbA1c (Bld) [Mass fraction] 4.9 % Normal 4.4-5.6 [facility] Comment on above: Result Comment: NOTE ADA Guidelines Result HgbA1c Normal : less than 5.7 % Prediabetes : 5.7 % to 6.4 % Diabetes : > 6.4 % Use with caution in patients with abnormal hemoglobin variants as the half-life of red blood cells and in vivo glycation rates are affected. Performed By: #### 2 842-3, 55718-3, 29601-1 #### [facility] ([id number]) [address] [place] [address] #### ANDRST #### [facility] ([id number]) [address] [place] [address]997 Lutropin Qnon 03-30-2023 LUTEINIZING HORMONE 4.6 mIU/mL Normal [facility] Comment on above: Result Comment: NORMAL FEMALE Follicular 2.1-10.9 mIU/mL Mid Cycle 19.2-103 mIU/mL Luteal 1.2-12.9 mIU/mL Post Blaine 10.9-58.6 mIU/mL Performed By: #### 2 842-3, 04989-1, 02973-4 #### [facility] ([id number]) [address] [place] [address] #### ANDRST #### [facility] ([id number]) [address] [place] [address] Prolactin [Mass/Vol]on 03-30 PROLACTIN 10.6 ng/mL Normal 3.3-26.7 [facility] Comment on above: Performed By: #### 2 842-3, 12385-2, 29353-9 #### [facility] ([id number]) [address] [place] [address] #### ANDRST #### [facility] ([id number]) [address] [place] [address] Vital Signs Date Time Vital Sign Value Performing Clinician Facility 02-06-2024 13:36-0500 Body height 175.3 cm Carole Flynn MD Work Phone: [facility] 02-06-2024 13:36-0500 Body mass index (BMI) [Ratio] 40.46 kg/m2 Carole Flynn MD Work Phone: [facility] 02-06-2024 13:36-0500 Body weight 124.29 kg Carole Flynn MD Work Phone: [facility] 02-06-2024 13:36-0500 Diastolic blood pressure 74 mm[Hg] Carole Flynn MD Work Phone: [facility] 02-06-2024 13:36-0500 Systolic blood pressure 126 mm[Hg] Carole Flynn MD Work Phone: [facility] 01-30-2024 11:12-0500 Body mass index (BMI) [Ratio] 41.07 kg/m2 Benny Vaughn DO Work Phone: [facility] 01-30-2024 11:12-0500 Body weight 126.15 kg Benny Vaughn DO Work Phone: [facility] 01-30-2024 11:12-0500 Diastolic blood pressure 70 mm[Hg] Benny Johana DO Work Phone: [facility] 01-30-2024 11:12-0500 Systolic blood pressure 120 mm[Hg] Benny Johana DO Work Phone: [facility] 01-08-2024 13:23-0500 Body mass index (BMI) [Ratio] 40.76 kg/m2 Ronni Cartwrightchter [employer] Work Phone: [facility] 01-08-2024 13:23-0500 Body weight 125.19 kg Ronni Schrachaelchter [employer] HOME DELIVERY SPECIALIST Work Phone: [facility] 01-08-2024 13:23-0500 Diastolic blood pressure 72 mm[Hg] Ronni Chaychter [employer] HOME DELIVERY SPECIALIST Work Phone: [facility] 01-08-2024 13:23-0500 Heart rate 98 /min Ronni Chivorachaelchter [employer] HOME DELIVERY SPECIALIST Work Phone: [facility] 01-08-2024 13:23-0500 Respiratory rate 16 /min Ronni Chivolachter [employer] HOME DELIVERY SPECIALIST Work Phone: [facility] 01-08-2024 13:23-0500 SaO2% (BldA) [Mass fraction] 99 % Ronni Cartwrightchter [employer] IN HOME DELIVERY SPECIALIST Work Phone: [facility] 01-08-2024 13:23-0500 Systolic blood pressure 124 mm[Hg] Ronni Chaychter [employer] IN HOME DELIVERY SPECIALIST Work Phone: [facility] 12-18-2023 09:12-0400 Body mass index (BMI) [Ratio] 41.07 kg/m2 Benny Johana DO Work Phone: [facility] 12-18-2023 09:12-0400 Body weight 126.15 kg Benny Johana DO Work Phone: [facility] 12-18-2023 09:12-0400 Diastolic blood pressure 70 mm[Hg] Benny Johana DO Work Phone: [facility] 12-18-2023 09:12-0400 Systolic blood pressure 110 mm[Hg] Benny Johana DO Work Phone: [facility] 12-11-2023 13:18-0400 Body mass index (BMI) [Ratio] 40.91 kg/m2 Benny Johana DO Work Phone: [facility] 12-11-2023 13:18-0400 Body weight 125.65 kg Benny Johana DO Work Phone: [facility] 12-11-2023 13:18-0400 Diastolic blood pressure 76 mm[Hg] Benny Johana DO Work Phone: [facility] 12-11-2023 13:18-0400 Systolic blood pressure 118 mm[Hg] Benny Johana DO Work Phone: [facility] 11-26-2023 15:16-0400 Body height 175.3 cm Benny Johana DO Work Phone: [facility] 11-26-2023 15:16-0400 Body mass index (BMI) [Ratio] 40.76 kg/m2 Benny Johana DO Work Phone: [facility] 11-26-2023 15:16-0400 Body weight 125.19 kg Benny Johana DO Work Phone: [facility] 11-26-2023 15:16-0400 Diastolic blood pressure 78 mm[Hg] Benny Johana DO Work Phone: [facility] 11-26-2023 15:16-0400 Systolic blood pressure 122 mm[Hg] Benny Johana DO Work Phone: [facility] 11-07-2023 08:02-0400 Body height 175.3 cm Ronni Pascual APRNTIFFANY Work Phone: [facility] 11-07-2023 08:02-0400 Body mass index (BMI) [Ratio] 40.76 kg/m2 Ronni Pascual [employer] IN HOME DELIVERY SPECIALIST Work Phone: [facility] [employer] [facility] 11-07-2023 08:02-0400 Body weight 125.19 kg Ronni Ozunaer [employer] AND [employer] HOME DELIVERY SPECIALIST Work Phone: [facility] [employer] [facility] 11-07-2023 08:02-0400 Diastolic blood pressure 70 mm[Hg] Ronni Ozunaer [employer]AL[employer] AND IN HOME DELIVERY SPECIALIST Work Phone: [facility] [employer] [facility] 11-07-2023 08:02-0400 Heart rate 87 /min Ronni Ozunaer [employer] AND IN HOME DELIVERY SPECIALIST Work Phone: [facility] [employer] [facility] 11-07-2023 08:02-0400 Respiratory rate 18 /min Ronni Cartwrightchter [employer] IN HOME DELIVERY SPECIALIST Work Phone: [facility] [employer] [facility] 11-07-2023 08:02-0400 SaO2% (BldA) [Mass fraction] 97 % Ronni Ozunaer [employer] AND IN HOME DELIVERY SPECIALIST Work Phone: [facility] [employer] [facility] 11-07-2023 08:02-0400 Systolic blood pressure 126 mm[Hg] Ronni Ozunaer [employer] Work Phone: [facility] 08-23-2023 10:07-0400 Body mass index (BMI) [Ratio] 41.35 kg/m2 Ronni Ozunaer [employer] Work Phone: [facility] 08-23-2023 10:07-0400 Body weight 127.01 kg Ronni Ozunaer [employer]IST Work Phone: [facility] [employer] [facility] 08-23-2023 10:07-0400 Diastolic blood pressure 76 mm[Hg] Ronni Cartwrightchter [employer]IST Work Phone: [facility] 08-23-2023 10:07-0400 Heart rate 88 /min Ronni Cartwrightchter [employer] Work Phone: [facility] 08-23-2023 10:07-0400 Respiratory rate 18 /min Ronni Ozunaer [employer]IST Work Phone: [facility] [employer] [facility] 08-23-2023 10:07-0400 SaO2% (BldA) [Mass fraction] 98 % Ronni Ozunaer [employer]IST Work Phone: [facility] 08-23-2023 10:07-0400 Systolic blood pressure 128 mm[Hg] Ronni Cartwrightchter KITCHEN AIDE-SALES AND IN HOME DELIVERY SPECIALIST Work Phone: [facility] 07-26-2023 15:06-0400 Body mass index (BMI) [Ratio] 42.09 kg/m2 Ronni Cartwrightchter KITCHEN AIDE-SALES AND IN HOME DELIVERY SPECIALIST Work Phone: [facility] 07-26-2023 15:06-0400 Body weight 129.28 kg Ronni Cartwrightchter KITCHEN AIDE-SALES AND IN HOME DELIVERY SPECIALIST Work Phone: [facility] 07-26-2023 15:06-0400 Diastolic blood pressure 78 mm[Hg] Ronni Ozunaer KITCHEN AIDE-SALES AND IN HOME DELIVERY SPECIALIST Work Phone: [facility] 07-26-2023 15:06-0400 Heart rate 88 /min Ronni Ozunaer KITCHEN AIDE-SALES AND IN HOME DELIVERY SPECIALIST Work Phone: [facility] 07-26-2023 15:06-0400 Respiratory rate 18 /min Ronni Cartwrightchter KITCHEN AIDE-SALES AND IN HOME DELIVERY SPECIALIST Work Phone: [facility] 07-26-2023 15:06-0400 SaO2% (BldA) [Mass fraction] 96 % Ronni Ozunaer KITCHEN AIDE-SALES AND IN HOME DELIVERY SPECIALIST Work Phone: [facility] 07-26-2023 15:06-0400 Systolic blood pressure 124 mm[Hg] Ronni Schlachter KITCHEN AIDE-SALES AND IN HOME DELIVERY SPECIALIST Work Phone: [facility] 05-07-2023 08:02-0400 Body mass index (BMI) [Ratio] 42.07 kg/m2 Ronni Cartwrightchter KITCHEN AIDE-SALES AND IN HOME DELIVERY SPECIALIST Work Phone: [facility] 05-07-2023 08:02-0400 Body weight 129.28 kg Ronni Ozunaer KITCHEN AIDE-SALES AND IN HOME DELIVERY SPECIALIST Work Phone: [facility] 05-07-2023 08:02-0400 Diastolic blood pressure 76 mm[Hg] Ronni Chaychter KITCHEN AIDE-SALES AND IN HOME DELIVERY SPECIALIST Work Phone: [facility] 05-07-2023 08:02-0400 Heart rate 88 /min Ronni Schlachter KITCHEN AIDE-SALES AND IN HOME DELIVERY SPECIALIST Work Phone: [facility] [facility] 05-07-2023 08:02-0400 Respiratory rate 16 /min Ronni Schlachter KITCHEN AIDE-SALES AND IN HOME DELIVERY SPECIALIST Work Phone: [facility] 05-07-2023 08:02-0400 SaO2% (BldA) [Mass fraction] 98 % Ronni Cartwrightchter KITCHEN AIDE-SALES AND IN HOME DELIVERY SPECIALIST Work Phone: [facility] 05-07-2023 08:02-0400 Systolic blood pressure 128 mm[Hg] Ronni Ozunaer KITCHEN AIDE-SALES AND IN HOME DELIVERY SPECIALIST Work Phone: [facility] 03-29-2023 16:31-0500 Body mass index (BMI) [Ratio] 42.81 kg/m2 Oskar Roach MD Work Phone: [facility] 03-29-2023 16:31-0500 Body weight 131.54 kg Oskar Roach MD Work Phone: [facility] 03-29-2023 16:31-0500 Diastolic blood pressure 74 mm[Hg] Oskar Roach MD Work Phone: [facility] 03-29-2023 16:31-0500 Heart rate 74 /min Oskar Roach MD Work Phone: [facility] 03-29-2023 16:31-0500 Systolic blood pressure 128 mm[Hg] Oskar Roach MD Work Phone: [facility] 03-15-2023 [id number] Body height 175.3 cm Carrillo Aragon MD Work Phone: [facility] 03-15-2023 15:28-0500 Body mass index (BMI) [Ratio] 41.33 kg/m2 Carrillo Aragon MD Work Phone: [facility] 03-15-2023 15:050 Body weight 127.01 kg Carrillo Aragon MD Work Phone: [facility] Encounters Encounter Date Encounter Type Care Provider Facility Start: 05-12-2024 End: 05-12-2024 ambulatory Benny Johana [facility] Work Phone: Start: 05-12-2024 End: 05-12-2024 Departed Referred Benny Johana DO Work Phone: [facility] [place] [facility] Start: 05-12-2024 End: 05-12-2024 ambulatory BENNY JOHANA Not Available Start: 04-09-2024 End: 04-09-2024 Telephone encounter Merary Vital [facility] Start: 03-27-2024 End: 03-27-2024 Bamboo flowsheet Benny [...] Available Start: 03-10-2024 End: 03-10-[address] [facility] Comment on above: Crohn's disease of s mall intestine without complication (CMS- HCC) (Primary Dx) Start: 03-07-2024 End: 03-07-2024 Orders Only Carole Flynn MD Work Phone: [facility] Comment on above: Crohn's disease of c olon without complication ([facility]) (Primary Dx) Start: 03-05-2024 End: 03-05-2024 [facility] Start: 02-06-2024 End: 02-06-2024 ambulatory [facility] Comment on above: Right upper quadrant pain (Primary Dx) History of Crohn's d isease (Primary Dx) Start: 02-06-2024 End: 02-06-2024 Office outpatient new 45 minutes Carole Flynn MD Work Phone: [facility] Comment on above: History of Crohn's d [...] Not Available Start: 01-09-2024 End: 01-09-2024 ambulatory [facility] Start: 01-08-2024 End: 01-08-2024 ambulatory [facility] Start: 01-08-2024 End: 01-08-2024 Office outpatient visit 25 minutes [facility] KITCHEN AIDE-SALES AND IN HOME DELIVERY SPECIALIST Work Phone: [facility] Comment on above: Right upper quadrant abdominal pain (Primary Dx); Post-operative pain; Crohn's disease of colon with complication ([facility]-H[facility]) Start: 01-04-2024 End: 01-04-2024 Clinisync Result Encounter [...] encounter procedure Benny Johana DO Work Phone: [facility] Start: 12-11-2023 End: 12-11-2023 Periodic preventive med est patient 18-39 yrs Benny Johana DO Work Phone: [facility] Comment on above: Well woman exam with routine gynecological exam; Preoperative examination; Pelvic pain in female; Dyspareunia in female Start: 12-11-2023 End: 12-11-2023 Preprocedural examination done Benny Johana DO Work Phone: [facility] Start: 12-05-2023 End: 12-05-2023 Refill [facility] KITCHEN AIDE-SALES AND IN HOME DELIVERY SPECIALIST Work Phone: [facility] Start: 12-05-2023 End: 12-05-2023 ambulatory [facility] Start: 12-05-2023 End: 12-05-2023 Office outpatient visit 15 minutes [facility] KITCHEN AIDE-SALES AND IN HOME DELIVERY SPECIALIST Work Phone: [facility] Comment on above: Anxiety (Primary Dx) ; Depression, unspecified depression type; Numbness and tingling in right hand Start: 11-26-2023 End: 11-26-2023 Office outpatient visit 15 minutes Benny Johana DO Work Phone: [facility] Comment on above: Pelvic pain in femal e; control counseling Start: 11-26-2023 End: 11-26-2023 ambulatory BENNY JOHANA Not Available Start: 11-26-2023 End: 11-26-2023 Bamboo flowsheet Benny Johana DO Work Phone: [facility] Start: 11-26-2023 End: 11-29-2023 External Result Encounter Benny Johana DO Work Phone: [facility] External Department Unsolicited Start: 11-26-2023 End: 11-29-2023 External Result Encounter Benny Vaughn DO Work Phone: [facility] External Department Unsolicited Start: 11-07-2023 End: 11-07-2023 Patient encounter status Ronni Ankur KITCHEN AIDE-SALES AND IN HOME DELIVERY SPECIALIST Work Phone: [facility] Work Phone: Start: 11-07-2023 End: 11-07-2023 Periodic preventive med est patient 18-39 yrs Ronni Pascual KITCHEN AIDE-SALES AND IN HOME DELIVERY SPECIALIST Work Phone: [facility] Comment on above: Wellness examination (Primary Dx); Anxiety; Depression, unspecified depression type; Polycystic ovaries; Hyperinsulinism Start: 11-07-2023 End: 11-07-2023 ambulatory [facility] Start: 11-07-2023 Encounter for genera l adult medical examination without abnormal findings [facility] Start: 08-23-2023 End: 08-23-2023 Patient encounter procedure Ronni Pascual KITCHEN AIDE-SALES AND IN HOME DELIVERY SPECIALIST Work Phone: [facility] Comment on above: Anxiety (Primary Dx) Start: 08-23-2023 End: 08-23-2023 ambulatory [facility] Start: 07-26-2023 End: 07-27-2023 ambulatory [facility] Start: 07-26-2023 End: 07-26-2023 ambulatory [facility] Start: 07-26-2023 End: 07-26-2023 Office outpatient visit 25 minutes Ronni Pascual KITCHEN AIDE-SALES AND IN HOME DELIVERY SPECIALIST Work Phone: [facility] Comment on above: Anxiety (Primary Dx) ; Depression, unspecified depression type; At risk for sleep apnea; Dysuria Start: 07-11-2023 End: 07-12-2023 Emergency department patient visit YULI Jeremi [facility] Start: 05-07-2023 End: 05-07-2023 Office outpatient visit 15 minutes Ronni Pascual KITCHEN AIDE-SALES AND IN HOME DELIVERY SPECIALIST Work Phone: [facility] Comment on above: Polycystic ovaries ( Primary Dx); Vitamin B12 deficiency; Vitamin D deficiency Start: 05-07-2023 End: 05-07-2023 ambulatory [facility] Start: 04-30-2023 Refill Oskar Roach MD Work Phone: [facility] Start: 03-30-2023 End: 03-30-2023 ambulatory [facility] Start: 03-29-2023 End: 03-29-2023 Office outpatient new 45 minutes Oskar Roach MD Work Phone: [facility] Comment on above: Polycystic ovaries ( Primary Dx); Hyperinsulinism Start: 03-29-2023 End: 03-29-[address] [facility] Start: 03-15-2023 End: 03-15-2023 Postop follow up visit related to original px Carrillo Aragon MD Work Phone: [facility] Comment on above: Status post lumbar l aminectomy (Primary Dx) Start: 03-15-2023 End: 03-15-2023 ambulatory CARRILLO ARAGON [facility] Start: 08-30-2020 End: 08-31-2020 Evaluation and management of inpatient DR LUCI LEZAMA . Facility: Start: 09-27-2014 End: 09-27-2014 Refill Joey Rojo MD Work Phone: [facility] Comment on above: Refill Request Procedures Date Procedure Procedure Detail Performing Clinician Start: 03-05-2024 Colonoscopy Carole Flynn MD Work Phone: Start: 01-04-2024 ALL CBC WITH AUTO DIFF Benny Vaughn DO Work Phone: Start: 01-01-2024 End: 01-01-2024 Needle emg ea extremty w/paraspinl area complete Jerri Murcia DO Work Phone: Start: 12-18-2023 SUPERVISOR COOLER SERVICE INSERTION/REMOVA L OF CONTRACEPTIVE CAPSULE Benny Vaughn DO Work Phone: Start: 12-11-2023 IGP,APTIMA HPV,AGE GDLN Benny Vaughn DO Work Phone: Start: 12-11-2023 Microscopic observat ion [Identifier] in Cervix by Cyto stain Merary [facility] Start: 12-11-2023 Cytp cerv/vag auto t hin layer prep mnl screen Bennytheodore Vaughn DO Work Phone: Start: 11-26-2023 End: 11-26-2023 Urnls dip stick/tablet rgnt non-auto w/o micrscp Benny Vaughn DO Work Phone: Start: 11-26-2023 URETHRITIS/DISCHARGE PLUS VAGINITIS (HTRX) Bennytheodore Vaughn DO Work Phone: Start: 07-26-2023 Urnls dip stick/tabl et rgnt non-auto w/o micrscp Ronni Pascual KITCHEN AIDE-SALES AND IN HOME DELIVERY SPECIALIST Work Phone: Start: 05-07-2023 Follow-up visit Follow-up [...] ion [Identifier] in Cervix by Cyto stain Oksar Roach MD Work Phone: Start: 06-24-2018 Colonoscopy Oskar Roach MD Work Phone: Plan of Treatment Date Care Activity Detail Author Start: 03-05-2029 Screening for malignant neoplasm of colon Colonoscopy [facility] Start: 12-10-2026 Screening for malignant neoplasm of cervix Pap Smear [facility] Start: 03-05-2025 Adult BMI Screening Adult BMI Screening [facility] Start: 03-05-2025 Tobacco Screening Tobacco Screening [facility] Start: 02-05-2025 Adult BMI Screening Adult BMI Screening [facility] Start: 02-05-2025 Tobacco Screening Tobacco Screening [facility] Start: 01-07-2025 Adult BMI Screening Adult BMI Screening [facility] Start: 01-07-2025 Tobacco Screening Tobacco Screening [facility] Start: 12-04-2024 Adult BMI Follow Up Plan Adult BMI Follow Up Plan [facility] Start: 11-06-2024 Adult BMI Follow Up Plan Adult BMI Follow Up Plan [facility] Start: 11-06-2024 Adult BMI Screening Adult BMI Screening [facility] Start: 11-06-2024 Tobacco Screening Tobacco Screening [facility] Start: 08-22-2024 Tobacco Screening Tobacco Screening [facility] Start: 07-25-2024 Adult BMI Follow Up Plan Adult BMI Follow Up Plan [facility] Start: 07-25-2024 Adult BMI Screening Adult BMI Screening [facility] Start: 07-25-2024 Tobacco Screening Tobacco Screening [facility] Start: 06-05-2024 End: 06-05-2024 Patient encounter procedure 06/05/2024 8:00 AM EDT Off ice Visit [facility] [address] [place] [address] Ronni Pascual, [facility] [address] [place] [address] [facility] Start: 05-20-2024 End: 05-20-2024 Patient encounter procedure 05/20/2024 10:30 AM EDT Consult [facility] [address] [place] [id number] Benny Vaughn DO [address] [place] [address] [facility] Start: 05-06-2024 Adult BMI Screening Adult BMI Screening [facility] Start: 05-06-2024 Tobacco Screening Tobacco Screening [facility] Start: 03-29-2024 Adult BMI Screening Adult BMI Screening [facility] Start: 03-29-2024 Tobacco Screening Tobacco Screening [facility] Start: 03-27-2024 End: 03-27-2024 Patient encounter procedure 03/27/2024 11:50 AM EST Office Visit [facility] [address] [facility] [place] [address] Benny Vaughn, DO [address] [facility] [place] [address] Arrived [facility] Comment on above: Arrived Start: 03-10-2024 End: 03-10-2025 CT Abdomen and Pelvis W contrast IV CT enterography Imaging Routine Crohn's disease of small intestine without complication ([facility]) Expected: 03/10/2024, Expires: 03/10/2025 [facility] Work Phone: Comment on above: Expected: 03/10/2024, Expires: Start: 02-19-2024 End: 02-19-2024 Admission to same day surgery center 02/19/2024 8:00 AM EST - 02/19/2024 9:00 AM EST Surgery [facility] [address] [facility] [address] Carole Knowles MD [address] [facility] [address] [address] [place] [address] COLONOSCOPY DIAGNOSTIC / SCREENING [64683 (CPT )] [facility] -[facility] Comment on above: COLONOSCOPY DIAGNOSTIC / SCREENING [4537 8 (CPT )] Start: 02-19-2024 End: 02-19-2024 Colonoscopy flx dx w/collj spec when pfrmd COLONOSCOPY DIAGNOSTIC / SCREENING History of Crohn's disease 02/19/2024 8:00 AM EST [facility] ENDOSCOPY Start: 02-19-2024 End: 02-19-2024 Esophagogastroduodenoscopy transoral diagnostic ESOPHAGOGASTRODUODENOSCOPY DIAGNOSTIC History of Crohn's disease 02/19/2024 8:00 AM EST [facility] ENDOSCOPY Start: 02-19-2024 Subsequent hospital visit by physician 02/19/2024 8:00 AM EST Hospital Encounter [facility] [address] [facility] [address] aCrole Knowles MD [facility] [facility] [address] [place] [address] [facility] -[facility] Start: 02-06-2024 End: 02-05-2025 Rubella Ab Screen Rubella Ab Screen Microbiology Routine History of Crohn's disease Expected: 02/06/2024 (Approximate), Expires: 02/05/2025 [facility] Comment on above: Expected: 02/06/2024 (Approximate), Expi res: 02/05/2025 Start: 02-06-2024 End: 02-05-2025 Rubeola Ab Screen Rubeola Ab Screen Microbiology Routine History of Crohn's disease Expected: 02/06/2024 (Approximate), Expires: 02/05/2025 [facility] Comment on above: Expected: 02/06/2024 (Approximate), Expi res: 02/05/2025 Start: 02-06-2024 End: 02-06-2024 Patient encounter procedure 02/06/2024 1:30 PM EST Off ice Visit [facility] [address] [facility] [address] [place] [address] Carole Knowles MD [address] [place] [address] [address] [place] [address] [facility] Start: 01-30-2024 End: 01-30-2024 Patient encounter procedure 01/30/2024 11:10 AM EST Office Visit [facility] [address] [facility] [place] [id number] Benny Vaughn DO [address] [facility] [place] [address] Arrived [facility] Comment on above: Arrived Start: 01-09-2024 End: 01-09-2024 Patient encounter procedure 01/09/2024 1:30 PM EST Appointment [facility] [address] [place] [address] [facility] Start: 01-08-2024 End: 01-07-2025 CT Abdomen and Pelvis W contrast IV CT abdomen and pelvis with contrast Imaging STAT Right upper quadrant abdominal pain Post-operative pain Expected: 01/08/2024, Expires: 01/07/2025 [facility] Work Phone: Comment on above: Expected: 01/08/2024, Expires: Start: 01-01-2024 End: 01-01-2024 Patient encounter procedure 01/01/2024 8:30 AM EST Procedure Visit [facility] [address] [facility] [place] [phone] Jerri Murcia, [address] [place] [address] Ar[address] [facility] [address] Comment on above: Arrived Start: 12-27-2023 End: 12-27-2023 Patient encounter procedure 12/27/2023 10:30 AM EDT Procedure Visit [facility] [address] [place] [phone] Vel Jolly MD [address] [place], [place] [id number] [facility] [place] [address] Start: 12-24-2023 End: 12-24-2023 Patient encounter procedure 12/24/2023 3:10 PM EDT Off ice Visit [facility] [address] [place] [phone] Benny Vaughn, DO [address] [place] [address] [facility] Start: 12-18-2023 End: 12-18-2023 Patient encounter procedure 12/18/2023 9:30 AM EDT Procedure Visit [facility] [address] [place] [address] Benny Vaughn, DO [address] [place] [address] [facility] Start: 12-18-2023 End: 12-18-2023 Professional / ancillary services management 12/18/2023 8:30 AM EDT Ancillary Procedure [facility] [address] [place] [address] [facility] Start: 12-11-2023 End: 12-11-2023 Patient encounter procedure 12/11/2023 1:00 PM EDT Consult [facility] [address] [place] [address] Benny Vaughn, DO [address] [place] [place] [address] [facility] Start: 12-05-2023 End: 12-05-2023 Telemedicine consultation with patient 12/05/2023 9:00 AM EDT Telemedicine [facility] [address] [place] [phone] Ronni Pascual, KITCHEN AIDE-SALES AND IN HOME DELIVERY SPECIALIST [address] [place] [address] [facility] Start: 11-26-2023 End: 11-26-2023 Patient encounter procedure 11/26/2023 2:50 PM EDT Off ice Visit [facility] [address] [place] [address] Benny Vaughn, DO [address] [place], [place] [phone] Arrived [facility] Comment on above: Arrived Start: 11-26-2023 End: 11-25-2024 SURESWAB(R) ADVANCED VAGINITIS PLUS, TMA SURESWAB(R) ADVANCED VAGINITIS PLUS, TMA Pathology and Cytology Routine Pelvic pain in female Expected: 11/26/2023 (Approximate), Expires: 11/25/2024 [facility] Work Phone: Comment on above: Expected: 11/26/2023 (Approximate), Expi res: 11/25/2024 Start: 11-26-2023 End: 11-25-2024 US for US PELVIS-TRANSVAG IF INDICATED Imaging Routine Pelvic pain in female Expected: 11/26/2023 (Approximate), Expires: 11/25/2024 [facility] Comment on above: Expected: 11/26/2023 (Approximate), Expi res: 11/25/2024 Start: 11-23-2023 Adult BMI Follow Up Plan Adult BMI Follow Up Plan [facility] Start: 11-07-2023 End: 11-06-2024 CBC W Auto Differential panel - Blood CBC auto differential Lab Routine Wellness examination Expected: 11/07/2023, Expires: 11/06/2024 [facility] Work Phone: Comment on above: Expected: 11/07/2023, Expires: Start: 11-07-2023 End: 11-06-2024 Lipid 1996 panel - Serum or Plasma Lipid profile Lab Routine Wellness examination Expected: 11/07/2023, Expires: 11/06/2024 [facility] Comment on above: Expected: 11/07/2023, Expires: Start: 11-07-2023 End: 11-07-2023 Patient encounter procedure 11/07/2023 8:00 AM EDT Off ice Visit [facility] [address] [place] [phone] Ronni Pascual, KITCHEN AIDE-SALES AND IN HOME DELIVERY SPECIALIST [address] [place], [place] [phone] [facility] Start: 11-01-2023 End: 11-01-2023 Patient encounter procedure 11/01/2023 3:45 PM EDT Off ice Visit [facility] [address] [place] [address] Oskar Hess MD [address] [place] [address] [facility] Start: 10-28-2023 Influenza vaccination Influenza Vaccine [facility] Start: 09-13-2023 End: 09-13-2023 Patient encounter procedure 09/13/2023 3:00 PM EDT Off ice Visit [facility] [address] [place] [address] Ronni Pascual, KITCHEN AIDE-SALES AND IN HOME DELIVERY SPECIALIST [address] [place] [address] [facility] Start: 08-23-2023 End: 08-23-2023 Patient encounter procedure 08/23/2023 10:30 AM EDT Office Visit [facility] [address] [place] [address] Ronni Pascual, KITCHEN AIDE-SALES AND IN HOME DELIVERY SPECIALIST [address] [place] [address] [facility] Start: 07-26-2023 End: 07-25-2024 XR Abdomen AP X-ray abdomen ap 1 view Imaging Routine Dysuria Expected: 07/26/2023, Expires: 07/25/2024 [facility] Comment on above: Expected: 07/26/2023, Expires: Start: 07-17-2023 End: 07-17-2023 Patient encounter procedure 07/17/2023 3:30 PM EDT Off ice Visit [facility] [address] [place] [phone] Oskar Hess MD [address] [place] [address] [facility] Start: 06-25-2023 Screening for malignant neoplasm of colon Colonoscopy [facility] Start: 04-05-2023 End: 03-29-2024 Cortisol Cortisol Lab Routine Polycystic ovaries Expected: 04/05/2023, Expires: 03/29/2024 [facility] Comment on above: Expected: 04/05/2023, Expires: Start: 01-04-2023 Screening for malignant neoplasm of cervix Pap Smear [facility] Start: 10-27-2022 Influenza vaccination Influenza Vaccine [facility] Start: 10-27-2020 Influenza vaccination INFLUENZA (Season Ended) [facility] Start: 05-18-2016 PAP TESTING PAP TESTING [facility] Start: 05-18-2014 Urine microalbumin profile DTAP,TDAP,TD (1 - Tdap) [facility] Start: 05-18-2013 HEPATITIS C SCREENING HEPATITIS C SCREENING [facility] Start: 05-18-2013 HIV SCREENING HIV SCREENING [facility] Start: 2007 Adult depression screening assessment DEPRESSION SCREENING [facility] Start: 05-18-2006 DTaP,Tdap and Td Vaccines (6 - Tdap) DTaP,Tdap and Td Vaccines (6 - Tdap) [facility] Start: 05-18-2006 HPV VACCINE (1 - 2-dose series) HPV VACCINE (1 - 2-dose series) [facility] End: 03-29-2024 17 Hydroxyprogesterone 17 Hydroxyprogesterone Lab Routine Polycystic ovaries 1 Occurrences starting 03/29/2023 until 03/29/2024 [facility] Comment on above: 1 Occurrences starting 03/29/2023 until 03/29/2024 End: 03-29-2024 Androstenedione Androstenedione Lab Routine Polycystic ovaries 1 Occurrences starting 03/29/2023 until 03/29/2024 [facility] Comment on above: 1 Occurrences starting 03/29/2023 until 03/29/2024 End: 03-07-2025 Anti HBs quantitative Anti HBs quantitative Lab Routine Crohn's disease of colon without complication (CMS-HCC) 1 Occurrences starting 03/07/2024 until 03/07/2025 [facility] Comment on above: 1 Occurrences starting 03/07/2024 until 03/07/2025 End: 07-25-2024 Bacteria identified in Urine by Culture Urine Culture Microbiology Routine Dysuria 1 Occurrences starting 07/26/2023 until 07/25/2024 [employer] Work Phone: Comment on above: 1 Occurrences starting 07/26/2023 until 07/25/2024 Bacteria identified in Urine by Culture Urine Culture Microbiology Routine Dysuria 07/26/2023 9:35 PM EDT [facility] End: 02-05-2025 Calprotectin, F Calprotectin, F Lab Routine History of Crohn's disease 1 Occurrences starting 02/06/2024 until 02/05/2025 [facility] Comment on above: 1 Occurrences starting 02/06/2024 until 02/05/2025 CHLAMYDIA TRACHOMATI S (GENITO/STI) CHLAMYDIA TRACHOMATIS (GENITO/STI) Lab Routine Pelvic pain in female Ordered: 11/26/2023 [employer] Comment on above: Ordered: 11/26/2023 End: 02-05-2025 Colonoscopy Colonoscopy GI Routine History of Crohn's disease 1 Occurrences starting 02/06/2024 until 02/05/2025 [facility] Comment on above: 1 Occurrences starting 02/06/2024 until 02/05/2025 End: 11-06-2024 Comprehensive metabolic 2000 panel - Serum or Plasma Comprehensive metabolic panel Lab Routine Wellness examination 1 Occurrences starting 11/07/2023 until 11/06/2024 [facility] Comment on above: 1 Occurrences starting 11/07/2023 until 11/06/2024 Cytology Cervical or vaginal smear or scraping study Pap Smear Pathology and Cytology Routine Well woman exam with routine gynecological exam Ordered: 12/11/2023 [employer] Work Phone: Comment on above: Ordered: 12/11/2023 End: 02-05-2025 Esophagogastroduodenoscopy EGD GI Routine Right upper quadrant pain 1 Occurrences starting 02/06/2024 until 02/05/2025 [employer] Phone: Comment on above: 1 Occurrences starting 02/06/2024 until 02/05/2025 End: 03-29-2024 Follicle stimulating hormone Follicle stimulating horm one Lab Routine Polycystic ovaries 1 Occurrences starting 03/29/2023 until 03/29/2024 [facility] Comment on above: 1 Occurrences starting 03/29/2023 until 03/29/2024 End: 03-29-2024 Hemoglobin A1c/Hemoglobin.total in Blood Hemoglobin A1c Lab Routine Polycystic ovaries 1 Occurrences starting 03/29/2023 until 03/29/2024 [facility] Comment on above: 1 Occurrences starting 03/29/2023 until 03/29/2024 End: 03-07-2025 Hepatitis B core antibody, total Hepatitis B core antibody, total Lab Routine Crohn's disease of colon without complication ([facility]-H[facility]) 1 Occurrences starting 03/07/2024 until 03/07/2025 [facility] Comment on above: 1 Occurrences starting 03/07/2024 until 03/07/2025 End: 03-07-2025 Hepatitis B surface antigen Hepatitis B surface antige n Lab Routine Crohn's disease of colon without complication ([facility]-H[facility]) 1 Occurrences starting 03/07/2024 until 03/07/2025 [employer] Work Phone: Comment on above: 1 Occurrences starting 03/07/2024 until 03/07/2025 End: 03-29-2024 Luteinizing hormone Luteinizing hormone Lab Routine Polycystic ovaries 1 Occurrences starting 03/29/2023 until 03/29/2024 [facility] Comment on above: 1 Occurrences starting 03/29/2023 until 03/29/2024 Mycobacterium tuberc ulosis stimulated gamma interferon panel - Blood QuantiFERON-Tb Gold Plus, B Lab Routine History of Crohn's disease 02/06/2024 2:20 PM EST [facility] Neisseria gonorrhoea e DNA [Presence] in Unspecified specimen by CHANDRIKA with probe detection Neisseria gonorrhea DNA probe, direct Lab Routine Pelvic pain in female Ordered: 11/26/2023 [facility] Comment on above: Ordered: 11/26/2023 End: 03-29-2024 Prolactin Prolactin Lab Routine Polycystic ovaries 1 Occurrences starting 03/29/2023 until 03/29/2024 [facility] Comment on above: 1 Occurrences starting 03/29/2023 until 03/29/2024 End: 02-05-2025 QuantiFERON-Tb Gold Plus, B QuantiFERON-Tb Gold Plus, B Lab Routine History of Crohn's disease 1 Occurrences starting 02/06/2024 until 02/05/2025 [employer] Phone: Comment on above: 1 Occurrences starting 02/06/2024 until 02/05/2025 Thiopurine methyltra nsferase [Enzymatic activity/volume] in Blood Thiopurine Methyltransferase RBC Lab Routine History of Crohn's disease 02/06/2024 2:20 PM EST [facility] End: 02-05-2025 Thiopurine Methyltransferase RBC Thiopurine Methyltransferase RBC Lab Routine History of Crohn's disease 1 Occurrences starting 02/06/2024 until 02/05/2025 [facility] Comment on above: 1 Occurrences starting 02/06/2024 until 02/05/2025 Payers Date Payer Category Payer Self-pay 2023 Medicaid [id number] 2022 Medicaid [id number] 2021 Private Health Insurance [employer] [id number] 2017 Commercial Managed C are - PPO [employer] [id number] 2017 Unknown [id number] .[id number] 2014 Private Health Insurance [employer] [id number] 2014-Present PPO [id number] 1995 Unknown [id number] 2.16840.1.395707.3.579.2 .593 1995 Unknown [id number] 2.16840.1.661865.3.579.2 .1286 1995 Unknown [id number] 2.16840.1.861144.3.579.2 .1286 1995 Unknown [id number] 2.16840.1.801050.3.579.2 .128 1995 Unknown [id number] 2.16.840.1.914072.3.579.2 .1285 1995 Unknown [id number] 2.16.840.1.797464.3.579.2 .1286 1995 Unknown [id number] 2.16.840.1.998042.3.579.2 .1286 1995 Unknown [id number] 2.16.840.1.551162.3.579.2 .128 1995 Unknown [id number] 2.16.840.1.093341.3.579.2 .128 1995 Unknown [id number] 2.16.840.1.389676.3.579.2 .1286 1995 Unknown [id number] 2.16.840.1.371098.3.579.2 .128 1995 Unknown [id number] 2.16840.1.820730.3.579.2 .1285 1995 Unknown [id number] 2.16840.1.714012.3.579.2 .1285 1995 Unknown [id number] 2.16.840.1.338825.3.579.2 .1285 1995 Unknown [id number] 2.16840.1.261687.3.579.2 .1285 1995 Unknown [id number] 2.16840.1.036568.3.579.2 .1285 1995 Unknown [id number] 2.16840.1.576026.3.579.2 .1285 1995 Unknown [id number] 2.16840.1.081808.3.579.2 .1258 1995 Unknown [id number] 2.840.1.844323.3.579.2 .1258 1995 Unknown [id number] 2.16840.1.428623.3.579.2 .1258 1995 Unknown [id number] 2.16840.1.882139.3.579.2 .1258 1995 Unknown [id number] 2.16840.1.026160.3.579.2 .1258 1995 Unknown [id number] 2.840.1.410393.3.579.2 .1258 1995 Unknown [id number] 2.16840.1.357042.3.579.2 .1259 1959 Unknown [id number] 1959 Unknown [id number] 1959 Unknown [id number] Unknown [id number] 2.16840.1.205897.3.579.2 .531 Social History Date Type Detail Facility Start: 07-16-2012 End: 05-13-2024 Tobacco smoking status [facility] Never smoker [facility] Start: 07-16-2012 Alcohol intake Not Asked [facility] Start: 1995 Sex Assigned At Not on file [facility] Start: 11-26-2023 End: 03-27-2024 Alcoholic beverage intake Lifetime non-drinker (finding) [facility] Start: 04-08-2020 End: 11-26-2023 History of Social function [facility] Start: 04-08-2020 End: 11-26-2023 Tobacco use panel [facility] Start: 10-20-2022 Alcohol Comment Caffeine: 1-2 cups/d ay [facility] Start: 10-19-2022 End: 12-11-2023 Tobacco use and exposure Smokeless tobacco non-user [facility] Start: 02-06-2024 End: 03-06-2024 Alcoholic beverage intake Current non-drinker of alcohol (finding) [facility] Frequency of Alcohol Consumption Never [facility] How hard is it for y ou to pay for the very basics like food, housing, medical care, and heating Somewhat hard [facility] Start: 10-01-2014 End: 05-14-2024 Sex Female (finding) [facility] Start: 1995 Sex Assigned At Female F [facility] Clinical Notes 03-15-2023 to 04-09-2024 Telephone Encounter - Merary Vital CMA - 04/09/2024 2:29 PM ESTTelephone Encounter - Carole Flynn MD - 04/09/2024 2:29 PM ESTTelephone Encounter - Laura Franklin - 04/09/2024 2:29 PM EST Note Date & Type Note Facility 04-09-[address] Keon Flynn on 03/07/2024: Send prior authorization for Uamng, Crohn's disease. Followed up with patient today, she still hasn't completed labs. She states she's having a hysterectomy soon in May. She is unsure if she should start Humira prior. She can start Humira. I will leave it up to her. Call to patient. She wants to start Humira after her surgery. Will work on PA end june documented in this encounter [facility] 04-09-2024 Telephone encounter Note Per Dr. Keon Flynn on 03/07/2024: Send prior authorization for Humira, Crohn's disease. Followed up with patient today, she still hasn't completed labs. She states she's having a hysterectomy soon in May. She is unsure if she should start Humira prior. [facility]24 Telephone encounter Note She can start Humira. I will leave it up to her. [facility] 04-09-2024 Telephone encounter Note Call to patient. She wants to start Humira after her surgery. Will work on PA end june [facility] 03-27-2024 History of Present illness Narrative Reason [...] / BIOPSY / ASPIRATION / LYSIS 01/04/2024 [place] COLORECTAL CANCER SCREENING RESULTS DOC&REV 08/04/2015 Crohns [...] nursing note reviewed. Exam conducted with a rental sales agent present. Vitals: Estimated body mass index is [...] Patient to setup date for surgery with Pocketed Spring Assembler and will then be able to discuss questions patient has in regards to pre-operative and coverage. Patient will also need to setup Pre-op appointment to sign consents after setting up surgery date. Documented by Charlotte Cruz LPN on behalf of: Benny Vaughn DO documented in this encounter [facility] 03-07-2024 History of Present illness Narrative Pending CT enterography (also with rectal contrast to rule out fistula for symptoms of anal irritation ). Patient will fax us the blood work that was done regarding hepatitis-B by her motor builder assembler. I discussed with Britt over the phone regarding the terminal ileum biopsies that were obtained showing mild chronic inflammation, stenosis on colonoscopy. We will start her back on Humira. She wants to have a hysterectomy. I instructed her to take the Humira after the procedure. documented in this encounter [facility] 02-06-2024 Miscellaneous Notes EGD/CLN ASA 2 ENDO sacheduled with pt at checkout for 02/19/24 8am. Instructinos given in office, SUFLAVE prep sent to [facility]. documented in this encounter [facility] 02-06-2024 Telephone encounter Note EGD/CLN ASA 2 ENDO sacheduled with pt at checkout for 02/19/24 8am. Instructinos given in office, MULU perez sent to [facility]. [facility] 02-06-2024 History of Present illness Narrative Images from the original note were not included. [facility] New Patient Visit Chief Complaint Patient presents with New Patient Crohn's Disease She reports she was diagnosed with Crohns. She reports diarrhea has bowel movements 3-5 times a day. She states lower abdominal pain that comes and goes HISTORY OF PRESENT ILLNESS: Sunni Ramesh is a 28 y.o. female who has a past medical history of Anemia, Crohn's colitis ([facility]), Crohn's disease ([facility]), Hyperinsulinism (03/29/2023), Low back pain, Lumbar disc [...] past medical history of Anemia, Crohn's colitis ([facility]-H[facility]), Crohn's disease ([facility]), Hyperinsulinism (03/29/2023), Low back pain, Lumbar disc [...] 06/24/2018 Performed by Naldo Parker DO at [facility] SPINE TRANSFORAMINAL right L 4,5 nroot Right 12/08/2022 Performed by Giovani Garg MD at [facility] PA[facility] LAMINECTOMY LUMBAR SINGLE LEVEL / L4/5 AND DISCECTOMY Right 01/31/2023 Performed by Carrillo Aragon MD at [facility] TONSILLECTOMY Current Medications: Current Outpatient Medications: [...] CT abdomen and pelvis with contrast 01/09/2024 [id number] Final DATA: CBC: Lab Results Component Value [...] disease Right upper quadrant abdominal pain - [facility] History of Crohn's disease, diagnosed around 2015. Non stricturing non fistulizing phenotype. No prior [...] note is dictated with the use of [employer], a computer voice recognition software. Quite often unanticipated grammatical, syntax, homophones, and other interpretive errors are inadvertently transcribed by the computer software. Please disregard these errors and please excuse any errors that have escaped final proofreading. Carole Flynn MD, MPH Gastroenterology & Hepatology Contract Lead [facility] [address], [address] [place] [address] PH: [phone] [facility] 01-30-2024 History of Present illness Narrative [...] / BIOPSY / ASPIRATION / LYSIS 01/04/2024 [place] COLORECTAL CANCER SCREENING RESULTS DOC&REV 08/04/2015 Crohns [...] nursing note reviewed. Exam conducted with a rental sales agent present. Vitals: Estimated body mass index is [...] Benny Vaughn DO documented in this encounter [facility] 01-08-2024 History of Present illness Narrative Images from the original note were not included. [address] [place] [id number] SUBJECTIVE: Patient ID: Sunni Ramesh is a 28 y.o. female. Patient presents to the office for complaints of right upper abdominal pain. Patient had exploratory laparoscopic surgery on Sunday by her SUPERVISOR COOLER SERVICE. She states since then she has been [...] abdomen and pelvis with contrast; Future - [facility]; Future Post-operative pain - CT abdomen and pelvis with contrast; Future - [facility]; Future Crohn's disease of colon with complication ([facility]-H[facility]) Follow-up: Ct abdomen stat- post op pain Referral GI Will call with results ARSLAN [facility] 01/08/24 1349 documented in this encounter [facility] 01-01-2024 History of Present illness Narrative Images from the original note were not included. Reason for Appointment: EMG Patient: Sunni Ramesh : 1995 EMG Computer: [employer] Referring Physician: Tawana Bah CNP EMG: JOVANNA director of online education: Wilfredo Wolf RT(R) Office Location: [place] Reason for EMG: c/o numbness/tingling in right hand/forearm, neck pain into right shoulder. No hx of DM. Not on blood thinners. Comments: Procedure was explained to the patient who expressed understanding. Patient appeared to have tolerated the test well despite some discomfort due to the nature of the test. documented in this encounter [facility] 12-18-2023 History of Present illness Narrative [...] 05/04/2011 Gastric erythema and duoden ulceration/[facility] [place] COLORECTAL CANCER SCREENING RESULTS DOC&REV 08/04/2015 Crohns [...] nursing note reviewed. Exam conducted with a rental sales agent present. Vitals: Estimated body mass index is [...] Benny Vaughn DO documented in this encounter [facility] 12-11-2023 History of Present illness Narrative Reason for Appointment: Patient ID: Sunni Ramesh is a 28 y.o. female who presents for Well Women Visit and Pre-op Visit Patient presents today for Pre Op/Annual appointment. Patient is scheduled to undergo Diagnostic Laparoscopy, possible BALA, possible FOE, possible BSO on 01/04/[address] [facility]. MEDICATIONS Current Outpatient Medications Medication Instructions desogestrel-ethinyl [...] 05/04/2011 Gastric erythema and duoden ulceration/[facility] [place] COLORECTAL CANCER SCREENING RESULTS DOC&REV 08/04/2015 Crohns [...] nursing note reviewed. Exam conducted with a rental sales agent present. Vitals: Estimated body mass index is [...] reviewed, and patient is to proceed to [facility] OR. Follow Up: Patient is to follow up between 1-2 weeks post operative to assess proper healing and recovery from procedure. Documented by Bety Burns LPN on behalf of: Benny Vaughn DO documented in this encounter [facility] 12-05-2023 History of Present illness Narrative Images from the original note were not included. [address] [facility] [id number] SUBJECTIVE: Patient ID: Sunni Ramesh is a 28 y.o. female. Video Visit via Real-time Synchronous Audiovisual Provider Location: [address] [phone] Patient Location: work Video Visit Consent Statement: [...] that there are some limitations compared to kzjt-ez-[id number] evaluations. The patient consented to the presence of additional virtual and/or in-person participants. We elected to proceed.Video Visit via Real-time Synchronous Audiovisual Provider Location: [address] [id number] Patient Location: work Video Visit Consent Statement: [...] that there are some limitations compared to hmdz-im-amit evaluations. The patient consented to the presence [...] right hand - [facility] Future Other orders - FLUoxetine (PROzac) [...] ARSLAN Ghotra 12/05/23917 documented in this encounter [facility] 11-26-2023 History of Present illness Narrative [...] 05/04/2011 Gastric erythema and duoden ulceration/[facility] [place] COLORECTAL CANCER SCREENING RESULTS DOC&REV 08/04/2015 Crohns [...] Benny Vaughn DO documented in this encounter [facility] 11-07-2023 History of Present illness Narrative Images from the original note were not included. [address] [facility] [id number] Subjective: Sunni Ramesh is a 28 y.o. [...] discharge. She is going to see her SUPERVISOR COOLER SERVICE. Annual Exam Pertinent negatives include no abdominal [...] Medical History: Diagnosis Date Anemia Crohn's colitis (CMS-HCC) Crohn's disease ([facility]) Low back pain Lumbar disc herniation 01/17/2023 PCOS (polycystic ovarian syndrome) Wears glasses Past Surgical History: Procedure Laterality Date COLONOSCOPY N/A 06/24/2018 Performed by Naldo Parker DO at [facility] SPINE TRANSFORAMINAL right L 4,5 nroot Right 12/08/2022 Performed by Giovani Garg MD at [facility] LAMINECTOMY LUMBAR SINGLE LEVEL / L4/5 AND DISCECTOMY Right 01/31/2023 Performed by Carrillo Aragon MD at [facility] TONSILLECTOMY Family History Problem Relation Age of [...] Will call with results Keep appointments with SUPERVISOR COOLER SERVICE and endocrinology Restart prozac 10mg daily Follow up in 28 days Patient noted to have elevated BMI and the following intervention(s) were applied: encouragement to exercise. ARSLAN Ghotra 11/07/23 0826 documented in this encounter [facility] 08-23-2023 History of Present illness Narrative No charge, patient just started prozac three days ago, will reschedule ARSLAN Ghotra 08/23/23 1014 documented in this encounter [facility] 07-26-2023 History of Present illness Narrative Images from the original note were not included. [address] [facility] [id number] SUBJECTIVE: Patient ID: Sunni Ramesh is a [...] risk for sleep apnea - Referral to [facility] - [place], [place]; Future Dysuria - POCT urinalysis dipstick [...] [facility]ra 07/26/23 1552 documented in this encounter [facility] 05-07-2023 History of Present illness Narrative Images from the original note were not included. [id number] [facility] [id number] SUBJECTIVE: Patient ID: Sunni Ramesh is a 27 y.o. female. -Patient here to follow up after seeing endocrinology and was started on metformin 5 weeks ago. Patient states they are having a hard time getting their metformin XR and has not had a chance to pick it up. Patient states they have no symptoms today except for being fatigued. Patient will picker box operator medication later today. No other complaints at [...] try to incorporate exercise. 2.) Patient to picker box operator medications and be compliant taking them 3.) Patient to return in 6 months Sunni was seen today for follow-up. Diagnoses and all orders for this visit: Polycystic ovaries Vitamin B12 deficiency Vitamin D deficiency Follow-up: Cortisol level was not drawn with other labs, will have her get that done, printed order ARSLAN Ghotra 05/07/23 0834 documented in this encounter [facility] 04-30-2023 Miscellaneous Notes Ok to sign and send documented in this encounter [facility] 04-30-2023 Telephone encounter Note Ok to sign and send [facility] 03-29-2023 Evaluation + Plan note Associated [...] Next follow-up will be in 3 months [facility] 03-29-2023 Miscellaneous Notes Associated Problem(s): Polycystic [...] in 3 months documented in this encounter [facility] 03-29-2023 History of Present illness Narrative New [...] Medical History: Diagnosis Date Anemia Crohn's colitis ([facility]) Crohn's disease ([facility]) Low back pain Lumbar disc herniation [...] 06/24/2018 Performed by Naldo Parker DO at [facility] INJECTION SPINE TRANSFORAMINAL right L 4,5 nroot Right 12/08/2022 Performed by Giovani Garg MD at [facility] LAMINE[facility] LUMBAR SINGLE LEVEL / L4/5 AND DISCECTOMY Right 01/31/2023 Performed by Carrillo Aragon MD at [facility] TONSILLECTOMY Allergies Allergen Reactions Nsaids (Non-Steroidal [...] 104 (H) 11/08/2022 ASSESSMENT: 1. Hyperinsulinism - [facility] - [place], [place] 2. Polycystic ovaries - [facility]; Future [...] in 3 months [facility] 03-15-2023 History of Present illness Narrative Images from the original note were not included. [facility] [address] [place] [address], [address] [place] [address] * CHART NOTE ? 03/20/2023 Patient: Sunni Ramesh 1995 [id number] Physician: Carrillo Aragon MD CHIEF COMPLAINT Post-op. [...] when she walks around. Denies loss of clerical support strength, saddle anesthesia, urinary or bowel dysfunction, [...] Right achilles: 2+ Left achilles: 2+ Right clerical support: 2+ Left clerical support: 2+ Right Linares: absent Left Linares: absent [...] record of the patient encounter. Inadvertent computerized hydrographic surveyor errors related to syntax, spelling, homophones, and/or inaudibility may be present. Scribe Statement: Scribed for and in the presence of Carrillo Aragon MD by Abiodun Power. Provider Statement: I, Carrillo Aragon MD personally performed the services described in the documentation, as scribed by OS in my presence, and it is both accurate and complete. documented in this encounter [facility] 03-15-2023 Instructions Brian Chung - 03/15/2023 3:20 PM EST Follow up as needed RT documented in this encounter [facility] Evaluation note Diagnosis Crohn's disease, with rectal bleeding- Primary [facility] Well woman exam with routine gynecological exam Routine gynecological examination Preoperative examination Unspecified pre-operative examination Pelvic pain in female Unspecified symptom associated with female genital organs Dyspareunia in female documented in this [facility] [facility]* Diagnosis Nexplanon removal documented in this encounter [facility] HealthcareEvaluation note* Diagnosis Paresthesia- Primary Disturbance of skin sensation documented in this encounter [facility] HealthcareEvaluation note* Diagnosis Postoperative examination Follow-up examination, following unspecified surgery Encounter for surveillance of contraceptives, unspecified contraceptive Pelvic pain in female Unspecified symptom associated with female genital organs Dyspareunia in female Nausea Nausea alone Abnormal uterine bleeding (AUB) documented in this encounter [facility] HealthcareEvaluation note* Diagnosis Pelvic pain in female Unspecified symptom associated with female genital organs control counseling documented in this encounter [facility]* Diagnosis Polycystic ovaries- Primary Hyperinsulinism Other specified hypoglycemia Crohn's disease of colon without complication (CMS-HCC)- Primary [facility] Diagnosis Polycystic ovaries- Primary Hyperinsulinism Other specified hypoglycemia Crohn's disease of small intestine without complication (CMS-HCC)- Primary [facility] Diagnosis Encounter for consultation documented in this encounter [facility] HealthcareEvaluation note* Diagnosis Polycystic ovaries- Primary Hyperinsulinism Other specified hypoglycemia [facility] Diagnosis Anxiety- Primary Anxiety state, unspecified Depression, unspecified depression type At risk for sleep apnea Dysuria [facility]* Diagnosis Status post lumbar laminectomy- Primary [facility] in [facility]* Diagnosis Anxiety- Primary Anxiety state, unspecified [facility]* Diagnosis Polycystic ovaries- Primary Vitamin B12 deficiency Other B-complex deficiencies Vitamin D deficiency [facility]* Diagnosis Anxiety- Primary Anxiety state, unspecified Depression, unspecified depression type Numbness and tingling in right hand Disturbance of skin sensation [facility] Diagnosis Wellness examination- Primary Anxiety Anxiety state, unspecified Depression, unspecified depression type Polycystic ovaries Hyperinsulinism Other specified hypoglycemia [facility] Diagnosis Polycystic ovaries- Primary Hyperinsulinism Other specified hypoglycemia Right upper quadrant abdominal pain- Primary Post-operative pain Other acute postoperative pain Crohn's disease of colon with complication (CMS-HCC) [facility] Diagnosis Polycystic ovaries- Primary Hyperinsulinism Other specified hypoglycemia History of Crohn's disease- Primary Right upper quadrant abdominal pain [facility] Diagnosis Polycystic ovaries- Primary Hyperinsulinism Other specified hypoglycemia Right upper quadrant pain- Primary Abdominal pain, right upper quadrant [facility]* Diagnosis Polycystic ovaries- Primary Hyperinsulinism Other specified hypoglycemia History of Crohn's disease- Primary documented in this encounter [facility] noteNo assessment information available [place] Work Phone: InstructionsNot on filedocumented in this encounter [facility] SystemInstructionsNot on filedocumented in this encounter [facility] System[facility]ructionsNot on filedocumented in this encounter [facility]* Attachments The following attachments cannot be sent through Care Everywhere. * Anxiety Discharge Instructions, Adult ([place]) [facility] SystemInstructionsNot on file documented in this encounterUK Healthcare SystemInstructions* Attachments The following attachments cannot be sent through Care Everywhere. * Polycystic ovary syndrome ([place]) documented in [facility] SystemInstructionsNot on file documented in [facility] System[facility]ructions* Attachments The following attachments cannot be sent through Care Everywhere. * Anxiety Discharge Instructions, Adult ([place]) documented [facility] System[facility]* Attachments The following attachments cannot be sent through Care Everywhere. * Anxiety Discharge Instructions, Adult ([place]) documented in [facility] SystemInstructionsNot on file documented in this encounter[facility] SystemInstructionsNot on file documented in this encounterPro[facility] SystemInstructionsNot on file documented in this encounterUK Healthcare SystemReason for referral (narrative)* Consultation (Routine) - Authorized Specialty Diagnoses / Procedures Referred By Maurice darby Referred To Contact Pulmonary Medicine Diagnoses At risk for sleep apnea Ronni Pascual APRN-CNP [address] [place] [address] Angela Pratt MD [address] [facility] [place] [address] Referral ID Status Reason Start Date Expiration Date Visits Requested Visits Authorized [id number] Authorized Specialty Services Required 07/26/2023 07/25/2024 [facility] Other Medical (Routine) - Closed Specialty Diagnoses / Procedures Referred By Maurice darby Referred To Contact Neurology Diagnoses Anesthesia of skin Paresthesia of skin Procedures WI NERVE CONDUCTION STUDIES 9-10 STUDIES WI NEEDLE EMG EA EXTREMTY W/PARASPINL AREA COMPLETE Ronni Pascual, FIDELINA [address] [place] [address] Phone: tel: fax: Vel Jolly MD [address] [place] [address] Phone: tel: fax: Referral ID Status Reason Start Date Expiration Date V isits Requested Visits Authorized [id number] Closed Perform Procedure 12/06/2023 06/03/2024 1 1 [...] and tingling in right hand Ronni Pascual, KITCHEN AIDE-SALES AND IN HOME DELIVERY SPECIALIST [address] [place] [address] [facility] [address] [place] [address] Referral ID Status Reason Start Date Expiration Date Visits Requested Visits Authorized [id number] Pending Review Specialty Services Required 12/05/2023 12/04/2024 1 1 Additional Source Comments Source Comments (unrecognize d section and content) In the event this informatio n is protected by the Federal Confidentiality of Alcohol and Drug Abuse Patient Records regulations: The Federal rules restrict any use of the information to criminally investigate or prosecute any alcohol or drug abuse patient.[facility] Reason for Visit (unrecogniz ed section and content) Reason Comments Refill Request Reason Comments Well Women Visit Pre-op Visit Reason Comments Contraception Reason Comments Post-op Visit Contraception Reason Comments Pelvic Pain Reason Comments Surgery Consult Reason Comments Endocrine Disorders Specialty Diagnoses / Procedures Referred By Contac t Referred To Contact Endocrinology Diagnoses Hyperinsulinism Ronni Pascual, KITCHEN AIDE-SALES AND IN HOME DELIVERY SPECIALIST [address] [place] [address] Bety Jensen MD [address] [address] Referral ID Status Reason Start Date Expiration Date Visits Requested Visits Authorized [id number] Pending Review Specialty Services Required 11/06/2022 11/06/2023 [...] quadrant abdominal pain Post-operative pain Ronni Pascual, KITCHEN AIDE-[facility] [address] [place] [address] Phone: tel: fax: Carole Knowles MD [address] [facility] [address] [place] [address] Phone: tel: fax: Referral ID Status Reason Start Date Expiration Date Visits Requested Visits Authorized [id number] Pending Review Specialty Services Required 01/07/2025 1 1 Reason Onset Date Comments Med Refill 02/06/2024 INFORMATION SOURCE (unrecogn ized section and content) DATE CREATED AUTHOR 05/26/2022 [facility] DATE CREATED AUTHOR AUTHOR'S ORGANIZ ATION 07/27/2023 [facility] DATE CREATED AUTHOR AUTHOR'S ORGANIZ ATION 01/10/2024 [facility] DATE CREATED AUTHOR AUTHOR'S ORGANIZ ATION 01/11/2024 [facility] DATE CREATED AUTHOR AUTHOR'S ORGANIZ ATION 03/16/2024 [facility] DATE CREATED AUTHOR AUTHOR'S ORGANIZ ATION 05/13/2024 [facility] DATE CREATED AUTHOR AUTHOR'S ORGANIZ ATION 05/15/2024 [facility] Care Teams (unrecognized sec tion and content) Turbine Technician Relationship Specialty Start Date End Date Jerri Murcia DO [address] [address] Referring Physician Neurology 12/25/23 Ronni Pascual NP [address] [place], [place] [phone] Referring Physician Family Medicine 12/25/23 Chanda Saunders NP [address] [phone] Nurse Practitioner Neurology 01/01/24 Yesenia Estrella NP [address] [address] Nurse Practitioner Neurology 01/01/24 Turbine Technician Relationship Specialty Start Date End Date Jerri Murcia DO [address] [address] Referring Physician Neurology 12/25/23 Ronni Pascual NP [address] [place] [address] Referring Physician Family Medicine 12/25/23 Chanda Saunders NP [address] [phone] Nurse Practitioner Neurology 01/01/24 Yesenia Estrella NP [address] [address] Nurse Practitioner Neurology 01/01/24 Turbine Technician Relationship Specialty Start Date End Date Jerri Murcia DO [address] [address] Referring Physician Neurology 12/25/23 Ronni Pascual NP [address] [place], [place] [phone] Referring Physician Family Medicine 12/25/23 Chanda Saunders NP [address] [phone] Nurse Practitioner Neurology 01/01/24 Yesenia Estrella NP [address] [address] Nurse Practitioner Neurology 01/01/24 Turbine Technician Relationship Specialty Start Date End Date Jerri Murcia DO [address] [address] Referring Physician Neurology 12/25/23 Ronni Pascaul NP [address] [place], [place] [phone] Referring Physician Family Medicine 12/25/23 Chanda Saunders NP [address] [phone] Nurse Practitioner Neurology 01/01/24 Yesenia Estrella NP [address] [place] [address] Nurse Practitioner Neurology 01/01/24 Turbine Technician Relationship Specialty Start Date End Date Ronni Pascual APRN-SALES AND IN HOME DELIVERY SPECIALIST [address] [place] [address] PCP - General Family Medicine 10/19/22 Turbine Technician Relationship Specialty Start Date End Date Ronni Pascual APRN-SALES AND IN HOME DELIVERY SPECIALIST [address] [place] [address] PCP - General Family Medicine 10/19/22 Turbine Technician Relationship Specialty Start Date End Date Ronni Pascual KITCHEN AIDE-SALES AND IN HOME DELIVERY SPECIALIST [address] [place] [address] PCP - General Family Medicine 10/19/22 Turbine Technician Relationship Specialty Start Date End Date Jerri Murcia DO [address] [place] [phone] Referring Physician Neurology 12/25/23 Ronni Pascual NP [address] [place] [address] Referring Physician Family Medicine 12/25/23 Chanda Saunders NP [address] [place] [phone] Nurse Practitioner Neurology 01/01/24 Yesenia Estrella NP [address] [address] Nurse Practitioner Neurology 01/01/24 Turbine Technician Relationship Specialty Start Date End Date Jerri Murcia DO [address] [address] Referring Physician Neurology 12/25/23 Ronni Pascual, FIDELINA [address] [place] [address] Referring Physician Family Medicine 12/25/23 Chanda Saunders, FIDELINA [address] [place] [phone] Nurse Practitioner Neurology 01/01/24 Yesenia Estrella NP [address] [place] [address] Nurse Practitioner Neurology 01/01/24 Turbine Technician Relationship Specialty Start Date End Date Ronni Pascual APRN-CNP [address] [place] [address] PCP - General Family Medicine 10/19/22 Turbine Technician Relationship Specialty Start Date End Date Ronni Pascual APRN-CNP [address] [place] [address] PCP - General Family Medicine 10/19/22 Turbine Technician Relationship Specialty Start Date End Date Ronni Pascual APRN-CNP [address] [place] [address] PCP - General Family Medicine 10/19/22 Turbine Technician Relationship Specialty Start Date End Date Ronni Pascual APRN-CNP [address] [place] [address] PCP - General Family Medicine 10/19/22 Turbine Technician Relationship Specialty Start Date End Date Ronni Pascual APRN-CNP [address] [place] [address] PCP - General Family Medicine 10/19/22 Turbine Technician Relationship Specialty Start Date End Date Ronni Pascual APRN-CNP [address] [place] [address] PCP - General Family Medicine 10/19/22 Turbine Technician Relationship Specialty Start Date End Date Ronni Pascual KITCHEN AIDE-SALES AND IN HOME DELIVERY SPECIALIST [address] [place] [address] PCP - General [facility] Medicine 10/19/22 Turbine Technician Relationship Specialty Start Date End Date ChivoRonni long APRN-SALES AND IN HOME DELIVERY SPECIALIST [address] [place] [address] PCP - [facility] Medicine 10/19/22 Turbine Technician Relationship Specialty Start Date End Date ChivoRonni long APRN-SALES AND IN HOME DELIVERY SPECIALIST [address] [place] [address] PCP - [facility] Medicine 10/19/22 Team Status: Inactive Member Role Status [...] BE BASED ON THE PRIMARY CLINICAL RECORDS. [employer] provides no warranty or guarantee of the accuracy or completeness of information in this document.
--- NOTE | 2024-06-12 11:20 | P.GSHP_ITS ---
History of Present Illness History of Present Illness Chief complaint: Menorrhagia, Dyspareunia, Dysmenorrhea, Pelvic Kimo Narrative: Patient presents for presurgical testing. The patient reports a history of heavy painful periods. She states she had a laparoscopic procedure done here in December 2023 with severe postop nausea and vomiting. The patient states she started her menstrual period 3 days ago and has had severe cramping and heavy bleeding. She denies fever, nausea, vomiting, syncope, or any other complaints. Review of Systems ROS Narrative REVIEW OF SYSTEMS: Negative except as stated in HPI, ten or more systems reviewed. Constitutional: No fever, chills, weakness ENT: No sore throat or epistaxis Cardiovascular: No edema, chest pain, palpitations, or activity intolerance Respiratory: No shortness of breath, cough, or wheezing Musculoskeletal: No joint pain or swelling Gastrointestinal: No abdominal pain, constipation, diarrhea, or vomiting Genitourinary: No dysuria or hematuria Neurological: No numbness, tingling, weakness, or headache Psychiatric: No mood changes PFSH PFS Medical History (Updated 06/12/24 @ 11:10 by Fidelia Wilson NP) Dysmenorrhea ?N94.6 - Dysmenorrhea, unspecified (ICD-10) Menorrhagia ?N92.0 - Excessive and frequent menstruation with regular cycle (ICD-10) Postoperative nausea and vomiting ?R11.2 - Nausea with vomiting, unspecified (ICD-10) ?Z98.890 - Other specified postprocedural states (ICD-10) MRSA (methicillin resistant Staphylococcus aureus) ?A49.02 - Methicillin resistant Staphylococcus aureus infection, unspecified site (ICD-10) Anemia ?D64.9 - Anemia, unspecified (ICD-10) Depression ?F32.A - Depression, unspecified (ICD-10) Anxiety ?F41.9 - Anxiety disorder, unspecified (ICD-10) COVID-19 ?U07.1 - COVID-19 (ICD-10) Migraine ?G43.909 - Migraine, unspecified, not intractable, without status migrainosus (ICD-10) Pelvic pain ?R10.2 - Pelvic and perineal pain (ICD-10) Dyspareunia Urinary tract infection ?N39.0 - Urinary tract infection, site not specified (ICD-10) Eczema, dyshidrotic ?L30.1 - Dyshidrosis [pompholyx] (ICD-10) Gastritis ?K29.70 - Gastritis, unspecified, without bleeding (ICD-10) Folliculitis ?L73.9 - Follicular disorder, unspecified (ICD-10) Fatigue ?R53.83 - Other fatigue (ICD-10) Cellulitis ?L03.90 - Cellulitis, unspecified (ICD-10) Bladder instability ?N32.89 - Other specified disorders of bladder (ICD-10) Acne ?L70.9 - Acne, unspecified (ICD-10) PCOS (polycystic ovarian syndrome) ?E28.2 - Polycystic ovarian syndrome (ICD-10) Delayed recovery from anesthesia Crohn disease ?K50.90 - Crohn's disease, unspecified, without complications (ICD-10) Back pain ?M54.9 - Dorsalgia, unspecified (ICD-10) Surgical History (Updated 06/12/24 @ 11:03 by Fidelia Wilson NP) H/O laparoscopy (01/04/24) ?Z98.890 - Other specified postprocedural states (ICD-10) History of spinal surgery ?Z98.890 - Other specified postprocedural states (ICD-10) History of tonsillectomy ?Z90.89 - Acquired absence of other organs (ICD-10) History of esophagogastroduodenoscopy (EGD) ?Z98.890 - Other specified postprocedural states (ICD-10) History of colonoscopy ?Z98.890 - Other specified postprocedural states (ICD-10) Family History (Updated 12/27/23 @ 13:02 by Fidelia Wilson NP) Other Epilepsy Family history of diabetes mellitus Von Willebrand disease Social History (Updated 06/12/24 @ 11:06 by Fidelia Wilson NP) Within the past year, how often did you have a drink containing alcohol: mo nthly or less Smoking status: Never smoker Non-prescribed substance use: denies use Highest level of school completed/degree received: some college, no degree Meds Home Medications and Allergies Allergies Allergy/AdvReac Type Severity Reaction Status Date / Time No Known Drug Allergies Allergy Verified 06/12/24 11:05 Exam Narrative Exam Narrative: Constitutional: Awake, alert, comfortable, well-appearing, nontoxic, interactive, vital signs as charted Head: Normocephalic, atraumatic Neck: Supple, normal appearance, normal range of motion, no meningeal signs, no lymphadenopathy Respiratory: No respiratory distress, breath sounds clear Cardiovascular: Regular rate and rhythm, strong and regular heart tones Abdomen: Nontender, normal bowel sounds, soft, no CVA tenderness Musculoskeletal: Normal gait, no swelling or edema Skin: No rashes or induration, no lesions, only visible skin inspected Neuro: No neurological deficits, normal sensation Psychiatric: Oriented ?3, normal affect Assessment and Plan Assessment and Plan (1) Dyspareunia: (2) Pelvic pain: (3) Menorrhagia: (4) Dysmenorrhea: Plan Robot-assisted laparoscopic hysterectomy, possible BSO, possible cystoscopy, possible exploratory laparotomy scheduled with Dr. Vaughn June 19, 2024.
[2024-06-12 11:34] LABS: Basophils Percent Auto 0.5 % (0.2-2.0); Eosinophils Absolute Auto 0.1 10^3/uL (0.0-0.7); Hematocrit 42.2 % (36.0-48.0); Hemoglobin 13.4 g/dL (12.0-16.0); Immature Granulocytes Abs Auto 0.02 10^3/uL (0.00-0.03); Immature Granulocytes Pct Auto 0.3 % (0.0-0.5); Lymphocytes Absolute Auto 1.8 10^3/uL (1.2-3.8); Lymphocytes Percent Auto 29.8 % (20.5-60.0); Mean Corpuscular HGB Conc 31.8 g/dL (29.9-35.2); Mean Corpuscular Hemoglobin 26.5 pg (26.7-34.0); Mean Corpuscular Volume 83.4 fL (81.0-99.0); Mean Platelet Volume 9.8 fL (9.5-13.5); Monocytes Absolute Auto 0.3 10^3/uL (0.3-0.8); Monocytes Percent Auto 5.5 % (1.7-12.0); Neutrophils Absolute Auto 3.8 10^3/uL (1.4-6.5); Neutrophils Percent Auto 62.9 % (43.0-75.0); Platelet Count 346 10^3/uL (150-450); Red Blood Count 5.06 10^6/uL (4.20-5.40); Red Cell Distribution Width 13.6 % (11.0-15.0)
[2024-06-12 11:45] LABS: INR 0.99; Partial Thromboplastin Time 28.6 sec (22.3-36.2); Prothrombin Time 10.5 sec (9.0-11.6)
[2024-06-12 12:27] LABS: Alanine Aminotransferase 44 U/L (14-59); Albumin Globulin Ratio 0.9; Albumin Level 3.3 g/dL (3.4-5.0); Alkaline Phosphatase 65 U/L (46-116); Anion Gap 12.1; Aspartate Amino Transferase 19 U/L (15-37); BUN Creatinine Ratio 19.3; Bilirubin Direct 0.1 mg/dL (0.0-0.2); Bilirubin Total 0.3 mg/dL (0.2-1.0); Calcium 8.8 mg/dL (8.5-10.1); Carbon Dioxide 25.9 mmol/L (21.0-32.0); Chloride 106 mmol/L (98-107); Estimated GFR (African America >60 (>=60 mL/min/1.73m^2); Estimated GFR (Non-African Ame >60 (>=60 mL/min/1.73m^2); Globulin 3.7 g/dL; Glucose 92 mg/dL (74-106); Sodium 140 mmol/L (136-145)
== END 2024-06-12 10:48 | disposition home or self-care (01) ==
LOC: PST 10:49
PROVIDERS: Visit Provider Obstetrics & Gynecology
DX: Z01.812 Encounter for preprocedural laboratory examination (principal); Z01.818 Encounter for other preprocedural examination; N92.0 Excessive and frequent menstruation with regular cycle; R10.2 Pelvic and perineal pain; N94.6 Dysmenorrhea, unspecified; N94.10 Unspecified dyspareunia
CPT/HCPCS: 80048; 80076; 85025; 85610; 85730; 86850; 86900; 86901; G0463

== ENCOUNTER 2024-06-19 12:20 | Day surgery (SDC) | payer OTHER, SELFPAY ==
[2024-06-12 11:19] VITALS: BP 104/72; PULSE 74; TEMP 36.4; O2SAT 98; BMI 41.4
[2024-06-19] VITALS (14 sets, daily range): BP systolic 122–163; BP diastolic 79–106; PULSE 68–99; TEMP 36.3–36.8; O2SAT 93–100; BMI 42.2
[2024-06-19 12:48] LABS: Basophils Percent Auto 0.5 % (0.2-2.0); Eosinophils Absolute Auto 0.1 10^3/uL (0.0-0.7); Eosinophils Percent Auto 1.1 % (0.9-7.0); Hematocrit 45.5 % (36.0-48.0); Hemoglobin 13.9 g/dL (12.0-16.0); Immature Granulocytes Abs Auto 0.01 10^3/uL (0.00-0.03); Immature Granulocytes Pct Auto 0.2 % (0.0-0.5); Lymphocytes Absolute Auto 2.3 10^3/uL (1.2-3.8); Lymphocytes Percent Auto 34.6 % (20.5-60.0); Mean Corpuscular HGB Conc 30.5 g/dL (29.9-35.2); Mean Corpuscular Volume 85.2 fL (81.0-99.0); Mean Platelet Volume 9.6 fL (9.5-13.5); Monocytes Absolute Auto 0.4 10^3/uL (0.3-0.8); Monocytes Percent Auto 6.1 % (1.7-12.0); Neutrophils Absolute Auto 3.8 10^3/uL (1.4-6.5); Neutrophils Percent Auto 57.5 % (43.0-75.0); Platelet Count 343 10^3/uL (150-450); Red Blood Count 5.34 10^6/uL (4.20-5.40); Red Cell Distribution Width 13.3 % (11.0-15.0); White Blood Count 6.5 10^3/uL (4.0-11.0)
[2024-06-19] MEDS: LACTATED RINGER'S SOLUTION 1,000 ML 50 ML IV ×2 (13:09→14:54)
[2024-06-19] MEDS: SCOPOLAMINE 1 MG/3 DAYS TRANSDERM PATCH 1 PATCH TD (13:13)
[2024-06-19] MEDS: FAMOTIDINE/PF 20 MG/2 ML VIAL IV (13:13)
[2024-06-19 13:18] LABS: HCG Quantitative <1 mIU/mL
[2024-06-19] MEDS: CEFAZOLIN SODIUM 2 GM/50 ML D5W PREMIX IV (13:26)
--- NOTE | 2024-06-19 15:31 | P.ON_ITS ---
Brief Operative Note Date of procedure: 06/19/24 Pre-op diagnosis general: dyspareunia, menorrhagia, pelvic pain, dysmenorrhea Post-op diagnosis: same as pre-op Procedure: NAME OF PROCEDURE: ? Robotic assisted laparoscopic hysterectomy with cystoscopy, bilateral salpingectomy PROCEDURE:? The patient was taken back to the operating room, where she was prepped and draped in the normal sterile fashion after being placed in the dorsal lithotomy position.? Patient?s anesthesia was found to be adequate.? Surgical timeout was performed using two patient identifiers.? SCDs were on and in place.? Two grams of Ancef were given prior to the surgery.? Sterile Rosales catheter was inserted.? Standard size VCare was secured to the uterine cervix and the surgeon changed gloves.? Attention then was turned to the patient's abdomen, where a supraumbilical incision was then made.? Two S retractors were used to identify the patient?s fascia.? The fascia was then tented up using Libby clamps and the patient?s fascia was incised sharply.? Patient?s abdomen was identified and entered bluntly.? The patient had the trocar placed and a pneumoperitoneum was obtained.? Approximately 4 liters of CO2 gas was used.? The camera was then placed through the trocar.? At this time, two robot trocars were placed in the patient?s left and right side, two hand widths from the midline, and this was placed under direct visualization.? The patient?s tube on the right side was tented up and the vessel sealer was then used to come across the mesosalpinx, and this was carried down to the uterine ovarian ligament.? The vessel sealer was carried down serially to the broad ligament, to the area of the bladder flap, which was then created anteriorly, and the uterine arteries were skeletonized and sealed using the vessel sealer.? The colpotomy was made using the monopolar cautery on cut, and this was carried circumferentially, posteriorly to anteriorly, until the uterus was amputated.? The specimen was then removed intact through the vagina, without difficulty.? The vagina was then closed using two running V-Loc in a non-lock fashion.? The robot was undocked.? The abdomen was desufflated.? The skin defects were closed using 4-0 Vicryl.? Please note, the fascia was closed using 0 Vicryl.? Sponge, lap and needle counts were correct x2.? Patient was taken to recovery room in stable condition.? The patient was awakened by Anesthesia first.? Patient tolerated procedure well.??Please note left ovarian cystectomy was performed using the vessel sealer Surgeon: Benny Vaughn Director Workers Compensation: Cherry Jacobson Estimated blood loss (mL): 100 Pathology: other (cervix and uterus, tubes) Condition: stable Disposition: PACU Urinary Catheter Management Urinary Catheter Management Urethral: Cath placed during this visit: no
[2024-06-19] MEDS: ONDANSETRON PF 4 MG/2 ML VIAL IV (17:34)
[2024-06-19] MEDS: SIMETHICONE 80 MG TAB.CHEW PO (18:13)
[2024-06-19] MEDS: DOCUSATE SODIUM 100 MG CAPSULE PO (18:13)
[2024-06-19] MEDS: CEFAZOLIN SODIUM/DEXTROSE,ISO 2 GM/50 ML PIGGYBACK IV (20:06)
[2024-06-19] MEDS: OXYCODONE HCL/ACETAMINOPHEN 5MG/325MG 1 TAB PO (21:49)
[2024-06-19 21:59] LABS: Basophils Percent Auto 0.2 % (0.2-2.0); Hematocrit 41.5 % (36.0-48.0); Hemoglobin 13.2 g/dL (12.0-16.0); Immature Granulocytes Abs Auto 0.03 10^3/uL (0.00-0.03); Immature Granulocytes Pct Auto 0.3 % (0.0-0.5); Lymphocytes Absolute Auto 0.8 10^3/uL (1.2-3.8); Lymphocytes Percent Auto 6.9 % (20.5-60.0); Mean Corpuscular HGB Conc 31.8 g/dL (29.9-35.2); Mean Corpuscular Hemoglobin 26.7 pg (26.7-34.0); Mean Corpuscular Volume 83.8 fL (81.0-99.0); Mean Platelet Volume 9.6 fL (9.5-13.5); Monocytes Absolute Auto 0.1 10^3/uL (0.3-0.8); Monocytes Percent Auto 0.5 % (1.7-12.0); Neutrophils Absolute Auto 10.7 10^3/uL (1.4-6.5); Neutrophils Percent Auto 92.1 % (43.0-75.0); Platelet Count 327 10^3/uL (150-450); Red Blood Count 4.95 10^6/uL (4.20-5.40); Red Cell Distribution Width 13.2 % (11.0-15.0); White Blood Count 11.6 10^3/uL (4.0-11.0)
== END 2024-06-19 22:15 | disposition home or self-care (01) ==
LOC: SURGOUT 15:37 → MS 16:54
PROVIDERS: Visit Provider Obstetrics & Gynecology
PROC: (CPT 00840; principal; 2024-06-19 13:30)
DX: N92.0 Excessive and frequent menstruation with regular cycle (principal); N94.10 Unspecified dyspareunia; R10.2 Pelvic and perineal pain; N94.6 Dysmenorrhea, unspecified; E66.01 Morbid (severe) obesity due to excess calories; Z68.41 Body mass index [BMI] 40.0-44.9, adult; K50.90 Crohn's disease, unspecified, without complications
CPT/HCPCS: 00840; 58571; 36415; 84702; 85025; 94667; J0131; J0690; J1100; J1171; J2250; J2405; J2704; J3010; J3490

== ENCOUNTER 2024-06-24 18:59 | Emergency (ER) | payer SELFPAY ==
[2024-06-24 19:11] VITALS: BP 133/82; PULSE 110; TEMP 37.1; O2SAT 99; BMI 41.3
== END 2024-06-24 20:30 | disposition left against medical advice (07) ==
PROVIDERS: Emergency Provider Emergency Medicine
DX: Z53.21 Procedure and treatment not carried out due to patient leaving prior to being seen by health care provider (principal); J34.89 Other specified disorders of nose and nasal sinuses
CPT/HCPCS: 99281